=== PATIENT | female | born 1985 | race Caucasian/White ===

== ENCOUNTER 2017-01-30 15:02 | Emergency (ER) | payer OTHER, SELFPAY | END 2017-01-30 17:35 | disposition home or self-care (01) | PROVIDERS: Emergency Provider Emergency Medicine; Family Provider Family Medicine; Visit Provider Emergency Medicine | DX: R10.9 Unspecified abdominal pain (principal); R31.9 Hematuria, unspecified; Z87.442 Personal history of urinary calculi | CPT/HCPCS: 80053; 81001; 85025; 87086; 96365; 96367; 96375; 99284; J1956; J2405 ==

== ENCOUNTER 2017-11-07 11:04 | Observation (INO) ==
[2017-11-07 11:31] LABS: Basophils % 0.4 % (0.1-2.0); Eosinophils # 0.1 K/mm3 (0.0-0.4); Eosinophils % 0.8 % (0.1-12.0); Hematocrit 44.1 % (37.0-47.0); Hemoglobin 14.9 g/dL (12.2-16.2); Lymphocytes % 25.8 K/mm3 (10-50); Mean Corpuscular HGB Conc 33.8 g/dL (31.8-35.4); Mean Corpuscular Volume 85.7 fl (81-99); Mean Platelet Volume 6.6 fl (7.4-10.4); Monocytes # 0.3 K/mm3 (0.1-1.0); Monocytes % 4.5 % (1.7-9.3); Neutrophils # 5.2 K/mm3 (1.8-7.8); Neutrophils % 68.5 % (37.0-80.0); Platelet Count 248 K/mm3 (142-424); Red Blood Count 5.15 M/mm3 (4.20-5.40); Red Cell Distribution Width 12.3 % (11.5-17.5); White Blood Count 7.6 K/mm3 (4.8-10.8)
[2017-11-07 11:43] LABS: Albumin Level 3.8 gm/dL (3.4-5.0); Anion Gap 11.9 mEq/L (5-15); Bilirubin,Total 0.9 mg/dL (0.2-1.0); Calcium 8.8 mg/dL (8.5-10.1); Globulin 3.9 gm/dl (1.3-3.2); Potassium 3.9 mmoL/L (3.5-5.1); Total Protein,Serum 7.7 gm/dL (6.4-8.2)
[2017-11-07 11:52] LABS: Microscopic, Urine URINE MICROSCOPIC (MICROSCOPIC)
[2017-11-07 11:55] LABS: Appearance,Urine CLEAR (Clear); Bilirubin,Urine Negative (Negative); Blood, Urine 2+ (Negative); Color,Urine DK YELLOW (Yellow); Glucose,Urine (UA) Negative (Negative); Ketones,Urine Negative (Negative); Leukocyte Esterase,Urine 1+ (Negative); Protein,Urine Negative (Negative); Urobilinogen,Urine 0.2 EU/dl (0.2)
[2017-11-07 12:06] LABS: WBC,Urine 20-50 #/hpf (0-3)
[2017-11-07 12:07] LABS: Bacteria,Urine Trace /lpf; RBC,Urine Occasional #/hpf (0-3)
[2017-11-07 12:29] LABS: Amylase 37 U/L (25-125); Lipase 124 u/L (73-393)
--- NOTE | 2017-11-07 13:39 | Emergency Department Note ---
ED Disposition Clinical Impression: UTI (urinary tract infection) Qualifiers: Urinary tract infection type: site unspecified Hematuria presence: with hematuria Qualified Code(s): N39.0 - Urinary tract infection, site not specified; R31.9 - Hematuria, unspecified Disposition: Admitted as Observation Condition on Discharge: Good Instructions: DI for Acute Abdomen - Critical Care Critical Care Time: No Attestation: On 11/07/17, the high probability of a clinically significant, sudden or life threatening deterioration of the following system(s) required my full and direct attention, intervention and personal management. The time I documented below is in addition to time spent performing reported procedures but includes the following listed in this critical care notation. Medical Decision Making - Medical Records Medical records reviewed: Yes: I reviewed the patient's medical records. - Royce Inquiry Pt receiving controlled substance: No Vital Signs: 11/07/17 11:11 11/07/17 13:03 Temperature 98.0 F Temperature Source Oral Pulse Rate [Left Radial] 124 H 106 H Respiratory Rate 20 20 Blood Pressure [Right Arm] 152/90 134/77 Blood Pressure Mean [Right Arm] 110 96 Blood Pressure Source [Right Arm] Automatic Cuff Automatic Cuff Blood Pressure Position [Right Arm] Sitting Sitting 02 Sat by Pulse Oximetry 96 97 - Lab Data Lab results reviewed: Yes: I reviewed the patient's lab results. Lab Results 11/07/17 11:20: WBC 7.6, RBC 5.15, Hgb 14.9, Hct 44.1, MCV 85.7, MCH 29.0, MCHC 33.8, RDW 12.3, Plt Count 248, MPV 6.6 L, Neut % (Auto) 68.5, Lymph % (Auto) 25.8, [place] % (Auto) 4.5, Eos % (Auto) 0.8, Baso % (Auto) 0.4, Neut # (Auto) 5.2, Lymph # (Auto) 2.0, [place] # (Auto) 0.3, Eos # (Auto) 0.1, Baso # (Auto) 0.0 11/07/17 11:20: Sodium 141, Potassium 3.9, Chloride 105, Carbon Dioxide 28, Anion Gap 11.9, BUN 6 L, Creatinine 0.92, Estimated Creat Clear 136, Estimated GFR 70, Est GFR ( Amer) 85, Glucose 161 H, Calcium 8.8, Total Bilirubin 0.9, AST 277 H, ALT 202 H, Alkaline Phosphatase 95, Total Protein 7.7, Albumin 3.8, Globulin 3.9 H, Albumin/Globulin Ratio 1.0 L 11/07/17 11:20: Lactate 1.9 11/07/17 11:20: Amylase 37, Lipase 124 11/07/17 11:48: Urine Color Dk yellow, Urine Appearance Clear, Urine pH 6.0, Ur Specific [place] 1.010, Urine Protein Negative, Urine Glucose (UA) Negative, Urine Ketones Negative, Urine Blood 2+, Urine Nitrate Positive, Urine Bilirubin Negative, Urine Urobilinogen 0.2, Ur Leukocyte Esterase 1+ A, Urine RBC Occasional, Urine WBC 20-50, Ur Squamous Epith Cells 10-20, Urine Bacteria Trace Result diagrams: 11/07/17 11:20 11/07/17 11:20 Orders (Tests/Meds): ED MEDICATIONS Discontinued Medications Generic Name Dose Route Start Last Admin Trade Name Freq PRN Reason Stop Dose Admin Sodium Chloride 1,000 mls @ 999 mls/hr 11/07/17 11:30 11/07/17 11:24 Sod Chlor 0.9% 1000ml Bag IV 11/07/17 12:30 999 mls/hr .Q1H1M IRMA Administration Ketorolac Tromethamine 30 mg 11/07/17 11:18 11/07/17 11:24 Toradol 30mg/Ml Vial IV 11/07/17 11:19 30 mg ONCE ONE Administration Morphine Sulfate 2 mg 11/07/17 12:49 11/07/17 13:00 Morphine 2mg/Ml Syringe IV 11/07/17 12:50 2 mg ONCE ONE Administration Ondansetron HCl 4 mg 11/07/17 11:18 11/07/17 11:24 Zofran 4mg/2ml Vial IV 11/07/17 11:19 4 mg ONCE ONE Administration ORDERS Category Date Time Status CT abdomen pelvis wo con Stat Cat Scan 11/07/17 11:18 Taken Urinalysis and Microscopic Stat Lab 11/07/17 11:48 Ordered Blood Culture Stat Micro 11/07/17 11:20 Received Urine Culture Stat Micro 11/07/17 11:48 Received - CT Data CT Scan: Abdomen, Pelvis Time Received: 13:[address] Reviewed: Yes: I have viewed the radiologist's interpretation Preliminary Findings: Normal/NAD Female Urogenital HPI - General Chief complaint: Abdominal Pain Stated complaint: Possible UTI Time Seen by Provider: 11/07/17 13:30 Mode of Arrival: Ambulatory Source of Information: Patient, Medical Record Limitations: No Limitations Description of Symptoms (Recalled from ER Triage Doc. by RN): Pt was seen at [facility] ER and was told she had a UTI, they wanted to admit her but she refused admission since she lived 2 hour away, she was to fu with her PCP this morning who sent her over for further evaluation and possible admission. States she is having abdomen pain and is unable to urinate alot today - History of Present Illness HPI Narrative: pt with recent cystoscopy this and thursday had gross hematuria and was seen at [facility] and placed on abx but has continued to have pain and chills - MD Complaint: dysuria, "UTI" Onset (ago): day(s) Location: suprapubic Severity: moderate Urinary Symptoms: dysuria, hematuria : no Associated symptoms: denies other symptoms - Related Data Home Medications Medication Instructions Recorded Confirmed Escitalopram Oxalate [Lexapro] 10 mg PO DAILY 11/07/17 11/07/17 Allergies Allergy/AdvReac Type Severity Reaction Status Date / Time acetaminophen [From [facility]CO] Allergy Mild Verified 11/07/17 11:24 hydrocodone [From [facility]CO] Allergy Mild Verified 11/07/17 11:24 [facility] History I have reviewed the patient's past medical history: Yes Medical History: Reports:: Kidney Stones, Urinary Tract Infection Other Surgeries: Yes: Appendectomy, Cholecystectomy, Hysterectomy-Total, Tubal Ligation Amputation: No Fractures: No - Social History Smoking Status: Never smoker Alcohol Intake: current Alcohol Intake Frequency:: holidays/special occasions only - Psychiatric History Expresses thoughts of harming self/others: None Suicide Plan Description: No Plan ROS Obtained: Yes All systems reviewed & no additional complaints - Constitutional Constitutional: Reports chills - Eyes Eyes: Denies change in vision - ENT Ears, Nose, Mouth, and Throat: Denies sore throat - Cardiovascular Cardiovascular: Denies chest pain at rest - Respiratory Respiratory: No cough - Gastrointestinal Gastrointestingal: Denies: abdominal pain - Genitourinary Male Genitourinary: Reports urinary incontinence Female Genitourinary: Reports flank pain, Reports hematuria, Reports urinary frequency, Reports urinary urgency - Musculoskeletal Musculoskeletal: Denies joint pain - Integumentary/Breasts Skin/Breast: Denies rash - Neurologic Neurologic: Denies seizure-like activity Physical Exam - General General appearance: alert - Head Head exam: normocephalic - Eye Eye exam: Present: PERRL, EOMI - ENT ENT exam: Present: mucous membranes moist - Neck Neck exam: Present: trachea midline - Respiratory Respiratory exam: Absent: respiratory distress - Cardiovascular Cardiovascular exam: Present: regular rate - Abdominal Exam Abdominal exam: Present: soft - Extremities Exam Extremities exam: Present: full ROM - Back Exam Back exam: Absent: CVA tenderness (R) - Neurological Exam Neurological exam: Present: alert, oriented X3, CN II-XII intact - Psychiatric Psychiatric exam: Present: normal affect - Skin Skin exam: Absent: rash
[2017-11-08 07:09] LABS: Basophils % 0.5 % (0.1-2.0); Eosinophils # 0.1 K/mm3 (0.0-0.4); Eosinophils % 2.5 % (0.1-12.0); Hematocrit 36.5 % (37.0-47.0); Lymphocytes # 1.7 K/mm3 (0.7-4.5); Lymphocytes % 30.8 K/mm3 (10-50); Mean Corpuscular HGB Conc 33.4 g/dL (31.8-35.4); Mean Corpuscular Hemoglobin 28.9 pg (27.0-31.2); Mean Corpuscular Volume 86.6 fl (81-99); Mean Platelet Volume 6.7 fl (7.4-10.4); Monocytes # 0.4 K/mm3 (0.1-1.0); Monocytes % 6.8 % (1.7-9.3); Neutrophils # 3.2 K/mm3 (1.8-7.8); Neutrophils % 59.3 % (37.0-80.0); Platelet Count 202 K/mm3 (142-424); Red Blood Count 4.21 M/mm3 (4.20-5.40); Red Cell Distribution Width 12.4 % (11.5-17.5); White Blood Count 5.4 K/mm3 (4.8-10.8)
[2017-11-08 07:12] LABS: Hemoglobin 12.2 g/dL (12.2-16.2)
[2017-11-08 07:26] LABS: Anion Gap 7.8 mEq/L (5-15); Calcium 7.9 mg/dL (8.5-10.1); Potassium 3.8 mmoL/L (3.5-5.1)
[2017-11-08 15:08] LABS: Hepatitis B Core Antibody IgM Negative (Negative); Hepatitis B Surface Antigen Negative (Negative)
[2017-11-08 18:34] LABS: Hepatitis C Antibody <0.1 s/co ratio (0.0-0.9)
== END 2017-11-08 12:30 | disposition home or self-care (01) ==
LOC: 2ND 11:04 → ER 11:04 → 2ND 14:15
PROVIDERS: ADMIT Emergency Medicine; ATTEND Family Medicine

== ENCOUNTER → 2017-12-03 09:52 | Outpatient (CLI) | payer OTHER, SELFPAY ==
--- NOTE | 2017-12-03 09:56 | FL_ITS ---
FL voiding cystourethrogram CLINICAL INDICATION: Recurrent urinary tract infections, right flank pain ITS.REASON: right flank pain with voiding ORDERING PHYSICIAN: Gaston Cardoza MD PATIENT AGE: 32 years Comparison: None Fluoroscopy time: 1 minute and 15 seconds FINDINGS: Guest Services Associate exam is unremarkable. 175 mL's of Isovue 200 was instilled into the urinary bladder via Thompson catheter. Initial bladder images are unremarkable. Voiding images are obtained showing no evidence of vesicoureteral reflux. There are however, small bilateral bladder diverticula noted with voiding along the lateral aspect of the urinary bladder. There was complete emptying of the urinary bladder with no postvoid residual apparent. IMPRESSION: 1. No evidence of vesicoureteral reflux. 2. Small bilateral bladder diverticula noted with voiding
== END ==
PROVIDERS: Family Provider Family Medicine; PCP Family Medicine; Visit Provider Urology
DX: R10.9 Unspecified abdominal pain (principal); N39.0 Urinary tract infection, site not specified
CPT/HCPCS: 74455; Q9966

== ENCOUNTER → 2018-07-02 12:45 | Outpatient (CLI) | payer OTHER, SELFPAY ==
--- NOTE | 2018-07-02 12:51 | CT_ITS ---
CT facial bones w con CLINICAL INDICATION: ITS.REASON: CELLULITUS OF FACE, LYMPHADENITIS right-sided facial swelling ORDERING PHYSICIAN: Wolfgang Cunningham MD PATIENT AGE: 32 years COMPARISON: None TECHNIQUE:Axial images obtained following the intravenous administration of 75 mL's Optiray 350 with sagittal and coronal reformats. All CT scans at the facility use one or more dose reduction, viz: automated exposure control, ma/kV adjustment per patient size (including targeted exams where dose is matched to indication, i.e. head), or iterative reconstruction technique. FINDINGS: No enlarged lymph nodes abscess or abnormal fluid collection is evident. There are few scattered small nodes in the neck on both sides. The thyroid gland, parotid and submandibular glands are unremarkable. No enhancing lesions are evident. Lung apices are clear. No evidence of sialolith IMPRESSION: Negative CT of the face
--- NOTE | 2018-07-02 12:51 | CT_ITS ---
CT soft tissue neck w con CLINICAL INDICATION: ITS.REASON: CELLULITUS OF FACE, LYMPHADENITIS ORDERING PHYSICIAN: Wolfgang Cunningham MD PATIENT AGE: 32 years COMPARISON: None TECHNIQUE:Axial images obtained following the intravenous administration of 75 mL's of Optiray 350 with sagittal and coronal reformats. All CT scans at the facility use one or more dose reduction, viz: automated exposure control, ma/kV adjustment per patient size (including targeted exams where dose is matched to indication, i.e. head), or iterative reconstruction technique. FINDINGS: No adenopathy mass abnormal fluid collection or abscess. Unremarkable thyroid gland. There are scattered small nodes in the neck no dominant adenopathy. The nasopharynx and oropharynx are unremarkable. The laryngeal region has an unremarkable appearance. The parotid and submandibular glands are unremarkable. Small nodes are present in the neck. No sinus air-fluid level or mastoid effusion. The globes have an unremarkable appearance. IMPRESSION: Essentially negative CT of the neck
== END ==
LOC: RAD 12:46
PROVIDERS: PCP Family Medicine; Visit Provider Family Medicine
DX: L03.211 Cellulitis of face (principal); L04.9 Acute lymphadenitis, unspecified; H57.89 Other specified disorders of eye and adnexa
CPT/HCPCS: 70487; 70491; Q9967

== ENCOUNTER 2019-07-14 18:32 | Emergency (ER) | payer BC, SELFPAY ==
--- NOTE | 2019-07-14 19:05 | HMH.EDUTC ---
[facility] [place] Condition [place]: Good <Severo Hess - Last Filed: 07/14/19 20:50> <Harvey Barone - Last Filed: 07/14/19 21:14> Clinical Impression: Flank pain, acute UTI (urinary tract infection) Qualifiers: Urinary tract infection type: site unspecified Hematuria presence: without hematuria Qualified Code(s): N39.0 - Urinary tract infection, site not specified Disposition: Home, Self-Care Instructions: DI for Acute Abdomen Additional Instructions: call pcp for follow up and urine culture results Prescriptions: levoFLOXacin [Levaquin 500mg tab] 500 mg PO DAILY #7 tab Transmission Status: Received by [facility] #[id number] Referrals: Wolfgang Cunningham MD [Primary Care Provider] - Medical Decision Making - Medical Records Medical records reviewed: Yes: I reviewed the patient's medical records. - Royce Inquiry Pt receiving controlled substance: No - Lab Data Lab results reviewed: Yes: I reviewed the patient's lab results. Result diagrams: 07/14/19 18:25 07/14/19 18:25 - CT Data CT Scan: Abdomen, Pelvis Time Received: 20:[address] Reviewed: Yes: I have viewed the radiologist's interpretation Preliminary Findings: Abnormal (lt cyst ) <Severo Hess - Last Filed: 07/14/19 20:50> - Medical Records Medical records reviewed: Yes: I reviewed the patient's medical records. - Royce Inquiry Pt receiving controlled substance: No - Lab Data Lab results reviewed: Yes: I reviewed the patient's lab results. Result diagrams: 07/14/19 18:25 07/14/19 18:25 <Harvey Barone - Last Filed: 07/14/19 21:14> Vital Signs: 07/14/19 19:17 07/14/19 19:38 07/14/19 20:18 Temperature 98.0 F 98.4 F Temperature Source Oral Oral Pulse Rate Pulse Rate [Right Brachial] 105 H 99 H 95 H Respiratory Rate 20 16 16 Blood Pressure Blood Pressure [Right Arm] 145/88 H 157/88 H 136/86 Blood Pressure Mean [Right Arm] 107 111 102 Blood Pressure Source Blood Pressure Source [Right Arm] Automatic Cuff Automatic Cuff Blood Pressure Position Blood Pressure Position [Right Arm] Sitting Supine 02 Sat by Pulse Oximetry 99 99 99 Oxygen Delivery Method Room Air Room Air Room Air 07/14/19 20:32 07/14/19 21:08 Temperature 98.8 F Temperature Source Oral Pulse Rate 91 H Pulse Rate [Right Brachial] 93 H Respiratory Rate 14 16 Blood Pressure 141/82 H Blood Pressure [Right Arm] 137/88 Blood Pressure Mean [Right Arm] 104 Blood Pressure Source Automatic Cuff Blood Pressure Source [Right Arm] Automatic Cuff Blood Pressure Position Sitting Blood Pressure Position [Right Arm] Sitting 02 Sat by Pulse Oximetry 99 Oxygen Delivery Method Room Air Room Air - Lab Data Lab Results 07/14/19 18:25: WBC 13.6 H, RBC 5.04, Hgb 15.1, Hct 42.4, MCV 84.1, MCH 30.0, MCHC 35.6 H, RDW 12.6, Plt Count 261, MPV 7.5, Neut % (Auto) 70.9, Lymph % (Auto) 23.3, [place] % (Auto) 4.1, Eos % (Auto) 0.4, Baso % (Auto) 1.3, Neut # (Auto) 9.6 H, Lymph # (Auto) 3.2, [place] # (Auto) 0.6, Eos # (Auto) 0.1, Baso # (Auto) 0.2, ESR 12 07/14/19 18:25: Sodium 139, Potassium 3.8, Chloride 100, Carbon Dioxide 29, Anion Gap 13.8, BUN 17, Creatinine 0.80, Estimated Creat Clear 155, Estimated GFR 82, Est GFR ( Amer) 99, Glucose 89, Calcium 9.7, Total Bilirubin 0.7, AST 24, ALT 26, Alkaline Phosphatase 81, C-Reactive Protein 6.6 H, Total Protein 8.4 H, Albumin 4.8, Globulin 3.6 H, Albumin/Globulin Ratio 1.3, Amylase 77, Lipase 100 07/14/19 19:00: Urine Color Yellow, Urine Appearance Clear, Urine pH 6.0, Ur Specific [place] <= 1.005, Urine Protein Negative, Urine Glucose (UA) Negative, Urine Ketones Negative, Urine Blood 1+, Urine Nitrate Negative, Urine Bilirubin Negative, Urine Urobilinogen 0.2, Ur Leukocyte Esterase 1+ A, Urine RBC Occasional, Urine WBC 5-10, Ur Squamous Epith Cells Occasional, Ur Renal Epithelial Cell 3-5, Urine Bacteria Trace 07/14/19 19:22: Urine Color Yellow, Urine Appearance Clear, Urine pH 6.5, Ur Specific [place]
[2019-07-14 19:17] VITALS: BP 145/88; PULSE 105; RESP 20; TEMP 36.7; O2SAT 99; BMI 37.8
--- NOTE | 2019-07-14 19:23 | PC.NURSE ---
PATIENT SENT TO ER PER RAMON CARBALLO APRN FOR FURTHER EVALUATION FOR POSSIBLE KIDNEY STONE
[2019-07-14 19:29] LABS: Apearance,Urine Clear (Clear); Bilirubin,Urine Negative (Negative); Blood, Urine 1+ (Negative); Color,Urine Yellow (Yellow); Glucose,Urine (UA) Negative (Negative); Ketones,Urine Negative (Negative); PH,Urine 6.5 (5.0-8.5); Protein,Urine Negative (Negative); UTC Leukocyte Esterase,Urine 1+ (Negative); UTC Nitrate,Urine Negative (Negative); Urobilinogen,Urine 0.2 EU/dl (0.2)
[2019-07-14 19:38] VITALS: BP 157/88; PULSE 99; RESP 16; TEMP 36.9; O2SAT 99; BMI 37.8
[2019-07-14 19:47] LABS: Chloride 100 mmol/L (98-107)
[2019-07-14 19:48] LABS: Basophils # 0.2 K/mm3 (0-0.2); Basophils % 1.3 % (0.1-2.0); Eosinophils # 0.1 K/mm3 (0.0-0.4); Eosinophils % 0.4 % (0.1-12.0); Hematocrit 42.4 % (37.0-47.0); Hemoglobin 15.1 g/dL (12.2-16.2); Lymphocytes # 3.2 K/mm3 (0.7-4.5); Lymphocytes % 23.3 % (10-50); Mean Corpuscular HGB Conc 35.6 g/dL (31.8-35.4); Mean Corpuscular Volume 84.1 fl (81-99); Mean Platelet Volume 7.5 fl (7.4-10.4); Monocytes # 0.6 K/mm3 (0.1-1.0); Monocytes % 4.1 % (1.7-9.3); Neutrophils # 9.6 K/mm3 (1.8-7.8); Neutrophils % 70.9 % (37.0-80.0); Platelet Count 261 K/mm3 (142-424); Potassium 3.8 mmoL/L (3.5-5.1); Red Blood Count 5.04 M/mm3 (4.20-5.40); Red Cell Distribution Width 12.6 % (11.5-17.5); Sodium 139 mmol/L (136-145); White Blood Count 13.6 K/mm3 (4.8-10.8)
[2019-07-14 19:50] LABS: Alanine Aminotransferase 26 U/L (12-78); Alkaline Phosphatase 81 U/L (38-126); Amylase 77 U/L (30-110); Anion Gap 13.8 mEq/L (5-15); Aspartate Amino Transferase 24 U/L (14-36); Bilirubin,Total 0.7 mg/dl (0.2-1.3); Blood Urea Nitrogen 17 mg/dl (7-17); Calcium 9.7 mg/dl (8.4-10.2); Carbon Dioxide 29 mmol/L (22.0-30.0); Creatinine Clearance Estimated 155 mL/min (50-200); Estimated Glomerular Filt Rate 82 ml/min (>60); GFR (African American) 99 ML/MIN (>60); Glucose 89 mg/dl (74-100)
[2019-07-14 19:51] LABS: Albumin Level 4.8 g/dl (3.5-5.0); Albumin/Globulin Ratio 1.3 (1.1-1.8); Globulin 3.6 g/dL (1.3-3.2); Lipase 100 U/L (23-300); Total Protein,Serum 8.4 g/dl (6.3-8.2)
--- NOTE | 2019-07-14 19:54 | CT_ITS ---
PROCEDURE: CT ABDOMEN PELVIS WO CON CLINICAL INDICATION: right flank pain Right flank pain Right-sided abdominal pain, mid abdominal pain COMPARISON: ABDPELWO CT abdomen pelvis wo con from 11/07/2017 TECHNIQUE: Axial images obtained with sagittal and coronal reformats. All CT scans at the facility use one or more dose reduction, viz: automated exposure control, ma/kV adjustment per patient size (including targeted exams where dose is matched to indication, i.e. head), or iterative reconstruction technique. FINDINGS: LOWER THORAX: There is a stable 8 mm nodule in the right lower lobe medially. ABDOMEN & PELVIS: The liver, spleen, adrenal glands, the and pancreas have an unremarkable unenhanced appearance. No renal or ureteral calculi. No intestinal obstruction or free air. No evidence of appendicitis or diverticulitis. There are post hysterectomy changes. There is a 2.6 cm left ovarian cyst. No acute bony anomaly. IMPRESSION: 1. No acute abdominal or pelvic findings. 2. 2.6 cm left ovarian cyst 3. Stable 8 mm right lower lobe nodule Dictated by: Dominic Corcoran MD 07/15/2019 06:26 Electronically signed by Dominic Corcoran MD in [place] 07/15/2019 06:26
[2019-07-14 19:57] LABS: C-Reactive Protein 6.6 mg/L (0-4)
[2019-07-14 20:15] LABS: Erythrocyte Sedimentation Rate 12 mm/hr (0-20)
[2019-07-14 20:18] VITALS: BP 136/86; PULSE 95; RESP 16; O2SAT 99
[2019-07-14 20:32] VITALS: BP 137/88; PULSE 93; RESP 14; O2SAT 99
[2019-07-14 20:51] LABS: Appearance,Urine CLEAR (Clear); Bilirubin,Urine Negative (Negative); Blood, Urine 1+ (Negative); Color,Urine YELLOW (Yellow); Glucose,Urine (UA) Negative (Negative); Ketones,Urine Negative (Negative); Leukocyte Esterase,Urine 1+ (Negative); Microscopic, Urine URINE MICROSCOPIC (MICROSCOPIC); Nitrate,Urine Negative (Negative); Protein,Urine Negative (Negative); Specific Gravity, Urine <= 1.005 (1.005-1.030); Urobilinogen,Urine 0.2 EU/dl (0.2)
[2019-07-14 21:02] LABS: Bacteria,Urine Trace /lpf; RBC,Urine Occasional #/hpf (0-3); Squamous Epithelial Cell,Urine Occasional #/hpf (0-5)
[2019-07-14 21:08] VITALS: BP 141/82; PULSE 91; RESP 16; TEMP 37.1; O2SAT 99
== END 2019-07-14 21:09 | disposition home or self-care (01) ==
LOC: UTC 18:37 → ER 19:28
PROVIDERS: Emergency Medicine; Nurse Practitioner Family; Emergency Provider Family Medicine; PCP Family Medicine
DX: N30.00 Acute cystitis without hematuria (principal)
CPT/HCPCS: 74176; 80053; 81001; 81003; 82150; 83690; 85025; 85651; 86140; 87086; 87088; 87186; 96365; 96375; 99284; J2405

== ENCOUNTER → 2019-10-03 11:36 | Outpatient (CLI) | payer BC, SELFPAY | PROVIDERS: PCP Family Medicine; Visit Provider Family Medicine | DX: Z03.818 Encounter for observation for suspected exposure to other biological agents ruled out (principal) | CPT/HCPCS: U0003 ==

== ENCOUNTER → 2019-12-12 08:57 | Outpatient (CLI) | payer BC, SELFPAY | PROVIDERS: PCP Family Medicine; Visit Provider Family Medicine | DX: I49.9 Cardiac arrhythmia, unspecified (principal); G45.9 Transient cerebral ischemic attack, unspecified; I10 Essential (primary) hypertension | CPT/HCPCS: 93270 ==

== ENCOUNTER → 2019-12-20 13:32 | Outpatient (CLI) | payer BC, SELFPAY ==
--- NOTE | 2019-12-20 13:37 | CA_ITS ---
APPROVED REPORT EXAM: Comprehensive 2D, Doppler, and color-flow Echocardiogram Scientific Software Engineer: Shabnam Mcbride RVT Ht: 5 ft 5 in Wt: 234lbs BSA: 2.11 BP: 140/80 mmHg Indications: TIA,CARDIAC ARRHYTHMIA 2D Dimensions LVOT 2.12 cm (M/F) 1.5-2.5 M-Mode Dimensions RVDd 2.45 cm (0.9-2.6) LA Diam 3.87 cm (1.9-4.0) LVDd 5.12 cm (3.5-5.7) Ao Diam 2.62 cm (2.0-3.7) LVDs 3.44 cm (3.5-5.7) IVSd 0.61 cm (0.6-1.1) PWd 0.59 cm (0.6-1.1) EF (Teich) 60.90% FS 32.80% EDV (Teich) 124.90 mL ESV (Teich) 48.80 mL LV Diastology E Decel Time 150.00 (160-240 msec) E/A Ratio 1.3 MED E' 10.00 (< 7 cm/sec) E'/MED E' Ratio 8.76 (>14) LAT E' 14.90 (<10 cm/sec) E/LAT E' Ratio 5.88 (>14) Mitral Valve MV E Max Loi. 88.00 (40-130 cm/s) MV A Velocity 70.00 (40-130 cm/s) E/A Ratio 1.25 MV Decel. Time 150.00 (160-240 ms) MV PHT 44.00 ms Pulmonary Valve PV Peak Velocity 71.00 (50-150 cm/s) Left Ventricle Left atrium is normal size, left ventricle is normal size, there is no concentric left ventricular hypertrophy, visually estimated ejection fraction 55% with no regional wall motion abnormality, diastolic parameters are within normal range. Right Ventricle Right atrium and right ventricle are normal size and contractility. Aortic Valve Aortic valve is normal, there is no aortic stenosis or aortic insufficiency. Mitral Valve Mitral valve is grossly normal, there is trace mitral regurgitation. Tricuspid Valve Tricuspid valve is grossly normal, there is trace tricuspid regurgitation, tricuspid regurgitation jet velocity is inadequate for calculation of the right ventricular systolic pressure. Pulmonic Valve Pulmonic valve is poorly visualized. Great Vessels Aortic root is normal size. Pericardium No significant pericardial effusion noted. Conclusion 1. Normal left ventricular size, preserved left ventricular systolic function, visually estimated ejection fraction 55% with no regional wall motion abnormality, diastolic parameters are within normal range. 2. Trace mitral and tricuspid regurgitation. 3. No significant pericardial effusion noted. Electronically signed by : Sathish Stein, 12/21/2019 06:13:39
--- NOTE | 2019-12-20 13:37 | CA_ITS ---
APPROVED REPORT Chief Of Field Operations: Shabnam Mcbride RVT Laterality: Bilateral Study Quality: Excellent Indications: TIA Doppler Spectral Velocity Analysis ECA (R) 96.20/11.80 cm/s ECA (L) 96.20/17.10 cm/s dICA (R) 106.90/46.00 cm/s dICA (L) 82.30/36.40 cm/s Senthil (R) 104.80/41.70 cm/s Senthil (L) 75.90/37.40 cm/s pICA (R) 90.90/32.10 cm/s pICA (L) 87.70/31.00 cm/s dCCA (R) 84.50/25.70 cm/s dCCA (L) 73.80/26.70 cm/s pCCA (R) 114.40/23.50 cm/s pCCA (L) 75.90/21.40 cm/s Vert (R) 52.40/19.20 cm/s Vert (L) 47.00/20.30 cm/s ICA/CCA 1.27 ICA/CCA 1.19 Findings Study suggests no evidence of stenosis of the right internal cartoid artery. Study suggests no evidence of stenosis of the left internal cartoid artery. Antegrade flow seen bilateral vertebral arteries. Conclusion Study suggests no evidence of stenosis of the right internal cartoid artery. Study suggests no evidence of stenosis of the left internal cartoid artery. Antegrade flow seen bilateral vertebral arteries. Electronically signed by : Dominic Corcoran MD 12/21/2019 16:18:52
== END ==
LOC: RT 13:33
PROVIDERS: PCP Family Medicine; Visit Provider Family Medicine
DX: G45.9 Transient cerebral ischemic attack, unspecified (principal); I49.9 Cardiac arrhythmia, unspecified; I10 Essential (primary) hypertension
CPT/HCPCS: 93306; 93880

== ENCOUNTER → 2021-01-11 09:32 | Outpatient (CLI) | payer OTHER, SELFPAY | PROVIDERS: Visit Provider Specialist | DX: Z20.822 Contact with and (suspected) exposure to COVID-19 (principal) | CPT/HCPCS: C9803; U0003; U0005 ==

== ENCOUNTER 2021-01-12 09:58 | Emergency (ER) | payer OTHER, SELFPAY ==
[2021-01-12 11:00] VITALS: BP 151/91; PULSE 102; RESP 21; TEMP 36.6; O2SAT 100; BMI 39.1
[2021-01-12 11:24] LABS: UTC Strep Screen (Rapid) Negative (Negative)
--- NOTE | 2021-01-12 11:49 | HMH.EDUTC ---
[facility] – [place], [place] Disposition Clinical Impression: Sinusitis Qualifiers: Sinusitis location: unspecified location Chronicity: unspecified Qualified Code(s): J32.9 - Chronic sinusitis, unspecified Disposition: Home, Self-Care Condition on Discharge: Good Instructions: Sore Throat, Sinusitis, Sinus Headache, DI for Sinusitis Additional Instructions: *Monitor Temp, Over the counter Motrin or Tylenol as directed/as needed Tylenol every 4 hours and Motrin every 6 hours (as long as your family doctor has told you that you can take it) for fever or pain. and straight to ER if unable to lower temp less than 101.0 after medication given *Warm salt water gargles may help to soothe the throat *Throat Lozenges *Warm fluids like tea with honey may help to soothe the throat *Sleep elevated *Humidifier/Vaporizer Your throat swab was sent for culture. Those results are typically sent to your primary care. Be sure to follow up in 2-3 days with your family doctor/primary care physician if no improvement so they can review those result and treat if necessary. If you don?t have a primary care doctor, I recommend you get one but in the mean time, you will have to return to a walk in clinic Follow up IMMEDIATELY for new or worsening symptoms or no Noticeable improvement over the next 48-72 hours. 911 for difficulty breathing or swallowing Prescriptions: Amoxicillin/Potassium Clav [Augmentin 875-125 Tablet] 1 tab PO Q12H 7 Days #14 tab Transmission Status: Pending to [facility] # methylPREDNISolone [Medrol 4mg tab] 4 mg PO DIRECTED #21 tab Transmission Status: Pending to [facility] # Referrals: Wolfgang Cunningham MD [Primary Care Provider] - As needed Time of Disposition: 12:09 Medical Decision Making - Royce Inquiry Pt receiving controlled substance: No Royce was queried for this patient: No Vital Signs: 01/12/21 11:00 Temperature 97.8 F Temperature Source Oral Pulse Rate [Right Brachial] 102 H Respiratory Rate 21 Blood Pressure [Right Arm] 151/91 H Blood Pressure Mean [Right Arm] 111 Blood Pressure Source [Right Arm] Automatic Cuff Blood Pressure Position [Right Arm] Sitting 02 Sat by Pulse Oximetry 100 Oxygen Delivery Method Room Air - Lab Data Lab results reviewed: Yes: I reviewed the patient's lab results. Lab Results 01/12/21 11:12: Strep Scn Rapid Clinic Negative Orders (Tests/Meds): ORDERS Category Date Time Status Strep Screen Confirmation Stat Micro 01/12/21 11:12 Received [facility] – [place], [place] HPI - General Stated complaint: sore throat, cough, congestion Time Seen by Provider: 01/12/21 11:49 Mode of Arrival: Ambulatory Source of Information: Patient Limitations: No Limitations Description of Symptoms (Recalled from Triage Doc. by RN): PATIENT C/O SORE THROAT, CONGESTION AND EAR ACHE X 2 DAYS HEENT Symptoms (Recalled from RN notes): Yes Resp Symptoms (Recalled from RN notes): No Skin Symptoms (Recalled from RN notes): No MS Symptoms (Recalled from RN notes): No Functional Status (Recalled from RN notes): WNL - History of Present Illness Provider Complaint: Patient states that he has been having sore throat, sinus congestion and pain in her right ear for over a week State that she was tested for COVID yesterday and it was negative so today she was still having sore throat and sinus pressure so she came in to get checked for strep throat - Related Data Home Medications Medication Instructions Recorded Confirmed Cetirizine HCl [Zyrtec 10mg Tab*] 10 mg PO DAILY 01/12/21 01/12/21 Esomeprazole Magnesium [Nexium 20 mg PO DAILY 01/12/21 01/12/21 24Hr] Mirabegron [Myrbetriq] 50 mg PO DAILY 01/12/21 01/12/21 Venlafaxine HCl [Effexor Xr] 37.5 mg PO DAILY 01/12/21 01/12/21 Previous Rx's Medication Instructions Recorded Amoxicillin/Potassium Clav 1 tab PO Q12H 7 Days #14 tab 01/12/21 [Augmentin 875-125 Tablet] methylPREDNISolone [Medrol 4mg 4 mg PO DIRECTED #21 tab 12/18
[2021-01-12 12:16] VITALS: BP 151/91; PULSE 102; RESP 21; TEMP 36.6; O2SAT 100
== END 2021-01-12 12:20 | disposition home or self-care (01) ==
PROVIDERS: Emergency Provider Nurse Practitioner; PCP Family Medicine
DX: J32.9 Chronic sinusitis, unspecified (principal); K21.9 Gastro-esophageal reflux disease without esophagitis; I10 Essential (primary) hypertension; Z87.442 Personal history of urinary calculi
CPT/HCPCS: 87880; 99202; G0463

== ENCOUNTER 2021-01-24 20:27 | Emergency (ER) | payer OTHER, SELFPAY ==
[2021-01-24 20:45] VITALS: BMI 25.7
--- NOTE | 2021-01-24 20:46 | XR_ITS ---
PROCEDURE INFORMATION: Exam: XR Left Shoulder Exam date and time: 01/24/2021 8:46 PM Age: 35 years old Clinical indication: Pain; Shoulder; Left; Additional info: Pain/injury TECHNIQUE: Imaging protocol: XR Left shoulder. Views: 2 or more views. COMPARISON: CR XR ELBOW LT 2V 01/24/2021 8:50 PM FINDINGS: Bones/joints: Normal. Soft tissues: Normal. IMPRESSION: No acute findings.
--- NOTE | 2021-01-24 20:47 | XR_ITS ---
PROCEDURE INFORMATION: Exam: XR Left Elbow Exam date and time: 01/24/2021 8:47 PM Age: 35 years old Clinical indication: Pain; Elbow; Left; Additional info: Fall/injury TECHNIQUE: Imaging protocol: XR Left elbow. Views: 1 or 2 views. COMPARISON: CR XR HAND LT 2V 01/24/2021 8:48 PM FINDINGS: Bones/joints: Normal. Soft tissues: Normal. IMPRESSION: No acute findings.
--- NOTE | 2021-01-24 20:47 | XR_ITS ---
PROCEDURE INFORMATION: Exam: XR Left Humerus Exam date and time: 01/24/2021 8:47 PM Age: 35 years old Clinical indication: Pain; Upper arm and shoulder; Left; Additional info: Fall/injury TECHNIQUE: Imaging protocol: XR Left humerus. Views: 2 or more views. COMPARISON: CR XR SHOULDER LT MIN 2V 01/24/2021 8:54 PM FINDINGS: Bones/joints: Normal. Soft tissues: Normal. IMPRESSION: No acute findings.
--- NOTE | 2021-01-24 20:48 | XR_ITS ---
PROCEDURE INFORMATION: Exam: XR Left Hand Exam date and time: 01/24/2021 8:48 PM Age: 35 years old Clinical indication: Pain; Hand; Left; Additional info: Fall/injury TECHNIQUE: Imaging protocol: XR Left hand. Views: 1 or 2 views. COMPARISON: No relevant prior studies available. FINDINGS: Bones/joints: Normal. Soft tissues: Normal. IMPRESSION: No acute findings.
[2021-01-24 20:49] VITALS: BP 148/88; PULSE 95; RESP 18; TEMP 36.6; O2SAT 100; BMI 39.4
--- NOTE | 2021-01-24 21:37 | HMH.EDUTC ---
[facility] [place] Disposition Clinical Impression: Left arm pain Fall Qualifiers: Encounter type: initial encounter Qualified Code(s): W19.XXXA - Unspecified fall, initial encounter Sprain of left shoulder Qualifiers: Encounter type: initial encounter Shoulder sprain type: unspecified sprain Qualified Code(s): S43.402A - Unspecified sprain of left shoulder joint, initial encounter Contusion of left upper arm Qualifiers: Encounter type: initial encounter Qualified Code(s): S40.022A - Contusion of left upper arm, initial encounter Disposition: Home, Self-Care Condition on Discharge: Good Instructions: DI for Shoulder Sprain, DI for Shoulder Pain Additional Instructions: Rest the extremity, apply ice for 15 minutes as tolerated three or four times per day. Take ibuprofen for pain. I sent in a prescription to your pharmacy. Follow up with Dr. Hernandez (orthopedics). I put in a referral but you need to call his office and schedule an appointment. Follow up with your regular doctor. GO TO THE ER FOR ANY WORSENING SYMPTOMS Prescriptions: Ibuprofen [Ibuprofen 800mg Tablet] 800 mg PO Q8HP PRN #30 tab PRN Reason: Moderate Pain Transmission Status: Received by [facility] #[id number] Referrals: Wolfgang Cunningham MD [Primary Care Provider] - Abrahan Hernandez MD [Staff Physician] - Forms: Work/School Release Time of Disposition: 21:56 Medical Decision Making - Medical Records Medical records reviewed: No: I reviewed the patient's medical records. - Royce Inquiry Pt receiving controlled substance: No Vital Signs: 01/24/21 20:49 01/24/21 21:55 Temperature 97.8 F 97.8 F Temperature Source Oral Oral Pulse Rate 95 H Pulse Rate [Right Radial] 95 H Respiratory Rate 18 18 Blood Pressure 148/88 H Blood Pressure [Right Arm] 148/88 H Blood Pressure Mean [Right Arm] 108 Blood Pressure Source [Right Arm] Automatic Cuff Blood Pressure Position [Right Arm] Sitting 02 Sat by Pulse Oximetry 100 Oxygen Delivery Method Room Air Room Air Orders (Tests/Meds): ED MEDICATIONS Discontinued Medications Generic Name Dose Route Start Last Admin Trade Name Freq PRN Reason Stop Dose Admin Ibuprofen 800 mg 01/24/21 21:53 01/24/21 21:55 Ibuprofen 400 Mg Tablet PO 01/24/21 21:54 800 mg ONCE ONE Administration [facility] HPI - General Stated complaint: AO [id number] left shoulder pain Time Seen by Provider: 01/24/21 21:37 Mode of Arrival: Ambulatory Source of Information: Patient Limitations: No Limitations Description of Symptoms (Recalled from Triage Doc. by RN): pt to [facility] c/o left shoulder, humerus, elbow and hand pain. pt states she fell and caught her weight with her left arm. 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 She has had left shoulder and left upper arm pain since then. She denies any other injury. - Related Data Home Medications Medication Instructions Recorded Confirmed Cetirizine HCl [Zyrtec 10mg Tab*] 10 mg PO DAILY 01/12/21 01/12/21 Esomeprazole Magnesium [Nexium 20 mg PO DAILY 01/12/21 01/12/21 24Hr] Mirabegron [Myrbetriq] 50 mg PO DAILY 01/12/21 01/12/21 Venlafaxine HCl [Effexor Xr] 37.5 mg PO DAILY 01/12/21 01/12/21 Previous Rx's Medication Instructions Recorded Amoxicillin/Potassium Clav 1 tab PO Q12H 7 Days #14 tab 01/12/21 [Augmentin 875-125 Tablet] methylPREDNISolone [Medrol 4mg 4 mg PO DIRECTED #21 tab 01/12/21 tab] Ibuprofen [Ibuprofen 800mg 800 mg PO Q8HP PRN #30 tab 01/24/21 Tablet] Allergies Allergy/AdvReac Type Severity Reaction Status Date / Time hydrocodone [From NORCO] Allergy Mild Verifie
[2021-01-24 21:55] VITALS: BP 148/88; PULSE 95; RESP 18; TEMP 36.6; O2SAT 100
== END 2021-01-24 21:58 | disposition home or self-care (01) ==
PROVIDERS: Emergency Provider Nurse Practitioner Family; PCP Family Medicine
DX: S60.222A Contusion of left hand, initial encounter (principal); S40.012A Contusion of left shoulder, initial encounter; S50.02XA Contusion of left elbow, initial encounter; W01.0XXA Fall on same level from slipping, tripping and stumbling without subsequent striking against object, initial encounter; Y92.019 Unspecified place in single-family (private) house as the place of occurrence of the external cause; K21.9 Gastro-esophageal reflux disease without esophagitis; I10 Essential (primary) hypertension; Z79.899 Other long term (current) drug therapy
CPT/HCPCS: 73030; 73060; 73070; 73120; 99202; G0463

== ENCOUNTER 2021-07-19 18:20 | Emergency (ER) | payer OTHER, SELFPAY ==
--- NOTE | 2021-07-19 18:34 | HMH.EDUTC ---
[facility] [place] Condition on Discharge: Good <Severo Hess - Last Filed: 07/19/21 23:00> <Harvey Barone - Last Filed: 10/08/21 22:03> Clinical Impression: Pelvic pain Disposition: Home, Self-Care Instructions: DI for Pelvic Pain Additional Instructions: use meds and call pcp and ivory carver for follow up Referrals: Wolfgang Cunningham MD [Primary Care Provider] - Medical Decision Making - Medical Records Medical records reviewed: Yes: I reviewed the patient's medical records. - Royce Inquiry Pt receiving controlled substance: No - Lab Data Lab results reviewed: Yes: I reviewed the patient's lab results. Result diagrams: 07/19/21 21:06 07/19/21 21:06 - CT Data CT Scan: Abdomen, Pelvis Time Received: 23:[address] Reviewed: Yes: I have viewed the radiologist's interpretation Preliminary Findings: Normal/NAD <Severo Hess - Last Filed: 07/19/21 23:00> - Medical Records Medical records reviewed: No: I reviewed the patient's medical records. - Royce Inquiry Pt receiving controlled substance: No - Lab Data Lab results reviewed: Yes: I reviewed the patient's lab results. Result diagrams: 07/19/21 21:06 07/19/21 21:06 <Harvey Barone - Last Filed: 10/08/21 22:03> Vital Signs: 07/19/21 18:43 07/19/21 21:13 07/19/21 23:33 Temperature 97.5 F L 97.5 F L 97.5 F L Temperature Source Oral Oral Oral Pulse Rate 71 Pulse Rate [Left Radial] 91 H 76 Respiratory Rate 18 18 18 Blood Pressure 131/81 Blood Pressure [Right Arm] 138/96 H 137/84 Blood Pressure Mean [Right Arm] 110 101 02 Sat by Pulse Oximetry 97 100 - Lab Data Lab Results 07/19/21 18:53: Urine Color Yellow, Urine Appearance Clear, Urine pH 6.0, Ur Specific Plato 1.020, Urine Protein Negative, Urine Glucose (UA) Negative, Urine Ketones Negative, Urine Blood Negative, Urine Nitrate Negative, Urine Bilirubin Negative, Urine Urobilinogen 0.2, Ur Leukocyte Esterase Negative 07/19/21 21:06: ESR 59 H 07/19/21 21:06: C-Reactive Protein 1.7, Procalcitonin 0.036 07/19/21 21:06: WBC 11.3 H, RBC 5.05, Hgb 14.9, Hct 42.8, MCV 84.8, MCH 29.5, MCHC 34.8, RDW 12.9, Plt Count 291, MPV 8.0, Neut % (Auto) 59.7, Lymph % (Auto) 32.2, Fannin % (Auto) 5.7, Eos % (Auto) 0.9, Baso % (Auto) 1.6, Neut # (Auto) 6.7, Lymph # (Auto) 3.6, Fannin # (Auto) 0.6, Eos # (Auto) 0.1, Baso # (Auto) 0.2 07/19/21 21:06: Sodium 137, Potassium 3.9, Chloride 104, Carbon Dioxide 21 L, Anion Gap 15.9 H, BUN 12, Creatinine 0.80, Estimated Creat Clear 164, Estimated GFR 80, Est GFR ( Amer) 97, Glucose 102 H, Calcium 8.9, Total Bilirubin 0.3, AST 28, ALT 30, Alkaline Phosphatase 67, Total Protein 7.6, Albumin 4.2, Globulin 3.4 H, Albumin/Globulin Ratio 1.2 Orders (Tests/Meds): ED MEDICATIONS Discontinued Medications Generic Name Dose Route Start Last Admin Trade Name Freq PRN Reason Stop Dose Admin Sodium Chloride 1,000 mls @ 999 mls/hr 07/19/21 21:45 07/19/21 21:41 Sod Chlor 0.9% 1000ml Bag IV 07/19/21 22:45 999 mls/hr .Q1H1M IRMA Administration Ketorolac Tromethamine 30 mg 07/19/21 21:36 07/19/21 21:41 Ketorolac 30mg/Ml Vial IV 07/19/21 21:37 30 mg ONCE ONE Administration Phenazopyridine HCl 200 mg 07/19/21 22:59 07/19/21 23:23 Phenazopyridine 200mg Tablet PO 07/19/21 23:00 200 mg ONCE ONE Administration Tramadol HCl 1 packet 07/19/21 22:59 07/19/21 23:23 Tramadol 50mg Tab Take Home Pack (10) PO 07/19/21 23:00 1 packet ONCE ONE Administration Medical Decision Narrative: stable exam with stable labs and urine with nonspecific ct (Severo Hess) [facility] [place] HPI - General Mode of Arrival: Ambulatory Source of Information: Patient, Medical Record Limitations: No Limitations - History of Present Illness Onset (ago): day(s) Location: pelvis Severity: moderate Quality: aching Consistency: intermittent Associated symptoms: denies other symptoms <Severo Hess - Last Filed: 07/19/21 23:00> - Genera
[2021-07-19 18:43] VITALS: BP 138/96; PULSE 91; RESP 18; TEMP 36.4; O2SAT 97; BMI 39.9
[2021-07-19 18:53] LABS: Apearance,Urine Clear (Clear); Color,Urine Yellow (Yellow)
[2021-07-19 18:54] LABS: Bilirubin,Urine Negative (Negative); Blood, Urine Negative (Negative); Glucose,Urine (UA) Negative (Negative); Ketones,Urine Negative (Negative); Protein,Urine Negative (Negative); UTC Leukocyte Esterase,Urine Negative (Negative); UTC Nitrate,Urine Negative (Negative); Urobilinogen,Urine 0.2 EU/dl (0.2)
--- NOTE | 2021-07-19 20:40 | PC.NURSE ---
Pt arrived to ER from [facility]
[2021-07-19 21:13] VITALS: BP 137/84; PULSE 76; RESP 18; TEMP 36.4; O2SAT 100; BMI 39.9
--- NOTE | 2021-07-19 21:16 | CT_ITS ---
PROCEDURE INFORMATION: Exam: CT Abdomen And Pelvis Without Contrast Exam date and time: 07/19/2021 9:39 PM Age: 36 years old Clinical indication: Abdominal pain; Flank; Other: Bilateral; Prior surgery; Surgery date: 6+ months; Surgery type: Gb appendix hysterectomy bladder sling; Additional info: Abd pain TECHNIQUE: Imaging protocol: Computed tomography of the abdomen and pelvis without contrast. Radiation optimization: All CT scans at this facility use at least one of these dose optimization techniques: automated exposure control; mA and/or kV adjustment per patient size (includes targeted exams where dose is matched to clinical indication); or iterative reconstruction. COMPARISON: CT ABDOMEN PELVIS WO CON 07/14/2019 8:03 PM FINDINGS: Lungs: Calcified granuloma at the right lung base. Liver: No contour deforming lesion. Gallbladder and bile ducts: Cholecystectomy. Cholecystectomy. Pancreas: No peripancreatic inflammatory changes. Spleen: No contour deforming lesion. Adrenal glands: No mass. Kidneys and ureters: No hydronephrosis. Stomach and bowel: See Appendix finding. Appendix: The appendix is not identified, but there is no pericecal inflammatory changes. Intraperitoneal space: No free air. No ascites. Vasculature: No abdominal aortic aneurysm. Lymph nodes: No grossly enlarged lymph nodes. Urinary bladder: Unremarkable as visualized. Reproductive: Hysterectomy. Bones/joints: No acute fracture. No suspicious osseous lesion. Soft tissues: The evaluation of solid abdominal viscera is significantly limited due to lack of intravenous contrast. Tiny fat containing umbilical hernia. IMPRESSION: No acute findings.
[2021-07-19 21:20] LABS: Basophils # 0.2 K/mm3 (0-0.2); Basophils % 1.6 % (0.1-2.0); Eosinophils # 0.1 K/mm3 (0.0-0.4); Eosinophils % 0.9 % (0.1-12.0); Hematocrit 42.8 % (37.0-47.0); Hemoglobin 14.9 g/dL (12.2-16.2); Lymphocytes # 3.6 K/mm3 (0.7-4.5); Lymphocytes % 32.2 % (10-50); Mean Corpuscular HGB Conc 34.8 g/dL (31.8-35.4); Mean Corpuscular Hemoglobin 29.5 pg (27.0-31.2); Mean Corpuscular Volume 84.8 fl (81-99); Monocytes # 0.6 K/mm3 (0.1-1.0); Monocytes % 5.7 % (1.7-9.3); Neutrophils # 6.7 K/mm3 (1.8-7.8); Neutrophils % 59.7 % (37.0-80.0); Platelet Count 291 K/mm3 (142-424); Red Blood Count 5.05 M/mm3 (4.20-5.40); Red Cell Distribution Width 12.9 % (11.5-17.5); White Blood Count 11.3 K/mm3 (4.8-10.8)
--- NOTE | 2021-07-19 21:40 | PC.NURSE ---
Pt gone to RAD
[2021-07-19 21:43] LABS: Alanine Aminotransferase 30 U/L (12-78); Albumin Level 4.2 g/dl (3.5-5.0); Albumin/Globulin Ratio 1.2 (1.1-1.8); Alkaline Phosphatase 67 U/L (38-126); Anion Gap 15.9 mEq/L (5-15); Aspartate Amino Transferase 28 U/L (14-36); Bilirubin,Total 0.3 mg/dl (0.2-1.3); Blood Urea Nitrogen 12 mg/dl (7-17); Calcium 8.9 mg/dl (8.4-10.2); Carbon Dioxide 21 mmol/L (22.0-30.0); Chloride 104 mmol/L (98-107); Creatinine Clearance Estimated 164 mL/min (50-200); Estimated Glomerular Filt Rate 80 ml/min (>60); GFR (African American) 97 ML/MIN (>60); Globulin 3.4 g/dL (1.3-3.2); Glucose 102 mg/dl (74-100); Potassium 3.9 mmoL/L (3.5-5.1); Sodium 137 mmol/L (136-145); Total Protein,Serum 7.6 g/dl (6.3-8.2)
--- NOTE | 2021-07-19 21:45 | PC.NURSE ---
Pt back from RAD
[2021-07-19 21:48] LABS: C-Reactive Protein 1.7 mg/L (0-4)
[2021-07-19 21:59] LABS: Erythrocyte Sedimentation Rate 59 mm/hr (0-20)
[2021-07-19 22:05] LABS: Procalcitonin 0.036 ng/mL (0.0-2.0)
[2021-07-19 23:33] VITALS: BP 131/81; PULSE 71; RESP 18; TEMP 36.4; O2SAT 100
== END 2021-07-19 23:35 | disposition home or self-care (01) ==
LOC: UTC 18:25 → ER 20:19
PROVIDERS: Nurse Practitioner Family; Emergency Provider Emergency Medicine; PCP Family Medicine
DX: R10.2 Pelvic and perineal pain (principal); Z88.6 Allergy status to analgesic agent; K21.9 Gastro-esophageal reflux disease without esophagitis; I10 Essential (primary) hypertension; Z87.442 Personal history of urinary calculi; Z86.14 Personal history of Methicillin resistant Staphylococcus aureus infection; Z87.440 Personal history of urinary (tract) infections; Z87.42 Personal history of other diseases of the female genital tract; Z87.19 Personal history of other diseases of the digestive system
CPT/HCPCS: 74176; 80053; 81003; 84145; 85025; 85651; 86140; 87086; 96365; 96375; 99284

== ENCOUNTER 2021-10-11 16:50 | Emergency (ER) | payer OTHER, SELFPAY ==
--- NOTE | 2021-10-11 18:23 | EXP.UTC ---
Discharge Plan Disposition Patient Disposition: Home, Self-Care Condition: Good Prescriptions Prescriptions: New phenazopyridine 200 mg Tablet 200 mg PO TID Qty: 6 0RF ciprofloxacin HCl [Cipro] 500 mg tablet 500 mg PO BID 7 Days Qty: 14 0RF ondansetron 4 mg Tablet,Disintegrating 4 mg PO Q8H PRN (Reason: Nausea) Qty: 20 0RF No Action ibuprofen 800 MG tablet 800 mg PO Q8HP PRN (Reason: Moderate Pain) Qty: 30 0RF venlafaxine 37.5 MG capsule,extended release 24hr 37.5 mg PO DAILY cetirizine 10 MG tablet 10 mg PO DAILY esomeprazole magnesium 20 MG capsule,delayed release(DR/EC) 20 mg PO DAILY mirabegron 50 MG tablet extended release 24 hr 50 mg PO DAILY methylprednisolone 4 MG tablet 4 mg PO DIRECTED Qty: 21 0RF Rx Instructions: Take as directed on package instructions amoxicillin-pot clavulanate 1 EACH tablet 1 tab PO Q12H 7 Days Qty: 14 0RF Referrals Referrals: Wolfgang Cunningham MD [Primary Care Provider] - Enter time for follow up Activity Restrictions/Add. Instructions Additional Instructions/Restrictions: Drink plenty of fluids. Take tylenol or ibuprofen for pain or fever. Take the medications as directed. Follow up with your regular doctor. GO TO THE ER FOR ANY WORSENING SYMPTOMS The pyridium will make your urine turn orange, this is an expected side effect. It will stain your clothes if it comes into contact with them. We will culture the urine. That will tell what bacteria is causing your infection and which antibiotics will treat it best. Sometimes the first antibiotic we prescribe turns out to not work against different bacteria. So, make sure you follow up within 3 days if you are not getting better. Clinical Impressions Clinical Impression: UTI (urinary tract infection) Instructions Patient Instructions: DI for Urinary Tract Infection (UTI), Phenazopyridine Discharge ED Provider: Harvey Barone [facility] General Stated complaint: Possible UTI Time Seen by Provider: 10/11/21 18:24 History of Present Illness Provider Complaint: She has had low back pain and urinary frequency for the past 2 days. Related Data Home Medications Medication Instructions Recorded Confirmed cetirizine 10 mg tablet 10 mg PO DAILY Allergy symptoms 01/12/21 01/12/21 esomeprazole magnesium 20 mg 20 mg PO DAILY GERD 01/12/21 01/12/21 capsule,delayed release mirabegron 50 mg tablet,extended 50 mg PO DAILY INTERSTITIAL 01/12/21 01/12/21 release 24 hr CYSTITIS venlafaxine 37.5 mg 37.5 mg PO DAILY HOT 01/12/21 01/12/21 capsule,extended release 24 hr FLASHES/MENOPAUSE Previous Rx's Medication Instructions Recorded amoxicillin 875 mg-potassium 1 tab PO Q12H 7 days #14 tabs 01/12/21 clavulanate 125 mg tablet methylprednisolone 4 mg tablet 4 mg PO DIRECTED #21 tabs 01/12/21 ibuprofen 800 mg tablet 800 mg PO Q8HP PRN Moderate Pain 01/24/21 #30 tabs ciprofloxacin HCl 500 mg tablet 500 mg PO BID 7 days #14 tabs 10/11/21 (Cipro) ondansetron 4 mg disintegrating 4 mg PO Q8H PRN Nausea #20 tabs 10/11/21 tablet phenazopyridine 200 mg tablet 200 mg PO TID #6 tabs 10/11/21 Allergies Allergy/AdvReac Type Severity Reaction Status Date / Time hydrocodone [From NORCO] Allergy Mild Hives Verified 07/19/21 18:48 PFSH PFSH Social History Smoking Status: Never smoker alcohol intake: never substance use type: denies use current occupational status: other household members: spouse and children housing: house 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
[2021-10-11 18:28] VITALS: BP 142/91; PULSE 88; RESP 19; TEMP 36.7; O2SAT 99; BMI 39.9
[2021-10-11 18:59] VITALS: BP 142/91; PULSE 88; RESP 19; TEMP 36.7
[2021-10-11 19:07] LABS: Apearance,Urine Cloudy (Clear); Color,Urine Orange (Yellow); PH,Urine 6.5 (5.0-8.5)
[2021-10-11 19:08] LABS: Bilirubin,Urine Negative (Negative); Blood, Urine 3+ (Negative); Glucose,Urine (UA) Trace (Negative); Ketones,Urine Negative (Negative); Protein,Urine 1+ (Negative); UTC Leukocyte Esterase,Urine 1+ (Negative); UTC Nitrate,Urine Positive (Negative); Urobilinogen,Urine 1 EU/dl (0.2)
== END 2021-10-11 19:01 | disposition home or self-care (01) ==
PROVIDERS: Emergency Provider Nurse Practitioner Family; PCP Family Medicine
DX: N39.0 Urinary tract infection, site not specified (principal); M54.50 Low back pain, unspecified; Z79.52 Long term (current) use of systemic steroids; Z88.5 Allergy status to narcotic agent; Z88.6 Allergy status to analgesic agent
CPT/HCPCS: 81003; 87086; 87088; 87186; 96372; 99213; G0463; J0696

== ENCOUNTER 2022-01-01 10:55 | Emergency (ER) | payer OTHER, SELFPAY ==
[2022-01-01 11:05] VITALS: BP 176/100; PULSE 100; RESP 20; TEMP 36.9; O2SAT 97; BMI 39.7
[2022-01-01 11:30] VITALS: BP 152/97; PULSE 89; O2SAT 96
--- NOTE | 2022-01-01 11:36 | PC.NURSE ---
VISUAL ACUITY RIGHT: 20/25 LEFT : 20/25 BOTH: 20/25
--- NOTE | 2022-01-01 11:40 | PC.NURSE ---
DR. FLORES AT BEDSIDE
--- NOTE | 2022-01-01 11:45 | PC.NURSE ---
PT TO CT
--- NOTE | 2022-01-01 11:47 | CT_ITS ---
FINAL REPORT TECHNIQUE: Axial imaging of the head was obtained without contrast. This study was performed with techniques to keep radiation doses as low as reasonably achievable, (ALARA). Individualized dose reduction techniques using automated exposure control or adjustment of mA and/or kV according to the patient''s size were employed. CLINICAL HISTORY: pain L side of head. FINDINGS: The ventricles are normal in size. There is no evidence of hemorrhage. No masses are identified. No extra-axial fluid is seen. The sinuses are normal. There is no acute osseous abnormality. IMPRESSION: No acute intracranial abnormality. Reviewed, Interpreted and Dictated by Jason Juarez MD Transcribed by Kai Solorzano Authenticated and [facility]
--- NOTE | 2022-01-01 11:47 | HMH.EDGENADL ---
Discharge Plan Disposition Patient Disposition: Home, Self-Care Condition: Good Prescriptions Prescriptions: New gabapentin 100 mg capsule 100 mg PO TID Qty: 20 0RF No Action metoprolol tartrate 25 mg tablet 25 mg PO DAILY pantoprazole [Protonix] 40 mg tablet,delayed release (DR/EC) 40 mg PO DAILY sumatriptan succinate 50 mg tablet 50 mg PO Q2H PRN Rx Instructions: do not exceed 4 doses per 24 hrs Myrbetriq 50 mg tablet extended release 24 hr 50 mg PO DAILY Uribel 118-10-40.8-36 mg capsule 1 tab PO QID Rx Instructions: administer with plenty of fluids valacyclovir [Valtrex] 1 gram tablet 1,000 mg PO Q8H 7 Days Qty: 21 0RF methylprednisolone [Medrol (Surinder)] 4 mg tablets,dose pack 4 mg PO DAILY Qty: 21 0RF Rx Instructions: Take as directed Referrals Follow up/Referrals: Mehnaz Fernandez, [Primary Care Provider] - See instructions Activity Restrictions/Add. Instructions Additional Instructions/Restrictions: Gabapentin as prescribed. Follow-up with primary care provider, call today to make follow-up appointment. Additional instructions for CONTROLLED SUBSTANCES: You have been prescribed a medication that is a controlled substance. Controlled substances include pain medications known as opiates and sedative nerve medications known as benzodiazepines. Tramadol, fioricet, and gabapentin are also controlled substances. Some common opiates include: Codeine (such as Tylenol #3) Hydrocodone (Vicodin, Lortab, Lorcet, Haviland) Oxycodone (Percocet, Percodan, Oxycodone, Oxy IR) Some common benzodiazepines include: Diazepam (Valium) Lorazepam (Ativan) Alprazolam (Xanax) Clonazepam (Klonopin) Oxazepam (Serax) All of these controlled substances are highly addictive and frequently abused. Misuse can and frequently does lead to addiction as well as overdose and . Medication should be stored in a locked cabinet or other secure storage unit. Do not store the medication in a motor vehicle. Short term supplies, 3 days or less, are prescribed because of the highly addictive nature of the medication. Any of the controlled substance medication NOT taken should be disposed of properly and NOT SAVED. The recommended method of disposing of unused medications is: Place the medicines in a sealable plastic bag. If the medicine is a solid, crush it or add water to dissolve it. Add something undesirable (cat litter, coffee grounds, etc.) Dispose of sealed bag in household trash Do not flush or pour unused medicines down a sink or drain. Controlled substances should not be shared, given away or sold. Because of the addictive nature and frequent abuse, these medications are sometimes stolen. These medications should be kept in a safe place where they cannot be stolen. Do not keep them in your car or purse. Lost or stolen prescriptions for controlled substances WILL NOT BE REFILLED in this emergency department, regardless of whether a police report was filed. Clinical Impressions Clinical Impression: Cephalalgia Discharge ED Provider: Ramon Rothman General Adult HPI General Chief complaint: Eye Problems Stated complaint: Possible shingles in LT eye Time Seen by Provider: 01/01/22 11:33 Mode of Arrival: Ambulatory Limitations: No Limitations Description of Symptoms (Recalled from ER Triage Doc. by RN): PT SEEN BY PC FOR SHINGLE OF LEFT EYE. REPORTS TINGLING IN TO POF HEAD, AROUND EAR, DOWN NECK. STARTED ON THURSDAY. LEFT EYE FEELS STICKY AND HAS PRESSURE. PT ON VALTREX AND MEDROL DOSE PACK History of Present Illness HPI narrative: Patient states that on Thursday, 5 days ago she began developing a discomfort in the left side of her face, scalp, ear, and neck. She describes a tingling, pain, and extreme sensitivity to touch. No loss of vision. She has a sensation of pressure behind her left eye. She has a stabbing sensation in the left side of
--- NOTE | 2022-01-01 11:55 | PC.NURSE ---
PT RETURNED FROM CT
--- NOTE | 2022-01-01 13:19 | PC.NURSE ---
ROUNDED ON PT AT THIS TIME, C/O HEADACHE. NOTIFIED
[2022-01-01 13:36] VITALS: BP 154/114; PULSE 90; RESP 17; TEMP 36.8; O2SAT 100
== END 2022-01-01 13:37 | disposition home or self-care (01) ==
PROVIDERS: Emergency Provider Emergency Medicine; PCP Family Medicine
DX: B02.9 Zoster without complications (principal); H92.09 Otalgia, unspecified ear; J02.9 Acute pharyngitis, unspecified; M79.602 Pain in left arm; S43.402A Unspecified sprain of left shoulder joint, initial encounter; M54.2 Cervicalgia; R20.2 Paresthesia of skin; R09.89 Other specified symptoms and signs involving the circulatory and respiratory systems; I10 Essential (primary) hypertension; K21.9 Gastro-esophageal reflux disease without esophagitis; N32.81 Overactive bladder; G50.0 Trigeminal neuralgia; G43.909 Migraine, unspecified, not intractable, without status migrainosus; F17.200 Nicotine dependence, unspecified, uncomplicated; Z79.52 Long term (current) use of systemic steroids; Z79.899 Other long term (current) drug therapy; Z88.5 Allergy status to narcotic agent; Z88.6 Allergy status to analgesic agent; Z86.73 Personal history of transient ischemic attack (TIA), and cerebral infarction without residual deficits; Z83.438 Family history of other disorder of lipoprotein metabolism and other lipidemia
CPT/HCPCS: 70450; 99285

== ENCOUNTER 2023-02-16 12:11 | Emergency (ER) | payer BC, SELFPAY ==
[2023-02-16 14:05] VITALS: BP 132/82; PULSE 80; RESP 21; TEMP 36.6; O2SAT 97; BMI 39.2
--- NOTE | 2023-02-16 14:35 | ED_ITS ---
Discharge Plan Disposition Patient Disposition: Home, Self-Care Condition: Good Prescriptions Prescriptions: New benzonatate 100 mg capsule 100 mg PO TID PRN (Reason: cough) Qty: 30 0RF methylprednisolone [Medrol (Surinder)] 4 mg tablets,dose pack See Rx Instructions .Route .COMPLEX 6 Days Qty: 21 0RF Rx Instructions: taper pack; guaifenesin [Mucinex] 600 mg tablet extended release 12hr 1,200 mg PO BID PRN (Reason: cough) Qty: 20 0RF azithromycin [Zithromax Z-Surinder] 250 mg tablet See Rx Instructions .ROUTE .COMPLEX 5 Days Qty: 6 0RF Rx Instructions: For 250 mg dose pack: take 500 mg today (day 1), then 250 mg for 4 days (days 2-5) No Action metoprolol succinate 50 mg tablet extended release 24 hr 50 mg PO DAILY Corlanor 5 mg tablet 5 mg PO BID Myrbetriq 50 mg tablet extended release 24 hr 50 mg PO DAILY Corlanor 7.5 mg tablet 7.5 mg PO BID Patient Comments: TAKE ONE TABLET BY MOUTH TWICE DAILY pantoprazole 40 mg tablet,delayed release (DR/EC) 40 mg PO DAILY Rx Instructions: TAKE ONE TABLET BY MOUTH EVERY DAY Referrals Follow up/Referrals: Wolfgang Cunningham MD [Primary Care Provider] - See instructions Activity Restrictions/Add. Instructions Additional Instructions/Restrictions: * Start antibiotic today. Be sure to complete entire prescription even if feeling better * Monitor temp. Tylenol every 4 hours as needed and / or ibuprofen every 6 hours as needed ( As long as your primary care physician has told you that it ok to take both. For fever/aches/pains ER if no less than 101 despite Tylenol or Motrin * Humidifier/vaporizer or hot steamy shower * Mucinex for your cough and cough suppressant only at night. Be sure to drink lots of water. *Tessalon Perles will not cause drowsiness but use at bedtime to help stop cough so that you may get some rest. *Start steroid today. Helps with inflammation therefore, cough and wheezing. Follow directions on the package. Reviewed side effects. Patient reports taking them before. Follow up IMMEDIATELY for new or worsening of symptoms OR no noticeable improvement over the next 48-72 hours. 911 immediately for any life threatening symptoms such as chest pain or difficulty breathing Clinical Impressions Clinical Impression: Sinusitis Qualifiers: Sinusitis location: unspecified location Chronicity: unspecified Qualified Code(s): J32.9 - Chronic sinusitis, unspecified Instructions Patient Instructions: DI for Sinusitis, Acute Bronchitis Discharge ED Provider: Keily Velasquez [facility] General Stated complaint: sore throat, cough, runny nose, body aches Mode of Arrival: Ambulatory Source of Information: Patient Limitations: No Limitations Time Seen by Provider: 02/16/23 14:35 Description of Symptoms (Recalled from Triage Doc. by RN): PATIENT C/O SORE THROAT, COUGH, SINUS CONGESTION, SOA WITH BACK/CHEST PAIN, HEADACHE, LOW-GRADE FEVER AND CHILLS SINCE THURSDAY HEENT Symptoms (Recalled from RN notes): Yes Resp Symptoms (Recalled from RN notes): Yes Skin Symptoms (Recalled from RN notes): No MS Symptoms (Recalled from RN notes): No Functional Status (Recalled from RN notes): WNL History of Present Illness Provider Complaint: Patient states that she started feeling bad last week States that she has continued to get worse since States that she is having sinus pain and pressure, drainage in the back of throat that is draining into her chest making her throat and chest burn when she coughs States that she isnt coughing anything up or anything but today she was still not feeling any better so she came in to get checked Related Data Home Medications Medication Instructions Recorded Confirmed mirabegron 50 mg tablet,extended 50 mg PO DAILY 12/31/21 02/16/23 release 24 hr (Myrbetriq) metoprolol succinate 50 mg 50 mg PO DAILY 07/17/22 02/16/23 tablet,extended release 24 hr ivabradine 5 mg tablet (Corlanor) 5 mg PO BID 10/30/22 02/16/23 ivabradine 7.5 mg tablet (Corlanor) 7.5 mg PO BID 02/16/23 02/16/23 pantoprazole 40 mg tablet,delayed 40 mg PO DAILY 02/16/23 02/16/23 release Previous Rx's Medication Instructions Recorded azithromycin 250 mg tablet See Rx Instructions PO .COMPLEX 5 02/16/23 (Zithromax Z-Surinder) days #6 tabs benzonatate 100 mg capsule 100 mg PO TID PRN cough #30 caps 01/01/24 guaifenesin 600 mg tablet, 1,200 mg PO BID PRN cough #20 tabs 02/16/23 extended release 12 hr (Mucinex) methylprednisolone 4 mg tablets in See Rx Instructions .Route 02/16/23 a dose pack (Medrol (Surinder)) .COMPLEX 6 days #21 tabs Allergies Allergy/AdvReac Type Severity Reaction Status Date / Time hydrocodone [From [facility]] Allergy Mild Hives Verified 10/30/22 09:50 Worker's Comp Is this a Worker's Comp case?: [facility]: The information contained in this section may have been updated after the patient was seen, as this information can be updated by other users. Medical History (Updated 02/16/23 @ 14:45 by Keily Velasquez APRN) Acute herpes zoster neuropathy Cephalalgia Chest pain Contusion of left upper arm Dizziness Dyspnea Ear pain Edema of both lower extremities Fall Flank pain, acute GERD (gastroesophageal reflux disease) History of kidney stones History of stroke Hypertension Interstitial cystitis Left arm pain Migraine OAB (overactive bladder) Palpitations Pelvic pain Primary HSV infection of mouth Sinusitis Sprain of left shoulder Trigeminal neuralgia of right side of face UTI (urinary tract infection) Surgical History H/O colonoscopy History of appendectomy History of cholecystectomy History of hysterectomy History of suburethral sling procedure History of tubal ligation Family History Mother Hyperlipidemia Sister Hyperlipidemia Social History Smoking Status: Current every day smoker alcohol intake: current substance use type: denies use current occupational status: employed and other Travel in the last 8 weeks: None household members: spouse and children housing: house marital status: number of children: 2 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 current occupational exposures/hazards: No caffeine: No ROS Obtained: Yes All systems reviewed & no additional complaints except as documented and Yes Systems reviewed as appropriate & no additional complaints except as documented Constitutional Constitutional: Reports system reviewed and no additional complaints, except as documented, Reports as per HPI and Reports headache(s) ENT Ears, Nose, Mouth, and Throat: Reports system reviewed and no additional complaints, except as documented, Reports as per HPI, Reports headache(s), Reports sinus pain, Reports sinus pressure and Reports sore throat Cardiovascular Cardiovascular: Reports system reviewed and no additional complaints, except as documented and Reports as per HPI Respiratory Respiratory: Reports system reviewed and no additional complaints, except as documented and Reports as per HPI Gastrointestinal Gastrointestingal: Reports system reviewed and no additional complaints, except as documented and as per HPI Musculoskeletal Musculoskeletal: Reports system reviewed and no additional complaints, except as documented and Reports as per HPI Neurologic Neurologic: Reports headache(s) Physical Exam General General appearance: alert and in no apparent distress ENT ENT exam: Present mucous membranes moist Expanded ENT Exam Nose exam: Present sinus tenderness Throat exam: Present other (Pharyngeal erythema noted with PND) Respiratory Respiratory exam: Present normal lung sounds bilaterally; Absent respiratory distress or wheezes Cardiovascular Cardiovascular exam: Present regular rate, normal rhythm and normal heart sounds Abdominal Exam Abdominal exam: Present soft and normal bowel sounds; Absent distention or tenderness Neurological Exam Neurological exam: Present alert, oriented X3 and normal gait Medical Decision Making Royce Inquiry Pt receiving controlled substance: No Royce was queried for this patient: No Vital Signs: 02/16/23 14:05 Temperature 97.9 F Temperature Source Oral Pulse Rate [Left Brachial] 80 Respiratory Rate 21 Blood Pressure [Left Arm] 132/82 Blood Pressure Mean [Left Arm] 98 Blood Pressure Source [Left Arm] Automatic Cuff Blood Pressure Position [Left Arm] Sitting 02 Sat by Pulse Oximetry 97 Oxygen Delivery Method Room Air
[2023-02-16 14:45] VITALS: BP 132/82; PULSE 80; RESP 21; TEMP 36.6; O2SAT 97
== END 2023-02-16 14:48 | disposition home or self-care (01) ==
PROVIDERS: Emergency Provider Nurse Practitioner; PCP Family Medicine
DX: J01.90 Acute sinusitis, unspecified (principal); J20.9 Acute bronchitis, unspecified; R07.1 Chest pain on breathing; R51.9 Headache, unspecified; R50.9 Fever, unspecified; R09.81 Nasal congestion; R09.82 Postnasal drip; R07.0 Pain in throat; R05.9 Cough, unspecified; M79.18 Myalgia, other site; K21.9 Gastro-esophageal reflux disease without esophagitis; I10 Essential (primary) hypertension; F17.210 Nicotine dependence, cigarettes, uncomplicated
CPT/HCPCS: 99212; 99214; G0463

== ENCOUNTER 2023-05-12 10:00 | Outpatient (CLI) | payer BC, SELFPAY ==
--- NOTE | 2023-05-12 10:06 | CA_ITS ---
FINAL REPORT TECHNIQUE: extremity venous duplex was performed with augmentation and compression. CLINICAL HISTORY: pain, warmth, edema in RLE COMPARISON: None FINDINGS: RIGHT LOWER EXTREMITY VENOUS DOPPLER: Proper flow is seen throughout the deep venous system. There is no evidence of deep venous thrombosis. IMPRESSION: no deep venous thrombosis in the right lower extremity. Reviewed, Interpreted and Dictated by Jason Juarez MD Transcribed by Umm Stephens Authenticated and [facility]
[2023-05-12 10:28] LABS: Basophils # 0.1 K/mm3 (0-0.2); Basophils % 1.1 % (0.1-2.0); Eosinophils % 0.7 % (0.1-12.0); Hematocrit 42.7 % (37.0-47.0); Hemoglobin 14.6 g/dL (12.2-16.2); Lymphocytes # 2.3 K/mm3 (0.7-4.5); Lymphocytes % 35.3 % (10-50); Mean Corpuscular HGB Conc 34.1 g/dL (31.8-35.4); Mean Corpuscular Hemoglobin 30.2 pg (27.0-31.2); Mean Corpuscular Volume 88.4 fl (81-99); Mean Platelet Volume 7.7 fl (7.4-10.4); Monocytes # 0.3 K/mm3 (0.1-1.0); Monocytes % 4.8 % (1.7-9.3); Neutrophils # 3.8 K/mm3 (1.8-7.8); Neutrophils % 58.2 % (37.0-80.0); Platelet Count 250 K/mm3 (142-424); Red Blood Count 4.82 M/mm3 (4.20-5.40); Red Cell Distribution Width 12.7 % (11.5-17.5); White Blood Count 6.5 K/mm3 (4.8-10.8)
[2023-05-12 11:10] LABS: Alanine Aminotransferase 31 U/L (12-78); Albumin Level 4.1 g/dl (3.5-5.0); Albumin/Globulin Ratio 1.4 (1.1-1.8); Alkaline Phosphatase 75 U/L (38-126); Anion Gap 11.2 mEq/L (5-15); Aspartate Amino Transferase 27 U/L (14-36); Bilirubin,Total 0.5 mg/dl (0.2-1.3); Blood Urea Nitrogen 15 mg/dl (7-17); Calcium 9.2 mg/dl (8.4-10.2); Carbon Dioxide 25 mmol/L (22.0-30.0); Chloride 107 mmol/L (98-107); Chol/HDL Ratio 5.8 (1-3.5); Cholesterol 204 mg/dl (140-200); Erythrocyte Sedimentation Rate 11 mm/hr (0-20); Estimated Glomerular Filt Rate 93 ml/min (>60); GFR (African American) 113 ML/MIN (>60); Globulin 2.9 g/dL (1.3-3.2); Glucose 103 mg/dl (74-100); HDL Cholesterol 35 mg/dl (40-60); Magnesium 1.9 mg/dl (1.6-2.3); Phosphorous 3.3 mg/dl (2.5-4.5); Potassium 4.2 mmoL/L (3.5-5.1); Sodium 139 mmol/L (136-145); Triglycerides 151 mg/dl (30-150); VLDL Cholesterol 30 mg/dL (0-40)
[2023-05-12 11:21] LABS: C-Reactive Protein 2.8 mg/L (0-4); Direct LDL Cholesterol 112.97 mg/dL (100-129)
[2023-05-12 11:40] LABS: Thyroid Stimulating Hormone 1.11 uIU/mL (0.465-4.68)
[2023-05-12 12:04] LABS: Iron 107 ug/dL (37-170)
[2023-05-12 12:19] LABS: Total Iron Binding Capacity 385 ug/dL (265-497)
[2023-05-12 12:21] LABS: Free T4 (Free Thyroxine) 1.78 ng/dl (0.78-2.19)
[2023-05-12 12:38] LABS: 25-OH Vitamin D, Total 21.1 ng/mL (30-100)
[2023-05-12 12:39] LABS: Ferritin 58.7 ng/ml (6.24-137)
[2023-05-12 13:48] LABS: Hemoglobin A1C 5.4 % (4.0-6.0)
[2023-05-12 14:33] LABS: Vitamin B12 392 pg/mL (239-931)
[2023-05-12 14:35] LABS: Folate 6.97 ng/mL
== END 2023-05-12 23:59 ==
LOC: RT 10:02
PROVIDERS: PCP Nurse Practitioner Family; Visit Provider Nurse Practitioner Family
DX: M79.661 Pain in right lower leg (principal); M79.89 Other specified soft tissue disorders; R30.0 Dysuria; R53.83 Other fatigue; Z13.220 Encounter for screening for lipoid disorders; Z13.1 Encounter for screening for diabetes mellitus; N76.0 Acute vaginitis; E55.9 Vitamin D deficiency, unspecified; R73.09 Other abnormal glucose; Z79.899 Other long term (current) drug therapy; B96.89 Other specified bacterial agents as the cause of diseases classified elsewhere; I70.213 Atherosclerosis of native arteries of extremities with intermittent claudication, bilateral legs
CPT/HCPCS: 36415; 80053; 80061; 82306; 82607; 82728; 82746; 83036; 83540; 83550; 83735; 84100; 84439; 84443; 85025; 85378; 85651; 86140; 87086; 93971

== ENCOUNTER 2023-05-26 10:07 | Outpatient (CLI) | payer BC, SELFPAY ==
--- NOTE | 2023-05-26 10:07 | US_ITS ---
FINAL REPORT CLINICAL HISTORY: claudication, decreased circulation in tayo toes, HTN,TIA, claudication, pain, legs from mid calf to toes turn reddish/purple COMPARISON: None FINDINGS: ANKLE-BRACHIAL PRESSURE INDICES Pressure indices are as follows: RIGHT LOWER EXTREMITY: Ankle-brachial pressure index: 1.1 Comments: Normal LEFT LOWER EXTREMITY: Ankle-brachial pressure index: 1.0 Comments: Normal IMPRESSION: No evidence of significant obstructive peripheral vascular disease of the lower extremities Reviewed, Interpreted and Dictated by Forest Lopes III, MD Transcribed by Lulu Naav Authenticated and [facility]
== END 2023-05-26 23:59 | disposition home or self-care (01) ==
LOC: RT 10:07
PROVIDERS: PCP Nurse Practitioner Family; Visit Provider Nurse Practitioner Family
DX: M79.661 Pain in right lower leg (principal); M79.89 Other specified soft tissue disorders; I73.9 Peripheral vascular disease, unspecified; R20.9 Unspecified disturbances of skin sensation
CPT/HCPCS: 93923

== ENCOUNTER 2023-06-15 18:00 | Outpatient (CLI) | payer BC, SELFPAY ==
[2023-06-15 18:16] LABS: Erythrocyte Sedimentation Rate 11 mm/hr (0-20)
[2023-06-17 09:12] LABS: RA Latex Turbid. <10.0 IU/mL (<14.0); Thyroid Peroxidase Antibodies <9 IU/mL (0-34)
[2023-06-17 13:43] LABS: Anti-Cyclic Citrullinated Pept 7 units (0-19)
[2023-06-17 14:54] LABS: Anti-DNA (DS) Ab Qn 1 IU/mL (0-9)
[2023-06-17 18:14] LABS: Antinuclear Antibodies, IFA Negative (.)
[2023-06-24 15:59] LABS: Anti-DNA (DS) Ab Charge YES; Anti-DNA (DS) Ab Qn 1; Antinuclear Antibodies (ANA) Negative; Rheumatoid Factor IGA < 7 U (<7); Rheumatoid Factor IGM < 7 U (<7)
== END 2023-06-15 23:59 | disposition home or self-care (01) ==
LOC: LAB.DROPOF 06-16 07:47
PROVIDERS: PCP Nurse Practitioner Family; Visit Provider Nurse Practitioner Family
DX: G90.9 Disorder of the autonomic nervous system, unspecified (principal); R00.2 Palpitations; R53.83 Other fatigue; R42 Dizziness and giddiness; R06.00 Dyspnea, unspecified; R07.9 Chest pain, unspecified; R60.0 Localized edema; I10 Essential (primary) hypertension; G43.909 Migraine, unspecified, not intractable, without status migrainosus; Z72.0 Tobacco use
CPT/HCPCS: 82533; 84550; 85651; 86038; 86200; 86225; 86235; 86376; 86431

== ENCOUNTER 2023-06-18 15:23 | Outpatient (CLI) | payer BC, SELFPAY | END 2023-06-18 23:59 | disposition home or self-care (01) | LOC: LAB 15:24 | PROVIDERS: PCP Nurse Practitioner Family; Visit Provider Internal Medicine | DX: R42 Dizziness and giddiness (principal); R00.2 Palpitations; R06.00 Dyspnea, unspecified; R07.9 Chest pain, unspecified; G90.9 Disorder of the autonomic nervous system, unspecified | CPT/HCPCS: 36415; 83835 ==

== ENCOUNTER 2023-06-22 08:38 | Outpatient (CLI) | payer BC, SELFPAY ==
[2023-06-25 00:08] LABS: Metanephrine, U,24hr 45 ug/24 hr (36-209); Metanephrine, Ur 36 ug/L (Undefined); Normetanephr.,U,24h 223 ug/24 hr (131-612); Normetanephrine, Ur 178 ug/L (Undefined)
== END 2023-06-22 23:59 | disposition home or self-care (01) ==
LOC: LAB.DROPOF 08:39
PROVIDERS: PCP Nurse Practitioner Family; Visit Provider Internal Medicine
DX: R42 Dizziness and giddiness (principal); R00.2 Palpitations; R06.00 Dyspnea, unspecified; R07.9 Chest pain, unspecified; G90.9 Disorder of the autonomic nervous system, unspecified
CPT/HCPCS: 83835

== ENCOUNTER 2023-06-29 08:56 | Outpatient (CLI) | payer BC, SELFPAY ==
--- NOTE | 2023-06-29 08:57 | CT_ITS ---
APPROVED REPORT Temperature Regulator: CLINICAL INDICATION Chest Pain TECHNIQUE Image Acquisition: A 128 slice MDCT scanner (5giga View) was used for data acquisition. A noncontrast coronary calcium scan was performed. A CT attenuation threshold of 130 Hounsfield units (HU) was used for the detection of calcium in contiguous voxels of 1 sq mm in area to be counted as individual lesions. Bolus tracking in the ascending aorta with a threshold of 180 HU was performed. Immediately afterwards, ECG synchronized cardiac CT was then performed from the cardiac base to apex using retrospective gating with ECG tube current modulation. A total of 85 mL of Isovue 370 mg/mL contrast medium was administered at 5 mL/sec followed by a saline flush using a biphasic injection protocol. A tube voltage of 120 KVp was used. The patient received the following medications prior to the cardiac CT. 50 mg of oral metoprolol 7.5 mg of oral ivabradine 0.8 mg of sublingual nitroglycerin The average heart rate at the time of acquisition was 65 bpm and regular. Image Reconstruction Transaxial images were reconstructed at 0.67 mm slide thickness. Data was reviewed interactively on an advanced workstation capable of 2 and 3-dimensional displays in all conventional reconstruction formats, including multiplanar reformations, maximum intensity projections, curved multiplanar reformations, and volume rendered reconstructions. When applicable, selected routine images describing the relevant coronary anatomy and pathology were saved and sent to PACS. Complications None Technical Quality Overall image quality was good. Coronary artery opacification was adequate. Total DLP (Dose-Length Product) is 1500.4 mGy-cm. The reported value represents the total of one or more individual components during the CT acquisition of this date and at this time, and as such, the same value may appear in more than one CT report depending on the interpreting/reporting physicians. COMPARISON None FINDINGS CT Coronary Calcium Scoring LMA (Left Main Artery) = 0 LAD (Left Anterior Descending) = 0 LCX (Left Coronary Circumflex) = 0 RCA (Right Coronary Artery) = 0 Total Calcium Score = 0 using the AJ-130 method. The interpretation of the calcium heart score is based on the following continuum*: 0 = no calcified plaque detected (risk of coronary artery disease is very low ??? less than 5%) 1-10 = calcium detected in extremely minimal levels (risk of coronary diseases is still low ??? less than 10%) 11-100 = mild levels of plaque detected with certainty (mild or minimal narrowing of heart arteries is likely) 101-400 = definite,at least moderate levels of plaque detected (relatively high risk of a heart attack within 3-5 years) >401-999 = extensive levels of plaque detected (high risk of heart attack, high levels of vascular disease are present, high likelihood of at least one significant coronary narrowing) *The calcium heart score quantifies the burden of coronary calcification/plaque in the coronary arteries. The calcium heart score is not able to evaluate the presence or burden of non-calcified (i.e. soft) plaque. There is no identifiable calcification in the aortic valve, mitral annulus or mitral valve, pericardium, or myocardium. Coronary CT Angiography The coronary arterial system is right dominant. Quantitative Stenosis Grading: Left Main (LM): The left main originates normally from the left sinus of Valsalva. The LM trifurcates into the left anterior descending artery, ramus intermedius, and left circumflex artery. The LM is patent with no evidence of atherosclerosis. Left Anterior Descending (LAD) and Diagonal Branches: The LAD gives off 2 diagonal branch(es). The LAD and its branches are patent with no evidence of atherosclerosis. There is no evidence of LAD-myocardial bridge. Ramus-intermedius (RI): The RI is patent. Left Circumflex (LCX) and Obtuse Marginals (OM): The LCX gives off 1 Obtuse Marginal (OM) branch(es). The LCX and its branches are patent with no evidence of atherosclerosis. Right Coronary Artery (RCA): The RCA originates normally from the right sinus of Valsalva. The RCA gives off a posterior descending artery (PDA) and posterolateral (PL) branches. The RCA and its branches are patent with no evidence of atherosclerosis. Non-Coronary Cardiac Findings: Analysis of the left ventricular (LV) structure and function was performed after 3-D reconstruction of the LV from axial images, with user-corrected automatic contouring for assessment of LV volumes and user-defined reconstruction from oblique planes for measurement of 3-D cardiac structure and function. -The left ventricle systolic function is normal. -There is no left atrial appendage filling defect. Two right pulmonary veins and two left pulmonary veins drain normally into the left atrium. -No pericardial thickening or calcification. -Central and branch pulmonary arteries in the [id number] are unremarkable. -Thoracic aorta within the visualized thoracic aortic-branches in the [id number] is unremarkable. Extracardiac Structures No significant extra-cardiac findings. Note, however, that this study is focused on the cardiac findings. IMPRESSION -No coronary calcification with an Agatston score = 0 using the AJ-130 method. -No evidence of significant flow-limiting atherosclerosis of the coronary arteries. -No evidence of coronary anomalies or myocardial bridge. -CAD-RADS 0. Management recommendations per ACC/AHA guidelines*, as clinically appropriate. *Recommendations: CAD RADS 0: Reassurance. Consider non-atherosclerotic causes of chest pain. CAD RADS 1: Consider non-atherosclerotic causes of chest pain. Consider preventive therapy and risk factor modification. CAD RADS 2: Consider non-atherosclerotic causes of chest pain. Consider preventive therapy and risk factor modification, particularly for patients with nonobstructive plaque in multiple segments. CAD RADS 3: Consider further functional testing. Consider symptom-guided anti-ischemic and preventive pharmacotherapy as well as risk factor modification per published guideline statements. CAD RADS 4A: Consider further functional testing or invasive coronary angiography with revascularization per published guideline statements. Consider symptom-guided anti-ischemic and preventive pharmacotherapy as well as risk factor modification per published guideline statements. CAD RADS 4B: Invasive coronary angiography recommended with revascularization per published guideline statements. Consider symptom-guided anti-ischemic and preventive pharmacotherapy as well as risk factor modification per published guideline statements. CAD RADS 5: Consider invasive angiography and/or viability assessment with revascularization per published guideline statements. Consider symptom-guided anti-ischemic and preventive pharmacotherapy as well as risk factor modification per published guideline statements. CRITICAL RESULT None COMMUNICATION Per this written report The coronary and cardiac findings of this CCTA were reviewed, reported, and signed by Ignacio Alva MD (Voice Intercept Technician) Conclusion Electronically signed by : Natalia Alva MD 07/01/2023 12:26:55
[2023-06-29 09:26] VITALS: BMI 39.9
[2023-06-29 09:43] VITALS: BP 126/79; PULSE 73; RESP 16; TEMP 36.6; O2SAT 99
[2023-06-29] MEDS: IVABRADINE HCL 7.5MG TABLET PO (09:50)
[2023-06-29] MEDS: METOPROLOL TARTRATE 50MG TABLET PO (09:51)
[2023-06-29 09:55] LABS: Chloride 106 mmol/L (98-107); Potassium 4.8 mmoL/L (3.5-5.1); Sodium 138 mmol/L (136-145)
[2023-06-29 09:58] LABS: Anion Gap 13.8 mEq/L (5-15); Blood Urea Nitrogen 18 mg/dl (7-17); Calcium 9.1 mg/dl (8.4-10.2); Carbon Dioxide 23 mmol/L (22.0-30.0); Creatinine Clearance Estimated 144 mL/min (50-200); Estimated Glomerular Filt Rate 70 ml/min (>60); GFR (African American) 84 ML/MIN (>60); Glucose 101 mg/dl (74-100)
[2023-06-29 10:19] VITALS: BP 134/89; PULSE 68; RESP 16; O2SAT 99
[2023-06-29] MEDS: NITROGLYCERIN 0.4MG SL TABLET SL (10:19)
[2023-06-29 10:22] VITALS: BP 102/64; PULSE 67; RESP 16; O2SAT 98
[2023-06-29 10:28] VITALS: BP 108/67
[2023-06-29] MEDS: IOPAMIDOL-370 (76%);100ML BOTTLE 85 ML IV (10:30)
[2023-06-29] MEDS: 0.9 % SODIUM CHLORIDE 50 ML VIAL IV (10:30)
[2023-06-29] MEDS: SODIUM CHLORIDE 0.9% 10ML SYR (RAD ONLY) 10 ML IV (10:30)
[2023-06-29 10:37] VITALS: BP 105/73; PULSE 68; RESP 16; O2SAT 99
== END 2023-06-29 10:37 | disposition home or self-care (01) ==
PROVIDERS: PCP Nurse Practitioner Family; Visit Provider Internal Medicine
DX: R42 Dizziness and giddiness (principal); R00.2 Palpitations; R06.00 Dyspnea, unspecified; R07.9 Chest pain, unspecified; G90.9 Disorder of the autonomic nervous system, unspecified
CPT/HCPCS: 75571; 75574; 80048; Q9967

== ENCOUNTER 2023-12-08 14:14 | Emergency (ER) | payer BC, SELFPAY ==
[2023-12-08 15:00] VITALS: BP 158/95; PULSE 67; RESP 19; TEMP 36.8; O2SAT 97; BMI 41.0
--- NOTE | 2023-12-08 15:19 | ED_ITS ---
Discharge Plan Disposition Patient Disposition: Home, Self-Care Condition: Good Prescriptions Prescriptions: New azithromycin [Zithromax Z-Surinder] 250 mg tablet See Rx Instructions .ROUTE .COMPLEX 5 Days Qty: 6 0RF Rx Instructions: For 250 mg dose pack: take 500 mg today (day 1), then 250 mg for 4 days (days 2-5) methylprednisolone [Medrol (Surinder)] 4 mg tablets,dose pack See Rx Instructions .Route .COMPLEX 6 Days Qty: 21 0RF Rx Instructions: taper pack; No Action aspirin 81 mg tablet,delayed release (DR/EC) 81 mg PO DAILY Patient Comments: TAKE ONE TABLET BY MOUTH EVERY DAY meclizine 12.5 mg tablet 12.5 mg PO BID PRN (Reason: Vertigo) Patient Comments: TAKE ONE TABLET BY MOUTH TWICE DAILY NEEDED FOR DIZZINESS FOR UP TO 30 DAYS atorvastatin 10 mg tablet 10 mg PO HS Patient Comments: TAKE ONE TABLET BY MOUTH EVERY NIGHT cholecalciferol (vitamin D3) 1,250 mcg (50,000 unit) capsule 1,250 mcg PO WEEKLY Qty: 8 0RF diltiazem HCl 120 mg capsule,extended release 24hr 120 mg PO DAILY Qty: 90 3RF Myrbetriq 50 mg tablet extended release 24 hr 50 mg PO DAILY Qty: 90 3RF pantoprazole 40 mg tablet,delayed release (DR/EC) 40 mg PO DAILY Qty: 90 1RF Rx Instructions: TAKE ONE TABLET BY MOUTH EVERY DAY Referrals Follow up/Referrals: Greer Donald APRN [Primary Care Provider] - See instructions Activity Restrictions/Add. Instructions Additional Instructions/Restrictions: Start oral steriod tomorrow Start antibiotic today Follow up with your Family Doctor if n oimprovement or any worsening of symptoms Return if needed Straight to ER if any life threatening symptoms Clinical Impressions Clinical Impression: Sinusitis Qualifiers: Sinusitis location: unspecified location Chronicity: unspecified Qualified Code(s): J32.9 - Chronic sinusitis, unspecified Instructions Patient Instructions: DI for Migraine, DI for Sinusitis, DI for Trigeminal Neuralgia Print Language Print Language: [place] Discharge ED Provider: Keily Velasquez [facility] HPI General Stated complaint: pain around ear and face Mode of Arrival: Ambulatory Source of Information: Patient Limitations: No Limitations Time Seen by Provider: 12/08/23 15:19 Description of Symptoms (Recalled from Triage Doc. by RN): PATIENT STATES SHE IS HAVING A TRIGEMINAL NEURALGIA ATTACK ON RIGHT SIDE OF FACE THAT STARTED YEST ERDAY WITH A HEADACHE AND SINUS PRESSURE HEENT Symptoms (Recalled from RN notes): Yes Resp Symptoms (Recalled from RN notes): No Skin Symptoms (Recalled from RN notes): No MS Symptoms (Recalled from RN notes): No Functional Status (Recalled from RN notes): WNL History of Present Illness Provider Complaint: Patient states that she has a hx of Trigeminal Neuralgia and she started having an attach yesterday with migraine headache, States that she has been having sinus pressure and congestion for over a week and has been taking OTC medications but they havent helped States when she has this flare up she has to come in and get a steriod shot and oral steriods to get it under control Related Data Home Medications ?Medication ?Instructions ?Recorded ?Confirmed aspirin 81 mg tablet,delayed 81 mg PO DAILY 06/15/23 11/18/23 release atorvastatin 10 mg tablet 10 mg PO HS 06/15/23 11/18/23 meclizine 12.5 mg tablet 12.5 mg PO BID PRN Vertigo 06/15/23 11/18/23 Previous Rx's ?Medication ?Instructions ?Recorded mirabegron 50 mg tablet,extended 50 mg PO DAILY #90 tabs 05/27/23 release 24 hr (Myrbetriq) cholecalciferol (vitamin D3) 1,250 1,250 mcg PO WEEKLY #8 caps 06/15/23 mcg (50,000 unit) capsule pantoprazole 40 mg tablet,delayed 40 mg PO DAILY #90 tabs 08/31/23 release diltiazem HCl 120 mg 120 mg PO DAILY #90 caps 11/18/23 capsule,extended release 24 hr azithromycin 250 mg tablet See Rx Instructions PO .COMPLEX 5 12/08/23 (Zithromax Z-Surinder) days #6 tabs methylprednisolone 4 mg tablets in See Rx Instructions .Route 12/08/23 a dose pack (Medrol (Surinder)) .COMPLEX 6 days #21 tabs Allergies Allergy/AdvReac Type Severity Reaction Status Date / Time chlorhexidine Allergy Mild Hives Verified 11/18/23 14:45 hydrocodone [From NORCO] Allergy Mild Hives Verified 11/18/23 14:45 hydromorphone [From Dilaudid] Allergy Unknown Verified 10/22/24 15:13 allergy reaction Worker's Comp Is this a Worker's Comp case?: No [facility] Disclaimer: The information contained in this section may have been updated after the patient was seen, as this information can be updated by other users. Medical History (Updated 12/08/23 @ 15:38 by Keily Velasquez APRN) Abnormal electrocardiogram [ECG] [EKG] Claudication of both lower extremities Bacterial vaginosis Bilateral cold feet Pain in right lower leg Right leg swelling Sinusitis Edema of both lower extremities Palpitations Dizziness Dyspnea Chest pain Primary HSV infection of mouth Cephalalgia Acute herpes zoster neuropathy Trigeminal neuralgia of right side of face Interstitial cystitis Migraine History of kidney stones Hypertension History of stroke OAB (overactive bladder) GERD (gastroesophageal reflux disease) Pelvic pain Left arm pain Contusion of left upper arm Sprain of left shoulder Fall Sinusitis Flank pain, acute Ear pain UTI (urinary tract infection) Surgical History History of cholecystectomy H/O colonoscopy History of suburethral sling procedure History of tubal ligation History of appendectomy History of hysterectomy Family History Mother Hyperlipidemia Sister Hyperlipidemia Social History Smoking Status: Current every day smoker alcohol intake: current alcohol intake frequency: holidays/special occasions only substance use type: denies use current occupational status: employed and other Travel in the last 8 weeks: None household members: spouse and children housing: house marital status: number of children: 2 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 current occupational exposures/hazards: No caffeine: No ROS Obtained: Yes All systems reviewed & no additional complaints except as documented and Yes Systems reviewed as appropriate & no additional complaints except as documented Constitutional Constitutional: Reports system reviewed and no additional complaints, except as documented, Reports as per HPI and Reports headache(s) ENT Ears, Nose, Mouth, and Throat: Reports system reviewed and no additional complaints, except as documented, Reports as per HPI, Reports otalgia, Reports headache(s), Reports sinus pain and Reports sinus pressure Cardiovascular Cardiovascular: Reports system reviewed and no additional complaints, except as documented and Reports as per HPI Respiratory Respiratory: Reports system reviewed and no additional complaints, except as documented and Reports as per HPI Gastrointestinal Gastrointestingal: Reports system reviewed and no additional complaints, except as documented and as per HPI Musculoskeletal Musculoskeletal: Reports system reviewed and no additional complaints, except as documented and Reports as per HPI Neurologic Neurologic: Reports headache(s) Physical Exam General General appearance: alert and in no apparent distress ENT ENT exam: Present mucous membranes moist Expanded ENT Exam Nose exam: Present sinus tenderness Throat exam: Present other (PND noted) Respiratory Respiratory exam: Present normal lung sounds bilaterally; Absent respiratory distress or wheezes Cardiovascular Cardiovascular exam: Present regular rate, normal rhythm and normal heart sounds Neurological Exam Neurological exam: Present alert, oriented X3 and normal gait Skin Skin exam: Present other (tenderness on right side of face, no swelling no bruising no discoloration, hx of Trigeminal Neuralgia ) Medical Decision Making Medical Records Screening: Per USPSTF and CDC recommendations, given the prevalence of disease in our region, it is our hospital?s policy to screen for HIV and viral Hepatitis for all patients aged 18 and over and those with ongoing risk factors. Royce Inquiry Pt receiving controlled substance: No Royce was queried for this patient: No Vital Signs: 12/08/23 15:00 Temperature 98.2 F Temperature Source Oral Pulse Rate [Left Brachial] 67 Respiratory Rate 19 Blood Pressure [Left Arm] 158/95 H Blood Pressure Mean [Left Arm] 116 Blood Pressure Source [Left Arm] Automatic Cuff Blood Pressure Position [Left Arm] Sitting 02 Sat by Pulse Oximetry 97 Oxygen Delivery Method Room Air
[2023-12-08] MEDS: METHYLPREDNISOLONE SOD SUCC 125MG VIAL 125 MG IM (15:40)
[2023-12-08] MEDS: KETOROLAC 30MG/ML VIAL 30 MG IM (15:40)
[2023-12-08 16:06] VITALS: BP 158/95; PULSE 67; RESP 19; TEMP 36.8; O2SAT 97
== END 2023-12-08 16:09 | disposition home or self-care (01) ==
PROVIDERS: Emergency Provider Nurse Practitioner; PCP Nurse Practitioner Family
DX: J32.9 Chronic sinusitis, unspecified (principal)
CPT/HCPCS: 96372; 99213; G0381; J1885; J2919

== ENCOUNTER 2024-01-12 15:46 | Outpatient (CLI) | payer BC, SELFPAY ==
[2024-01-12 16:16] LABS: Basophils # 0.1 K/mm3 (0-0.2); Basophils % 0.6 % (0.1-2.0); Eosinophils # 0.1 K/mm3 (0.0-0.4); Eosinophils % 0.7 % (0.1-12.0); Hematocrit 41.8 % (37.0-47.0); Hemoglobin 14.5 g/dL (12.2-16.2); Lymphocytes # 2.3 K/mm3 (0.7-4.5); Lymphocytes % 23.7 % (10-50); Mean Corpuscular HGB Conc 34.6 g/dL (31.8-35.4); Mean Corpuscular Hemoglobin 29.4 pg (27.0-31.2); Mean Corpuscular Volume 84.8 fl (81-99); Mean Platelet Volume 7.1 fl (7.4-10.4); Monocytes # 0.4 K/mm3 (0.1-1.0); Monocytes % 4.2 % (1.7-9.3); Neutrophils # 6.9 K/mm3 (1.8-7.8); Neutrophils % 70.9 % (37.0-80.0); Platelet Count 265 K/mm3 (142-424); Red Blood Count 4.94 M/mm3 (4.20-5.40); Red Cell Distribution Width 13.2 % (11.5-17.5); White Blood Count 9.7 K/mm3 (4.8-10.8)
[2024-01-12 16:41] LABS: Alanine Aminotransferase 24 U/L (12-78); Albumin Level 4.3 g/dl (3.5-5.0); Alkaline Phosphatase 66 U/L (38-126); Anion Gap 12.3 mEq/L (5-15); Aspartate Amino Transferase 18 U/L (14-36); Bilirubin,Direct 0.4 mg/dl (0.0-0.4); Bilirubin,Indirect 0.2 mg/dL (0.0-0.9); Bilirubin,Total 0.6 mg/dl (0.2-1.3); Bilirubin,Unconjugated 0.2 mg/dL (0.0-1.1); Blood Urea Nitrogen 11 mg/dl (7-17); Calcium 9.5 mg/dl (8.4-10.2); Carbon Dioxide 26 mmol/L (22.0-30.0); Chloride 106 mmol/L (98-107); Chol/HDL Ratio 4.1 (1-3.5); Cholesterol 171 mg/dl (140-200); Estimated Glomerular Filt Rate 93 ml/min (>60); GFR (African American) 112 ML/MIN (>60); Glucose 118 mg/dl (74-100); HDL Cholesterol 42 mg/dl (40-60); Magnesium 1.9 mg/dl (1.6-2.3); Potassium 4.3 mmoL/L (3.5-5.1); Sodium 140 mmol/L (136-145); Total Protein,Serum 6.9 g/dl (6.3-8.2); Triglycerides 96 mg/dl (30-150); VLDL Cholesterol 19 mg/dL (0-40)
[2024-01-12 16:52] LABS: Direct LDL Cholesterol 107.83 mg/dL (100-129)
== END 2024-01-12 23:59 | disposition home or self-care (01) ==
LOC: LAB 15:48
PROVIDERS: PCP Nurse Practitioner Family; Visit Provider Internal Medicine
DX: R06.09 Other forms of dyspnea (principal); R07.9 Chest pain, unspecified; I10 Essential (primary) hypertension; R53.83 Other fatigue
CPT/HCPCS: 80048; 80061; 80076; 83735; 84439; 85025

== ENCOUNTER 2024-01-16 12:10 | Emergency (ER) | payer BC, SELFPAY ==
[2024-01-16] VITALS (12 sets, daily range): BP systolic 121–145; BP diastolic 79–106; PULSE 80–106; RESP 14–20; TEMP 36.6–36.8; O2SAT 95–100; BMI 39.1
--- NOTE | 2024-01-16 12:31 | XR_ITS ---
PROCEDURE INFORMATION: Exam: XR Abdomen Exam date and time: 01/16/2024 12:44 PM Age: 38 years old Clinical indication: Abdominal pain; Periumbilical; Additional info: Pain x 1 day TECHNIQUE: Imaging protocol: Radiologic exam of the abdomen. Views: Frontal supine view of the abdomen. 1 View. COMPARISON: CT ABDOMEN PELVIS WO CON 07/19/2021 9:39 PM FINDINGS: Gastrointestinal tract: Moderate to large volume stool within the colon. Correlate for constipation. Organs: Post cholecystectomy clips. Bones/joints: Unremarkable. IMPRESSION: Moderate to large volume stool within the colon. Correlate for constipation.
--- NOTE | 2024-01-16 13:19 | EXP.UTC ---
Discharge Plan Disposition Patient Disposition: Still a Patient Condition: Fair Prescriptions Prescriptions: No Action aspirin 81 mg tablet,delayed release (DR/EC) 81 mg PO DAILY Patient Comments: TAKE ONE TABLET BY MOUTH EVERY DAY meclizine 12.5 mg tablet 12.5 mg PO BID PRN (Reason: Vertigo) Patient Comments: TAKE ONE TABLET BY MOUTH TWICE DAILY NEEDED FOR DIZZINESS FOR UP TO 30 DAYS atorvastatin 10 mg tablet 10 mg PO HS Patient Comments: TAKE ONE TABLET BY MOUTH EVERY NIGHT cholecalciferol (vitamin D3) 1,250 mcg (50,000 unit) capsule 1,250 mcg PO WEEKLY Qty: 8 0RF Myrbetriq 50 mg tablet extended release 24 hr 50 mg PO DAILY Qty: 90 3RF pantoprazole 40 mg tablet,delayed release (DR/EC) 40 mg PO DAILY Qty: 90 1RF Rx Instructions: TAKE ONE TABLET BY MOUTH EVERY DAY diltiazem HCl 120 mg capsule,extended release 12 hr 120 mg PO BID Qty: 60 2RF azithromycin [Zithromax Z-Surinder] 250 mg tablet See Rx Instructions .ROUTE .COMPLEX 5 Days Qty: 6 0RF Rx Instructions: For 250 mg dose pack: take 500 mg today (day 1), then 250 mg for 4 days (days 2-5) methylprednisolone [Medrol (Surinder)] 4 mg tablets,dose pack See Rx Instructions .Route .COMPLEX 6 Days Qty: 21 0RF Rx Instructions: taper pack; Referrals Follow up/Referrals: Greer Donald APRN [Primary Care Provider] - See instructions Clinical Impressions Clinical Impression: Abdominal pain Print Language Print Language: [place] Citizen Discharge ED Provider: Harvey Barone [facility] General Stated complaint: abd/back pain Time Seen by Provider: 01/16/24 13:19 History of Present Illness Provider Complaint: She states that for the past 1 day she has had worsening lower abdominal pain. She denies constipation and diarrhea. She has had nausea, but she has not vomited. Related Data Home Medications ?Medication ?Instructions ?Recorded ?Confirmed aspirin 81 mg tablet,delayed 81 mg PO DAILY 06/15/23 01/12/24 release atorvastatin 10 mg tablet 10 mg PO HS 06/15/23 01/12/24 meclizine 12.5 mg tablet 12.5 mg PO BID PRN Vertigo 06/15/23 01/12/24 Previous Rx's ?Medication ?Instructions ?Recorded mirabegron 50 mg tablet,extended 50 mg PO DAILY #90 tabs 05/27/23 release 24 hr (Myrbetriq) cholecalciferol (vitamin D3) 1,250 1,250 mcg PO WEEKLY #8 caps 06/15/23 mcg (50,000 unit) capsule pantoprazole 40 mg tablet,delayed 40 mg PO DAILY #90 tabs 08/31/23 release azithromycin 250 mg tablet See Rx Instructions PO .COMPLEX 5 12/08/23 (Zithromax Z-Surinder) days #6 tabs methylprednisolone 4 mg tablets in See Rx Instructions .Route 12/08/23 a dose pack (Medrol (Surinder)) .COMPLEX 6 days #21 tabs diltiazem HCl 120 mg 120 mg PO BID #60 caps 01/13/24 capsule,extended release 12 hr Allergies Allergy/AdvReac Type Severity Reaction Status Date / Time chlorhexidine Allergy Mild Hives Verified 01/12/24 15:13 hydrocodone (From NORCO) Allergy Mild Hives Verified 01/12/24 15:13 hydromorphone (From Dilaudid) Allergy Unknown Verified 01/12/24 15:13 allergy reaction [facility] Disclaimer: The information contained in this section may have been updated after the patient was seen, as this information can be updated by other users. Medical History Abnormal electrocardiogram [ECG] [EKG] Claudication of both lower extremities Bacterial vaginosis Bilateral cold feet Pain in right lower leg Right leg swelling Sinusitis Edema of both lower extremities Palpitations Dizziness Dyspnea Chest pain Primary HSV infection of mouth Cephalalgia Acute herpes zoster neuropathy Trigeminal neuralgia of right side of face Interstitial cystitis Migraine History of kidney stones Hypertension History of stroke 11/2019 OAB (overactive bladder) GERD (gastroesophageal reflux disease) Pelvic pain Left arm pain Contusion of left upper arm Sprain of left shoulder Fall Sinusitis Flank pain, acute Ear pain UTI (urinary tract infection) Surgical History History of cholecystectomy H/O colonoscopy History of suburethral sling procedure History of tubal ligation History of appendectomy 1994 History of hysterectomy partial (has 1 ovary), due to benign reason 05/2015 Family History Mother Hyperlipidemia Sister Hyperlipidemia Social History Smoking Status: Current every day smoker alcohol intake: current alcohol intake frequency: holidays/special occasions only substance use type: denies use current occupational status: employed and other household members: spouse and children housing: house marital status: number of children: 2 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 current occupational exposures/hazards: No caffeine: No ROS Obtained: Yes All systems reviewed & no additional complaints except as documented Constitutional Constitutional: Denies chills, Denies fever(s) and Reports poor appetite ENT Ears, Nose, Mouth, and Throat: Denies dizziness and Denies sore throat Cardiovascular Cardiovascular: Denies dyspnea Respiratory Respiratory: Denies chest congestion, Denies cough and Denies dyspnea Gastrointestinal Gastrointestingal: Reports as per HPI and abdominal pain Genitourinary Female Genitourinary: Denies difficulty voiding, Denies dysuria, Denies hematuria, Denies urinary frequency, Denies urinary incontinence, Denies urinary hesitancy and Denies urinary urgency Musculoskeletal Musculoskeletal: Denies arthralgias Integumentary/Breasts Skin/Breast: Denies rash Neurologic Neurologic: Denies dizziness Physical Exam General General appearance: alert and in no apparent distress Head Head exam: atraumatic, normocephalic and normal inspection Eye Eye exam: Present normal appearance, PERRL and EOMI ENT ENT exam: Present normal exam, normal oropharynx, mucous membranes moist, TM's normal bilaterally and normal external ear exam Neck Neck exam: Present normal inspection, full ROM and trachea midline; Absent meningismus or lymphadenopathy Chest Chest inspection: Present normal inspection and symmetric chest wall rise; Absent tenderness Respiratory Respiratory exam: Present normal lung sounds bilaterally; Absent respiratory distress Cardiovascular Cardiovascular exam: Present regular rate and normal rhythm; Absent JVD Abdominal Exam Abdominal exam: Present soft and normal bowel sounds; Absent distention, tenderness or guarding Extremities Exam Extremities exam: Present normal inspection, full ROM and normal capillary refill; Absent calf tenderness Back Exam Back exam: Present normal inspection; Absent tenderness Neurological Exam Neurological exam: Present alert and oriented X3 Psychiatric Psychiatric exam: Present normal affect and normal mood Skin Skin exam: Present warm, dry, intact and normal color Lymphatic Lymphatic Findings: no adenopathy Medical Decision Making Medical Records Medical records reviewed: No I reviewed the patient's medical records. Screening: Per USPSTF and CDC recommendations, given the prevalence of disease in our region, it is our hospital?s policy to screen for HIV and viral Hepatitis for all patients aged 18 and over and those with ongoing risk factors. Royce Inquiry Pt receiving controlled substance: No Orders (Tests/Meds): ORDERS Category Date Time Status KUB (single view) [XR KUB] Stat Exams 01/16/24 12:31 Taken
[2024-01-16 13:59] LABS: Apearance,Urine Clear (Clear); Bilirubin,Urine Negative (Negative); Blood, Urine Negative (Negative); Color,Urine Yellow (Yellow); Glucose,Urine (UA) Negative (Negative); Ketones,Urine Negative (Negative); PH,Urine 6.5 (5.0-8.5); Protein,Urine Negative (Negative); UTC Leukocyte Esterase,Urine Negative (Negative); UTC Nitrate,Urine Negative (Negative); Urobilinogen,Urine 0.2 EU/dl (0.2)
--- NOTE | 2024-01-16 14:37 | CT_ITS ---
PROCEDURE INFORMATION: Exam: CT Abdomen And Pelvis With Contrast Exam date and time: 01/16/2024 3:57 PM Age: 38 years old Clinical indication: Abdominal pain; Generalized TECHNIQUE: Imaging protocol: Computed tomography of the abdomen and pelvis with contrast. Radiation optimization: All CT scans at this facility use at least one of these dose optimization techniques: automated exposure control; mA and/or kV adjustment per patient size (includes targeted exams where dose is matched to clinical indication); or iterative reconstruction. Contrast material: ISOVUE; Contrast volume: 75 ml; Contrast route: IV; COMPARISON: CT ABDOMEN PELVIS WO CON 07/19/2021 9:39 PM FINDINGS: Liver: Normal. No mass. Gallbladder and biliary ducts: Cholecystectomy Pancreas: Normal. No ductal dilation. Spleen: Normal. No splenomegaly. Adrenal glands: Normal. No mass. Kidneys and ureters: There is no evidence of renal or ureteral calcifications. Stomach and bowel: Unremarkable. No obstruction. No mucosal thickening. Appendix: No evidence of appendicitis. Intraperitoneal space: Unremarkable. No free air. No significant fluid collection. Vasculature: Unremarkable. No abdominal aortic aneurysm. Lymph nodes: Unremarkable. No enlarged lymph nodes. Urinary bladder: Unremarkable as visualized. Reproductive: 2.5 cm simple cyst left ovary. Surgical resection of the uterus Bones/joints: Unremarkable. No acute fracture. Soft tissues: Umbilical hernia contains fat IMPRESSION: No acute process
--- NOTE | 2024-01-16 14:39 | ED_ITS ---
Discharge Plan Disposition Patient Disposition: Still a Patient Condition: Fair Prescriptions Prescriptions: New dicyclomine 20 mg tablet 20 mg PO TID 3 Days Qty: 9 0RF No Action aspirin 81 mg tablet,delayed release (DR/EC) 81 mg PO DAILY Patient Comments: TAKE ONE TABLET BY MOUTH EVERY DAY meclizine 12.5 mg tablet 12.5 mg PO BID PRN (Reason: Vertigo) Patient Comments: TAKE ONE TABLET BY MOUTH TWICE DAILY NEEDED FOR DIZZINESS FOR UP TO 30 DAYS atorvastatin 10 mg tablet 10 mg PO HS Patient Comments: TAKE ONE TABLET BY MOUTH EVERY NIGHT cholecalciferol (vitamin D3) 1,250 mcg (50,000 unit) capsule 1,250 mcg PO WEEKLY Qty: 8 0RF Myrbetriq 50 mg tablet extended release 24 hr 50 mg PO DAILY Qty: 90 3RF pantoprazole 40 mg tablet,delayed release (DR/EC) 40 mg PO DAILY Qty: 90 1RF Rx Instructions: TAKE ONE TABLET BY MOUTH EVERY DAY diltiazem HCl 120 mg capsule,extended release 12 hr 120 mg PO BID Qty: 60 2RF azithromycin [Zithromax Z-Surinder] 250 mg tablet See Rx Instructions .ROUTE .COMPLEX 5 Days Qty: 6 0RF Rx Instructions: For 250 mg dose pack: take 500 mg today (day 1), then 250 mg for 4 days (days 2-5) methylprednisolone [Medrol (Surinder)] 4 mg tablets,dose pack See Rx Instructions .Route .COMPLEX 6 Days Qty: 21 0RF Rx Instructions: taper pack; Referrals Follow up/Referrals: Greer Donald APRN [Primary Care Provider] - See instructions Activity Restrictions/Add. Instructions Additional Instructions/Restrictions: Follow-up with OB regarding ovarian cyst Follow-up with Dr. Silvino Cano for more workup-call for appointment Phone:? bentyl twice daily as needed Return if symptoms worsen or do not improve Tylenol or ibuprofen as needed for pain Clinical Impressions Clinical Impression: Abdominal pain, Ovarian cyst Instructions Patient Instructions: DI for Acute Abdominal Pain Print Language Print Language: [place] Discharge ED Provider: Osman Ny General Adult HPI <Lauri Rodriguez ([facility] [[email or web address]])LUIS - Last Filed: 01/16/24 19:18> General Chief complaint: Abdominal Pain Stated complaint: abd/back pain Time Seen by Provider: 01/16/24 13:19 Mode of Arrival: Ambulatory Source of Information: Patient Description of Symptoms (Recalled from ER Triage Doc. by RN): ABD PAIN LOWER, RADIATES TO BACK AND WHOLE STOMACH, CAUSES CHEST PAIN WHILE LAYING FLAT History of Present Illness HPI narrative: 38-year-old female presents for abdominal pain radiates into her back. Related Data Home Medications ?Medication ?Instructions ?Recorded ?Confirmed aspirin 81 mg tablet,delayed 81 mg PO DAILY 06/15/23 01/12/24 release atorvastatin 10 mg tablet 10 mg PO HS 06/15/23 01/12/24 meclizine 12.5 mg tablet 12.5 mg PO BID PRN Vertigo 06/15/23 01/12/24 Previous Rx's ?Medication ?Instructions ?Recorded mirabegron 50 mg tablet,extended 50 mg PO DAILY #90 tabs 05/27/23 release 24 hr (Myrbetriq) cholecalciferol (vitamin D3) 1,250 1,250 mcg PO WEEKLY #8 caps 06/15/23 mcg (50,000 unit) capsule pantoprazole 40 mg tablet,delayed 40 mg PO DAILY #90 tabs 08/31/23 release azithromycin 250 mg tablet See Rx Instructions PO .COMPLEX 5 12/08/23 (Zithromax Z-Surinder) days #6 tabs methylprednisolone 4 mg tablets in See Rx Instructions .Route 12/08/23 a dose pack (Medrol (Surinder)) .COMPLEX 6 days #21 tabs diltiazem HCl 120 mg 120 mg PO BID #60 caps 01/13/24 capsule,extended release 12 hr dicyclomine 20 mg tablet 20 mg PO TID 3 days #9 tabs 01/16/24 Allergies Allergy/AdvReac Type Severity Reaction Status Date / Time chlorhexidine Allergy Mild Hives Verified 01/12/24 15:13 hydrocodone (From NORCO) Allergy Mild Hives Verified 01/12/24 15:13 hydromorphone (From Dilaudid) Allergy Unknown Verified 01/12/24 15:13 allergy reaction PFSH <Lauri Rodriguez ([facility] [[email or web address]]), BLADE GROOVER - Last Filed: 01/16/24 19:18> [facility] Disclaimer: The information contained in this section may have been updated after the patient was seen, as this information can be updated by other users. Medical History (Reviewed 01/16/24 @ 14:40 by Lauri [email or web address] BLADE GROOVER) Abnormal electrocardiogram [ECG] [EKG] Claudication of both lower extremities Bacterial vaginosis Bilateral cold feet Pain in right lower leg Right leg swelling Sinusitis Edema of both lower extremities Palpitations Dizziness Dyspnea Chest pain Primary HSV infection of mouth Cephalalgia Acute herpes zoster neuropathy Trigeminal neuralgia of right side of face Interstitial cystitis Migraine History of kidney stones Hypertension History of stroke OAB (overactive bladder) GERD (gastroesophageal reflux disease) Pelvic pain Left arm pain Contusion of left upper arm Sprain of left shoulder Fall Sinusitis Flank pain, acute Ear pain UTI (urinary tract infection) Surgical History (Reviewed 01/16/24 @ 14:40 by [email or web address] BLADE GROOVER) History of cholecystectomy H/O colonoscopy History of suburethral sling procedure History of tubal ligation History of appendectomy History of hysterectomy Family History (Reviewed 01/16/24 @ 14:40 by [email or web address] BLADE GROOVER) Hyperlipidemia Mother Sister Social History (Reviewed 01/16/24 @ 14:40 by [email or web address] BLADE GRO[place]) Smoking Status: Never smoker alcohol intake: current alcohol intake frequency: holidays/special occasions only substance use type: denies use current occupational status: employed and other household members: spouse and children housing: house marital status: number of children: 2 current occupation: [employer] current occupational exposures/hazards: No caffeine: No Other Medical History Have you received the Flu Vaccine for this season: No Have you received the Pneumonia Vaccine: No <[email or web address]]Amilcar, BLADE GROOVER - Last Filed: 01/16/24 19:18> ROS Obtained: Yes Systems reviewed as appropriate & no additional complaints except as documented Gastrointestinal Gastrointestingal: Reports system reviewed and no additional complaints, except as documented, as per HPI, abdominal pain, cramping and nausea Physical Exam <[email or web address]]Amilcar, BLADE GROOVER - Last Filed: 01/16/24 19:18> General General appearance: alert and in no apparent distress Eye Eye exam: Present normal appearance Respiratory Respiratory exam: Present normal lung sounds bilaterally Cardiovascular Cardiovascular exam: Present regular rate and normal rhythm Abdominal Exam Abdominal exam: Present soft, tenderness, normal bowel sounds and hernia Abdominal tenderness: Present mild Neurological Exam Neurological exam: Present alert and oriented X3 Skin Skin exam: Present warm and intact Medical Decision Making <Lauri Rodriguez ([facility] [[email or web address]]), BLADE GROOVER - Last Filed: 01/16/24 19:18> Medical Records Medical records reviewed: Yes I reviewed the patient's medical records. Screening: Per USPSTF and CDC recommendations, given the prevalence of disease in our region, it is our hospital?s policy to screen for HIV and viral Hepatitis for all patients aged 18 and over and those with ongoing risk factors. Royce Inquiry Pt receiving controlled substance: No Royce was queried for this patient: No Vital Signs: 01/16/24 12:11 01/16/24 13:26 01/16/24 14:30 Temperature 98.2 F 98.1 F Temperature Source Oral Oral Pulse Rate 103 H Pulse Rate [Left Radial] 103 H 104 H Respiratory Rate 14 20 Blood Pressure 140/84 Blood Pressure [Left Arm] 140/84 129/92 H Blood Pressure Mean Blood Pressure Mean [Left Arm] 102 104 02 Sat by Pulse Oximetry 97 97 98 Oxygen Delivery Method Room Air Room Air 01/16/24 15:30 01/16/24 16:30 01/16/24 17:00 Temperature Temperature Source Pulse Rate 95 H 92 H 106 H Pulse Rate [Left Radial] Respiratory Rate 18 16 Blood Pressure 138/95 H 142/106 H 131/79 Blood Pressure [Left Arm] Blood Pressure Mean 109 112 Blood Pressure Mean [Left Arm] 02 Sat by Pulse Oximetry 98 98 98 Oxygen Delivery Method Room Air 01/16/24 17:48 01/16/24 18:00 01/16/24 18:30 Temperature Temperature Source Pulse Rate 88 86 85 Pulse Rate [Left Radial] Respiratory Rate 18 16 18 Blood Pressure 121/88 122/93 H 133/93 H Blood Pressure [Left Arm] Blood Pressure Mean 100 105 103 Blood Pressure Mean [Left Arm] 02 Sat by Pulse Oximetry 95 97 96 Oxygen Delivery Method 01/16/24 19:00 01/16/24 19:30 01/16/24 19:43 Temperature 98 F Temperature Source Pulse Rate 80 97 H 97 H Pulse Rate [Left Radial] Respiratory Rate 18 Blood Pressure 129/90 132/101 H 145/99 H Blood Pressure [Left Arm] Blood Pressure Mean Blood Pressure Mean [Left Arm] 02 Sat by Pulse Oximetry 98 96 Oxygen Delivery Method Room Air Lab Data Lab Results 01/16/24 13:42: Urine Color Yellow, Urine Appearance Clear, Urine pH 6.0, Ur Specific [place] 1.020, Urine Protein Negative, Urine Glucose (UA) Negative, Urine Ketones Negative, Urine Blood Negative, Urine Nitrate Negative, Urine Bilirubin Negative, Urine Urobilinogen 0.2, Ur Leukocyte Esterase Negative, Urine RBC None, Urine WBC Occasional, Ur Squamous Epith Cells 5-10, Urine Bacteria None 01/16/24 13:44: Urine Color Yellow, Urine Appearance Clear, Urine pH 6.5, Ur Specific [place] 1.020, Urine Protein Negative, Urine Glucose (UA) Negative, Urine Ketones Negative, Urine Blood Negative, Urine Nitrate Negative, Urine Bilirubin Negative, Urine Urobilinogen 0.2, Ur Leukocyte Esterase Negative 01/16/24 15:03: Troponin I < 0.01 01/16/24 15:05: WBC 7.7, RBC 4.88, Hgb 14.1, Hct 41.2, MCV 84.4, MCH 28.9, MCHC 34.2, RDW 11.9, Plt Count 218, MPV 8.9, Neut % (Auto) 58.3, Lymph % (Auto) 33.9, Mckinley % (Auto) 5.2, Eos % (Auto) 0.3, Baso % (Auto) 0.9, Neut # (Auto) 4.5, Lymph # (Auto) 2.6, Mckinley # (Auto) 0.4, Eos # (Auto) 0.0, Baso # (Auto) 0.1, Total Counted Cancelled, Neutrophils % (Manual) Cancelled, Band Neutrophils % Cancelled, Lymphocytes % (Manual) Cancelled, Atypical Lymphs % Cancelled, Monocytes % (Manual) Cancelled, Eosinophils % (Manual) Cancelled, Basophils % (Manual) Cancelled, Metamyelocytes % Cancelled, Myelocytes % Cancelled, Promyelocytes % Cancelled, Blast Cells % Cancelled, Nucleated RBCs Cancelled, Differential Comment Cancelled, Hypersegmented Neuts Cancelled, Toxic Granulation Cancelled, Toxic Vacuolation Cancelled, Dohle Bodies Cancelled, Amanda Rods Cancelled, Platelet Estimate Cancelled, Giant Platelets Cancelled, RBC Morphology Cancelled, Polychromasia Cancelled, Hypochromasia Cancelled, Poikilocytosis Cancelled, Basophilic Stippling Cancelled, Anisocytosis Cancelled, Microcytosis Cancelled, Macrocytosis Cancelled, Spherocytes Cancelled, Pappenheimer Bodies Cancelled, Sickle Cells Cancelled, Target Cells Cancelled, Tear Drop Cells Cancelled, Ovalocytes Cancelled, Stomatocytes Cancelled, Helmet Cells Cancelled, Dobbs-Weitchpec Bodies Cancelled, [place] Rings Cancelled, [place] Cells Cancelled, Acanthocytes (Spur) Cancelled, Rouleaux Cancelled, Schistocytes Cancelled, ESR 16, Sodium 138, Potassium 4.0, Chloride 106, Carbon Dioxide 24, Anion Gap 12.0, BUN 10, Creatinine 0.80, Estimated Creat Clear 157, Estimated GFR 79, Est GFR ( Amer) 96, Glucose 93, Lactate 0.7, Calcium 9.1, Total Bilirubin 0.9, AST 31, ALT 28, Alkaline Phosphatase 82, C- Reactive Protein 23.4 H, Total Protein 7.6, Albumin 4.3, Globulin 3.3 H, Albumin/Globulin Ratio 1.3, Lipase 65 01/16/24 15:05 01/16/24 15:05 Orders (Tests/Meds): ED MEDICATIONS Discontinued Medications Generic Name Dose Route Start Last Admin Trade Name Freq PRN Reason Stop Dose Admin Acetaminophen 1,000 mg 01/16/24 17:19 01/16/24 17:27 Acetaminophen 1,000mg/100ml Vial IV 01/16/24 17:20 1,000 mg ONCE ONE Administration Belladonna Alkaloids 60 ml 01/16/24 17:19 01/16/24 17:28 Belladonna Alkaloids 60 Ml Ml PO 01/16/24 17:20 60 ml ONCE ONE Administration Dicyclomine HCl 20 mg 01/16/24 17:19 01/16/24 17:28 Dicyclomine 10mg Capsule PO 01/16/24 17:20 20 mg ONCE ONE Administration Iopamidol 75 ml 01/16/24 15:56 01/16/24 15:59 Iopamidol-370 (76%);100ml Bottle IV 01/16/24 15:57 75 ml ONCE ONE Administration Iopamidol 80 ml 01/16/24 17:33 01/16/24 17:35 Iopamidol-370 (76%);100ml Bottle IV 01/16/24 17:34 80 ml ONCE ONE Administration Ketorolac Tromethamine 30 mg 01/16/24 17:19 01/16/24 17:28 Ketorolac 30mg/Ml Vial IV 01/16/24 17:20 30 mg ONCE ONE Administration Ondansetron HCl 4 mg 01/16/24 17:52 01/16/24 17:54 Ondansetron 4mg/2ml Vial IV 01/16/24 17:53 4 mg ONCE ONE Administration Sodium Chloride 10 ml 01/16/24 15:56 01/16/24 15:59 Sodium Chloride 0.9% 10ml Syr (Rad Only) IV 02/15/24 15:55 10 ml NEEDED PRN Administration Maintain IV Site Sodium Chloride 500 ml 01/16/24 17:22 01/16/24 17:29 Sodium Chloride 0.9% 500ml Bag IV 01/16/24 17:23 500 ml ONCE ONE Administration Sodium Chloride 10 ml 01/16/24 17:33 01/16/24 17:35 Sodium Chloride 0.9% 10ml Syr (Rad Only) IV 01/16/24 17:34 10 ml ONCE ONE Administration Sodium Chloride 50 ml 01/16/24 17:33 01/16/24 17:34 0.9 % Sodium Chloride 50 Ml Vial IV 01/16/24 17:34 50 ml ONCE ONE Administration ORDERS Category Date Time Status CT abdomen pelvis w con Stat Cat Scan 01/16/24 14:[address] angio abdomen pelvis Stat Cat Scan 01/16/24 17:20 Completed KUB (single view) [XR KUB] Stat Exams 01/16/24 12:31 Completed CMP [Comprehensive Metabolic Panel] Stat Lab 01/16/24 15:05 Completed CRP [C-Reactive Protein] Stat Lab 01/16/24 15:05 Completed Complete Blood Count Auto Diff Stat Lab 01/16/24 15:05 Completed ESR [Erythrocyte Sedimentation Rate] Stat Lab 01/16/24 15:05 Completed Lactic Acid Stat Lab 01/16/24 15:05 Completed Lipase Stat Lab 01/16/24 15:05 Completed Trop I [Troponin I] Stat Lab 01/16/24 15:03 Completed UA [Urinalysis and Microscopic] Stat Lab 01/16/24 13:42 Completed Urine Culture Stat Micro 01/16/24 13:50 Received EKG Request [ECG Request] Stat Y 01/16/24 17:19 Ordered Medical Decision Narrative: In summary patient is a 38-year-old female who presents to the emergency department for evaluation of abdominal pain. Patient is hemodynamically stable upon arrival, afebrile. On exam tenderness throughout abdomen. Differential diagnosis includes Crohn's flare, small bowel obstruction, constipation. Initial workup will be conducted with hemolytic labs negative CT of abdomen and CTA unremarkable. Initial inventions include IV fluids, GI cocktail, Bentyl. Initial workup reviewed by me hemolytic labs are unremarkable imaging unremarkable except for a small ovarian cyst. With negative workup patient appropriate for discharge at this time will discharge home with Bentyl 20 mg 3 times daily, follow-up with Dr. Cano, come back for any new or worsening symptoms And follow-up with OB for ovarian cyst. CT negative-ovarian cyst CTA of abdomen negative I was consulted by the YARELIS, and we discussed the complexity of problems being addressed. I approved the treatment and management plan for this patient's care in the emergency department, thus performing a substantial portion of the medical decision making. Kristina Wisdom MD <Kristina Wisdom MD - Last Filed: 01/16/24 15:17> Vital Signs: 01/16/24 12:11 01/16/24 13:26 01/16/24 14:30 Temperature 98.2 F 98.1 F Temperature Source Oral Oral Pulse Rate 103 H Pulse Rate [Left Radial] 103 H 104 H Respiratory Rate 14 20 Blood Pressure 140/84 Blood Pressure [Left Arm] 140/84 129/92 H Blood Pressure Mean Blood Pressure Mean [Left Arm] 102 104 02 Sat by Pulse Oximetry 97 97 98 Oxygen Delivery Method Room Air Room Air 01/16/24 15:30 01/16/24 16:30 01/16/24 17:00 Temperature Temperature Source Pulse Rate 95 H 92 H 106 H Pulse Rate [Left Radial] Respiratory Rate 18 16 Blood Pressure 138/95 H 142/106 H 131/79 Blood Pressure [Left Arm] Blood Pressure Mean 109 112 Blood Pressure Mean [Left Arm] 02 Sat by Pulse Oximetry 98 98 98 Oxygen Delivery Method Room Air 01/16/24 17:48 01/16/24 18:00 01/16/24 18:30 Temperature Temperature Source Pulse Rate 88 86 85 Pulse Rate [Left Radial] Respiratory Rate 18 16 18 Blood Pressure 121/88 122/93 H 133/93 H Blood Pressure [Left Arm] Blood Pressure Mean 100 105 103 Blood Pressure Mean [Left Arm] 02 Sat by Pulse Oximetry 95 97 96 Oxygen Delivery Method 01/16/24 19:00 01/16/24 19:30 01/16/24 19:43 Temperature 98 F Temperature Source Pulse Rate 80 97 H 97 H Pulse Rate [Left Radial] Respiratory Rate 18 Blood Pressure 129/90 132/101 H 145/99 H Blood Pressure [Left Arm] Blood Pressure Mean Blood Pressure Mean [Left Arm] 02 Sat by Pulse Oximetry 98 96 Oxygen Delivery Method Room Air Lab Data Lab Results 01/16/24 13:42: Urine Color Yellow, Urine Appearance Clear, Urine pH 6.0, Ur Specific [place] 1.020, Urine Protein Negative, Urine Glucose (UA) Negative, Urine Ketones Negative, Urine Blood Negative, Urine Nitrate Negative, Urine Bilirubin Negative, Urine Urobilinogen 0.2, Ur Leukocyte Esterase Negative, Urine RBC None, Urine WBC Occasional, Ur Squamous Epith Cells 5-10, Urine Bacteria None 01/16/24 13:44: Urine Color Yellow, Urine Appearance Clear, Urine pH 6.5, Ur Specific [place] 1.020, Urine Protein Negative, Urine Glucose (UA) Negative, Urine Ketones Negative, Urine Blood Negative, Urine Nitrate Negative, Urine Bilirubin Negative, Urine Urobilinogen 0.2, Ur Leukocyte Esterase Negative 01/16/24 15:03: Troponin I < 0.01 01/16/24 15:05: WBC 7.7, RBC 4.88, Hgb 14.1, Hct 41.2, MCV 84.4, MCH 28.9, MCHC 34.2, RDW 11.9, Plt Count 218, MPV 8.9, Neut % (Auto) 58.3, Lymph % (Auto) 33.9, Mck[place] % (Auto) 5.2, Eos % (Auto) 0.3, Baso % (Auto) 0.9, Neut # (Auto) 4.5, Lymph # (Auto) 2.6, [place] # (Auto) 0.4, Eos # (Auto) 0.0, Baso # (Auto) 0.1, Total Counted Cancelled, Neutrophils % (Manual) Cancelled, Band Neutrophils % Cancelled, Lymphocytes % (Manual) Cancelled, Atypical Lymphs % Cancelled, Monocytes % (Manual) Cancelled, Eosinophils % (Manual) Cancelled, Basophils % (Manual) Cancelled, Metamyelocytes % Cancelled, Myelocytes % Cancelled, Promyelocytes % Cancelled, Blast Cells % Cancelled, Nucleated RBCs Cancelled, Differential Comment Cancelled, Hypersegmented Neuts Cancelled, Toxic Granulation Cancelled, Toxic Vacuolation Cancelled, Dohle Bodies Cancelled, Amanda Rods Cancelled, Platelet Estimate Cancelled, Giant Platelets Cancelled, RBC Morphology Cancelled, Polychromasia Cancelled, Hypochromasia Cancelled, Poikilocytosis Cancelled, Basophilic Stippling Cancelled, Anisocytosis Cancelled, Microcytosis Cancelled, Macrocytosis Cancelled, Spherocytes Cancelled, Pappenheimer Bodies Cancelled, Sickle Cells Cancelled, Target Cells Cancelled, Tear Drop Cells Cancelled, Ovalocytes Cancelled, Stomatocytes Cancelled, Helmet Cells Cancelled, Dobbs-Weitchpec Bodies Cancelled, [place] Rings Cancelled, [place] Cells Cancelled, Acanthocytes (Spur) Cancelled, Rouleaux Cancelled, Schistocytes Cancelled, ESR 16, Sodium 138, Potassium 4.0, Chloride 106, Carbon Dioxide 24, Anion Gap 12.0, BUN 10, Creatinine 0.80, Estimated Creat Clear 157, Estimated GFR 79, Est GFR ( Amer) 96, Glucose 93, Lactate 0.7, Calcium 9.1, Total Bilirubin 0.9, AST 31, ALT 28, Alkaline Phosphatase 82, C- Reactive Protein 23.4 H, Total Protein 7.6, Albumin 4.3, Globulin 3.3 H, Albumin/Globulin Ratio 1.3, Lipase 65 Orders (Tests/Meds): ED MEDICATIONS Discontinued Medications Generic Name Dose Route Start Last Admin Trade Name Bobby PRN Reason Stop Dose Admin Acetaminophen 1,000 mg 01/16/24 17:19 01/16/24 17:27 Acetaminophen 1,000mg/100ml Vial IV 01/16/24 17:20 1,000 mg ONCE ONE Administration Belladonna Alkaloids 60 ml 01/16/24 17:19 01/16/24 17:28 Belladonna Alkaloids 60 Ml Ml PO 01/16/24 17:20 60 ml ONCE ONE Administration Dicyclomine HCl 20 mg 01/16/24 17:19 01/16/24 17:28 Dicyclomine 10mg Capsule PO 01/16/24 17:20 20 mg ONCE ONE Administration Iopamidol 75 ml 01/16/24 15:56 01/16/24 15:59 Iopamidol-370 (76%);100ml Bottle IV 01/16/24 15:57 75 ml ONCE ONE Administration Iopamidol 80 ml 01/16/24 17:33 01/16/24 17:35 Iopamidol-370 (76%);100ml Bottle IV 01/16/24 17:34 80 ml ONCE ONE Administration Ketorolac Tromethamine 30 mg 01/16/24 17:19 01/16/24 17:28 Ketorolac 30mg/Ml Vial IV 01/16/24 17:20 30 mg ONCE ONE Administration Ondansetron HCl 4 mg 01/16/24 17:52 01/16/24 17:54 Ondansetron 4mg/2ml Vial IV 01/16/24 17:53 4 mg ONCE ONE Administration Sodium Chloride 10 ml 01/16/24 15:56 01/16/24 15:59 Sodium Chloride 0.9% 10ml Syr (Rad Only) IV 02/15/24 15:55 10 ml NEEDED PRN Administration Maintain IV Site Sodium Chloride 500 ml 01/16/24 17:22 01/16/24 17:29 Sodium Chloride 0.9% 500ml Bag IV 01/16/24 17:23 500 ml ONCE ONE Administration Sodium Chloride 10 ml 01/16/24 17:33 01/16/24 17:35 Sodium Chloride 0.9% 10ml Syr (Rad Only) IV 01/16/24 17:34 10 ml ONCE ONE Administration Sodium Chloride 50 ml 01/16/24 17:33 01/16/24 17:34 0.9 % Sodium Chloride 50 Ml Vial IV 01/16/24 17:34 50 ml ONCE ONE Administration ORDERS Category Date Time Status CT abdomen pelvis w con Stat Cat Scan 01/16/24 14:[address] angio abdomen pelvis Stat Cat Scan 01/16/24 17:20 Completed KUB (single view) [XR KUB] Stat Exams 01/16/24 12:31 Completed CMP [Comprehensive Metabolic Panel] Stat Lab 01/16/24 15:05 Completed CRP [C-Reactive Protein] Stat Lab 01/16/24 15:05 Completed Complete Blood Count Auto Diff Stat Lab 01/16/24 15:05 Completed ESR [Erythrocyte Sedimentation Rate] Stat Lab 01/16/24 15:05 Completed Lactic Acid Stat Lab 01/16/24 15:05 Completed Lipase Stat Lab 01/16/24 15:05 Completed Trop I [Troponin I] Stat Lab 01/16/24 15:03 Completed UA [Urinalysis and Microscopic] Stat Lab 01/16/24 13:42 Completed Urine Culture Stat Micro 01/16/24 13:50 Received EKG Request [ECG Request] Stat Y 01/16/24 17:19 Ordered Medical Decision Narrative: In summary patient is a 38-year-old female who presents to the emergency department for evaluation of abdominal pain. Patient is hemodynamically stable upon arrival, afebrile. On exam tenderness throughout abdomen. Differential diagnosis includes Crohn's flare, small bowel obstruction, constipation. Initial workup will be conducted with [hematologic labs, imaging, respiratory swab, described workup]. Initial inventions include [crystalloid bolus, medications, p.o. challenge, etc.]. Initial workup reviewed by me [hematologic labs remarkable for? Imaging remarkable for? Urinalysis remarkable for?]. Upon repeat evaluation [patient had except for resolution of symptoms, had persistent pain for which additional interventions were conducted (describe interventions), tolerated p.o., was ambulatory, etc.]. Given this [patient was appropriate for discharge at this time and will be discharged with a prescription for? This case was discussed with hospital medicine regarding management? They will meet the patient to their service for continued evaluation at this time? Etc.] Places where you can increase complexity: I informally interpreted patient's chest x-ray or CT and is remarkable for? Documented with real time trader shows rate and rhythm with time Consideration of test but deferring. Example: I consider chest x-ray on this patient however given that they have no oxygen requirement are clear to auscultation all lung eller we deferred. Social determinants of health: Given that patient is undomiciled increases complexity. Given that patient has polysubstance abuse compounds all aspects of care. I was consulted by the YARELIS, and we discussed the complexity of problems being addressed. I approved the treatment and management plan for this patient's care in the emergency department, thus performing a substantial portion of the medical decision making. Kristina Wisdom MD <Osman Ny MD - Last Filed: 01/16/24 23:19> Vital Signs: 01/16/24 12:11 01/16/24 13:26 01/16/24 14:30 Temperature 98.2 F 98.1 F Temperature Source Oral Oral Pulse Rate 103 H Pulse Rate [Left Radial] 103 H 104 H Respiratory Rate 14 20 Blood Pressure 140/84 Blood Pressure [Left Arm] 140/84 129/92 H Blood Pressure Mean Blood Pressure Mean [Left Arm] 102 104 02 Sat by Pulse Oximetry 97 97 98 Oxygen Delivery Method Room Air Room Air 01/16/24 15:30 01/16/24 16:30 01/16/24 17:00 Temperature Temperature Source Pulse Rate 95 H 92 H 106 H Pulse Rate [Left Radial] Respiratory Rate 18 16 Blood Pressure 138/95 H 142/106 H 131/79 Blood Pressure [Left Arm] Blood Pressure Mean 109 112 Blood Pressure Mean [Left Arm] 02 Sat by Pulse Oximetry 98 98 98 Oxygen Delivery Method Room Air 01/16/24 17:48 01/16/24 18:00 01/16/24 18:30 Temperature Temperature Source Pulse Rate 88 86 85 Pulse Rate [Left Radial] Respiratory Rate 18 16 18 Blood Pressure 121/88 122/93 H 133/93 H Blood Pressure [Left Arm] Blood Pressure Mean 100 105 103 Blood Pressure Mean [Left Arm] 02 Sat by Pulse Oximetry 95 97 96 Oxygen Delivery Method 01/16/24 19:00 01/16/24 19:30 01/16/24 19:43 Temperature 98 F Temperature Source Pulse Rate 80 97 H 97 H Pulse Rate [Left Radial] Respiratory Rate 18 Blood Pressure 129/90 132/101 H 145/99 H Blood Pressure [Left Arm] Blood Pressure Mean Blood Pressure Mean [Left Arm] 02 Sat by Pulse Oximetry 98 96 Oxygen Delivery Method Room Air Lab Data Lab Results 01/16/24 13:42: Urine Color Yellow, Urine Appearance Clear, Urine pH 6.0, Ur Specific [place] 1.020, Urine Protein Negative, Urine Glucose (UA) Negative, Urine Ketones Negative, Urine Blood Negative, Urine Nitrate Negative, Urine Bilirubin Negative, Urine Urobilinogen 0.2, Ur Leukocyte Esterase Negative, Urine RBC None, Urine WBC Occasional, Ur Squamous Epith Cells 5-10, Urine Bacteria None 01/16/24 13:44: Urine Color Yellow, Urine Appearance Clear, Urine pH 6.5, Ur Specific [place] 1.020, Urine Protein Negative, Urine Glucose (UA) Negative, Urine Ketones Negative, Urine Blood Negative, Urine Nitrate Negative, Urine Bilirubin Negative, Urine Urobilinogen 0.2, Ur Leukocyte Esterase Negative 01/16/24 15:03: Troponin I < 0.01 01/16/24 15:05: WBC 7.7, RBC 4.88, Hgb 14.1, Hct 41.2, MCV 84.4, MCH 28.9, MCHC 34.2, RDW 11.9, Plt Count 218, MPV 8.9, Neut % (Auto) 58.3, Lymph % (Auto) 33.9, [place] % (Auto) 5.2, Eos % (Auto) 0.3, Baso % (Auto) 0.9, Neut # (Auto) 4.5, Lymph # (Auto) 2.6, [place] # (Auto) 0.4, Eos # (Auto) 0.0, Baso # (Auto) 0.1, Total Counted Cancelled, Neutrophils % (Manual) Cancelled, Band Neutrophils % Cancelled, Lymphocytes % (Manual) Cancelled, Atypical Lymphs % Cancelled, Monocytes % (Manual) Cancelled, Eosinophils % (Manual) Cancelled, Basophils % (Manual) Cancelled, Metamyelocytes % Cancelled, Myelocytes % Cancelled, Promyelocytes % Cancelled, Blast Cells % Cancelled, Nucleated RBCs Cancelled, Differential Comment Cancelled, Hypersegmented Neuts Cancelled, Toxic Granulation Cancelled, Toxic Vacuolation Cancelled, Dohle Bodies Cancelled, Amanda Rods Cancelled, Platelet Estimate Cancelled, Giant Platelets Cancelled, RBC Morphology Cancelled, Polychromasia Cancelled, Hypochromasia Cancelled, Poikilocytosis Cancelled, Basophilic Stippling Cancelled, Anisocytosis Cancelled, Microcytosis Cancelled, Macrocytosis Cancelled, Spherocytes Cancelled, Pappenheimer Bodies Cancelled, Sickle Cells Cancelled, Target Cells Cancelled, Tear Drop Cells Cancelled, Ovalocytes Cancelled, Stomatocytes Cancelled, Helmet Cells Cancelled, Dobbs-We[place] Bodies Cancelled, [place] Rings Cancelled, [place] Cells Cancelled, Acanthocytes (Spur) Cancelled, Rouleaux Cancelled, Schistocytes Cancelled, ESR 16, Sodium 138, Potassium 4.0, Chloride 106, Carbon Dioxide 24, Anion Gap 12.0, BUN 10, Creatinine 0.80, Estimated Creat Clear 157, Estimated GFR 79, Est GFR ( Amer) 96, Glucose 93, Lactate 0.7, Calcium 9.1, Total Bilirubin 0.9, AST 31, ALT 28, Alkaline Phosphatase 82, C- Reactive Protein 23.4 H, Total Protein 7.6, Albumin 4.3, Globulin 3.3 H, Albumin/Globulin Ratio 1.3, Lipase 65 Orders (Tests/Meds): ED MEDICATIONS Discontinued Medications Generic Name Dose Route Start Last Admin Trade Name Freq PRN Reason Stop Dose Admin Acetaminophen 1,000 mg 01/16/24 17:19 01/16/24 17:27 Acetaminophen 1,000mg/100ml Vial IV 01/16/24 17:20 1,000 mg ONCE ONE Administration Belladonna Alkaloids 60 ml 01/16/24 17:19 01/16/24 17:28 Belladonna Alkaloids 60 Ml Ml PO 01/16/24 17:20 60 ml ONCE ONE Administration Dicyclomine HCl 20 mg 01/16/24 17:19 01/16/24 17:28 Dicyclomine 10mg Capsule PO 01/16/24 17:20 20 mg ONCE ONE Administration Iopamidol 75 ml 01/16/24 15:56 01/16/24 15:59 Iopamidol-370 (76%);100ml Bottle IV 01/16/24 15:57 75 ml ONCE ONE Administration Iopamidol 80 ml 01/16/24 17:33 01/16/24 17:35 Iopamidol-370 (76%);100ml Bottle IV 01/16/24 17:34 80 ml ONCE ONE Administration Ketorolac Tromethamine 30 mg 01/16/24 17:19 01/16/24 17:28 Ketorolac 30mg/Ml Vial IV 01/16/24 17:20 30 mg ONCE ONE Administration Ondansetron HCl 4 mg 01/16/24 17:52 01/16/24 17:54 Ondansetron 4mg/2ml Vial IV 01/16/24 17:53 4 mg ONCE ONE Administration Sodium Chloride 10 ml 01/16/24 15:56 01/16/24 15:59 Sodium Chloride 0.9% 10ml Syr (Rad Only) IV 02/15/24 15:55 10 ml NEEDED PRN Administration Maintain IV Site Sodium Chloride 500 ml 01/16/24 17:22 01/16/24 17:29 Sodium Chloride 0.9% 500ml Bag IV 01/16/24 17:23 500 ml ONCE ONE Administration Sodium Chloride 10 ml 01/16/24 17:33 01/16/24 17:35 Sodium Chloride 0.9% 10ml Syr (Rad Only) IV 01/16/24 17:34 10 ml ONCE ONE Administration Sodium Chloride 50 ml 01/16/24 17:33 01/16/24 17:34 0.9 % Sodium Chloride 50 Ml Vial IV 01/16/24 17:34 50 ml ONCE ONE Administration ORDERS Category Date Time Status CT abdomen pelvis w con Stat Cat Scan 01/16/24 14:[address] angio abdomen pelvis Stat Cat Scan 01/16/24 17:20 Completed KUB (single view) [XR KUB] Stat Exams 01/16/24 12:31 Completed CMP [Comprehensive Metabolic Panel] Stat Lab 01/16/24 15:05 Completed CRP [C-Reactive Protein] Stat Lab 01/16/24 15:05 Completed Complete Blood Count Auto Diff Stat Lab 01/16/24 15:05 Completed ESR [Erythrocyte Sedimentation Rate] Stat Lab 01/16/24 15:05 Completed Lactic Acid Stat Lab 01/16/24 15:05 Completed Lipase Stat Lab 01/16/24 15:05 Completed Trop I [Troponin I] Stat Lab 01/16/24 15:03 Completed UA [Urinalysis and Microscopic] Stat Lab 01/16/24 13:42 Completed Urine Culture Stat Micro 01/16/24 13:50 Received EKG Request [ECG Request] Stat Y 01/16/24 17:19 Ordered ECG Data Tracing #1: Independently interpreted by me rate is 95, rhythm is regular, axis is borderline rightward deviated, no ST elevation in anatomical contiguous leads, QTc 392 Medical Decision Narrative: In summary patient is a 38-year-old female who presents to the emergency department for evaluation of abdominal pain. Patient is hemodynamically stable upon arrival, afebrile. On exam tenderness throughout abdomen. Differential diagnosis includes Crohn's flare, small bowel obstruction, constipation. Initial workup will be conducted with hemolytic labs negative CT of abdomen and CTA unremarkable. Initial inventions include IV fluids, GI cocktail, Bentyl. Initial workup reviewed by me hemolytic labs are unremarkable imaging unremarkable except for a small ovarian cyst. With negative workup patient appropriate for discharge at this time will discharge home with Bentyl 20 mg 3 times daily, follow-up with Dr. Case, come back for any new or worsening symptoms And follow-up with OB for ovarian cyst. CT negative-ovarian cyst CTA of abdomen negative I was consulted by the YARELIS, and we discussed the complexity of problems being addressed. I approved the treatment and management plan for this patient's care in the emergency department, thus performing a substantial portion of the medical decision making. MD Osman Pak: I reviewed patient's initial workup, hematologic labs were nonactionable initial troponin undetectably low urinalysis interpreted by me not consistent with infection. Patient does not have a uterus therefore testing was not performed. Mildly elevated CRP. Normal lipase. Initial CT of the abdomen pelvis shows no acute process with a 2.5 cm simple cyst to the left ovary. Upon repeat evaluation patient had persistent pain for which Bentyl and additional medications were administered however her pain appeared out of proportion to exam therefore CTA was conducted which showed no evidence of acute pathology with left-sided adnexal cyst. Patient cyst is only 2.3 x 2.6 cm and I do not have concern for torsion based on those measurement as I would expect it to be greater than 5 cm if this were the case. Drinking and eating makes her pain significantly worse, it is possible that she has an occult intestinal or colonic lesion that may benefit from further evaluation with GI follow-up. However given that patient is tolerating p.o. is hemodynamically stable I think that I have essentially ruled out all emergent medical conditions at this time patient is appropriate for outpatient management is going to be referred to . Case was given multiple return precautions verbalized understanding Critical Care <Kristina Wisdom MD - Last Filed: 01/16/24 15:17> Critical Care Time Critical Care Time: No
[2024-01-16 15:19] LABS: Hematocrit 41.2 % (37.0-47.0); Hemoglobin 14.1 g/dL (12.2-16.2); Mean Corpuscular Volume 84.4 fl (81-99); Red Blood Count 4.88 M/mm3 (4.20-5.40); White Blood Count 7.7 K/mm3 (4.8-10.8)
[2024-01-16 15:20] LABS: Basophils # 0.1 K/mm3 (0-0.2); Basophils % 0.9 % (0.1-2.0); Eosinophils % 0.3 % (0.1-12.0); Lymphocytes # 2.6 K/mm3 (0.7-4.5); Lymphocytes % 33.9 % (10-50); Mean Corpuscular HGB Conc 34.2 g/dL (31.8-35.4); Mean Corpuscular Hemoglobin 28.9 pg (27.0-31.2); Mean Platelet Volume 8.9 fl (7.4-10.4); Monocytes # 0.4 K/mm3 (0.1-1.0); Monocytes % 5.2 % (1.7-9.3); Neutrophils # 4.5 K/mm3 (1.8-7.8); Neutrophils % 58.3 % (37.0-80.0); Platelet Count 218 K/mm3 (142-424); Red Cell Distribution Width 11.9 % (11.5-17.5)
[2024-01-16 15:37] LABS: Albumin Level 4.3 g/dl (3.5-5.0); Chloride 106 mmol/L (98-107); Sodium 138 mmol/L (136-145)
[2024-01-16 15:40] LABS: Alanine Aminotransferase 28 U/L (12-78); Albumin/Globulin Ratio 1.3 (1.1-1.8); Alkaline Phosphatase 82 U/L (38-126); Aspartate Amino Transferase 31 U/L (14-36); Bilirubin,Total 0.9 mg/dl (0.2-1.3); Blood Urea Nitrogen 10 mg/dl (7-17); Carbon Dioxide 24 mmol/L (22.0-30.0); Creatinine Clearance Estimated 157 mL/min (50-200); Estimated Glomerular Filt Rate 79 ml/min (>60); GFR (African American) 96 ML/MIN (>60); Globulin 3.3 g/dL (1.3-3.2); Lipase 65 U/L (23-300); Total Protein,Serum 7.6 g/dl (6.3-8.2)
[2024-01-16 15:41] LABS: Calcium 9.1 mg/dl (8.4-10.2); Glucose 93 mg/dl (74-100); Lactic Acid 0.7 mmol/L (0.7-2.1)
[2024-01-16 15:46] LABS: C-Reactive Protein 23.4 mg/L (0-4)
[2024-01-16] MEDS: SODIUM CHLORIDE 0.9% 10ML SYR (RAD ONLY) 10 ML IV ×2 (15:59→17:35)
[2024-01-16] MEDS: IOPAMIDOL-370 (76%);100ML BOTTLE 75 ML IV (15:59)
[2024-01-16 16:58] LABS: Erythrocyte Sedimentation Rate 16 mm/hr (0-20)
--- NOTE | 2024-01-16 17:19 | ECG_ITS ---
APPROVED REPORT Exam: Resting ECG HR:95 bpm ECG Measurements Heart Rate 95 AXES SC 166 P 48 QRSd 84 QRS -25 QT 339 T 30 QTc 392 Conclusion SINUS RHYTHM LOW QRS VOLTAGE IN PRECORDIAL LEADS [QRS DEFLECTION < 1.0 mV IN CHEST LEADS] POSSIBLE ANTERIOR MYOCARDIAL INFARCTION , PROBABLY OLD [30 ms Q WAVE IN V3/V4, OR R < 0.2 mV IN V4] BORDERLINE ECG No STEMI Electronically signed by : HENRY MARRERO, 01/19/2024 06:35:27
--- NOTE | 2024-01-16 17:20 | CT_ITS ---
PROCEDURE INFORMATION: Exam: CTA Abdomen and Pelvis With Contrast Exam date and time: 01/16/2024 5:34 PM Age: 38 years old Clinical indication: Abdominal pain; Periumbilical; Additional info: Pain out of proportion L periumbilical TECHNIQUE: Imaging protocol: Computed tomographic angiography of the abdomen and pelvis with contrast. Exam focused on the arteries. 3D rendering (Not supervised by radiologist): MIP and/or 3D reconstructed images were created by the technologist. Radiation optimization: All CT scans at this facility use at least one of these dose optimization techniques: automated exposure control; mA and/or kV adjustment per patient size (includes targeted exams where dose is matched to clinical indication); or iterative reconstruction. Contrast material: ISOVUE 370; Contrast volume: 80 ml; Contrast route: INTRAVENOUS (IV); COMPARISON: CT ABDOMEN PELVIS W CON 01/16/2024 3:57 PM FINDINGS: Lungs: A 5.5 mm calcified nodule is noted in the right lung base. Aorta: No aortic aneurysm. No aortic dissection. Celiac trunk and mesenteric arteries: No occlusion or significant stenosis. Renal arteries: No occlusion or significant stenosis. Right iliac arteries: No occlusion or significant stenosis. Left iliac arteries: No occlusion or significant stenosis. Liver: Diffusely hypodense liver parenchyma, most likely reflecting micro-cellular infiltration secondary to fat. Gallbladder and biliary ducts: Surgical clips noted in the gallbladder fossa from prior cholecystectomy. Pancreas: Unremarkable. No mass. No ductal dilation. Spleen: Unremarkable. No splenomegaly. Small splenule noted. Adrenal glands: Unremarkable. No mass. Kidneys and ureters: Unremarkable. No solid mass. No hydronephrosis. Stomach and bowel: Unremarkable. No obstruction. No mucosal thickening. Appendix: No evidence of appendicitis. Intraperitoneal space: Unremarkable. No free air. No significant fluid collection. Lymph nodes: Unremarkable. No enlarged lymph nodes. Urinary bladder: Unremarkable. No mass. Reproductive: A 2.3 x 2.6 cm cystic lesion is noted left adnexa. Bones/joints: No acute fracture. Soft tissues: A small fat containing umbilical hernia noted. IMPRESSION: 1. No CT angiographic evidence of significant stenosis, aneurysm or occlusion. 2. Left adnexal cyst 3. Small fat containing umbilical hernia 4. Fatty liver changes suggested follow-up clinically
--- NOTE | 2024-01-16 17:24 | PC.NURSE ---
Dr Ny at bedside with Amarilys Rodriguez APRN. Dr. Ny is now ordering an additional CT scan, labs, and medications. Lab notified of the additional orders, they have UA and labs available to run the tests. Also s/w Shu in radiology to notify of new ct exam.
[2024-01-16 17:25] LABS: Microscopic, Urine URINE MICROSCOPIC (MICROSCOPIC)
[2024-01-16] MEDS: ACETAMINOPHEN 1,000MG/100ML VIAL 1000 MG IV (17:27)
[2024-01-16] MEDS: BELLADONNA ALKALOIDS 60 ML ML PO (17:28)
[2024-01-16] MEDS: KETOROLAC 30MG/ML VIAL 30 MG IV (17:28)
[2024-01-16] MEDS: DICYCLOMINE 10MG CAPSULE 20 MG PO (17:28)
[2024-01-16] MEDS: SODIUM CHLORIDE 0.9% 500ML BAG 500 ML IV (17:29)
[2024-01-16] MEDS: 0.9 % SODIUM CHLORIDE 50 ML VIAL IV (17:34)
[2024-01-16 17:35] LABS: Appearance,Urine CLEAR (Clear); Bilirubin,Urine Negative (Negative); Blood, Urine Negative (Negative); Color,Urine YELLOW (Yellow); Glucose,Urine (UA) Negative (Negative); Ketones,Urine Negative (Negative); Leukocyte Esterase,Urine Negative (Negative); Nitrate,Urine Negative (Negative); Protein,Urine Negative (Negative); Urobilinogen,Urine 0.2 EU/dl (0.2)
[2024-01-16] MEDS: IOPAMIDOL-370 (76%);100ML BOTTLE 80 ML IV (17:35)
[2024-01-16 17:48] LABS: Troponin I < 0.01 ng/ml (0.00-0.034)
[2024-01-16] MEDS: ONDANSETRON 4MG/2ML VIAL 4 MG IV (17:54)
[2024-01-16 18:39] LABS: WBC,Urine Occasional #/hpf (0-3)
== END 2024-01-16 19:44 | disposition home or self-care (01) ==
LOC: UTC 14:17 → ER 14:27
PROVIDERS: Nurse Practitioner Family; Emergency Provider Emergency Medicine; PCP Nurse Practitioner Family
DX: N83.209 Unspecified ovarian cyst, unspecified side (principal); R10.30 Lower abdominal pain, unspecified; R11.0 Nausea; R07.89 Other chest pain
CPT/HCPCS: 74018; 74174; 74177; 80053; 81001; 81003; 83605; 83690; 84484; 85025; 85651; 86140; 87086; 93005; 96374; 96375; 99285; J0131; J1885; J2405; Q9967

== ENCOUNTER 2024-01-18 11:29 | Outpatient (CLI) | payer BC, SELFPAY ==
[2024-01-18 12:08] LABS: Basophils # 0.1 K/mm3 (0-0.2); Basophils % 1.2 % (0.1-2.0); Eosinophils % 0.7 % (0.1-12.0); Hematocrit 41.5 % (37.0-47.0); Hemoglobin 14.1 g/dL (12.2-16.2); Lymphocytes % 30.3 % (10-50); Mean Corpuscular HGB Conc 34.1 g/dL (31.8-35.4); Mean Corpuscular Hemoglobin 29.2 pg (27.0-31.2); Mean Corpuscular Volume 85.7 fl (81-99); Monocytes # 0.4 K/mm3 (0.1-1.0); Monocytes % 6.5 % (1.7-9.3); Neutrophils % 61.3 % (37.0-80.0); Platelet Count 220 K/mm3 (142-424); Red Blood Count 4.84 M/mm3 (4.20-5.40); Red Cell Distribution Width 12.9 % (11.5-17.5); White Blood Count 6.4 K/mm3 (4.8-10.8)
[2024-01-18 12:29] LABS: Alanine Aminotransferase 37 U/L (12-78); Albumin/Globulin Ratio 1.6 (1.1-1.8); Alkaline Phosphatase 69 U/L (38-126); Amylase 43 U/L (30-110); Anion Gap 10.4 mEq/L (5-15); Aspartate Amino Transferase 43 U/L (14-36); Bilirubin,Total 0.6 mg/dl (0.2-1.3); Blood Urea Nitrogen 9 mg/dl (7-17); Carbon Dioxide 26 mmol/L (22.0-30.0); Chloride 106 mmol/L (98-107); Estimated Glomerular Filt Rate 93 ml/min (>60); GFR (African American) 112 ML/MIN (>60); Globulin 2.5 g/dL (1.3-3.2); Glucose 90 mg/dl (74-100); Lipase 54 U/L (23-300); Potassium 4.4 mmoL/L (3.5-5.1); Sodium 138 mmol/L (136-145); Total Protein,Serum 6.5 g/dl (6.3-8.2)
[2024-01-19 14:18] LABS: H. pylori Breath Test Negative (Negative)
== END 2024-01-18 23:59 | disposition home or self-care (01) ==
LOC: LAB 11:31
PROVIDERS: PCP Nurse Practitioner Family; Visit Provider Nurse Practitioner Family
DX: R10.84 Generalized abdominal pain (principal); R11.10 Vomiting, unspecified; K50.90 Crohn's disease, unspecified, without complications; N83.209 Unspecified ovarian cyst, unspecified side
CPT/HCPCS: 36415; 80053; 82150; 83013; 83690; 85025; 87086

== ENCOUNTER 2024-01-19 10:00 | Outpatient (CLI) | payer BC, SELFPAY ==
--- NOTE | 2024-01-19 10:06 | CA_ITS ---
APPROVED REPORT EXAM: Comprehensive 2D, Doppler, and color-flow Echocardiogram Inker: Shabnam Mcbride RVT Ht: 5 ft 4 in Wt: 235lbs BSA: 2.10 BP: 145/98 mmHg Indications: SOA,ABN EKG,EDEMA,HTN,PALPS,SMOKER,LOOP RECORDER 2D Dimensions LA Volume 36.00 mL LA Volume Index 17.14 mL/m2 (M/F) 16-34 M-Mode Dimensions RVDd 2.39 cm (0.9-2.6) LA Diam 3.31 cm (1.9-4.0) LVDd 3.65 cm (3.5-5.7) LVDs 2.58 cm (3.5-5.7) IVSd 0.72 cm (0.6-1.1) PWd 0.76 cm (0.6-1.1) EF (Teich) 57.20% FS 29.30% EDV (Teich) 56.30 mL TAPSE 2.06 (<1.7) ESV (Teich) 24.10 mL LV Diastology E Decel Time 150 (160-240 msec) E/A Ratio 1.1 Aortic Valve JOSIANE Index 1.56 cm2/m2 AoV Peak Loi. 123.0 (50-130 cm/s) AO Peak GR. 6.10 mmHg AO Mean GR. 3.30 (<5 mmHg) AO VTI 18.3 (18-25 cm) JOSIANE (VTI) 3.35 (2.5-4.5 cm2) Mitral Valve MV E Max Loi. 82.0 (40-130 cm/s) MV A Velocity 73.0 (40-130 cm/s) E/A Ratio 1.14 MV PHT 44.0 ms Pulmonary Valve PV Peak Velocity 88.0 (50-150 cm/s) Left Ventricle The left ventricle is normal size. The left ventricular systolic function is normal. The left ventricular ejection fraction is within the normal range. There is normal left ventricular wall thickness. There is normal LV segmental wall motion. The left ventricular diastolic function is normal. LVEF is 55%. Right Ventricle The right ventricle is normal size. The right ventricular systolic function is normal. Atria The left atrium size is normal. The right atrium size is normal. There is no Doppler evidence of interatrial shunt. The aortic valve opens well. Aortic Valve There is no aortic valvular stenosis. No aortic regurgitation is present. Mitral Valve The mitral valve is normal in structure. No evidence of mitral valve stenosis. Trace mitral regurgitation. Tricuspid Valve The tricuspid valve leaflets are thin and pliable. Trace tricuspid regurgitation. There is insufficient TR jet to estimate RVSP. Pulmonic Valve The pulmonary valve is normal in structure. Trace pulmonic regurgitation. Great Vessels The aortic root is normal in size. The ascending aorta is normal in size. IVC is normal in size and collapses >50% with inspiration. Pericardium There is no pericardial effusion. Other Information Study Quality: Adequate Conclusion Normal biventricular systolic function. No significant valvular stenosis or regurgitation. Electronically signed by : Natalia Alva MD 01/26/2024 15:31:53
== END 2024-01-19 23:59 | disposition home or self-care (01) ==
PROVIDERS: PCP Nurse Practitioner Family; Visit Provider Internal Medicine
DX: I10 Essential (primary) hypertension (principal); R06.09 Other forms of dyspnea; R07.9 Chest pain, unspecified; R53.83 Other fatigue
CPT/HCPCS: 93306

== ENCOUNTER 2024-01-26 16:24 | Outpatient (CLI) | payer BC, SELFPAY ==
[2024-01-29 08:21] LABS: Calprotectin, Fecal 20 ug/g (0-120)
[2024-01-30 01:10] LABS: Pancreatic Elastase, Fecal >800 (>200)
== END 2024-01-26 23:59 | disposition home or self-care (01) ==
LOC: LAB 16:25
PROVIDERS: PCP Nurse Practitioner Family; Visit Provider Nurse Practitioner Family
DX: K90.9 Intestinal malabsorption, unspecified (principal); K50.90 Crohn's disease, unspecified, without complications
CPT/HCPCS: 82656; 83993

== ENCOUNTER 2024-03-05 11:48 | Emergency (ER) | payer BC, SELFPAY ==
[2024-03-05 12:00] VITALS: BP 143/92; PULSE 95; RESP 18; TEMP 36.7; O2SAT 98; BMI 39.6
--- NOTE | 2024-03-05 12:04 | ED_ITS ---
Discharge Plan Disposition Patient Disposition: Home, Self-Care Condition: Good Prescriptions Prescriptions: New diclofenac sodium 75 mg tablet,delayed release (DR/EC) 75 mg PO BID PRN (Reason: pain) Qty: 20 0RF No Action aspirin 81 mg tablet,delayed release (DR/EC) 81 mg PO DAILY Patient Comments: TAKE ONE TABLET BY MOUTH EVERY DAY Myrbetriq 50 mg tablet extended release 24 hr 50 mg PO DAILY Qty: 90 3RF pantoprazole 40 mg tablet,delayed release (DR/EC) 40 mg PO DAILY Qty: 90 1RF Rx Instructions: TAKE ONE TABLET BY MOUTH EVERY DAY diltiazem HCl 240 mg capsule,extended release 24 hr 240 mg PO DAILY Qty: 30 2RF Referrals Follow up/Referrals: Greer Donald APRN [Primary Care Provider] - See instructions Activity Restrictions/Add. Instructions Additional Instructions/Restrictions: Take medication as prescribed. Increase fluid and rest. Rest, ice, compression, and elevation of leg to assist with symptoms. Follow up with PCP if symptoms persist or worsen. Clinical Impressions Clinical Impression: Phlebitis, Hematoma Instructions Patient Instructions: DI for Hematoma (Bruise), Phlebitis/DVT (Alternative Therapy) Print Language Print Language: Citizen Of [place] Discharge ED Provider: Torie Peralta [facility] General Stated complaint: left leg pain, bruising, swelling, redness Time Seen by Provider: 03/05/24 12:04 History of Present Illness Provider Complaint: Pt reports that she was at work and got up and had pain on her left upper leg/knee area. She reports that it started as a red spot with a knot under the area, but now there is bruising on the upper inner thigh and inner knee. She states that it is very tender to touch. She has been treating with ice pack. Related Data Home Medications ?Medication ?Instructions ?Recorded ?Confirmed aspirin 81 mg tablet,delayed 81 mg PO DAILY 06/15/23 03/05/24 release Previous Rx's ?Medication ?Instructions ?Recorded mirabegron 50 mg tablet,extended 50 mg PO DAILY #90 tabs 05/27/23 release 24 hr (Myrbetriq) pantoprazole 40 mg tablet,delayed 40 mg PO DAILY #90 tabs 08/31/23 release diltiazem HCl 240 mg capsule,24 240 mg PO DAILY #30 caps 01/18/24 hr,extended release diclofenac sodium 75 mg 75 mg PO BID PRN pain #20 tabs 03/05/24 tablet,delayed release Allergies Allergy/AdvReac Type Severity Reaction Status Date / Time chlorhexidine Allergy Mild Hives Verified 01/26/24 15:10 hydrocodone (From NORCO) Allergy Mild Hives Verified 01/26/24 15:10 hydromorphone (From Dilaudid) Allergy Unknown Verified 01/26/24 15:10 allergy reaction [facility] Disclaimer: The information contained in this section may have been updated after the patient was seen, as this information can be updated by other users. Medical History Abnormal electrocardiogram [ECG] [EKG] Claudication of both lower extremities Bacterial vaginosis Bilateral cold feet Pain in right lower leg Right leg swelling Sinusitis Edema of both lower extremities Palpitations Dizziness Dyspnea Chest pain Primary HSV infection of mouth Cephalalgia Acute herpes zoster neuropathy Trigeminal neuralgia of right side of face Interstitial cystitis Migraine History of kidney stones Hypertension History of stroke 11/2019 OAB (overactive bladder) GERD (gastroesophageal reflux disease) Pelvic pain Left arm pain Contusion of left upper arm Sprain of left shoulder Fall Sinusitis Flank pain, acute Ear pain UTI (urinary tract infection) Surgical History History of cholecystectomy H/O colonoscopy History of suburethral sling procedure History of tubal ligation History of appendectomy 1994 History of hysterectomy partial (has 1 ovary), due to benign reason 05/2015 Family History Mother Hyperlipidemia Sister Hyperlipidemia Social History Smoking Status: Never smoker alcohol intake: current alcohol intake frequency: holidays/special occasions only substance use type: denies use current occupational status: employed and other Travel in the last 8 weeks: None household members: spouse and children housing: house marital status: number of children: 2 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 current occupational exposures/hazards: No caffeine: No Have you lived/traveled outside [place] in past 30 days?: No Contact w/someone who lives/traveled outside US past 30 days?: No Exposure to someone with infectious disease in past 14 days?: No Do you have a fever (greater than 100.4 F or 38 C)?: No Have you tested positive for COVID-19: No Exposed to someone with COVID-19 in past 14 days?: No Do you have a sore throat?: No Do you have a cough?: No Do you have any weakness?: No Do you have any diarrhea?: No Are you experiencing any unusual bleeding?: No Do you have any muscle aches/pain?: No Do you have any abdominal pain?: No Are you experiencing loss of taste or smell?: No ROS Obtained: Yes All systems reviewed & no additional complaints except as documented Constitutional Constitutional: Reports system reviewed and no additional complaints, except as documented Eyes Eyes: Reports system reviewed and no additional complaints, except as documented ENT Ears, Nose, Mouth, and Throat: Reports system reviewed and no additional complaints, except as documented Cardiovascular Cardiovascular: Reports system reviewed and no additional complaints, except as documented Respiratory Respiratory: Reports system reviewed and no additional complaints, except as documented Gastrointestinal Gastrointestingal: Reports system reviewed and no additional complaints, except as documented Genitourinary Female Genitourinary: Reports system reviewed and no additional complaints, except as documented Musculoskeletal Musculoskeletal: Reports system reviewed and no additional complaints, except as documented and Reports abnormal gait Comments: swelling of left knee and thigh Integumentary/Breasts Skin/Breast: Reports system reviewed and no additional complaints, except as documented Neurologic Neurologic: Reports system reviewed and no additional complaints, except as documented and Reports abnormal gait Endocrine Endocrine: Reports system reviewed and no additional complaints, except as documented Hematologic/Lymphatic Henatologic/Lymphatic: Reports system reviewed and no additional complaints, except as documented Allergic/Immunologic Allergic/Immunologic: Reports system reviewed and no additional complaints, except as documented Physical Exam General General appearance: alert and in no apparent distress Head Head exam: atraumatic and normocephalic Eye Eye exam: Present normal appearance ENT ENT exam: Present normal exam and normal oropharynx Neck Neck exam: Present normal inspection Chest Chest inspection: Present normal inspection and symmetric chest wall rise Respiratory Respiratory exam: Present normal lung sounds bilaterally Cardiovascular Cardiovascular exam: Present regular rate and normal rhythm Abdominal Exam Abdominal exam: Present soft Expanded Lower Extremity Exam Left: Upper leg exam: Present tenderness, swelling and ecchymosis Leg image: 2 1. bruising and tenderness noted. Knee exam: Present tenderness, swelling and ecchymosis Lower leg exam: Present normal inspection Ankle exam: Present normal inspection Foot/toe exam: Present normal inspection Neurovascular/Tendon exam: Present normal capillary refill Gait: observed and limited by pain Back Exam Back exam: Present normal inspection Neurological Exam Neurological exam: Present alert and oriented X3 Psychiatric Psychiatric exam: Present normal affect and normal mood Skin Skin exam: Present warm, dry and intact Lymphatic Lymphatic Findings: no adenopathy Medical Decision Making Medical Records Screening: Per USPSTF and CDC recommendations, given the prevalence of disease in our region, it is our hospital?s policy to screen for HIV and viral Hepatitis for all patients aged 18 and over and those with ongoing risk factors. Royce Inquiry Pt receiving controlled substance: No Royce was queried for this patient: No US Data US Images: Lower Extremity Findings Narrative: No DVT noted Medical Decision Narrative: Consulted with Dr. Recinos.
--- NOTE | 2024-03-05 12:25 | CA_ITS ---
FINAL REPORT TECHNIQUE: Ultrasound images of the deep venous system were obtained from the left groin to the calf veins. CLINICAL HISTORY: painful hematoma on left ventral thigh FINDINGS: The deep venous system is normally compressible. Normal flow is identified. There is a hypoechoic, subcutaneous structure on the left ventral thigh which is likely a hematoma. IMPRESSION: No evidence of left lower extremity DVT. Hematoma on the left ventral thigh. Reviewed, Interpreted and Dictated by Jason Juarez MD Transcribed by Jenna Quarles Authenticated and [facility]
[2024-03-05 14:09] VITALS: BP 143/92; PULSE 95; RESP 18; TEMP 36.7; O2SAT 98
== END 2024-03-05 14:16 | disposition home or self-care (01) ==
PROVIDERS: Emergency Provider Nurse Practitioner Family; PCP Nurse Practitioner Family
DX: I80.9 Phlebitis and thrombophlebitis of unspecified site (principal); T14.8XXA Other injury of unspecified body region, initial encounter
CPT/HCPCS: 93971; 99213; G0381

== ENCOUNTER 2024-03-07 10:42 | Outpatient (CLI) | payer BC, SELFPAY ==
[2024-03-07 11:25] LABS: Basophils % 0.5 % (0.1-2.0); Eosinophils % 0.4 % (0.1-12.0); Hematocrit 40.4 % (37.0-47.0); Hemoglobin 13.7 g/dL (12.2-16.2); Lymphocytes # 2.4 K/mm3 (0.7-4.5); Lymphocytes % 30.7 % (10-50); Mean Corpuscular HGB Conc 33.9 g/dL (31.8-35.4); Mean Corpuscular Hemoglobin 28.7 pg (27.0-31.2); Mean Corpuscular Volume 84.5 fl (81-99); Mean Platelet Volume 9.1 fl (7.4-10.4); Monocytes # 0.5 K/mm3 (0.1-1.0); Monocytes % 6.7 % (1.7-9.3); Neutrophils # 4.8 K/mm3 (1.8-7.8); Neutrophils % 61.4 % (37.0-80.0); Platelet Count 233 K/mm3 (142-424); Red Blood Count 4.78 M/mm3 (4.20-5.40); Red Cell Distribution Width 11.8 % (11.5-17.5); White Blood Count 7.8 K/mm3 (4.8-10.8)
[2024-03-07 11:30] LABS: D-Dimer 0.54 ug/mL (0.0-0.5)
[2024-03-07 11:59] LABS: Albumin Level 4.1 g/dl (3.5-5.0); Chloride 106 mmol/L (98-107); Potassium 4.3 mmoL/L (3.5-5.1); Sodium 140 mmol/L (136-145)
[2024-03-07 12:02] LABS: Alanine Aminotransferase 22 U/L (12-78); Albumin/Globulin Ratio 1.6 (1.1-1.8); Alkaline Phosphatase 76 U/L (38-126); Anion Gap 15.3 mEq/L (5-15); Aspartate Amino Transferase 19 U/L (14-36); Bilirubin,Total 0.4 mg/dl (0.2-1.3); Blood Urea Nitrogen 14 mg/dl (7-17); Carbon Dioxide 23 mmol/L (22.0-30.0); Estimated Glomerular Filt Rate 79 ml/min (>60); GFR (African American) 96 ML/MIN (>60); Globulin 2.6 g/dL (1.3-3.2); Glucose 94 mg/dl (74-100); Total Protein,Serum 6.7 g/dl (6.3-8.2)
[2024-03-07 12:04] LABS: 25-OH Vitamin D, Total 39.3 ng/mL (30-100)
[2024-03-07 12:32] LABS: Thyroid Stimulating Hormone 1.26 uIU/mL (0.465-4.68)
[2024-03-07 12:36] LABS: Ferritin 50.9 ng/ml (6.24-137)
[2024-03-07 13:53] LABS: Vitamin B12 321 pg/mL (239-931)
[2024-03-08 13:08] LABS: Antinuclear Antibodies (ANA) Negative (Negative)
[2024-03-10 02:08] LABS: Vitamin C 0.7 mg/dL (0.4-2.0)
== END 2024-03-07 23:59 | disposition home or self-care (01) ==
LOC: LAB 10:43
PROVIDERS: PCP Nurse Practitioner Family; Visit Provider Nurse Practitioner Family
DX: R23.3 Spontaneous ecchymoses (principal); T14.8XXA Other injury of unspecified body region, initial encounter; I80.9 Phlebitis and thrombophlebitis of unspecified site
CPT/HCPCS: 36415; 80053; 82180; 82306; 82607; 82728; 84443; 85025; 85378; 86038

== ENCOUNTER 2024-03-30 08:21 | Day surgery (SDC) | payer BC, SELFPAY ==
[2024-03-29 11:12] VITALS: BMI 38.2
[2024-03-30 08:36] VITALS: BP 126/77; PULSE 103; RESP 17; TEMP 36.5; O2SAT 100
[2024-03-30] MEDS: LACTATED RINGERS 1000ML 1,000 ML 50 ML IV (08:42)
[2024-03-30 09:01] VITALS: O2SAT 99
--- NOTE | 2024-03-30 09:06 | P.HP_ITS ---
History of Present Illness *Admission Date: 03/30/24 *Reason for visit:: Change in bowel habits with Crohn's disease *History of present illness: Mrs. Talbert is a 38-year-old female who is here for diagnostic colonoscopy. The patient was diagnosed with Crohn's disease in [place] in 2000. After her , she went into a long-term sustained remission and is not on any maintenance of remission therapy. The patient did recently have severe abdominal pain after Thanksgiving which resolved with MiraLAX and fiber. Her CRP was elevated at 23.4. After gallbladder surgery she has had 2-3 soft bowel movements daily but more recently has had a change and will have a bowel movement every couple of days. She does note mucus with her bowel movements and still has some right lower quadrant abdominal pain and discomfort the examination is deemed medically necessary for diagnostic colonoscopy. The patient has been seen, interviewed and examined prior to the procedure by both myself and the anesthesia provider. [facility] Disclaimer: The information contained in this section may have been updated after the patient was seen, as this information can be updated by other users. Medical History (Updated 03/30/24 @ 09:11 by Derick Ordaz II, MD) History of sinus tachycardia Abnormal electrocardiogram [ECG] [EKG] Claudication of both lower extremities Bacterial vaginosis Bilateral cold feet Pain in right lower leg Right leg swelling Sinusitis Edema of both lower extremities Palpitations Dizziness Dyspnea Chest pain Primary HSV infection of mouth Cephalalgia Acute herpes zoster neuropathy Trigeminal neuralgia of right side of face Interstitial cystitis Migraine History of kidney stones Hypertension History of stroke OAB (overactive bladder) GERD (gastroesophageal reflux disease) Pelvic pain Left arm pain Contusion of left upper arm Sprain of left shoulder Fall Sinusitis Flank pain, acute Ear pain UTI (urinary tract infection) Surgical History (Updated 03/30/24 @ 08:35 by Melonie Pope RN) History of loop recorder History of cholecystectomy H/O colonoscopy History of suburethral sling procedure History of tubal ligation History of appendectomy History of hysterectomy Family History Mother Hyperlipidemia Sister Hyperlipidemia Social History Smoking Status: Never smoker alcohol intake: current alcohol intake frequency: holidays/special occasions only substance use type: denies use current occupational status: employed and other Travel in the last 8 weeks: None household members: spouse and children housing: house marital status: number of children: 2 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 current occupational exposures/hazards: No caffeine: Yes Have you lived/traveled outside US in past 30 days?: No Contact w/someone who lives/traveled outside US past 30 days?: No Exposure to someone with infectious disease in past 14 days?: No Do you have a fever (greater than 100.4 F or 38 C)?: No Have you tested positive for COVID-19: No Exposed to someone with COVID-19 in past 14 days?: No Do you have a sore throat?: No Do you have a cough?: No Do you have any weakness?: No Do you have any diarrhea?: No Are you experiencing any unusual bleeding?: No Do you have any muscle aches/pain?: No Do you have any abdominal pain?: No Are you experiencing loss of taste or smell?: No Other Medical History Have you received the Flu Vaccine for this season: No Have you received the Pneumonia Vaccine: No Review of Systems Review of Systems Review of systems (narrative): Negative *Cardiovascular Comments: Negative *Gastrointestinal Comments: Negative *Genitourinary Comments: Negative *Musculoskeletal Comments: Negative *Neurologic Comments: Negative Meds Home Medications and Allergies Home Medications ?Medication ?Instructions ?Recorded ?Confirmed ?Type mirabegron 50 mg tablet,extended 50 mg PO DAILY #90 tabs 05/27/23 03/30/24 Rx release 24 hr (Myrbetriq) diltiazem HCl 240 mg capsule,24 240 mg PO DAILY #30 caps 01/18/24 03/30/24 Rx hr,extended release diclofenac sodium 75 mg 75 mg PO BID PRN pain #20 tabs 03/05/24 03/30/24 Rx tablet,delayed release pantoprazole 40 mg tablet,delayed 40 mg PO DAILY #90 tabs 03/24/24 03/30/24 Rx release New Prescriptions to Start Prescriptions: Allergies Allergy/AdvReac Type Severity Reaction Status Date / Time chlorhexidine Allergy Mild Hives Verified 03/30/24 08:33 hydrocodone (From NORCO) Allergy Mild Hives Verified 03/30/24 08:33 hydromorphone (From Dilaudid) Allergy Unknown Verified 03/30/24 08:33 allergy reaction Exam Data for Last 24 hours Vital signs and Labs for Last 24 Hours: Temp Pulse Resp BP Pulse Ox O2 Del Method O2 Flow Rate 97.7 F 103 H 17 126/77 100 Nasal Cannula 5 03/30/24 08:36 03/30/24 08:36 03/30/24 08:36 03/30/24 08:36 03/30/24 08:36 03/30/24 09:01 03/30/24 09:01 I & O for Last 24 hours: Intake & Output 03/27/24 03/28/24 03/29/24 03/30/24 23:59 23:59 23:59 23:59 Weight 230 lb *Routine HEENT Exam Head: Present normocephalic Eye: Present EOMI and PERRL ENT: Present mucous membranes moist *Routine Neck Exam Neck: Present supple *Routine Respiratory Exam Respiratory: Present CTA bilaterally *Routine Cardiovascular Exam Cardiovascular: Present RRR *Routine Abdominal Exam Abdominal: Present soft and normoactive bowel sounds; Absent tenderness *Routine Rectal Exam Rectal:: deferred *Routine Genitalia Exam Genitalia:: deferred *Routine Extremities Exam Extremities: Absent cyanosis, clubbing or edema *Routine Skin Exam Skin: Present warm; Absent rash *Routine Neurological Exam Neurological: Present alert and oriented X3 Assessment and Plan *Assessment and plan (1) Crohn's disease: Status: Acute Category: Medical Code(s): K50.90 - Crohn's disease, unspecified, without complications (2) Elevated C-reactive protein (CRP): Status: Acute Category: Medical Code(s): R79.82 - Elevated C-reactive protein (CRP) (3) Change in bowel habits: Status: Acute Category: Medical Code(s): R19.4 - Change in bowel habit (4) Right lower quadrant abdominal pain: Status: Acute Category: Medical Code(s): R10.31 - Right lower quadrant pain Plan A/P: 1. Crohn's disease with elevated CRP, change in bowel habits and right lower quadrant abdominal pain is the preprocedural diagnosis. The patient will be anesthetized/sedated using MAC sedation. The patient has been seen and examined. Cardiac and lung assessment prior to the examination is stable. Proceed with planned diagnostic colonoscopy
--- NOTE | 2024-03-30 09:06 | EXP.ANES.CKL ---
[facility] Disclaimer: The information contained in this section may have been updated after the patient was seen, as this information can be updated by other users. Medical History (Updated 03/30/24 @ 08:35 by Melonie Pope RN) History of sinus tachycardia Abnormal electrocardiogram [ECG] [EKG] Claudication of both lower extremities Bacterial vaginosis Bilateral cold feet Pain in right lower leg Right leg swelling Sinusitis Edema of both lower extremities Palpitations Dizziness Dyspnea Chest pain Primary HSV infection of mouth Cephalalgia Acute herpes zoster neuropathy Trigeminal neuralgia of right side of face Interstitial cystitis Migraine History of kidney stones Hypertension History of stroke OAB (overactive bladder) GERD (gastroesophageal reflux disease) Pelvic pain Left arm pain Contusion of left upper arm Sprain of left shoulder Fall Sinusitis Flank pain, acute Ear pain UTI (urinary tract infection) Surgical History (Updated 03/30/24 @ 08:35 by Melonie Pope RN) History of loop recorder History of cholecystectomy H/O colonoscopy History of suburethral sling procedure History of tubal ligation History of appendectomy History of hysterectomy Family History Mother Hyperlipidemia Sister Hyperlipidemia Social History Smoking Status: Never smoker alcohol intake: current alcohol intake frequency: holidays/special occasions only substance use type: denies use current occupational status: employed and other Travel in the last 8 weeks: None household members: spouse and children housing: house marital status: number of children: 2 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 current occupational exposures/hazards: No caffeine: Yes Have you lived/traveled outside US in past 30 days?: No Contact w/someone who lives/traveled outside US past 30 days?: No Exposure to someone with infectious disease in past 14 days?: No Do you have a fever (greater than 100.4 F or 38 C)?: No Have you tested positive for COVID-19: No Exposed to someone with COVID-19 in past 14 days?: No Do you have a sore throat?: No Do you have a cough?: No Do you have any weakness?: No Do you have any diarrhea?: No Are you experiencing any unusual bleeding?: No Do you have any muscle aches/pain?: No Do you have any abdominal pain?: No Are you experiencing loss of taste or smell?: No [facility] Anesthesia Checklist Patient Identification Patient Identification: Arm Band and Verbal (Name & ) Structural Data Admitted From: Home Planned Operative Procedure/s: Colonoscopy Consent for Planned Operative Procedure(s) Verified: Yes Verified Documents: Surgical Consent and History and Physical NPO Status Verified Time NPO: 05:00 Chart Verification Results Verified: CBC, BMP, ECG and Chest Xray Additional verifications Patient : No Anesthesia Reactions: No Hx Blood Transfusions: No Blood Transfusion Reaction: No Cardiovascular Assessment Heart Sounds: S1 & S2 Pulse Rhythm: Irregular Peripheral Edema: No Airway Assessment Mallampati Score:: Class II C-Spine Mobility Assessed: Yes (FROM demonstrated) TMJ Mobility Assessed: No Dentition: Good Dentition (Nothing loose per pt.) Neurological Assessment Level of Consciousness: Awake, Alert, Appropriate and Follows Commands Hx Seizures: No Numbness or tingling in extremities: No Anesthesia Plan Anesthesia Risk discussed: Yes Anesthesia Plan: Verified ASA Class: III Anesthesia Type: MAC
--- NOTE | 2024-03-30 09:12 | [facility]H.PROCNOTE ---
[facility] Procedure Note Date: 03/30/24 Time: : Procedure Note:: Colonoscopy Procedure Report: Colonoscopy with cold snare polypectomy Endoscopist: Derick Ordaz II, MD Referring physician: VARGAS Catalan Date of Procedure: March 30, 2024 Equipment: Olympus 190 variable stiffness pediatric colonoscope Sedation: MAC sedation Indication: Mrs. Talbert is a 38-year-old female who is here for diagnostic colonoscopy. The patient was diagnosed with Crohn's disease in 2000 (in [place]) but after , she went into remission and is not on any maintenance of remission therapy. The patient does state that after Thanksgiving she had more severe lower abdominal pain and could not have normal bowel movements. She was given MiraLAX and fiber and this resolved. After her cholecystectomy, she was having 2-3 soft bowel movements daily. This has changed and now she will have a bowel movement every 2 days. She does get some right lower abdominal discomfort as well. She has had bloating and gassiness. She notes some mucus with her bowel movements but no blood and no weight loss. She reports no family history of colitis, Crohn's disease or colon cancer. Her last colonoscopy 5 years ago was normal. The patient did recently have an elevated C-reactive protein?23.4. Her CAT scan from 01/16/2024 did not show any bowel wall thickening or any evidence of Crohn's disease. Her labs from February 2024 showed normal hemoglobin 13.7 and hematocrit 40.4. Her transaminases were normal AST 19 and ALT 22. She had a normal lipase of 54. Her ESR in December 2023 was 16. The patient did have normal ferritin of 50.9 and iron saturation of 27%. Procedure: Prior to the procedure, a history and physical exam was performed, and patient's medications and allergies were reviewed. The risks, benefits and alternatives of the sedation and procedure were discussed with the patient. All questions were answered and informed consent was obtained. The patient was brought to the procedure room. Patient identification and proposed procedure were verified by the physician and the nurse. The patient was placed in a left lateral decubitus position and the scope was passed under direct vision. Throughout the procedure, the patient's blood pressure, pulse, and oxygen saturations were monitored continuously. The colonoscopy was accomplished without difficulty. The patient tolerated the procedure well. Findings: On digital rectal examination there was normal rectal tone. There were no external hemorrhoids. The colonoscope was introduced through the anal canal to the rectum and advanced to the cecum. The ileocecal valve and appendiceal orifice were identified. The scope was advanced a short distance into the ileum which appeared grossly normal. There was no evidence of any Crohn's disease of the ileum/small intestine. The scope was then withdrawn into the colon. There were 2 polyps in the ascending colon (4 and 4 mm) which were removed via cold snare polypectomy. The remaining cecum, ascending, transverse, descending, sigmoid and rectum were grossly normal. There were no mucosal abnormalities identified. Upon retroflexion within the rectum there were grade 1-2 internal hemorrhoids. The preparation was excellent throughout with [place] Preparation Score of 9. The cecal time was 12 minutes. Impression: 1. Diminutive colonic polyps x 2 2. No evidence of any mucosal Crohn's disease of colon or ileum Plan: I will follow-up the polyp histology and recommend repeat surveillance colonoscopy again in 5 years of the polyps are adenomatous. I do feel that the patient presently has obstipation related symptoms. I would encourage her to continue a fiber bowel regimen on a maintenance basis. I do presume that she initially had self-limited enterocolitis (rather than chronic Crohn's disease). I would consider getting an IBD panel to see if she has any positive Crohn's serologies.
[2024-03-30 09:31] VITALS: BP 102/67; PULSE 89; RESP 15; TEMP 36.2; O2SAT 92
[2024-03-30 09:41] VITALS: BP 96/68; PULSE 82; RESP 18; O2SAT 96
[2024-03-30 09:51] VITALS: BP 106/71; PULSE 81; RESP 18; O2SAT 96
[2024-03-30 10:01] VITALS: BP 119/79; PULSE 76; RESP 18; O2SAT 98
[2024-04-04 16:12] LABS: Saccharomyces cerevisiae, IgA 20.4 Units (0.0-24.9); Saccharomyces cerevisiae, IgG 43.9 Units (0.0-24.9)
== END 2024-03-30 10:01 | disposition home or self-care (01) ==
PROVIDERS: PCP Nurse Practitioner Family; Visit Provider Internal Medicine Gastroenterology
PROC: 0DJD8ZZ Inspection of Lower Intestinal Tract, Via Natural or Artificial Opening Endoscopic (ICD-10-PCS; CPT 45378; principal; 2024-03-30 10:00)
DX: K50.90 Crohn's disease, unspecified, without complications (principal); R79.82 Elevated C-reactive protein (CRP); R19.4 Change in bowel habit; R10.31 Right lower quadrant pain; K64.8 Other hemorrhoids; K63.5 Polyp of colon
CPT/HCPCS: 45385; 36415; 86256; 86671; J7120

== ENCOUNTER 2024-06-02 09:08 | Outpatient (CLI) | payer BC, SELFPAY ==
--- OUTSIDE RECORDS SUMMARY | 2024-06-02 09:09 | XMS_ITS | Data Portability ---
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
[2024-06-02 09:41] LABS: Basophils % 0.6 % (0.1-2.0); Eosinophils # 0.1 K/mm3 (0.0-0.4); Hematocrit 41.1 % (37.0-47.0); Hemoglobin 14.1 g/dL (12.2-16.2); Lymphocytes # 2.5 K/mm3 (0.7-4.5); Lymphocytes % 35.8 % (10-50); Mean Corpuscular HGB Conc 34.3 g/dL (31.8-35.4); Mean Corpuscular Hemoglobin 28.6 pg (27.0-31.2); Mean Corpuscular Volume 83.4 fl (81-99); Monocytes # 0.5 K/mm3 (0.1-1.0); Neutrophils # 3.9 K/mm3 (1.8-7.8); Neutrophils % 55.2 % (37.0-80.0); Nucleated Red Blood Cells # 0 10^3/uL; Nucleated Red Blood Cells % 0 %; Platelet Count 235 K/mm3 (142-424); Red Blood Count 4.93 M/mm3 (4.20-5.40); Red Cell Distribution Width-SD 36.3 fL
[2024-06-02 09:47] LABS: Alanine Aminotransferase 33 U/L (12-78); Albumin Level 4.3 g/dl (3.5-5.0); Alkaline Phosphatase 79 U/L (38-126); Anion Gap 14.2 mEq/L (5-15); Aspartate Amino Transferase 28 U/L (14-36); Bilirubin,Direct 0.2 mg/dl (0.0-0.4); Bilirubin,Indirect 0.5 mg/dL (0.0-0.9); Bilirubin,Total 0.7 mg/dl (0.2-1.3); Bilirubin,Unconjugated 0.4 mg/dL (0.0-1.1); Blood Urea Nitrogen 13 mg/dl (7-17); Carbon Dioxide 24 mmol/L (22.0-30.0); Chloride 105 mmol/L (98-107); Chol/HDL Ratio 4.1 (1-3.5); Cholesterol 169 mg/dl (140-200); Estimated Glomerular Filt Rate 93 ml/min (>60); GFR (African American) 112 ML/MIN (>60); Glucose 104 mg/dl (74-100); HDL Cholesterol 41 mg/dl (40-60); Potassium 4.2 mmoL/L (3.5-5.1); Sodium 139 mmol/L (136-145); Total Protein,Serum 7.9 g/dl (6.3-8.2); Triglycerides 102 mg/dl (30-150); VLDL Cholesterol 20 mg/dL (0-40)
[2024-06-02 09:52] LABS: D-Dimer 0.35 ug/mL (0.0-0.5)
[2024-06-02 09:58] LABS: Direct LDL Cholesterol 97.82 mg/dL (100-129)
[2024-06-02 10:13] LABS: Free T4 (Free Thyroxine) 1.48 ng/dl (0.78-2.19)
[2024-06-02 10:20] LABS: Thyroid Stimulating Hormone 0.89 uIU/mL (0.465-4.68)
== END 2024-06-02 23:59 | disposition home or self-care (01) ==
LOC: LAB 09:08
PROVIDERS: PCP Nurse Practitioner Family; Visit Provider Nurse Practitioner
DX: R07.9 Chest pain, unspecified (principal); I10 Essential (primary) hypertension; R06.02 Shortness of breath; R00.2 Palpitations; R42 Dizziness and giddiness; R53.83 Other fatigue; R60.0 Localized edema
CPT/HCPCS: 36415; 80048; 80061; 80076; 84439; 84443; 85025; 85378

== ENCOUNTER 2024-06-03 11:40 | Emergency (ER) | payer BC, SELFPAY ==
[2024-06-03] VITALS (8 sets, daily range): BP systolic 119–131; BP diastolic 70–85; PULSE 80–111; RESP 17–24; TEMP 36.8–36.9; O2SAT 97–98; BMI 41.3
--- NOTE | 2024-06-03 11:41 | ECG_ITS ---
APPROVED REPORT Exam: Resting ECG HR:113 bpm ECG Measurements Heart Rate 113 AXES MD 152 P 51 QRSd 84 QRS -26 QT 308 T 30 QTc 375 Conclusion SINUS TACHYCARDIA LOW QRS VOLTAGE IN PRECORDIAL LEADS [QRS DEFLECTION < 1.0 mV IN CHEST LEADS] POSSIBLE ANTERIOR MYOCARDIAL INFARCTION , PROBABLY OLD [30 ms Q WAVE IN V3/V4, OR R < 0.2 mV IN V4] ABNORMAL RHYTHM ECG Electronically signed by : LISSETH MUÑOZ, 06/07/2024 22:26:44
--- NOTE | 2024-06-03 11:42 | XR_ITS ---
FINAL REPORT CLINICAL HISTORY: cp, tachycardia/palps FINDINGS: SINGLE VIEW CHEST The heart is normal in size. The mediastinum is unremarkable. The lungs are underinflated but clear. Loop recorder device is seen in the left hemithorax. There is no pneumothorax. IMPRESSION: No acute process. Reviewed, Interpreted and Dictated by Jason Juarez MD Transcribed by Nikki Greer Authenticated and [facility]
[2024-06-03] MEDS: hydrOXYzine pamoate 25MG CAPSULE 50 MG PO (11:54)
[2024-06-03 12:02] LABS: Albumin Level 4.7 g/dl (3.5-5.0); Chloride 102 mmol/L (98-107); Potassium 3.8 mmoL/L (3.5-5.1); Sodium 137 mmol/L (136-145)
[2024-06-03 12:05] LABS: Alanine Aminotransferase 34 U/L (12-78); Albumin/Globulin Ratio 1.3 (1.1-1.8); Alkaline Phosphatase 78 U/L (38-126); Anion Gap 14.8 mEq/L (5-15); Aspartate Amino Transferase 31 U/L (14-36); Bilirubin,Total 0.8 mg/dl (0.2-1.3); Blood Urea Nitrogen 13 mg/dl (7-17); Calcium 9.2 mg/dl (8.4-10.2); Carbon Dioxide 24 mmol/L (22.0-30.0); Creatinine Clearance Estimated 81 mL/min (50-200); Estimated Glomerular Filt Rate 79 ml/min (>60); GFR (African American) 96 ML/MIN (>60); Globulin 3.7 g/dL (1.3-3.2); Glucose 95 mg/dl (74-100); Magnesium 1.6 mg/dl (1.6-2.3); Total Protein,Serum 8.4 g/dl (6.3-8.2)
--- NOTE | 2024-06-03 12:06 | HMH.EDCP ---
Discharge Plan Disposition Patient Disposition: Home, Self-Care Chief Complaint: Chest Pain Prescriptions Prescriptions: No Action losartan 25 mg tablet 25 mg PO DAILY Qty: 90 3RF hydrochlorothiazide 12.5 mg tablet 12.5 mg PO DAILY Qty: 90 3RF Myrbetriq 50 mg tablet extended release 24 hr 50 mg PO DAILY Qty: 90 3RF pantoprazole 40 mg tablet,delayed release (DR/EC) 40 mg PO DAILY Qty: 90 1RF Rx Instructions: TAKE ONE TABLET BY MOUTH EVERY DAY diltiazem HCl 240 mg capsule,extended release 24hr 240 mg PO DAILY Qty: 30 2RF diclofenac sodium 75 mg tablet,delayed release (DR/EC) 75 mg PO BID PRN (Reason: pain) Qty: 20 0RF Referrals Follow up/Referrals: Greer Donald APRN [Primary Care Provider] - See instructions Activity Restrictions/Add. Instructions Additional Instructions/Restrictions: Continue following up with cardiology. Workup today totally negative, although dimer elevated at 0.57. CT scan without evidence of blood clot. Call your family doctor to establish care for this visit to the emergency department and schedule follow-up within 48 hours to ensure improvement. If you have any worsening of your condition or any other concerning signs or symptoms, return to the emergency department or your primary care doctor for further evaluation. Clinical Impressions Clinical Impression: Chest pain Print Language Print Language: Czech Discharge ED Provider: Otto Salamanca [facility] General Chief Complaint: Chest Pain Stated Complaint: Chest Pain Time Seen by Provider: 06/03/24 11:41 Mode of Arrival: Ambulatory Source of Information: Patient Description of Symptoms (Recalled from ER Triage Doc. by RN): pt comes in for left sided chest pain and pressure that been going for a week, pt had full work up done yesterday by cardiology and had medicine changed as well as has a scope scheduled for next month with dr machado. pt states its like someone is sitting on her back and into left chest. History of Present Illness HPI narrative: Please note that above description of symptoms, in this electronic medical record under categorization of recalled from ER triage doctor by RN are reflective of an initial nursing assessment, however, is not reflective of my full history and physical exam that was personally taken and clarified. Consequentially, this preceding description of symptoms, which may include the patient's categorized chief complaint in the EMR, do not reflect my personal clinical impression, and the ultimate description of history of present illness and patient stated complaints should be deferred to this section of the note. Unless stated otherwise or congruent with this section of the note, additional signs, symptoms, or incongruence should be interpreted as inaccurate with my clinical impression. Related Data Previous Rx's ?Medication ?Instructions ?Recorded mirabegron 50 mg tablet,extended 50 mg PO DAILY #90 tabs 05/27/23 release 24 hr (Myrbetriq) diclofenac sodium 75 mg 75 mg PO BID PRN pain #20 tabs 03/05/24 tablet,delayed release pantoprazole 40 mg tablet,delayed 40 mg PO DAILY #90 tabs 03/24/24 release diltiazem HCl 240 mg capsule,24 240 mg PO DAILY #30 caps 04/18/24 hr,extended release hydrochlorothiazide 12.5 mg tablet 12.5 mg PO DAILY #90 tabs 06/02/24 losartan 25 mg tablet 25 mg PO DAILY #90 tabs 06/02/24 Allergies Allergy/AdvReac Type Severity Reaction Status Date / Time chlorhexidine Allergy Mild Hives Verified 06/02/24 08:34 hydrocodone (From NORCO) Allergy Mild Hives Verified 06/02/24 08:34 hydromorphone (From Dilaudid) Allergy Unknown Verified 06/02/24 08:34 allergy reaction PFSH PFS Disclaimer: The information contained in this section may have been updated after the patient was seen, as this information can be updated by other users. Medical History (Updated 06/03/24 @ 14:38 by Otto Salamanca MD) SOB (shortness of breath) History of sinus tachycardia Abnormal electrocardiogram [ECG] [EKG] Claudication of both lower extremities Bacterial vaginosis Bilateral cold feet Pain in right lower leg Right leg swelling Sinusitis Edema of both lower extremities Palpitations Dizziness Dyspnea Chest pain Primary HSV infection of mouth Cephalalgia Acute herpes zoster neuropathy Trigeminal neuralgia of right side of face Interstitial cystitis Migraine History of kidney stones Hypertension History of stroke OAB (overactive bladder) GERD (gastroesophageal reflux disease) Pelvic pain Left arm pain Contusion of left upper arm Sprain of left shoulder Fall Sinusitis Flank pain, acute Ear pain UTI (urinary tract infection) Surgical History History of loop recorder History of cholecystectomy H/O colonoscopy History of suburethral sling procedure History of tubal ligation History of appendectomy History of hysterectomy Family History Mother Hyperlipidemia Sister Hyperlipidemia Social History Smoking Status: Never smoker alcohol intake: current alcohol intake frequency: holidays/special occasions only substance use type: denies use current occupational status: employed and other Travel in the last 8 weeks: None household members: spouse and children housing: house marital status: number of children: 2 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[employer] current occupational exposures/hazards: No caffeine: Yes Have you lived/traveled outside [place] in past 30 days?: No Contact w/someone who lives/traveled outside US past 30 days?: No Exposure to someone with infectious disease in past 14 days?: No Do you have a fever (greater than 100.4 F or 38 C)?: No Have you tested positive for COVID-19: No Exposed to someone with COVID-19 in past 14 days?: No Do you have a sore throat?: No Do you have a cough?: No Do you have any weakness?: No Do you have any diarrhea?: No Are you experiencing any unusual bleeding?: No Do you have any muscle aches/pain?: No Do you have any abdominal pain?: No Are you experiencing loss of taste or smell?: No Other Medical History Have you received the Flu Vaccine for this season: No Have you received the Pneumonia Vaccine: No ROS Obtained: Yes All systems reviewed & no additional complaints except as documented Physical Exam General General appearance: alert Neck Neck exam: Present trachea midline Chest Chest inspection: Present normal inspection and symmetric chest wall rise Respiratory Respiratory exam: Present normal lung sounds bilaterally; Absent respiratory distress, wheezes, stridor, accessory muscle use or prolonged expiratory phase Cardiovascular Cardiovascular exam: Present regular rate, normal rhythm and other (Pulses equal and symmetric in upper and lower extremities) Extremities Exam Extremities exam: Absent edema Neurological Exam Neurological exam: Present alert, oriented X3 and CN II-XII intact Skin Skin exam: Present warm and dry; Absent cyanosis, diaphoresis or pallor HEART Score HEART Score HEART Score assessment performed?: Yes HEART Score: 1 Critical Care Critical Care Time Critical Care Time: No Medical Decision Making Medical Records Medical records reviewed: Yes I reviewed the patient's medical records. Royce Inquiry Pt receiving controlled substance: No Royce was queried for this patient: No Vital Signs Vital Signs: 06/03/24 11:44 06/03/24 11:47 06/03/24 11:56 Temperature 98.5 F Temperature Source Oral Pulse Rate 111 H 110 H Pulse Rate [Left Radial] 110 H Respiratory Rate 23 20 Blood Pressure 119/80 Blood Pressure [Right Arm] 119/80 Blood Pressure Mean 100 Blood Pressure Mean [Right Arm] 93 02 Sat by Pulse Oximetry 98 97 Oxygen Delivery Method Room Air 06/03/24 12:00 06/03/24 13:00 06/03/24 13:30 Temperature Temperature Source Pulse Rate 111 H 93 H Pulse Rate [Left Radial] Respiratory Rate 17 23 22 Blood Pressure 131/76 122/85 120/85 Blood Pressure [Right Arm] Blood Pressure Mean 94 92 95 Blood Pressure Mean [Right Arm] 02 Sat by Pulse Oximetry 98 98 98 Oxygen Delivery Method 06/03/24 14:00 Temperature Temperature Source Pulse Rate 93 H Pulse Rate [Left Radial] Respiratory Rate 24 Blood Pressure 119/82 Blood Pressure [Right Arm] Blood Pressure Mean 93 Blood Pressure Mean [Right Arm] 02 Sat by Pulse Oximetry 98 Oxygen Delivery Method Lab Data Labs: Lab Results 06/03/24 11:45: WBC 8.9, RBC 5.18, Hgb 15.0, Hct 43.0, MCV 83.0, MCH 29.0, MCHC 34.9, RDW 12.0, Plt Count 269, MPV 9.0, Neut % (Auto) 50.7, Lymph % (Auto) 40.0, [place] % (Auto) 7.4, Eos % (Auto) 0.8, Baso % (Auto) 0.8, Neut # (Auto) 4.5, Lymph # (Auto) 3.6, [place] # (Auto) 0.7, Eos # (Auto) 0.1, Baso # (Auto) 0.1, PT 10.8, INR 0.96, APTT 26.8, D-Dimer 0.57 H, Sodium 137, Potassium 3.8, Chloride 102, Carbon Dioxide 24, Anion Gap 14.8, BUN 13, Creatinine 0.80, Estimated Creat Clear 81, Estimated GFR 79, Est GFR ( Amer) 96, Glucose 95, Calcium 9.2, Magnesium 1.6, Total Bilirubin 0.8, AST 31, ALT 34, Alkaline Phosphatase 78, Troponin I < 0.01, NT-Pro-B Natriuret Pep < 20.0, Total Protein 8.4 H, Albumin 4.7, Globulin 3.7 H, Albumin/Globulin Ratio 1.3, TSH 1.43 D, Thyroxine (T4) 16.5 H 06/03/24 11:45 06/03/24 11:45 Response Orders (Tests/Meds): ED MEDICATIONS Discontinued Medications Generic Name Dose Route Start Last Admin Trade Name Freq PRN Reason Stop Dose Admin Hydroxyzine Pamoate 50 mg 06/03/24 11:47 06/03/24 11:54 Hydroxyzine Pamoate 25mg Capsule PO 06/03/24 11:48 50 mg ONCE ONE Administration Iopamidol 70 ml 06/03/24 13:17 06/03/24 13:17 Iopamidol-370 (76%);100ml Bottle IV 06/03/24 13:18 70 ml ONCE ONE Administration Sodium Chloride 10 ml 06/03/24 13:17 06/03/24 13:17 Sodium Chloride 0.9% 10ml Syr (Rad Only) IV 06/03/24 13:18 10 ml ONCE ONE Administration Sodium Chloride 50 ml 06/03/24 13:17 06/03/24 13:18 0.9 % Sodium Chloride 50 Ml Vial IV 06/03/24 13:18 50 ml ONCE ONE Administration ORDERS Category Date Time Status CT angio chest PE protocol Stat Cat Scan 06/03/24 13:00 Completed XR chest portable Stat Exams 06/03/24 11:42 Completed Complete Blood Count Auto Diff Stat Lab 06/03/24 11:45 Completed Comprehensive Metabolic Panel Stat Lab 06/03/24 11:45 Completed D-Dimer Stat Lab 06/03/24 11:45 Completed Magnesium Stat Lab 06/03/24 11:45 Completed NT Pro Brain Natriuretic Pep. Stat Lab 06/03/24 11:45 Completed PT INR [Prothrombin Time INR] Stat Lab 06/03/24 11:45 Completed PTT [Activated Partial Thrombo Time] Stat Lab 06/03/24 11:45 Completed T4 (Thyroxine) Stat Lab 06/03/24 11:45 Completed TSH [Thyroid Stimulating Hormone] Stat Lab 06/03/24 11:45 Completed Troponin I Q3H Lab 06/03/24 14:45 Ordered Troponin I Q3H Lab 06/03/24 17:45 Ordered Troponin I Stat Lab 06/03/24 11:45 Completed MDM Narrative Medical Decision Narrative: 38-year-old female presenting with a week of chest pain. She saw cardiology yesterday, they ran a bunch of labs and they were negative. Patient states that the pain is left-sided, goes to her shoulder blades, left upper extremity and feels like a burning/pressure. Nothing in particular makes it better or worse. She states that she was swelling worse in her lower extremities, started an increased dose of hydrochlorothiazide as of yesterday. States that she has not been urinating that much. No vomiting, diaphoresis, or neurologic deficits. History was obtained via conversation with patient and chart review. On arrival, patient hemodynamically stable, alert, oriented x4, appropriate, GCS 15, moving all extremities spontaneously, pupils equal and reactive to light. Full physical exam performed and significant for clinically well-appearing female no acute distress. Normotensive, mildly tachycardic. No murmurs gallops or rubs. Lungs are clear anterior and posterior bilaterally. Grossly neurologically intact. Differential includes microvascular coronary artery disease, CHF, ACS, HI, coronary artery dissection, pneumothorax, PE, dissection, pericarditis, myocarditis, pneumothorax, aortic aneurysm, pneumonia, bronchitis, among others. Patient was given hydroxyzine for symptomatic management and correction of underlying abnormalities. Patient placed on continuous cardiac monitoring and continuous pulse ox with initial blood pressure 119/80, heart rate 110, saturation 97% on room air. Independent interpretation of EKG shows sinus tachycardia 113 bpm with ND 152, QRS 84, QTc 375. No acute ischemic change, patient does have leftward axis. Workup independently interpreted and significant for nonactionable CBC or chemistry. Troponin negative. Thyroid studies with mildly elevated T4. Patient's D-dimer up trended today nearly 0.6 from 0.35 yesterday. On independent interpretation of imaging, chest x-ray without acute cardiopulmonary space disease. See radiology read for full review of final results. Heart score 2. Reevaluation, patient has no acute complaints and pain is about the same. Out of abundance of caution, although I feel patient is years negative, CT of the chest was ordered to evaluate for pulmonary embolus or dissection. This was negative on independent interpretation for any acute pathology. On reevaluation, patient has no acute complaints. Given patient presentation, workup, history, this most likely represents noncardiac chest pain. Was explained that cardiac chest pain cannot be totally ruled out, although negative workup today, recommended to follow-up with cardiology still. She voiced her understanding. Because patient at baseline without signs or symptoms of clinical decompensation, deemed appropriate for discharge. Results were relayed to patient who voiced understanding and were agreeable to outpatient management and follow up. I discussed my clinical impression with patient and answered all questions. At this time, the evidence for any other entities in the differential is insufficient to warrant any further testing or ED observation. This was explained as well. Advisory was given that persistent or worsening symptoms require further evaluation. I confirmed the understanding of this discussion. Valve Maker disclaimer Much of this encounter note is an electronic radiation protection specialist spoken language to printed text. Electronic radiation protection specialist of the spoken language may permit errors. Although I have reviewed the note, some errors may still exist.
--- OUTSIDE RECORDS SUMMARY | 2024-06-03 12:08 | XMS_ITS | Data Portability ---
Author Organization [facility],, Main Office Address [address] [place] [address] Assessment Encounter Date Assessment Date Assessment LastModified by Organization Details LastModified Time 07/16/2021 07/16/2021 Patient evaluated for burning with urination. History and exam indicate urinary frequency. Patient educated on treatment and goals of therapy. Follow up and orders discussed and indicated below. Patient evaluated for urinary frequency and urgency. History and exam indicate INSERT TEXT HERE. Patient educated on treatment and goals of therapy. Discussed follow up and orders indicated below. [email or web address] Not available 07/16/2021 10:07:19 10/16/2021 10/16/2021 Patient presented for medication refill. Patient tolerating medication well at current dose without adverse effects. Refilled as below. Discussed plan with patient, who expressed understanding . Follow up as noted below. [email or web address] Not available 10/20/2021 12:48:12 Plan of Treatment Reminders Order Date Submit Date Provider Last Modified By Organization Details Last Modified Time Details Appointments None recorded. Lab urinalysis , dipstick 2021 022 LEANDRO Main Office, [address], [place], [address], 11:59:09 urinalysis , dipstick 2021 022 michelle Main Office, [address], [place], [address], 14:37:41 urinalysis , dipstick 2021 [facility] Main Office, [address], [place], [address], 15:47:35 urinalysis , dipstick 2021 [facility] Main Office, [address], [place], [address], 10:09:22 Referral None recorded. Procedures None recorded. Surgeries None recorded. Imaging None recorded. Medication Orders Brexafemme 150 mg tablet 2021 [facility] #[id number], [address], [place], [place], [id number], 11:38:02 nystatin-t riamcinolo ne 100,000 unit/g-0.1 % topical cream 2021 [facility] #[id number], [address] [place], [place], [id number], 14:14:22 tinidazole 500 mg tablet 2021 [facility] #24336, [address] [place], [place], [id number], 11:38:02 cephalexin 500 mg capsule 2021 [facility] #50390, [address] [place], [place], [id number], 11:22:04 Uribel 118 mg-10 mg-40.8 mg-36 mg capsule 2021 [facility] [id number], [address] [place] [address], [address], 10:41:48 fluconazol e 150 mg tablet 2021 [facility] #92628, [address] , [place], [place], [id number], 11:22:23 Macrobid 100 mg capsule 2021 [facility], [address] [place] [address], [place], [address], 09:23:24 Paxil 10 mg tablet 2021 [facility], [address] [place] [address], [place], [address], 09:23:26 Patient TargetsNo targets recorded. Patient Instructions Encounter Date Encounter Id Patient Instructions Last Modified By Organization Details Last Modified Time 07/16/2021 [id number] Urinary Tract Infection (UTI) in Women: Care Instructions [email or web address] Not available 07/16/2021 10:09:22 ultrasound Conservative and surgical options discussed, alternatives reviewed. Risks associated with each were reviewed. All questions answered. Pros and cons were reviewed. [email or web address] Not available 07/16/2021 10:09:11 07/23/2021 [id number] frequent urination: care instructions [email or web address] Not available 08/19/2021 15:47:35 abdominal pain: care instructions gveloudis Not available 08/19/2021 15:47:35 08/06/2021 [id number] Bladder Pain Syndrome (BPS): Care Instructions [email or web address] Not available 08/06/2021 14:37:41 frequent urination: care instructions gveloudis Not available 08/06/2021 14:37:41 possible appendicitis: care instructions gveloudis Not available 08/06/2021 14:37:41 10/16/2021 [id number] painful urinatio n (dysuria): care instructions aclaxon Not available 10/16/2021 15:03:09 headache: care instructions aclaxon Not available 10/16/2021 15:03:09 Bladder Pain Syndrome (BPS): Care Instructions aclaxon Not available 10/16/2021 15:03:09 candidiasis: car e instructions aclaxon Not available 10/16/2021 10:41:46 Conservative and surgical options discussed, alternatives reviewed. Risks associated with each were reviewed. All questions answered. Pros and cons were reviewed. [email or web address] Not available 10/20/2021 12:48:55 12/11/2021 [id number] Bladder Pain Syndrome (BPS): Care Instructions aclaxon Not available 12/12/2021 15:40:27 candidiasis: car e instructions aclaxon Not available 12/11/2021 11:37:54 bacterial vaginosis: care instructions aclaxon Not available 12/11/2021 11:37:54 Reason for Referral None Reported. Results Created Date Observation Date Name Description Value Unit Range Abnormal Flag Note LastModifiedBy Organization Detail LastModifiedTime 07/17/19 22 07/16/2021 urina lysis , dipst ick Nitrite negati ve Not Available Main Office [address], [place], [address], 07/16/2021 08:58:55 07/17/19 22 07/16/2021 urina lysis , dipst ick Leukocytes trace Not Available Main Of fice [address], [place], [address], 07/16/2021 08:58:55 07/17/19 22 07/16/2021 urina lysis , dipst ick Urobilinogen - Not Available Main Office [address], [place], [address], 07/16/2021 08:58:55 07/17/19 22 07/16/2021 urina lysis , dipst ick Protein trace Not Available Main Offic e [address], [place], [address], 07/16/2021 08:58:55 07/17/19 22 07/16/2021 urina lysis , dipst ick pH 6.0 Not Available Main Offic e [address], [place], [address], 07/16/2021 08:58:55 07/17/19 22 07/16/2021 urina lysis , dipst ick Blood - Not Available Main Offic e [address], [place], [address], 07/16/2021 08:58:55 07/17/19 22 07/16/2021 urina lysis , dipst ick Specific Clarence 1.010 Not Available Main O ffice [address], [place], [address], 07/16/2021 08:58:55 07/17/19 22 07/16/2021 urina lysis , dipst ick Ketone small Not Available Main Offic e [address], [place], [address], 07/16/2021 08:58:55 07/17/19 22 07/16/2021 urina lysis , dipst ick Bilirubin -- Not Available Main Off ice [address], [place], [address], 07/16/2021 08:58:55 07/17/19 22 07/16/2021 urina lysis , dipst ick Glucose - Not Available Main Offic e [address], [place], [address], 07/16/2021 08:58:55 07/24/19 22 07/23/2021 urina lysis , dipst ick Nitrite negati ve Not Available Main Office [address], [place], [address], 07/23/2021 09:14:13 07/24/19 22 07/23/2021 urina lysis , dipst ick Leukocytes - Not Available Main Of fice [address], [place], [address], 07/23/2021 09:14:13 07/24/19 22 07/23/2021 urina lysis , dipst ick Urobilinogen - Not Available Main Office [address], [place], [address], 07/23/2021 09:14:13 07/24/19 22 07/23/2021 urina lysis , dipst ick Protein trace Not Available Main Offic e [address], [place], [address], 07/23/2021 09:14:13 07/24/19 22 07/23/2021 urina lysis , dipst ick pH 6.5 Not Available Main Offic e [address], [place], [address], 07/23/2021 09:14:13 07/24/19 22 07/23/2021 urina lysis , dipst ick Blood - Not Available Main Offic e [address], [place], [address], 07/23/2021 09:14:13 07/24/19 22 07/23/2021 urina lysis , dipst ick Specific Clarence 1.010 Not Available Main O ffice [address], [place], [address], 07/23/2021 09:14:13 07/24/19 22 07/23/2021 urina lysis , dipst ick Ketone - Not Available Main Offic e [address], [place], [address], 07/23/2021 09:14:13 07/24/19 22 07/23/2021 urina lysis , dipst ick Bilirubin - Not Available Main Off ice [address], [place], [address], 07/23/2021 09:14:13 07/24/19 22 07/23/2021 urina lysis , dipst ick Glucose - Not Available Main Offic e [address], [place], [address], 07/23/2021 09:14:13 08/07/19 22 08/06/2021 urina lysis , dipst ick Leukocytes - Not Available Main Of fice [address], [place], [address], 08/06/2021 13:58:10 08/07/19 22 08/06/2021 urina lysis , dipst ick Nitrite negati ve Not Available Main Office [address], [place], [address], 08/06/2021 13:58:10 08/07/19 22 08/06/2021 urina lysis , dipst ick Urobilinogen - Not Available Main Office [address], [place], [address], 08/06/2021 13:58:10 08/07/19 22 08/06/2021 urina lysis , dipst ick Protein - Not Available Main Offic e [address], [place], [address], 08/06/2021 13:58:10 08/07/19 22 08/06/2021 urina lysis , dipst ick pH 5.0 Not Available Main Offic e [address], [place], [address], 08/06/2021 13:58:10 08/07/19 22 08/06/2021 urina lysis , dipst ick Blood - Not Available Main Offic e [address], [place], [address], 08/06/2021 13:58:10 08/07/19 22 08/06/2021 urina lysis , dipst ick Specific Clarence 1.005 Not Available Main O ffice [address], [place], [address], 08/06/2021 13:58:10 08/07/19 22 08/06/2021 urina lysis , dipst ick Ketone - Not Available Main Offic e [address], [place], [address], 08/06/2021 13:58:10 08/07/19 22 08/06/2021 urina lysis , dipst ick Bilirubin - Not Available Main Off ice [address], [place], [address], 08/06/2021 13:58:10 08/07/19 22 08/06/2021 urina lysis , dipst ick Glucose - Not Available Main Offic e [address], [place], [address], 08/06/2021 13:58:10 10/17/19 22 10/17/2021 VAGIN ITIS PANEL andrey sp. NOT DETECT ED normal Trich omona s vagin ranjana: DNA testi ng perfo rmed by Trans cript ion Media skye Ampli ficat ion (TMA) These resul ts shoul d be inter prete d in light of all clini surendra and labor atory findi ngs. This assay is highl y accur ate, but rare false posit christos and negat christos resul ts may occur . Posit christos resul ts in low preva lence popul ation s may requi re re-ev aluat ion. A negat christos resul t does not precl ude a possi ble infec tion due to a speci men inade quacy or sampl ing error . Test perfo rmed by [facility], d/b/a [facility], [address], [facility] [place] [address] , Nafisa Thrasher ra, DO, Labor atory Direc tor. Gardn erell a vagin ranjana, Lilia da speci es: Genom ic DNA is isola skye from patie nt speci mens by stand valeri labor atory techn iques and neeru zed using custo m OpenA rray plate s, perfo rmed on the Quant Studi o 12K Flex Real Time PCR syste m. A posit christos resul t is provi ded for patho genic bacte kay, virus and/o r funga l speci es based on detec tion of ampli ficat ion produ cts. Ely l vagin al galen resul ts of Ely l or [place] skye are deter mined by calcu latin g the ratio of the organ ism to the total bacte kay prese nt in the speci men, and beatris ring that ratio to a PathG roup patie nt popul ation . Overa ll resul ts of Ely l, Borde rline and Abnor mal are deter mined using a proba bilit y model which was devel oped by an exten sive neeru sis and integ ratio n of clini surendra thres holds for marke r organ isms on a large set of sympt omati c & asymp tomat ic speci mens. Patie nt popul ation s with diffe rent demog raphi cs from the PathG roup model popul ation may have diffe rent indic ator organ isms with diffe rent relat christos ratio s, which would influ ence the final resul ts. Resul ts shoul d be inter prete d in the michael xt of all clini surendra and labor atory findi ngs. The test was devel oped and its perfo rmanc e emilie cteri stics deter mined by [employer], [employer] d/b/a [facility] rouluc[facility]. It has not been clear ed or appro oralia by the U.S. Food and Drug Admin istra tion. The FDA has deter mined that such clear ance or appro bertha is not neces aaron. Perti nent refer ence inter vals are avail able from the labor atory on reque st. Test( s) perfo rmed by [facility] [employer] [facility], [employer], d/b/a [facility], [address], [place] [address] , Nafisa Thrasher ra, DO, Labor atory Direc tor. Not Available [facility]) [address], [place], [address], 10/17/2021 20:30:56 10/17/19 22 10/17/2021 VAGIN ITIS PANEL gardnerella vaginalis DETECT ED abnormal Trich omona s vagin ranjana: DNA testi ng perfo rmed by Trans cript ion Media skye Ampli ficat ion (TMA) These resul ts shoul d be inter prete d in light of all clini surendra and labor atory findi ngs. This assay is highl y accur ate, but rare false posit christos and negat christos resul ts may occur . Posit christos resul ts in low preva lence popul ation s may requi re re-ev aluat ion. A negat christos resul t does not precl ude a possi ble infec tion due to a speci men inade quacy or sampl ing error . Test perfo rmed by [facility], d/b/a Path r[facility]uc[facility], [address], [place] [address] , Nafisa Thrasher ra, DO, Labor atory Direc tor. Gardn erell a vagin ranjana, Lilia da speci es: Genom ic DNA is isola skye from patie nt speci mens by stand valeri labor atory techn iques and neeru zed using custo m OpenA rray plate s, perfo rmed on the Quant Studi o 12K Flex Real Time PCR syste m. A posit christos resul t is provi ded for patho genic bacte kay, virus and/o r funga l speci es based on detec tion of ampli ficat ion produ cts. Ely l vagin al galen resul ts of Ely l or [place] skye are deter mined by calcu latin g the ratio of the organ ism to the total bacte kay prese nt in the speci men, and beatris ring that ratio to a PathG roup patie nt popul ation . Overa ll resul ts of Ely l, Borde rline and Abnor mal are deter mined using a proba bilit y model which was devel oped by an exten sive neeru sis and integ ratio n of clini surendra thres holds for marke r organ isms on a large set of sympt omati c & asymp tomat ic speci mens. Patie nt popul ation s with diffe rent demog raphi cs from the PathG roup model popul ation may have diffe rent indic ator organ isms with diffe rent relat christos ratio s, which would influ ence the final resul ts. Resul ts shoul d be inter prete d in the michael xt of all clini surendra and labor atory findi ngs. The test was devel oped and its perfo rmanc e emilie cteri stics deter mined by [employer], [employer] d/b/a [employer]. It has not been clear ed or appro oralia by the U.S. Food and Drug Admin istra tion. The FDA has deter mined that such clear ance or appro bertha is not neces aaron. Perti nent refer ence inter vals are avail able from the [facility] on reque st. Test( s) perfo rmed by [facility], [employer], d/b/a [facility], [address], [place] [address] , Nafisa Thrasher ra, DO, Labor atory Dire tor. Not Available [facility] ([facility]) [address], [place], [address], 10/17/2021 20:30:56 10/17/19 22 10/17/2021 VAGIN ITIS PANEL trichomonas vaginalis, aptima (panther) NOT DETECT ED normal Trich omona s vagin ranjana: DNA testi ng perfo rmed by Trans cript ion Media skye Ampli ficat ion (TMA) These resul ts shoul d be inter prete d in light of all clini surendra and labor atory findi ngs. This assay is highl y accur ate, but rare false posit christos and negat christos resul ts may occur . Posit christos resul ts in low preva lence popul ation s may requi re re-ev aluat ion. A negat christos resul t does not precl ude a possi ble infec tion due to a speci men inade quacy or sampl ing error . Test perfo rmed by [facility], d/b/a [facility] r[facility], [address], [place] [address] , Nafisa Thrasher ra, DO, Labor atory Direc tor. Gardn erell a vagin ranjana, Lilia da speci es: Genom ic DNA is isola skye from patie nt speci mens by stand valeri labor atory techn iques and neeru zed using custo m OpenA rray plate s, perfo rmed on the Quant Studi o 12K Flex Real Time PCR syste m. A posit christos resul t is provi ded for patho genic bacte kay, virus and/o r funga l speci es based on detec tion of ampli ficat ion produ cts. Ely l vagin al galen resul ts of Ely l or [place] skye are deter mined by calcu latin g the ratio of the organ ism to the total bacte kay prese nt in the speci men, and beatris ring that ratio to a PathG roup patie nt popul ation . Overa ll resul ts of Ely l, Borde rline and Abnor mal are deter mined using a proba bilit y model which was devel oped by an exten sive neeru sis and integ ratio n of clini surendra thres holds for marke r organ isms on a large set of sympt omati c & asymp tomat ic speci mens. Patie nt popul ation s with diffe rent demog raphi cs from the PathG roup model popul ation may have diffe rent indic ator organ isms with diffe rent relat christos ratio s, which would influ ence the final resul ts. Resul ts shoul d be inter prete d in the michael xt of all clini surendra and labor atory findi ngs. The test was devel oped and its perfo rmanc e emilie cteri stics deter mined by [facility] [employer] d/b/a [facility] roup. It has not been clear ed or appro oralia by the U.S. Food and Drug Admin istra tion. The FDA has deter mined that such clear ance or appro bertha is not neces aaron. Perti nent refer ence inter vals are avail able from the labor atory on reque st. Test( s) perfo rmed by [facility], d/b/a [facility], [address], [place] [address] , Nafisa Thrasher ra, DO, Labor atory Direc tor. Not Available [facility] ([facility]) [address] [place] [address] [address], [place], [address], 10/17/2021 20:30:56 10/17/19 22 10/19/2021 CULTU RE, URINE specimen source URINE - VOID Not Available [facility] ([facility]) [address] [place] [address] [address], [place], [address], 10/19/2021 06:14:54 10/17/19 22 10/19/2021 CULTU RE, URINE culture, urine SEE BELOW No growt h Not Available [facility] ([facility]) [address] [place] [address] [address], [place], [address], 10/19/2021 06:14:54 12/12/19 22 12/13/2021 AEROB IC VAGIN ITIS PANEL enterococcus faecalis Not Detect ed normal Not Available [facility] ([facility]) [address] [place] [address] [address], [place], [address], 12/13/2021 14:26:21 12/12/19 22 12/13/2021 AEROB IC VAGIN ITIS PANEL escherichia coli Not Detect ed normal Not Available [facility] ([facility]) [address] [place] [address] [address], [place], [address], 12/13/2021 14:26:21 12/12/19 22 12/13/2021 AEROB IC VAGIN ITIS PANEL staphylococc us aureus Not Detect ed normal Not Available [facility] ([facility]) [address], [place], [address], 12/13/2021 14:26:21 12/12/19 22 12/13/2021 AEROB IC VAGIN ITIS PANEL group B streptococcu s (gbs) Not Detect ed normal Not Available [facility] ([facility]) [address] [facility] [address], [place], [address], 12/13/2021 14:26:21 12/12/19 22 12/12/2021 VAGIN ITIS PANEL trichomonas vaginalis, [facility] NOT DETECT ED normal Trich omona s vagin ranjana: DNA testi ng perfo rmed by Trans cript ion Media skye Ampli ficat ion (TMA) These resul ts shoul d be inter prete d in light of all clini surendra and labor atory findi ngs. This assay is highl y accur ate, but rare false posit christos and negat christos resul ts may occur . Posit christos resul ts in low preva lence popul ation s may requi re re-ev aluat ion. A negat christos resul t does not precl ude a possi ble infec tion due to a speci men inade quacy or sampl ing error . Test perfo rmed by [facility], [facility], d/b/a [facility], [address], [place] [address] , Nafisa Thrasher ra, DO, Labor atory Direc tor. Gardn erell a vagin ranjana, Lilia da speci es: Genom ic DNA is isola skye from patie nt speci mens by stand valeri labor atory techn iques and neeru zed using custo m OpenA rray plate s, perfo rmed on the Quant Studi o 12K Flex Real Time PCR syste m. A posit christos resul t is provi ded for patho genic bacte kay, virus and/o r funga l speci es based on detec tion of ampli ficat ion produ cts. Ely l vagin al galen resul ts of Ely l or [place] skye are deter mined by calcu latin g the ratio of the organ ism to the total bacte kay prese nt in the speci men, and beatris ring that ratio to a PathG roup patie nt popul ation . Overa ll resul ts of Ely l, Borde rline and Abnor mal are deter mined using a proba bilit y model which was devel oped by an exten sive neeru sis and integ ratio n of clini surendra thres holds for marke r organ isms on a large set of sympt omati c & asymp tomat ic speci mens. Patie nt popul ation s with diffe rent demog raphi cs from the PathG roup model popul ation may have diffe rent indic ator organ isms with diffe rent relat christos ratio s, which would influ ence the final resul ts. Resul ts shoul d be inter prete d in the michael xt of all clini surendra and labor atory findi ngs. The test was devel oped and its perfo rmanc e emilie cteri stics deter mined by [employer], [employer] d/b/a [facility]. It has not been clear ed or appro oralia by the U.S. Food and Drug Admin istra tion. The FDA has deter mined that such clear ance or appro bertha is not neces aaron. Perti nent refer ence inter vals are avail able from the labor atory on reque st. Test( s) perfo rmed by [facility], [employer], d/b/a [facility] r[facility], [address], [place] [address] , Nafisa Thrasher ra, DO, Labor atory Direc tor. Not Available [facility] ([facility]) [address], [place], [address], 12/13/2021 14:26:22 12/12/19 22 12/13/2021 VAGIN ITIS PANEL andrey sp. Not Detect ed normal Trich omona s vagin ranjana: DNA testi ng perfo rmed by Trans cript ion Media skye Ampli ficat ion (TMA) These resul ts shoul d be inter prete d in light of all clini surendra and labor atory findi ngs. This assay is highl y accur ate, but rare false posit christos and negat christos resul ts may occur . Posit christos resul ts in low preva lence popul ation s may requi re re-ev aluat ion. A negat christos resul t does not precl ude a possi ble infec tion due to a speci men inade quacy or sampl ing error . Test perfo rmed by [facility], [facility], d/b/a Path [facility], [address], [place] [address] , Nafisa Thrasher ra, DO, Labor atory Direc tor. Gardn erell a vagin ranjana, Lilia da speci es: Genom ic DNA is isola skye from patie nt speci mens by stand valeri labor atory techn iques and neeru zed using custo m OpenA rray plate s, perfo rmed on the Quant Studi o 12K Flex Real Time PCR syste m. A posit christos resul t is provi ded for patho genic bacte kay, virus and/o r funga l speci es based on detec tion of ampli ficat ion produ cts. Ely l vagin al galen resul ts of Ely l or [place] skye are deter mined by calcu latin g the ratio of the organ ism to the total bacte kay prese nt in the speci men, and beatris ring that ratio to a PathG roup patie nt popul ation . Overa ll resul ts of Ely l, Borde rline and Abnor mal are deter mined using a proba bilit y model which was devel oped by an exten sive neeru sis and integ ratio n of clini surendra thres holds for marke r organ isms on a large set of sympt omati c & asymp tomat ic speci mens. Patie nt popul ation s with diffe rent demog raphi cs from the PathG roup model popul ation may have diffe rent indic ator organ isms with diffe rent relat christos ratio s, which would influ ence the final resul ts. Resul ts shoul d be inter prete d in the michael xt of all clini surendra and labor atory findi ngs. The test was devel oped and its perfo rmanc e emilie cteri stics deter mined by [facility]/b/[facility]. It has not been clear ed or appro oralia by the U.S. Food and Drug Admin istra tion. The FDA has deter mined that such clear ance or appro bertha is not neces aaron. Perti nent refer ence inter vals are avail able from the [facility] on reque st. Test( s) perfo rmed by [facility], [facility], d/b/a [facility], [address], [place] [address] , Nafisa Thrasher ra, DO, Labor atory Dire tor. Not Available [facility] ([facility]) [address], [place], [address], 12/13/2021 14:26:22 12/12/19 22 12/13/2021 VAGIN ITIS PANEL gardnerella vaginalis Not Detect ed normal Trich omona s vagin ranjana: DNA testi ng perfo rmed by Trans cript ion Media skye Ampli ficat ion (TMA) These resul ts shoul d be inter prete d in light of all clini surendra and labor atory findi ngs. This assay is highl y accur ate, but rare false posit christos and negat christos resul ts may occur . Posit christos resul ts in low preva lence popul ation s may requi re re-ev aluat ion. A negat christos resul t does not precl ude a possi ble infec tion due to a speci men inade quacy or sampl ing error . Test perfo rmed by [facility], d/b/a [facility], [address], [place] [address] , Nafisa Thrasher ra, DO, Labor atory Direc tor. Gardn erell a vagin ranjana, Lilia da speci es: Genom ic DNA is isola skye from patie nt speci mens by stand valeri labor atory techn iques and neeru zed using custo m OpenA rray plate s, perfo rmed on the [employer] 12K Flex Real Time PCR syste m. A posit christos resul t is provi ded for patho genic bacte kay, virus and/o r funga l speci es based on detec tion of ampli ficat ion produ cts. Ely l vagin al galen resul ts of Ely l or [place] skye are deter mined by calcu latin g the ratio of the organ ism to the total bacte kay prese nt in the speci men, and beatris ring that ratio to a PathG roup patie nt popul ation . Overa ll resul ts of Ely l, Borde rline and Abnor mal are deter mined using a proba bilit y model which was devel oped by an exten sive neeru sis and integ ratio n of clini surendra thres holds for marke r organ isms on a large set of sympt omati c & asymp tomat ic speci mens. Patie nt popul ation s with diffe rent demog raphi cs from the PathG roup model popul ation may have diffe rent indic ator organ isms with diffe rent relat christos ratio s, which would influ ence the final resul ts. Resul ts shoul d be inter prete d in the michael xt of all clini surendra and labor atory findi ngs. The test was devel oped and its perfo rmanc e emilie cteri stics deter mined by [facility] d/b/a [facility]. It has not been clear ed or appro oralia by the U.S. Food and Drug Admin istra tion. The FDA has deter mined that such clear ance or appro bertha is not necosman aaron. Yolanda babcock refer ence inter vals are avail able from the labor atory on reque st. Test( s) perfo rmed by [facility], d/b/a [facility], [address], [place] [address] , Nafisa Thrasher ra, DO, Labor atory Direc tor. Not Available [facility] ([facility]) [address], [place], [address], 12/13/2021 14:26:22 12/12/19 22 12/11/2021 urina lysis , dipst ick Leukocytes - Not Available Main Of fice [address], [place], [address], 12/11/2021 11:21:12 12/12/19 22 12/11/2021 urina lysis , dipst ick Nitrite negati ve Not Available Main Office [address], [place], [address], 12/11/2021 11:21:12 12/12/19 22 12/11/2021 urina lysis , dipst ick Urobilinogen - Not Available Main Office [address], [place], [address], 12/11/2021 11:21:12 12/12/19 22 12/11/2021 urina lysis , dipst ick Protein - Not Available Main Offic e [address], [place], [address], 12/11/2021 11:21:12 12/12/19 22 12/11/2021 urina lysis , dipst ick pH 7.0 Not Available Main Offic e [address], [place], [address], 12/11/2021 11:21:12 12/12/19 22 12/11/2021 urina lysis , dipst ick Blood - Not Available Main Offic e [address], [place], [address], 12/11/2021 11:21:12 12/12/19 22 12/11/2021 urina lysis , dipst ick Specific Clarence 1.005 Not Available Main O ffice [address], [place], [address], 12/11/2021 11:21:12 12/12/19 22 12/11/2021 urina lysis , dipst ick Ketone - Not Available Main Offic e [address], [place], [address], 12/11/2021 11:21:12 12/12/19 22 12/11/2021 urina lysis , dipst ick Bilirubin - Not Available Main Off ice [address], [place], [address], 12/11/2021 11:21:12 12/12/19 22 12/11/2021 urina lysis , dipst ick Glucose - Not Available Main Offic e [address], [place], [address], 12/11/2021 11:21:12 07/24/19 22 07/23/2021 US, pelvi s, trans abdom inal + trans vagin al No observ ation record ed. michelle Not Available 2021 14:33:16 07/26/19 22 2021 imagi ng/di agnos tic resul t No observ ation record ed. gveloudis [facility] (Med Record) [address], [place], [address], 08/06/2021 14:33:16 Result Notes None recorded. Problems No Known Problems Procedures Surgical History Date Name Laterality Status Provider Name and Address Organization Details Recorded Time 08/07/19 22 Urodynamic Studies completed Yeyo Ayala DO [address], [place], [address], 08/06/2021 14:35:23 06/15/19 22 Date of Last Pap Smear completed Janiya [facility], 06/14/2021 10:54:06 01/26/20 21 Date of Last Colonoscopy completed ANI Ahmadi [address], [place], [address], 06/14/2021 11:24:51 07/12/19 21 Repair of vagina completed Chantelle [facility], 07/25/2020 09:00:29 05/22/19 21 Urodynamic Studies completed DO [address], [place], [address], 05/21/2020 14:35:57 05/28/19 16 Partial Hysterectomy completed Chantelle [facility], 12/02/2017 14:08:32 12/18/19 15 Most Recent Mammogram completed Moriah Nj [facility], 09/16/2016 09:12:37 Cholecystectomy completed Moriah Nj [facility], 09/16/2016 09:18:36 Appendectomy completed Moriah Nj [facility], 09/16/2016 09:18:43 Tubal Ligation completed Moriah Nj [facility], 09/16/2016 09:18:48 Imaging Results Imaging Date Name Status LastModified by Organization Details LastModified Time 07/23/2021 US, pelvis, transabdominal + transvaginal completed michelle Information not available 08/06/2021 14:33:16 2021 [facility] [address], [place], [address], 08/06/2021 14:33:16 Procedure Notes None recorded. Medical Equipment None Reported. Allergies Allergen ID Allergen Name Allergen Category Reaction Reaction Severity Criticality Documentation Date Start Date Code Code System Note Provider Name and Address Organization Details Recorded Time 264 hydrocodo ne Not available itching Not available Not available 09/16/2016 5489 RxNorm VERITO Martines - [place] [facility], 7 09:08:38 Medications Name Sig Start Date Stop Date Status Note LastModified by Organization Details LastModified Time cyclobenz aprine 10 mg tablet TAKE 1 TABLET BY MOUTH EVERY 8 HOURS NEEDED 06/14 completed Not Available Not Available Not Available amoxicill in 500 mg capsule TAKE 1 CAPSULE BY MOUTH EVERY 12 HOURS FOR 10 DAYS FOR OTITIS MEDIA 10/30 completed Not Available Not Available Not Available venlafaxi ne ER 37.5 mg capsule,e xtended release 24 hr TAKE 1 CAPSULE BY MOUTH EVERY DAY 10/16 completed Not Available Not Available Not Available prednison e 10 mg tablet 01/17 completed Not Available Not Available Not Available Toprol XL 25 mg tablet,ex tended release Take 1 tablet every day by oral route. active Not Available Not Available No t Available verapamil 40 mg tablet TAKE 1 TABLET PER DAY FOR 1 WEEK, 1 TABLET TWICE A DAY FOR 1 WEEK, THEN 1 TABLET THREE TIMES A DAY 01/17 completed Not Available Not Available Not Available atorvasta tin 10 mg tablet TAKE 1 TABLET BY MOUTH EVERY DAY 06/14 completed Not Available Not Available Not Available oxybutyni n chloride ER 10 mg tablet,ex tended release 24 hr Take 1 tablet every day by oral route. 01/11 completed Not Available Not Available Not Available ibuprofen 800 mg tablet TAKE 1 TABLET BY MOUTH EVERY 8 HOURS NEEDED 06/14 completed Not Available Not Available Not Available fluconazo le 150 mg tablet TAKE 1 TABLET BY MOUTH EVERY OTHER DAY active Not Available Not Available No t Available phenazopy ridine 200 mg tablet TAKE 1 TABLET BY MOUTH THREE TIMES DAILY 10/16 completed Not Available Not Available Not Available metronida zole 0.75 % (37.5 mg/5 gram) vaginal gel 12/02 completed Not Available Not Available Not Available Paxil 20 mg tablet Take 1 tablet every day by oral route. 12/02 completed Not Available Not Available Not Available prednison e 20 mg tablet 04/12 completed Not Available Not Available Not Available estradiol 0.05 mg/24 hr weekly transderm al patch 1 patch applied transder aldo weekly 12/02 completed Not Available Not Available Not Available Pyridium 100 mg tablet Take 1 tablet every 8 hours by oral route as needed for 30 days. 08/29 completed Not Available Not Available Not Available methylpre dnisolone 4 mg tablet 10/30 completed Not Available Not Available Not Available Elmiron 100 mg capsule TAKE 1 CAPSULE BY MOUTH THREE TIMES DAILY active Not Available Not Available No t Available sumatript an 50 mg tablet TAKE 1 TABLET FOR CLUSTER HEADACHE RELIEF. MAY REPEAT EVERY 2 HOURS. MAX 200MG PER DAY active Not Available Not Available No t Available metronida zole 500 mg tablet TAKE 1 TABLET BY MOUTH EVERY 12 HOURS FOR 7 DAYS 12/11 completed Not Available Not Available Not Available ciproflox acin 500 mg tablet TAKE 1 TABLET BY MOUTH TWICE DAILY FOR 7 DAYS 12/11 completed Not Available Not Available Not Available sulfameth oxazole 800 mg-trimet hoprim 160 mg tablet 12/02 completed Not Available Not Available Not Available baclofen 20 mg tablet TAKE 1 TABLET BY MOUTH THREE TIMES DAILY 08/15 completed Not Available Not Available Not Available Macrobid 100 mg capsule Take 1 capsule every 12 hours by oral route for 10 days. 10/16 completed Not Available Not Available Not Available oxycodone -acetamin ophen 5 mg-325 mg tablet TAKE 1 TABLET BY MOUTH EVERY 6-8 HOURS NEEDED FOR PAIN 07/25 completed Not Available Not Available Not Available mefenamic acid 250 mg capsule Take 1 capsule every 6 hours by oral route. 01/11 completed Not Available Not Available Not Available cephalexi n 500 mg capsule TAKE 1 CAPSULE BY MOUTH EVERY 6 HOURS FOR 7 DAYS 12/11 completed Not Available Not Available Not Available pantopraz ole 40 mg tablet,de layed release TAKE 1 TABLET BY MOUTH DAILY 30 MINUTES BEFORE BREAKFAS T active Not Available Not Available No t Available neomycin- polymyxin -dexameth 3.5 mg/mL-10, 000 unit/mL-0 .1% eye drops SHAKE LIQUID AND INSTILL 1 DROP IN BOTH EYES FOUR TIMES DAILY FOR 4 TO 7 DAYS 10/16 completed Not Available Not Available Not Available ranitidin e 150 mg tablet Take 1 tablet twice a day by oral route. 01/17 completed Not Available Not Available Not Available nystatin- triamcino lone 100,000 unit/g-0. 1 % topical cream APPLY TOPICALL Y TO THE AFFECTED AREA TWICE DAILY IN THE MORNING AND IN THE EVENING active Not Available Not Available No t Available Vivelle-D ot 0.0375 mg/24 hr transderm al patch apply 1 patch twice a day weekly 10/17 completed Not Available Not Available Not Available aspirin 81 mg chewable tablet 08/15 completed Not Available Not Available Not Available monteluka st 10 mg tablet 01/17 completed Not Available Not Available Not Available hydroxyzi ne HCl 25 mg tablet TAKE 1 TABLET BY MOUTH THREE TIMES DAILY active Not Available Not Available No t Available gabapenti n 100 mg capsule TAKE ONE CAPSULE BY MOUTH THREE TIMES DAILY active Not Available Not Available No t Available azelastin e 137 mcg (0.1 %) nasal spray 04/12 completed Not Available Not Available Not Available cefuroxim e axetil 500 mg tablet TK 1 T PO BID 04/18 completed Not Available Not Available Not Available levofloxa avery 500 mg tablet TK 1 T PO DAILY 01/17 completed Not Available Not Available Not Available estradiol 0.01% (0.1 mg/gram) vaginal cream INSERT 1 GRAM VAGINALL Y EVERY DAY AT BEDTIME active Not Available Not Available No t Available imipramin e 10 mg tablet Take 2 tablets 3 times a day by oral route for 30 days. 01/17 completed Not Available Not Available Not Available verapamil 80 mg tablet TAKE 1 TABLET BY MOUTH TWICE DAILY 08/29 completed Not Available Not Available Not Available methylpre dnisolone 4 mg tablets in a dose pack FOLLOW PACKAGE DIRECTIO NS 06/14 completed Not Available Not Available Not Available Vitamin D2 1,250 mcg (50,000 unit) capsule Take 1 capsule every week by oral route. 12/02 completed Not Available Not Available Not Available Paxil 10 mg tablet Take 1 tablet every day by oral route for 30 days. 10/16 completed Not Available Not Available Not Available ondansetr on 4 mg disintegr ating tablet DISSOLVE 1 TABLET ON THE TONGUE EVERY 8 HOURS NEEDED FOR NAUSEA 10/16 completed Not Available Not Available Not Available cefdinir 300 mg capsule 04/12 completed Not Available Not Available Not Available fluticaso ne propionat e 50 mcg/actua tion nasal spray,jasen pension instill 1 spray into each nostril once daily 01/17 completed Not Available Not Available Not Available imipramin e 25 mg tablet Take 1 tablet every day by oral route at bedtime. 01/11 completed Not Available Not Available Not Available dicyclomi ne 10 mg capsule TAKE 1 TO 2 CAPSULES BY MOUTH THREE TIMES DAILY NEEDED FOR PAIN 12/11 completed Not Available Not Available Not Available metoclopr amide 10 mg tablet 01/17 completed Not Available Not Available Not Available amoxicill in 875 mg-potass ium clavulana te 125 mg tablet TAKE 1 TABLET BY MOUTH EVERY 12 HOURS FOR 7 DAYS 06/14 completed Not Available Not Available Not Available amoxicill in 500 mg-potass ium clavulana te 125 mg tablet 12/02 completed Not Available Not Available Not Available escitalop shay 10 mg tablet 12/02 completed Not Available Not Available Not Available escitalop shay 20 mg tablet 12/02 completed Not Available Not Available Not Available Oxytrol 3.9 mg/24 hr transderm al patch Apply 1 patch twice a week by transder mal route. 02/15 completed burning skin and itching Not Available Not Available Not Available Premarin 0.625 mg/gram vaginal cream INSERT 1/2 APPLICAT ORFUL VAGINALL Y EVERY DAY 08/15 completed Not Available Not Available Not Available tinidazol e 500 mg tablet TAKE 2 TABLETS BY MOUTH EVERY DAY FOR 5 DAYS active Not Available Not Available No t Available solifenac in 5 mg tablet TAKE 1 TABLET BY MOUTH EVERY DAY 08/15 completed Not Available Not Available Not Available Suprep Bowel Prep Kit 17.5 gram-3.13 gram-1.6 gram oral solution 06/14 completed Not Available Not Available Not Available Myrbetriq 25 mg tablet,ex tended release Take 1 tablet every day by oral route. 10/30 completed Not Available Not Available Not Available Myrbetriq 50 mg tablet,ex tended release TAKE 1 TABLET BY MOUTH EVERY DAY active Not Available Not Available No t Available paroxetin e mesylate (menopaus al symptoms suppressa nt) 7.5 mg capsule 11/14 completed can't sleep, nightmar es Not Available Not Available Not Available Uro-MP 118 mg-10 mg-40.8 mg-36 mg capsule Take 1 capsule every 6 hours by oral route as needed. active Not Available Not Available No t Available Yuvafem 10 mcg vaginal tablet Insert 1 tablet every day by vaginal route at bedtime for 14 days. 12/02 completed Not Available Not Available Not Available Intrarosa 6.5 mg vaginal insert INSERT 1 VAGINALL Y EVERY DAY BY VAGINAL ROUTE. 04/18 completed Not Available Not Available Not Available Gemtesa 75 mg tablet Take 1 tablet every day by oral route for 30 days. 2021 active Not Available Not Available Not Avai lable Brexafemm e 150 mg tablet TAKE 2 TABLETS BY MOUTH EVERY 12 HOURS FOR 1 DAY active Not Available Not Available No t Available Vitals Date Recorded Body height Body mass index (BMI) Body weight Heart rate Body temperature Systolic blood pressure Diastolic blood pressure Provider Name and Address Organization Details Last Updated DateTime 2 162.56 cm 41.4 kg/m2 986136. 76 g 67 /min 97 [degF] 119 mm[Hg] 87 mm[Hg] [facility], 2 08:58:16 Date Recorded Body height Body mass index (BMI) Body weight Heart rate Body temperature Systolic blood pressure Diastolic blood pressure Provider Name and Address Organization Details Last Updated DateTime 2 162.56 cm 40.8 kg/m2 683886. 55 g 85 /min 97.5 [degF] 112 mm[Hg] 88 mm[Hg] [facility], 2 09:13:47 Date Recorded Body height Body mass index (BMI) Body weight Heart rate Body temperature Systolic blood pressure Diastolic blood pressure Provider Name and Address Organization Details Last Updated DateTime 2 162.56 cm 41 kg/m2 565731. 58 g 96 /min 97.2 [degF] 118 mm[Hg] 86 mm[Hg] [facility], 2 13:57:30 Date Recorded Body height Body mass index (BMI) Body weight Heart rate Body temperature Systolic blood pressure Diastolic blood pressure Provider Name and Address Organization Details Last Updated DateTime 2 162.56 cm 41 kg/m2 830513. 58 g 82 /min 96.6 [degF] 117 mm[Hg] 84 mm[Hg] [facility], 2 09:21:44 Date Recorded Body height Body mass index (BMI) Body weight Heart rate Body temperature Provider Name and Address Organization Details Last Updated DateTime 12/11/2021 162.56 cm 40.5 kg/m2 584678.8 g 79 /min 97 [degF] [facility], 2 11:20:48 Date Recorded Systolic blood pressure Diastolic blood pressure Provider Name and Address Organization Details Last Updated DateTime 12/11/2021 126 mm[Hg] 84 mm[Hg] ANI Ahmadi [address] [place] [address], [place], [address], [facility], 12/12/2021 15:38:55 Social History Question Answer Notes LastModified by Organizat ion Details LastModified Time Tobacco Smoking Status Never Smoker Not Available [employer] 12/13/2019 03:20:40 Do You Have An Advance Directive? No [id number] Information not available 12/13/2019 What Is Your Level Of Alcohol Consumption? Occasional [id number] Information not available 12/13/2019 Are You Currently Sexually Active With Anyone Who Has Traveled (within The Last 12 Weeks) To A Zika-affected Area? No [email or web address] Information not available 01/18/2020 Are You Blind Or Do You Have Difficulty Seeing? No [id number] Information not available 12/13/2019 What Is Your Level Of Caffeine Consumption? Moderate [id number] Information not available 12/13/2019 Are You Currently Employed? Yes [id number] Information not available 12/13/2019 Are You Deaf Or Do You Have Serious Difficulty Hearing? No [id number] Information not available 12/13/2019 What Type Of Diet Are You Following? 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 No [id number] Information not available 12/13/2019 Hard Of Hearing Or Deaf In One Or Both Ears? No Information not available 07/23/2021 Legally Blind In One Or Both Eyes? No Information not available 07/23/2021 Live Alone Or With Others? With Others Information not available 07/23/2021 What Was The Date Of Your Most Recent Tobacco Screening? 04/12/2018 Information not available 07/23/2021 How Many Children Do You Have? 2 [id number] Information not available 12/13/2019 Performs Monthly Self-breast Exam? Yes Information not available 07/23/2021 Seat Belts Used Routinely Yes Information not available 07/23/2021 Are You Sexually Active? Yes [id number] Information not available 12/13/2019 Smoke Alarm In Home Yes Information not available 07/23/2021 Are You Passively Exposed To Smoke? No [email or web address] Information not available 09/16/2016 General Stress Level High Information not available 07/23/2021 Do You Use Sunscreen Routinely? Yes [id number] Information not available 12/13/2019 Sex: Unknown Functional Status Question Answer Note LastModified by Organizat ion Details LastModified Time Do you have difficulty walking or climbing stairs? No [id number] Information not available 12/13/2019 Are you able to walk? YESWOREST [id number] Information not available 12/13/2019 Do you have difficulty doing errands alone? No [id number] Information not available 12/13/2019 Are you able to care for yourself? Yes [id number] Information not available 12/13/2019 Do you have difficulty dressing or bathing? No [id number] Information not available 12/13/2019 What is your exercise level? Occasional [id number] Information not available 12/13/2019 Mental Status Question Answer Note LastModified by Organization D etails LastModified Time Do you have difficulty concentrating, remembering or making decisions? No [id number] Information no t available 12/13/2019 Family History Relationship Description Onset Age of this Age Resolved Age Notes LastModified by Organization Details LastModified Time Maternal Grandmother Malignant tumor of breast [email or web address] Not available 02/2016 09:15:06 Mother Malignant tumor of cervix [email or web address] Not available 02/2016 09:15:16 Paternal Grandmother Cerebrovascu lar accident [email or web address] Not available 0 09/16/2016 09:15:30 Paternal Grandmother Dementia [email or web address] Not available 0 09/16/2016 09:15:39 Father Disorder of muscle [email or web address] Not available 2021 09:06:24 Medical History Condition Response Coronary Artery Disease N Other N Gout N Kidney Stones Y Blood Diseases N Hyperthyroidism N Enlarged Prostate N Blood Transfusion N COPD N Depression Y Dermatologic Disorders N Gestational Diabetes N Anxiety Disorder Y Muscle, Joint, or Bone Problems N Autoimmune disease N Obesity N Vision or Eye Problems N Arthritis N Polyps N Infertility N Mental Disorder N Cancer N Varicosities N Stroke Y Neurologic/Epilepsy N Headaches Y Fibromyalgia N Kidney Disease N Heart Problems N Ear or Hearing Problems N Hospitalizations Y Acne N Skin Problems N Eating Disorder N MRSA exposure N Heartburn N Constipation N Art (IVF or FET) N Bladder Problems Y Bleeding Disorder N Tuberculosis N AIDS/HIV N G.E.R.D N Asthma N Trauma/Violence N Hepatitis N Pulmonary Embolism N Chronic Ear Infections N Chicken Pox Y Autism Spectrum Disorder (ASD) N Thrombophilias N Allergies (Food, seasonal, environmental ) Y Colon Cancer N Drug/Latex Allergies/Reactions N Breast Cancer N Hypothyroidism N Lung Disease N Developmental or Behavioral Disorders N Defects or Inherited Disease N Breast Problem N Difficulty Swallowing N Hematologic disorders N Anesthesia Complications N History of STI N Deep Vein Thrombosis N Polycystic ovary syndrome N Meniere's disease N History of abnormal pap N Endometriosis N High Cholesterol N Liver Disease N Allergies/Hayfever Y Kidney Problems Y Thyroid Problems N GI Problems Y ADD/ADHD N Anemia N Mental Illness N Psychiatric Illness N Diabetes N Ovarian Cancer N Pulmonary (TB, Asthma) N Seizures/Epilepsy N Congestive Heart Failure (CHF) N Hyperlipidemia N Eczema N Abuse/Domestic Violence N Diverticulitis N Depression/ depression N Heart Disease N Hypertension N Pre-Eclampsia N Osteoporosis N Gynecological History Statement/Question Response Abnormal Pap N On BCP's at Conception? N STIs/STDs N HPV Vaccine N Age at Menarche 12 Current Control Method Hysterectom y Most Recent Mammogram 12/17/2014 Age at First Child 17 If Post Menopausal, Age at Menopause 29 Date of Last Colonoscopy 01/25/2021 Sexually Active? Y Menses Monthly N Date of Last Pap Smear 06/14/2021 Sexual Problems? N Obstetrics History GPAL:G 2 P 0 2 0 2 Type Value Premature 2 Living 2 Total 2 Past Encounters Encounter ID Performer Location Encounter Start Date Encounter Closed Date Diagnosis/Indication Diagnosis SNOMED-CT Code Diagnosis ICD10 Code Diagnosis Note [id number] Yeyo Ayala DO Main Office [address] [place] [address] 09/16/2016 08:39:04 09/16/2016 14:17:26 Menopausal symptom 79087405 E89.41 Gynecologi c examination 44634058 Z01.411 Mixed anxi ety and depressive disorder 756359864 F41.8 Dyspareuni a due to non-psychogenic cause in the female 806430641 N94.10 [id number] Yeyo Ayala DO Main Office [address] [place] [address] 10/17/2016 09:42:45 10/17/2016 14:54:26 Renewal of prescription 496218342 Z76.0 Acute urin jonelle tract infection 192660572 N39.0 Dysuria 94352456 R30.0 Acute vaginitis 32152207 N76.0 History of calculus of kidney 815896406 Z87.442 Vitamin D deficiency 347 05573 E55.9 [id number] Yeyo Ayala DO Main Office [address] [place] [address] 12/02/2017 13:41:13 12/02/2017 15:07:33 Gynecologic examination 02518488 Z01.411 pap Menopausal symptom 47503 002 E89.41 hormone labs today Pain in pelvis 95396308 R10.2 cx, vag panel Blood in urine 96100878 R31.9 has cystogram scheduled with urologist tomorrow Dysuria 36014959 R30.0 has cystogram scheduled with urologist tomorrow Increased frequency of urination 814267179 R35.0 has cystogram scheduled with urologist tomorrow Urgent shelbie max to urinate 41465425 R39.15 has cystogram scheduled with urologist tomorrow Bacterial vaginosis 4197 57405 N76.0 Screening for malignant neoplasm of colon 555212501 Z12.11 [id number] Yeyo Ayala DO Main Office [address] [place] [address] 12/08/2017 11:32:20 12/08/2017 13:05:40 Urinary tract infectious disease 65392166 N39.0 Pain in pelvis 48301256 R10.2 Midline cystocele 477550 003 N81.11 Rectocele with enterocele 250211764 N81.5 Microscopic hematuria 19 9555272 R31.21 Cystocele without uterine prolapse 67918983 N81.10 [id number] Yeyo Ayala DO Main Office [address] [place] [address] 12/16/2017 15:40:45 12/16/2017 16:54:08 Pain in pelvis 96869191 R10.2 Dyspareunia 97205138 N94 .10 Increased frequency of urination 329828348 R35.0 Urgent shelbie max to urinate 47330852 R39.15 Left lower quadrant pain 096125814 R10.32 [id number] Yeyo Ayala DO Main Office [address] [place] [address] 12/21/2017 15:19:53 12/21/2017 16:35:29 Pain in pelvis 55475744 R10.2 Urinary incontinence 165 131748 R32 Chronic in terstitial cystitis 866730535 N30.10 Increased frequency of urination 367762628 R35.0 Nocturia 602922119 R35.1 [id number] Yeyo Ayala DO Main Office [address] [place] [place] [address] 01/11/2018 08:51:30 01/11/2018 09:48:02 Renewal of prescription 313807556 Z76.0 Nocturia 544784769 R35.1 Pain in pelvis 90380138 R10.2 Increased frequency of urination 297311958 R35.0 Dysuria 32578631 R30.0 Chronic in terstitial cystitis 284891185 N30.10 [id number] Yeyo Ayala DO Main Office [address] [place] [address] 02/15/2018 10:04:34 02/15/2018 11:13:35 Chronic interstitial cystitis 638607556 N30.10 Urinary bladder pain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
[2024-06-03 12:09] LABS: Basophils # 0.1 K/mm3 (0-0.2); Basophils % 0.8 % (0.1-2.0); Eosinophils # 0.1 Kmm3 (0.0-0.4); Eosinophils % 0.8 % (0.1-12.0); Lymphocytes # 3.6 K/mm3 (0.7-4.5); Mean Corpuscular HGB Conc 34.9 g/dL (31.8-35.4); Monocytes # 0.7 K/mm3 (0.1-1.0); Monocytes % 7.4 % (1.7-9.3); Neutrophils # 4.5 K/mm3 (1.8-7.8); Neutrophils % 50.7 % (37.0-80.0); Nucleated Red Blood Cells # 0 10^3/uL; Nucleated Red Blood Cells % 0 %; Platelet Count 269 K/mm3 (142-424); Red Blood Count 5.18 M/mm3 (4.20-5.40); Red Cell Distribution Width-SD 36.4 fL; White Blood Count 8.9 K/mm3 (4.8-10.8)
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
[2024-06-03 12:14] LABS: NT Pro Brain Natriuretic Pep. < 20.0 pg/mL (0-125)
[2024-06-03 12:17] LABS: Activated Partial Thrombo Time 26.8 seconds (22.8-30.6); INR 0.96 (0.9-1.1); Prothrombin Time 10.8 seconds (10.1-12.5)
[2024-06-03 12:19] LABS: Troponin I < 0.01 ng/ml (0.00-0.034)
[2024-06-03 12:23] LABS: T4 (Thyroxine) 16.5 ug/dl (5.53-11.0)
[2024-06-03 12:26] LABS: D-Dimer 0.57 ug/mL (0.0-0.5)
[2024-06-03 12:36] LABS: Thyroid Stimulating Hormone 1.43 uIU/mL (0.465-4.68)
--- NOTE | 2024-06-03 13:00 | CT_ITS ---
FINAL REPORT TECHNIQUE: The patient was injected with IV contrast. Axial images were obtained through the chest in a PE protocol. 3-D reconstruction images were also performed. Individualized dose reduction techniques using automated exposure control or adjustment of the MA and/or KV according to patient's size were employed. CLINICAL HISTORY: elevated dimer, tachycardia, L sided CP FINDINGS: Mediastinal vasculature is adequately opacified. No pulmonary artery filling defects are identified to suggest PE. There is no aortic dissection. There is no axillary adenopathy. There is no hilar or mediastinal adenopathy. The heart size is normal. There is no pericardial or pleural effusion. Limited images of the upper abdomen reveal cholecystectomy. No suspicious infiltrate or nodule is identified. IMPRESSION: No pulmonary embolus or dissection. Reviewed, Interpreted and Dictated by Jason Juarez MD Transcribed by Nikki Greer Authenticated and [facility]
[2024-06-03] MEDS: SODIUM CHLORIDE 0.9% 10ML SYR (RAD ONLY) 10 ML IV (13:17)
[2024-06-03] MEDS: IOPAMIDOL-370 (76%);100ML BOTTLE 70 ML IV (13:17)
[2024-06-03] MEDS: 0.9 % SODIUM CHLORIDE 50 ML VIAL IV (13:18)
--- NOTE | 2024-06-03 14:37 | PC.NURSE ---
Ocular Pathologist sent the 2nd Trop up on this pt
[2024-06-03 15:04] LABS: Troponin I < 0.01 ng/ml (0.00-0.034)
== END 2024-06-03 15:00 | disposition home or self-care (01) ==
PROVIDERS: Emergency Provider Emergency Medicine; PCP Nurse Practitioner Family
DX: R07.89 Other chest pain (principal); R00.0 Tachycardia, unspecified
CPT/HCPCS: 71045; 71275; 80053; 83735; 83880; 84436; 84443; 84484; 85025; 85378; 85610; 85730; 93005; 99285; Q9967

== ENCOUNTER 2024-06-22 07:24 | Outpatient (CLI) | payer BC, SELFPAY ==
--- NOTE | 2024-06-22 | CA_ITS ---
APPROVED REPORT EXAM: Comprehensive 2D, Doppler, and color-flow Echocardiogram Helpdesk Specialist: GOKUL Horner, RVS Ht: 5 ft 5 in Wt: 236lbs BSA: 2.12 BP: 143/90 mmHg Indications: CP, ABN EKG, Palpitations, Edema, GERD 2D Dimensions Left Atrium 3.25 cm LA Volume 67.00 mL LA Volume Index 31.645064 mL/m2 (M/F) 16-34 M-Mode Dimensions RVDd 2.32 cm (0.9-2.6) LA Diam 3.80 cm (1.9-4.0) LVDd 5.04 cm (3.5-5.7) LVDs 3.16 cm (3.5-5.7) IVSd 0.81 cm (0.6-1.1) PWd 0.87 cm (0.6-1.1) EF (Teich) 67.10% EPSs 0.64 cm FS 37.30% EDV (Teich) 120.50 mL TAPSE 1.92 (<1.7) ESV (Teich) 39.70 mL LV Diastology E Decel Time 153 (160-240 msec) E/A Ratio 1.08 MED A' 9.20 cm/s LAT A' 9.20 cm/s Aortic Valve JOSIANE Index 0.85 cm2/m2 AoV Peak Loi. 114.0 (50-130 cm/s) AO Peak GR. 5.20 mmHg AO Mean GR. 2.60 (<5 mmHg) AO VTI 22.1 (18-25 cm) JOSIANE (VTI) 1.84 (2.5-4.5 cm2) Mitral Valve MV A Velocity 87.0 (40-130 cm/s) E/A Ratio 1.08 Pulmonary Valve CA End VMAX 131.0 cm/s Tricuspid Valve TR P. Velocity 215.00 cm/s RAP Estimate 10.00 mmHg RVSP 28.50 mmHg Left Ventricle The left ventricle is normal size. The left ventricular systolic function is normal. The left ventricular ejection fraction is within the normal range. There is normal left ventricular wall thickness. There is normal LV segmental wall motion. The left ventricular diastolic function is normal. LVEF is 55%. Right Ventricle The right ventricle is normal size. The right ventricular systolic function is normal. Atria The left atrium size is normal. The right atrium size is normal. There is no Doppler evidence of interatrial shunt. Aortic Valve The aortic valve opens well. There is no aortic valvular stenosis. No aortic regurgitation is present. Mitral Valve The mitral valve is normal in structure. No evidence of mitral valve stenosis. Trace mitral regurgitation. Tricuspid Valve Tricuspid valve is grossly normal in structure and function. Trace tricuspid regurgitation. There is insufficient TR jet to estimate RVSP. Pulmonic Valve The pulmonary valve is normal in structure. Trace pulmonic regurgitation. Great Vessels The aortic root is normal in size. IVC is normal in size and collapses >50% with inspiration. Pericardium There is no pericardial effusion. Other Information Study Quality: Fair Conclusion Normal biventricular systolic function. No significant valvular stenosis or regurgitation. Electronically signed by : Natalia Alva MD 06/27/2024 15:44:06
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
--- NOTE | 2024-06-22 07:30 | US_ITS ---
FINAL REPORT TECHNIQUE: Sonographic images of the thyroid gland were obtained in the longitudinal and transverse planes. CLINICAL HISTORY: abnormal thryoid labs COMPARISON: None FINDINGS: The right lobe measures 3.8 x 1.4 x 1.7 cm. The right lobe is homogeneous. There are a few tiny colloid cysts present. The left lobe measures 4.6 x 1.3 x 1.8 cm. The left lobe is homogeneous. There are several subcentimeter hypo and isoechoic nodules present in the left lobe, the largest measuring 6 mm in size. A few tiny colloid cysts are present. The isthmus measures 4 mm. This is normal. IMPRESSION: Several subcentimeter nodules are present in the left lobe of the thyroid gland, the largest measuring 6 mm in size. Based on size, there are no current recommendations regarding follow up. Reviewed, Interpreted and Dictated by Siria Mackenzie MD Transcribed by Umm Stephens Authenticated and [facility]
== END 2024-06-22 23:59 | disposition home or self-care (01) ==
LOC: RAD 07:25
PROVIDERS: PCP Nurse Practitioner Family; Visit Provider Nurse Practitioner Family
DX: R94.31 Abnormal electrocardiogram [ECG] [EKG] (principal); R06.02 Shortness of breath; R53.83 Other fatigue; R79.89 Other specified abnormal findings of blood chemistry; E04.2 Nontoxic multinodular goiter
CPT/HCPCS: 76536; 93306

== ENCOUNTER 2024-07-04 09:52 | Day surgery (SDC) | payer BC, SELFPAY ==
[2024-07-01 14:15] VITALS: BMI 42.5
[2024-07-04 11:04] VITALS: BP 123/80; PULSE 76; RESP 16; TEMP 36.4; O2SAT 98
[2024-07-04] MEDS: LACTATED RINGERS 1000ML 1,000 ML 50 ML IV (11:04)
--- NOTE | 2024-07-04 11:24 | EXP.HP ---
History of Present Illness *Admission Date: 07/04/24 *Reason for visit:: Heartburn, reflux and dysphagia *History of present illness: Mrs. Talbert is a 38-year-old female who is here for diagnostic EGD secondary to heartburn, reflux, regurgitation, painful swallowing and intermittent choking. The examination is deemed medically necessary for diagnostic EGD. The patient has been seen, interviewed and examined prior to the procedure by both myself and the anesthesia provider. [facility] Disclaimer: The information contained in this section may have been updated after the patient was seen, as this information can be updated by other users. Medical History SOB (shortness of breath) History of sinus tachycardia Abnormal electrocardiogram [ECG] [EKG] Claudication of both lower extremities Bacterial vaginosis Bilateral cold feet Pain in right lower leg Right leg swelling Sinusitis Edema of both lower extremities Palpitations Dizziness Dyspnea Chest pain Primary HSV infection of mouth Cephalalgia Acute herpes zoster neuropathy Trigeminal neuralgia of right side of face Interstitial cystitis Migraine History of kidney stones Hypertension History of stroke 11/2019 OAB (overactive bladder) GERD (gastroesophageal reflux disease) Pelvic pain Left arm pain Contusion of left upper arm Sprain of left shoulder Fall Sinusitis Flank pain, acute Ear pain UTI (urinary tract infection) Surgical History History of loop recorder History of cholecystectomy H/O colonoscopy History of suburethral sling procedure History of tubal ligation History of appendectomy 1994 History of hysterectomy partial (has 1 ovary), due to benign reason 05/2015 Family History Mother Hyperlipidemia Sister Hyperlipidemia Social History Smoking Status: Never smoker alcohol intake: current alcohol intake frequency: holidays/special occasions only substance use type: denies use current occupational status: employed and other Travel in the last 8 weeks?: None household members: spouse and children housing: house marital status: number of children: 2 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 current occupational exposures/hazards: No caffeine: Yes Have you lived/traveled outside US in past 30 days?: No Contact w/someone who lives/traveled outside US past 30 days?: No Exposure to someone with infectious disease in past 14 days?: No Do you have a fever (greater than 100.4 F or 38 C)?: No Have you tested positive for COVID-19?: No Exposed to someone with COVID-19 in past 14 days?: No Do you have a sore throat?: No Do you have a cough?: No Do you have any weakness?: No Do you have any diarrhea?: No Are you experiencing any unusual bleeding?: No Do you have any muscle aches/pain?: No Do you have any abdominal pain?: No Are you experiencing loss of taste or smell?: No Other Medical History Have you received the Flu Vaccine for this season: No Have you received the Pneumonia Vaccine: No Review of Systems Review of Systems Review of systems (narrative): Negative *Cardiovascular Comments: Negative *Gastrointestinal Comments: Negative *Genitourinary Comments: Negative *Musculoskeletal Comments: Negative *Neurologic Comments: Negative Meds Home Medications and Allergies Home Medications ?Medication ?Instructions ?Recorded ?Confirmed ?Type mirabegron 50 mg tablet,extended 50 mg PO DAILY #90 tabs 05/27/23 07/04/24 Rx release 24 hr (Myrbetriq) diclofenac sodium 75 mg 75 mg PO BID PRN pain #20 tabs 03/05/24 07/04/24 Rx tablet,delayed release pantoprazole 40 mg tablet,delayed 40 mg PO DAILY #90 tabs 03/24/24 07/04/24 Rx release amlodipine 5 mg tablet (Norvasc) 5 mg PO DAILY #30 tabs 06/06/24 07/04/24 Rx New Prescriptions to Start Prescriptions: Allergies Allergy/AdvReac Type Severity Reaction Status Date / Time chlorhexidine Allergy Mild Hives Verified 07/04/24 11:02 hydrocodone (From NORCO) Allergy Mild Hives Verified 07/04/24 11:02 hydromorphone (From Dilaudid) Allergy Unknown Verified 07/04/24 11:02 allergy reaction Exam Data for Last 24 hours Vital signs and Labs for Last 24 Hours: Temp Pulse Resp BP Pulse Ox O2 Del Method 97.6 F 76 16 123/80 98 Room Air 07/04/24 11:04 07/04/24 11:04 07/04/24 11:04 07/04/24 11:04 07/04/24 11:04 07/04/24 11:04 I & O for Last 24 hours: Intake & Output 07/01/24 07/02/24 07/03/24 07/04/24 23:59 23:59 23:59 23:59 Weight 240 lb *Routine HEENT Exam Head: Present normocephalic Eye: Present EOMI and PERRL ENT: Present mucous membranes moist *Routine Neck Exam Neck: Present supple *Routine Respiratory Exam Respiratory: Present CTA bilaterally *Routine Cardiovascular Exam Cardiovascular: Present RRR *Routine Abdominal Exam Abdominal: Present soft and normoactive bowel sounds; Absent tenderness *Routine Rectal Exam Rectal:: deferred *Routine Genitalia Exam Genitalia:: deferred *Routine Extremities Exam Extremities: Absent cyanosis, clubbing or edema *Routine Skin Exam Skin: Present warm; Absent rash *Routine Neurological Exam Neurological: Present alert and oriented X3 Assessment and Plan *Assessment and plan (1) Painful swallowing: Status: Acute Category: Medical Code(s): R13.10 - Dysphagia, unspecified (2) Choking: Status: Acute Category: Medical Code(s): T17.308A - Unspecified foreign body in larynx causing other injury, initial encounter (3) Regurgitation of food: Status: Acute Category: Medical Code(s): R11.10 - Vomiting, unspecified (4) Heartburn: Status: Acute Category: Medical Code(s): R12 - Heartburn (5) Dysphagia: Status: Acute Category: Medical Code(s): R13.10 - Dysphagia, unspecified Plan A/P: 1. GERD/heartburn with regurgitation, painful swallowing, choking and dysphagia is the preprocedural diagnosis. The patient will be anesthetized/sedated using MAC sedation. The patient has been seen and examined. Cardiac and lung assessment prior to the examination is stable. Proceed with planned diagnostic EGD.
--- NOTE | 2024-07-04 11:28 | EXP.ANES.CKL ---
[facility] Disclaimer: The information contained in this section may have been updated after the patient was seen, as this information can be updated by other users. Medical History SOB (shortness of breath) History of sinus tachycardia Abnormal electrocardiogram [ECG] [EKG] Claudication of both lower extremities Bacterial vaginosis Bilateral cold feet Pain in right lower leg Right leg swelling Sinusitis Edema of both lower extremities Palpitations Dizziness Dyspnea Chest pain Primary HSV infection of mouth Cephalalgia Acute herpes zoster neuropathy Trigeminal neuralgia of right side of face Interstitial cystitis Migraine History of kidney stones Hypertension History of stroke 11/2019 OAB (overactive bladder) GERD (gastroesophageal reflux disease) Pelvic pain Left arm pain Contusion of left upper arm Sprain of left shoulder Fall Sinusitis Flank pain, acute Ear pain UTI (urinary tract infection) Surgical History History of loop recorder History of cholecystectomy H/O colonoscopy History of suburethral sling procedure History of tubal ligation History of appendectomy 1994 History of hysterectomy partial (has 1 ovary), due to benign reason 05/2015 Family History Mother Hyperlipidemia Sister Hyperlipidemia Social History Smoking Status: Never smoker alcohol intake: current alcohol intake frequency: holidays/special occasions only substance use type: denies use current occupational status: employed and other Travel in the last 8 weeks?: None household members: spouse and children housing: house marital status: number of children: 2 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 [employer] current occupational exposures/hazards: No caffeine: Yes Have you lived/traveled outside US in past 30 days?: No Contact w/someone who lives/traveled outside US past 30 days?: No Exposure to someone with infectious disease in past 14 days?: No Do you have a fever (greater than 100.4 F or 38 C)?: No Have you tested positive for COVID-19?: No Exposed to someone with COVID-19 in past 14 days?: No Do you have a sore throat?: No Do you have a cough?: No Do you have any weakness?: No Do you have any diarrhea?: No Are you experiencing any unusual bleeding?: No Do you have any muscle aches/pain?: No Do you have any abdominal pain?: No Are you experiencing loss of taste or smell?: No [facility] Anesthesia Checklist Patient Identification Patient Identification: Arm Band and Verbal (Name & ) Structural Data Admitted From: Home Planned Operative Procedure/s: EGD Consent for Planned Operative Procedure(s) Verified: Yes Verified Documents: Surgical Consent NPO Status Verified Time NPO: 00:00 Chart Verification Results Verified: ECG Additional verifications Anesthesia Reactions: No Hx Blood Transfusions: No Blood Transfusion Reaction: No Airway Assessment Mallampati Score:: Class II C-Spine Mobility Assessed: Yes TMJ Mobility Assessed: Yes Dentition: Good Dentition Neurological Assessment Level of Consciousness: Awake, Alert and Appropriate Hx Seizures: No Numbness or tingling in extremities: No Anesthesia Plan Anesthesia Risk discussed: Yes Anesthesia Plan: Verified ASA Class: II Anesthesia Type: MAC
--- NOTE | 2024-07-04 11:47 | P.PCN_ITS ---
[facility] Procedure Note Date: 07/04/24 Time: 11:58 Procedure Note:: Upper Endoscopy Procedure Report: Esophagogastroduodenoscopy with cold biopsies and TTS balloon dilation Endoscopost: Derick Ordaz II, MD Referring Physician: VARGAS Catalan Date of Procedure: July 04, 2024 Equipment: Olympus GIF 190 standard upper endoscope Sedation: MAC sedation Indications: Mrs. Talbert is a 38-year-old female who is here for diagnostic/therapeutic upper endoscopy. She has previously been diagnosed with Crohn's disease and does have a positive ASCA IgG antibody and positive p-ANCA. Her recent colonoscopy in March 2024 showed no evidence of Crohn's disease (complete remission not on any maintenance therapy). She did have 2 polyps (small tubular adenoma and small serrated adenoma) which were removed. The patient does report longstanding heartburn and reflux. She did have an EGD (Radha Lin MD?[facility] in [place]) and was told that she had a hiatal hernia. She has been on Protonix for 3 years. She does get a lot of bloating, gassiness, belching and early satiety. She also reports moderate heartburn, reflux, choking and dysphagia. She sometimes has painful swallowing and some globus sensation. She will regurgitate food. She reports no family history of gastric or esophageal cancer. 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 Procedure: Prior to the procedure, a history and physical exam was performed, and patient's medications and allergies were reviewed. The risks, benefits and alternatives of the sedation and procedure were discussed with the patient. All questions were answered and informed consent was obtained. The patient was brought to the procedure room. Patient identification and proposed procedure were verified by the physician and the nurse. The patient was placed in a left lateral decubitus position and the scope was passed under direct vision. Throughout the procedure, the patient's blood pressure, pulse, and oxygen saturations were monitored continuously. The upper GI endoscopy was accomplished without difficulty. The patient tolerated the procedure well. Findings: The scope was passed directly into the upper esophagus and advanced to the fourth portion of duodenum and proximal jejunum. Cold biopsies were taken x 4 of the proximal jejunum for disaccharidase assay. The proximal jejunum, post bulbar duodenum, ampulla and duodenal bulb were normal with normal mucosa and conniventes. The scope was withdrawn through a normal duodenal bulb and pylorus into the stomach. There was bile reflux with mild linear antral reactive gastropathy. Cold biopsies were obtained. Upon retroflexion there was a 2 to 3 cm hiatal hernia. The scope was then withdrawn into the esophagus. There was no evidence of reflux esophagitis or Philip's. There was no Schatzki's ring, strictures, furrowing, corrugation or inlet patch. The entire esophagus was dilated to 60 Croatian/20 mm with a TTS hydrostatic balloon. There was mild resistance at the cricopharyngeus. The remainder of the esophageal mucosa was normal. Impression: 1. Cricopharyngeal spasm 2. Nonerosive GERD with moderate esophageal dysmotility and small 2 to 3 cm hiatal hernia 3. Linear reactive gastropathy of antrum with bile reflux Plan: I will follow-up the biopsies and disaccharidase assay. Her fecal elastase testing and fecal calprotectin were normal. I would recommend OTC herbal Iberogast twice daily. I would also recommend diaphragmatic breathing. One underutilized therapy for upright GERD (functional GERD) is diaphragmatic breathing. It would be worthwhile implementing diaphragmatic breathing on a regular basis. Recent studies have shown that breathing exercises with diaphragmatic breathing can enhance the crural diaphragm strength at the lower esophageal sphincter and strengthen the diaphragm barrier mechanism, reduce gastroesophageal reflux and subsequent damage. Especially in upright GERD, diaphragmatic breathing reduces the number of postmeal reflux events by increasing the difference between LES (lower esophageal sphincter) and gastric pressure. In other words, it changes pressure gradients that would otherwise favor gastroesophageal reflux. Pressure gradients are often related to gas pressure and any person with belching related reflux with associated bloating are very apt to benefit from diaphragmatic breathing.
[2024-07-04 11:52] VITALS: O2SAT 98
[2024-07-04 12:13] VITALS: BP 108/67; PULSE 102; RESP 17; TEMP 36.6; O2SAT 93
[2024-07-04 12:23] VITALS: BP 97/69; PULSE 85; RESP 17; O2SAT 97
[2024-07-04 12:33] VITALS: BP 104/65; PULSE 88; RESP 17; O2SAT 96
[2024-07-04 12:43] VITALS: BP 111/71; PULSE 84; RESP 17; O2SAT 98
[2024-07-08 16:05] LABS: Disclaimer Notes (.); Interpretation Notes (.); Lactase 71.34 (>/= 14.0); Maltase 375.2 (>/= 110.0); Palatinase 29.57 (>/= 8.5); Reference Notes (.); Sucrase 136.02 (>/= 25.0)
== END 2024-07-04 12:53 | disposition home or self-care (01) ==
PROVIDERS: PCP Nurse Practitioner Family; Visit Provider Internal Medicine Gastroenterology
PROC: 0DJ08ZZ Inspection of Upper Intestinal Tract, Via Natural or Artificial Opening Endoscopic (ICD-10-PCS; CPT 43239; principal; 2024-07-04 11:30)
DX: R13.10 Dysphagia, unspecified (principal); R11.10 Vomiting, unspecified; R12 Heartburn; K21.9 Gastro-esophageal reflux disease without esophagitis; K58.2 Mixed irritable bowel syndrome; K44.9 Diaphragmatic hernia without obstruction or gangrene; R14.0 Abdominal distension (gaseous); R68.81 Early satiety; T17.308A Unspecified foreign body in larynx causing other injury, initial encounter; J39.2 Other diseases of pharynx; K22.4 Dyskinesia of esophagus; K31.9 Disease of stomach and duodenum, unspecified
CPT/HCPCS: 43239; 43249; 82657; C1726; J7120

== ENCOUNTER 2024-08-11 14:39 | Emergency (ER) | payer BC, SELFPAY ==
[2024-08-11 14:47] VITALS: BP 146/91; PULSE 104; RESP 20; TEMP 36.8; O2SAT 99; BMI 39.9
--- OUTSIDE RECORDS SUMMARY | 2024-08-11 14:59 | XMS_ITS | Data Portability ---
Author Organization [facility] ANA[facility] Address [address] [place] [address] Care Team Providers Care Twister In Name Role Phone FELICITA BRIAN Piano Accompanist FELICITA BRIAN Referring Provider TREY DELACRUZ Primary Care Provider [phone] Assessment No assessment recorded. Plan of Treatment [...] in a dose pack 2020 021 LEANDRO [facility] #[id number], [address], [place], [place], [id number], 10:23:27 Compound Gentamycin (120 mg/ 1000 mL normal saline) 2018 019 [email or web address] 9 Not available 9 11:48:09 mupirocin 2 % topical ointment 2018 019 [email or web address] r48 [facility] #[id number], [address] [place], [id number], 9 12:53:36 Patient TargetsNo targets recorded. Patient Instructions Encounter Date Encounter Id Patient Instructions Last Modified By Organization Details Last Modified Time 08/04/2018 [id number] 1. Although Robert marte has a history [...] Use warm compresses 8. F/u 3-4 weeks [email or web address] Not available 08/04/2018 17:42:02 01/28/2021 [id number] Patient is agreeable with this plan. She will follow up after MRI for recheck. [email or web address] Not available 01/29/2021 07:41:46 02/11/2021 [id number] Discussed conservative and surgical options with the [...] XR, shoul kristine, [facility] [address] [place] [address] Gaby plascencia Name: MEE plascencia : 07/[birth year]/18 [...] Grant huerta MD on 2020 10:54 AM [email or web address] [facility] [place] [address], [place], [address], 01/28/2021 12:27:36 02/08/20 21 02/07/2021 XR, arthr ogram , shoul kristine [facility] [address] [place] [address] [place] [address] Gaby plascencia Name: MEE plascencia : 07/18/18 [...] [address] [place] [address]- 1317-0 5) was combin ed with a 50 mL vial [place] Optira y 320 ([place] [address]3-0 6). 12 mL of the mixtur [...] Grant huerta MD on 2020 10:33 AM [facility] [address] [place] [address], [place], [address], 02/07/2021 12:46:31 02/08/20 21 02/07/2021 MRI, chung carmona, w/ contr ast [address] [place] [address] Patielizabeth t Name: MEE Griffin t : [...] Grant huerta MD on 2020 11:51 AM [email or web address] [facility] [address] [place], [address], 02/07/2021 12:46:32 Result Notes Documentation Provider Name and Address Organization Details Recorded Time Xr, Shoulder, 2 Or More View : [facility] [place] [address] [place] [address] Patient Name: MEE TALBERT Patient : 1985 Patient Ordering Provider: NOEL IBARRA EXAM DATE: 01/28/2021 EXAM: XR LT SHOULDER COMPLETE RADIOGRAPHIC VIEWS: 4 COMPARISON: None. HISTORY: Left shoulder pain. FINDINGS: The bones of the left shoulder are normal in alignment. There is no displaced fracture. There is no degenerative change. The acromioclavicular and coracoclavicular distances are within normal limits. The visualized left ribs and left lung appear normal. IMPRESSION: 1. The left shoulder is normal in appearance. Interpreted By: Scotty Ardon MD IBARRA PA-C [address] [place] [address], [phone], [facility] 01/28/2021 12:27:36 Xr, Arthrogram, Shoulder : [address] [address] Patient Name: MEE TALBERT Patient : 1985 Patient Ordering Provider: NOEL IBARRA EXAM DATE: 02/07/2021 EXAM: RF LT ARTHRO SHOULDER/ INJ HISTORY: Left shoulder pain. TECHNIQUE: The patient was positioned supine on the fluoroscopy table and an entry site was localized under fluoroscopic guidance. The skin was prepped and draped in the usual sterile fashion. 1% Lidocaine was used to anesthetize the skin and subcutaneous tissues. A 22-gauge spinal needle was introduced into the anterior aspect of the glenohumeral joint and approximately 12 mL of iodinated contrast and dilute Gadolinium were introduced into the joint. The needle was removed and the patient was sent for further imaging. 0.25 mL of a 2 [place]ial [place] ([place] [address]-50) was combined with a 50 mL vial [place] Optiray 320 ([place] [address]-69). 12 mL of the mixture was injected into the patient. 1.75 mL of Gadavist and 38 mL of Optiray 320 was wasted and discarded. IMPRESSION: 1. The patient is status post left shoulder arthrogram prior to MRI without complication. Interpreted By: Scotty Ardon MD IBARRA PA-C [address] [place] [address], [phone], [facility] 02/07/2021 12:46:31 Mri, Shoulder, W/ Contrast : [address] [address] Patient Name: MEE TALBERT Patient : 1985 Patient Ordering Provider: NOEL IBARRA EXAM DATE: 02/07/2021 EXAM: MR LT SHOULDER POST ARTHROGRAM HISTORY: 35-year-old female with left shoulder pain. COMPARISON: 01/28/2021. This study was performed immediately following arthrography. FINDINGS: Rotator cuff: The supraspinatus tendon appears normal. The infraspinatus tendon is normal in appearance. The teres minor tendon is normal in appearance. The subscapularis tendon appears normal. The tendon of the long head of the biceps is intact. The muscles about the shoulder appear normal. Glenohumeral joint: There is irregular contour along the inferior aspect of the glenoid labrum which represents a possible tear. The glenohumeral ligaments appear intact. There are minimal degenerative changes in the glenohumeral joint. Extra-articular: There are mild degenerative changes at the acromioclavicular joint. The acromioclavicular and coracoclavicular ligaments are intact. There is a small amount of fluid in the subacromial-subdeltoid bursa. No discrete soft tissue mass is seen. IMPRESSION: 1. No rotator cuff tear is identified. 2. There is a questionable tear along the inferior aspect of the glenoid labrum. 3. There are mild degenerative changes. Interpreted By: Scotty Ardon MD IBARRA PA-C [address] [place] [address], [phone], [facility] 02/07/2021 12:46:32 Problems No Known Problems Procedures Surgical History Date Name Laterality Status Provider Name and Address Organization Details Recorded Time 07/12/19 21 repair of urinary bladder completed NOEL IBARRA PA-C [address] [place], [address], [facility] 01/28/2021 09:44:49 08/05/19 Endoscopy Nasal; Diagnostic completed Korina Shea [facility] 08/04/2018 12:14:31 Appendectomy completed Hilary Mendoza [facility] 08/04/2018 10:36:25 cholecystectomy completed Hilary Mendoza [facility] 08/04/2018 10:36:33 tubal occlusion completed Hilary Mendoza [facility] 08/04/2018 10:36:54 hysterectomy completed Hilary Mendoza [facility] 08/04/2018 10:37:06 Imaging Results None recorded. Procedure Notes None recorded. Medical Equipment None Reported. Allergies Allergen ID Allergen Name Allergen Category Reaction Reaction Severity Criticality Documentation Date Start Date Code Code System Note Provider Name and Address Organization Details Recorded Time 199035 hydrocodo ne Not available Not available Not available Not available 08/04/2018 5489 RxNorm Hilary Mendoza [facility] 9 10:33:49 Medications Name Sig Start Date Stop Date Status Note LastModified by Organization Details LastModified Time Compound Gentamyci n (120 mg/ 1000 mL normal saline) Sig: Florencio's Solution 120 mg in 1 liter of normal saline. Use as nasal lavage 1oz BID QTY 1 liter bottle 2018 active Not [...] Address Organization Details Last Updated DateTime 9 61766.9 5 g 34.9 kg/m2 167.64 cm 98 [degF] 86 /min 129 mm[Hg] 92 mm[Hg] Hilary Mendoza [facility] 9 10:40:20 Date Recorded Body height Body mass index (BMI) Body weight Systolic blood pressure Diastolic blood pressure Provider Name and Address Organization Details Last Updated DateTime 01/28/2021 167.64 cm 34.9 kg/m2 44532.95 g 130 mm[Hg] 86 mm[Hg] NOEL IBARRA PA-C [address] [place] [address], [phone] [place] [address] 09:42:23 Date Recorded Body height Body mass index (BMI) Body weight Systolic blood pressure Diastolic blood pressure Provider Name and Address Organization Details Last Updated DateTime 02/11/2021 167.64 cm 38.3 kg/m2 502093.3 9 g 129 mm[Hg] 93 mm[Hg] Liz Shukla [facility] 13:24:11 Social History Question Answer Notes LastModified by Organizat ion Details LastModified Time Tobacco Smoking Status Never Smoker Hilary Mendoza [facility] 08/04/2018 10:36:14 What Is Your Level Of Caffeine Consumption? Moderate [email or web address] Information not available 02/11/2021 How Much Tobacco Do You Chew? None [email or web address] Information not available 08/04/2018 Which Of Your Hands Is Dominant? Right [email or web address] Information not available 02/11/2021 What Was The Date Of Your Most Recent Tobacco Screening? 08/04/2018 Information not available 04/05/2019 What Is Your Relationship Status? [email or web address] Information not available 02/11/2021 Do You Use Your Seat Belt Or Car Seat Routinely? Yes [email or web address] Information not available 02/11/2021 Have You Recently Traveled Abroad? No [email or web address] Information not available 02/11/2021 Sex: Unknown Functional Status Question Answer Note LastModified by Organizat ion Details LastModified Time What is your level of alcohol consumption? None [email or web address] Information not available 08/04/2018 Are you currently employed? 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 Family History Relationship Description Onset Age of this Age Resolved Age Notes LastModified by Organization Details LastModified Time Sister Family history of stroke [email or web address] Not available 2018 10:36:07 Medical History Condition Response Anxiety Disorder Y Acid Reflux (GERD) Y Cancer N Migraines Y Bleeding Disorder N Anesthesia Complications N Diabetes N Hypertension N Gynecological HistoryNo gynecological history recorded. Obstetrics History GPAL:G 0 P 0 0 0 0 Past Encounters Encounter ID Performer Location Encounter Start Date Encounter Closed Date Diagnosis/Indication Diagnosis SNOMED-CT Code Diagnosis ICD10 Code Diagnosis Note [id number] KOFI MIMS MD [facility] [address] [place] [address] 08/04/2018 10:19:15 08/04/2018 13:14:56 Facial swelling 081012512 R22.0 ?etiology Methicilli n resistant Staphylococcus aureus infection 846397236 A49.02 Neck pain 20119614 M54.2 long history of recurrent right neck pain with possible etiologies including the cervical lymphadeni tis versus carotidyni a versus recurrent sinusitis -Two recent CT neck scan within the last 6 months at [facility] 03/18/18 and more recently at [facility] 07/02/18 showed either minimal sinus disease or were read as essential ly negative Chronic re current sinusitis 362553839 J32.9 5-6 antibiotic s since February for recurrent sinusitis -CT sinus at [facility] 03/18/18 showing mild to moderate mucosal thickening in the right ethmoid and right maxillary sinus with all other sinuses being clear Hypertroph y of nasal turbinates 77171686 J34.3 [id number] NOEL IBARRA PA-C [facility] [address] [address] 01/28/2021 09:18:54 01/28/2021 10:42:04 Pain of left shoulder joint 0135968152 8404043 M25.512 Ongoing pain in the left shoulder [...] PT referral until MRI results have returned. [id number] ISRAEL TURCIOS MD [facility] [address] [address] 02/11/2021 13:05:26 02/11/2021 14:18:24 Pain of right shoulder joint 2502591738 1984943 M25.511 Glenoid labrum tear 2022 79786 S43.431D Health Concerns Section Related Observation LastModified by Organization Detai ls LastModified Time None Recorded Concern Status LastModified by Organization Details LastModified Time None Recorded Advance Directives Directive None Recorded Payers Insurance Date Sequence Insurance Name Policy Number Policy Yip Covered Member ID Yip Member ID Guarantor Name 01/26/2021 1 [facility] Mee Gross [id number] Mee E Gross 08/12/2022 1 [employer] (POS) Mee Panda Gross [id number] Mee Panda Gross 04/19/2018 1 *SELF PAY* Eulalio Talbert Notes Date Note Type Note Provider Name and Address Organization Details Recorded Time 019 text/ht sita Caban presents for an evaluation of right-sided facial [...] ago. Mee had a CT sinus at [facility] 03/18/18 that showed mucosal thickening in the [...] a history of allergies. KOFI MIMS MD [address] [place] [address], [phone] , [facility] 08/04/2018 17:44:07 021 text/ht ml PCP:SEEN FOR CONSULTATION AT THE REQUEST OF: previous patient WHAT: Left ShoulderWHERE: [place] WHEN: 01/24/21 How: TraumaticFell on blacktop with arm extended. [place] shoulder go backwords and arm popped. 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
--- OUTSIDE RECORDS SUMMARY | 2024-08-11 14:59 | XMS_ITS | Clinical Summary ---
Author Organization [employer] Address [address] [place] [address] Care Team Providers Care Safety Aide Name Role Phone Wolfgang Cunningham MD Primary Care Provider [phone] Allergies Active Allergy Reactions Criticality Noted Date Comments Chlorhexidine Itching Medium 07/22/2022 Itching, blisters, loza Hydrocodone Shortness Of Breath,Itching High 11/06/2017 Chest pain, short of breath, and itching Hydrocodone-Acetaminophe n Itching Medium 04/22/2017 Hydromorphone Shortness Of Breath,Itching High 04/21/2022 Chest pain, shortness of breath, and itching Medications pantoprazole (PROTONIX) 40 MG tablet Take 1 tablet (40 mg total) by mouth daily. 04/20/2022 Active mirabegron (MYRBETRIQ) 50 mg Tb24 ER tablet Take 1 tablet (50 mg total) by mouth. Active ivabradine (Corlanor) 5 mg Tab tablet Take 1 tablet (5 mg total) by mouth in the morning. Active ivabradine (Corlanor) 7.5 mg Tab Take 1 tablet (7.5 mg total) by mouth nightly. Active metoprolol succinate (TOPROL-XL) 50 MG 24 hr tablet TAKE ONE TABLET BY MOUTH EVERY MORNING 90 tablet 3 06/24/2023 Active Active Problems Problem Noted Date Diagnosed Date Implantable loop recorder present 07/10/2023 Palpitations 07/10/2023 Crohn disease 06/01/2023 06/01/2023 GERD (gastroesophageal reflux disease) 06/01/2023 Trigeminal neuralgia of right side of face 05/3106/01/2023 Hypertension 04/01/2021 06/01/2023 Resolved Problems Problem Noted Date Diagnosed Date Resolved Date Chest pain 06/12/2023 07/10/2023 Unstable angina 06/12/2023 07/10/2023 Anxiety 06/01/2023 06/01/2023 07/10/2023 Cephalalgia 06/01/2023 06/01/2023 07/10/2023 Migraine headache 06/01/2023 06/01/2023 07/10/2023 OAB (overactive bladder) 06/01/2023 06/01/2023 TIA (transient ischemic attack) 06/01/2023 07/10/2023 Indigestion 12/24/2020 06/01/2023 07/10/2023 Social History Tobacco Use Types Packs/Day Years Used Date Smoking Tobacco: Never Smokeless Tobacco: Never Tobacco Cessation:Counseling Given: Not Answered Alcohol Use Standard Drinks/Week Comments Never 0 (1 standard drink = 0.6 oz pur e alcohol) Utilities Answer Date Recorded In the past 12 months, has t he electric, gas, oil, or water company threatened to shut off services in your home? No 06/12/2023 Interpersonal Safety Answer Date Record ed How often does anyone, damon yanes family and friends, physically hurt you? Never 06/12/2023 How often does anyone, raffaelebalbir yanes family and friends, insult or talk down to you? Never 06/12/2023 How often does anyone, raffaelebalbir yanes family and friends, threaten you with harm? Never 06/12/2023 How often does anyone, raffaelebalbir yanes family and friends, scream or curse at you? Never 06/12/2023 Housing Stability Answer Date Recorded What is your living situation today? I have a [facility] [place] place to live 06/12/[address] you li ve. Do you have problems with any of the following? None of the above 06/12/2023 Food Insecurity Answer Date Recorded Within the past 12 months, y ou worried that your food would run out before you got money to buy more. Never true 06/12/2023 Within the past 12 months, t he food you bought just didn't last and you didn't have money to get more. Never true 06/12/2023 Transportation Needs Answer Date Record ed In the past 12 months, has l ack of reliable transportation kept you from medical appointments, meetings, work or from getting things needed for daily living? No 06/12/2023 Financial Resource Strain Answer Date R ecorded How hard is it for you to pa y for the very basics like food, housing, medical care, and heating? Would you say it is: Not hard at all 06/12/2023 Employment Answer Date Recorded Do you want help finding or keeping work or a job? I do not need or want help 06/12/2023 Family and Community Support Answer El e Recorded If for any reason you need h elp with day-to-day activities such as bathing, preparing meals, shopping, managing finances, etc., do you get the help you need? I don't need any help 06/12/2023 Feeling Lonely or Isolated 0 06/11 Educational Attainment Answer Date Aquiles rded Do you speak a language other than [place] at [facility]? No 06/12/2023 Do you want help with school or training? For example, starting or completing job training or getting a high school diploma, GED or equivalent. No 06/12/2023 Physical Activity Answer Date Recorded Number of minutes of exercise per week 0 06/12/2023 Alcohol Use Answer Date Recorded 5 or More Drinks Per Day Past 12 Months 0 01/02/2024 Depression Answer Date Recorded Calculation of above two rows 0 Stress Answer Date Recorded Stress means a situation in which a person feels tense, restless, nervous, or anxious, or is unable to sleep at night because his or her mind is troubled all the time. Do you feel this kind of stress these days? Not at all 06/12/2023 Disabilities Answer Date Recorded Because of a physical, menta l, or emotional condition, do you have serious difficulty concentrating, remembering, or making decisions? (5 years or older) No 06/12/2023 Because of a physical, menta l, or emotional condition, do you have difficulty doing errands alone such as visiting a doctor's office or shopping? (15 years or older) No 06/12/2023 Substance Use Answer Date Recorded How many times in the past y ear have you used prescription drugs for non-medical reasons? Never 06/12/2023 How many times in the past year have you used [place] legal drugs? Never 06/12/2023 Comments No Sex and Gender Information Value Date Recorded Sex Assigned at Not on file Legal Sex Female 2:37 PM CDT Gender Identity Not on file Sexual Orientation Not on file Last Filed Vital Signs Vital Sign Reading Time Taken Comments Blood Pressure 136/97 06/12/2023 1:30 PM EDT Pulse 71 06/12/2023 1:30 PM EDT Temperature 36.4 C (97.5 F) 06/12/2023 8:40 AM EDT Respiratory Rate 18 06/12/2023 12:33 AM EDT Oxygen Saturation 97% 06/12/2023 11:25 AM EDT Inhaled Oxygen Concentration - - Weight 108 kg (238 lb) 06/12/2023 1:00 AM EDT Height 165.1 cm (5' 5 ) 06/12/2023 1:00 AM EDT Body Mass Index 39.61 06/12/2023 1:00 AM EDT Plan of Treatment Health Maintenance Due Date Last Done Comments Depression Screening (12+) 1995 HIV Screening 07/18/1998 Hepatitis C Screening 07/18/2001 DTAP/TDAP/TD VACCINES (1 - Tdap) 07/18/2002 Pap Smear 07/18/2004 Breast Cancer Screening 2023 COVID-19 VACCINE ( - 2023-2 5 season) 2023 Tobacco Cessation Counseling and Screening (12+) 06/11/2024 06/12/2023 Influenza Vaccine (Season Ended) 2024 Lipid Panel 06/11/2026 06/12/2023 Pneumococcal Vaccine: 0-49 Years Aged Out No longer eligible based on patient's age to complete this topic Medical Devices Implanted Type Area Rf Technician Device Identifier Shelf Expiration Date Model / Serial / Lot Loop Recorder-07/22/2022 Implanted:07/23/19 23 by Andres Stewart MD (Quantity not on file) LOOP RECORDER [employer] LINQ II / [id number] / Description:07-21-23 RELEASED REMOTE MONITORING TO [facility] [place] Procedures Procedure Name Priority Date/Time Associated Diagnosis Comments LIPID PANEL Routine 06/12/2023 2:29 AM EDT from Last 3 Months or Most Recently Relevant to Health Maintenance Results * (ABNORMAL) Lipid panel (06/12/2023 2:29 AM EDT) Triglycerides 124 0 - 249 mg/dL 06/12/2023 3:35 AM EDT [facility] Cholesterol 172 0 - 199 mg/dL 06/12/2023 3:35 AM EDT [facility] Comment: 200 to 239 mg/dL = Moderate (borderline) >239 mg/dL = High HDL Cholesterol 39(L) >=40 mg/dL 06/12/2023 3:35 AM EDT [facility] Comment: >=60 mg/dL = Desirable <40 mg/dL = Increased Risk All other components are listed individually or are calculations VLDL Cholesterol 24.8 5 - 40 mg/dL 06/12/2023 3:35 AM EDT [facility] Cholesterol/HDL ratio 4.4(H) 0.0 - 3.2 06/12/2023 3:35 AM EDT [facility] LDl/HDL Ratio 3 0 - 4 06/12/2023 3:35 AM EDT [facility] RISK COMP 4 06/12/2023 3:35 AM EDT [facility] LDL Cholesterol, Calculated 108(H) 0 - 99 mg/dL 06/12/2023 3:35 AM EDT [facility] Blood Venipuncture / Unknown 06/12/2023 2:29 AM EDT 06/12/2023 2:55 AM EDT us Hannah Erwin PA-C LAB BLOOD ORDERABLES Final R esult [facility] [address] [phone] from Last 3 Months or Most Recently Relevant to [place] [address] BLUE CROSS/BLUE SHIELD Advance Directives For more information, please contact: [phone] Documents on File Type Date Recorded 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 -If no pulse or not breathing attempt CPR/CODE. -Call Rapid Response if patient is in distress. * Full Code Date Activated Date Inactivated Comments 07/22/2022 3:28 PM 07/23/2022 4:25 AM Care Teams Safety Aide Relationship Specialty Start Date End Date Wolfgang Cunningham MD PCP - General Family Medicine 06/12/23
--- OUTSIDE RECORDS SUMMARY | 2024-08-11 14:59 | XMS_ITS | Referral Summary ---
Author Organization [employer] Address [address] [place] [address] Care Team Providers Care Instructional Coordinator Name Role Phone Wolfgang Cunningham MD Primary Care Provider [phone] Allergies Active Allergy Reactions Criticality Noted Date [...] Do you speak a language other than [place] Citizen at [facility]? No 06/12/2023 Do you want help with [...] 06/12/2023 1:00 AM EDT Plan of Treatment Not on file Medical Devices Implanted Type Area Blindstitch Lapel Padder Device Identifier Shelf Expiration Date Model / Serial / Lot Loop Recorder-07/22/2022 Implanted:07/23/19 23 by Andres Stewart MD (Quantity not on file) LOOP RECORDER [employer] LINQ II / [id number] / Description:07-21-23 RELEASED REMOTE MONITORING TO [facility] [place] Procedures Procedure Name Priority Date/Time Associated Diagnosis Comments LIPID PANEL Routine 06/12/2023 2:29 AM EDT from Last 3 Months or Most Recently Relevant to Health Maintenance Results * (ABNORMAL) Lipid panel (06/12/2023 2:29 AM EDT) Triglycerides 124 0 - 249 mg/dL 06/12/2023 3:35 AM EDT [facility] Cholesterol 172 0 - 199 mg/dL 06/12/2023 3:35 AM EDT [facility] Comment: 200 to 239 mg/dL = Moderate (borderline) >239 mg/dL = High HDL Cholesterol 39(L) >=40 mg/dL 06/12/2023 3:35 AM EDT [facility] Comment: >=60 mg/dL = Desirable <40 mg/dL = Increased Risk All other components are listed individually or are calculations VLDL Cholesterol 24.8 5 - 40 mg/dL 06/12/2023 3:35 AM EDT [facility] Cholesterol/HDL ratio 4.4(H) 0.0 - 3.2 06/12/2023 3:35 AM EDT [facility] LDl/HDL Ratio 3 0 - 4 06/12/2023 3:35 AM EDT [facility] RISK COMP 4 06/12/2023 3:35 AM EDT [facility] LDL Cholesterol, Calculated 108(H) 0 - 99 mg/dL 06/12/2023 3:35 AM EDT [facility] Blood Venipuncture / Unknown 06/12/2023 2:29 AM EDT 06/12/2023 2:55 AM EDT Hannah Erwin PA-C LAB BLOOD ORDERABLES Final R esult [facility] [address] [phone] from Last 3 Months or Most Recently Relevant to Health Maintenance Insurance BLUE CROSS/BLUE SHIELD Advance Directives For more information, please contact: [phone] Documents on File Type Date Recorded Patient [place] Clerk Robbie weaver Advance Directives and Dawna wallace Will 04/21/2022 12:41 PM * Full Code [...] 3:28 PM 07/23/2022 4:25 AM Care Teams Instructional Coordinator Relationship Specialty Start Date End Date Wolfgang Cunningham MD PCP - General Family Medicine 06/12/23
--- OUTSIDE RECORDS SUMMARY | 2024-08-11 14:59 | XMS_ITS | Encounter Summary ---
Author Organization Healthcare Address [address] [place] [address] Care Team Providers Care Utility Person Name Role Phone Unavailable Primary Care Provider Unavailabl e Encounter Details Date Type Department Care Team (Late st Contact Info) Description 07/27/2020 Refill [facility] [address] [place] [phone] Ramesh Rosado MD [address] [facility] [address] [place] [address] Social History Tobacco Use Types Packs/Day Years Used Date Smoking Tobacco: Never Alcohol Use Standard Drinks/Week Comments No 0 (1 standard drink = 0.6 oz pur e alcohol) Comments Unknown Sex and Gender Information Value Date Recorded Sex Assigned at Not on file Legal Sex Female 8:52 PM EDT Gender Identity Not on file Sexual Orientation Not on file documented as of this encounter Plan of Treatment Not on file documented as of this encounter Visit Diagnoses Not on filedocumented in this encounter
--- OUTSIDE RECORDS SUMMARY | 2024-08-11 14:59 | XMS_ITS | Clinical Summary ---
Author Organization Healthcare Address [address] [place] [address] Care Team Providers Care Vending Machine Mechanic Name Role Phone Unavailable Primary Care Provider Unavailabl e Medications baclofen (Lioresal) 20 MG tablet Take 1 tablet (20 mg total) by mouth 3 (three) times a day. 90 tablet 07/30/2020 Active Family History Medical History Relation Name Comments Multiple sclerosis Father Dementia Other Relation Name Status Comments Father Other Social History Tobacco Use Types Packs/Day Years [...] Sign Reading Time Taken Comments Blood Pressure 120/68 12/30/2019 3:06 PM EST Pulse 78 09/01/2018 8:26 AM EDT Temperature - - Respiratory Rate 18 09/01/2018 8:26 AM EDT Oxygen Saturation - - Inhaled Oxygen Concentration - - Weight 98.4 kg (217 lb) 12/30/2019 3:06 PM EST Height 165.1 cm (5' 5 ) 12/30/2019 3:06 PM EST Body Mass Index 36.11 12/30/2019 3:06 PM EST Plan of Treatment Not on file
--- OUTSIDE RECORDS SUMMARY | 2024-08-11 14:59 | XMS_ITS | Encounter Summary ---
Author Organization [employer] Address [address] [place] [address] Care Team Providers Care Rn Patient Care Name Role Phone Wolfgang Cunningham MD Primary Care Provider Reason for Visit * Reason Comments Medication Refill Encounter Details Date Type Department Care Team (Late st Contact Info) Description 06/24/2023 Refill [facility] Electrophysiology [address] [phone] Andres Stewart MD [address] [place] [address] [address] [place] [address] Social History Tobacco Use Types Packs/Day Years Used Date Smoking Tobacco: Never Smokeless Tobacco: Never Alcohol Use Standard Drinks/Week Comments Never 0 (1 standard drink = 0.6 oz pur e alcohol) Utilities Answer Date Recorded In the past 12 months, has t he [employer], gas, oil, or water [employer] threatened to shut off services in your home? No 06/12/2023 Interpersonal Safety Answer Date Record ed How often does anyone, damon yanes family and friends, physically hurt you? Never 06/12/2023 How often does anyone, damon yanes family and friends, insult or talk down to you? Never 06/12/2023 How often does anyone, damon yanes family and friends, threaten you with harm? Never 06/12/2023 How often does anyone, damon yanes family and friends, scream or curse [...] Do you speak a language other than [place] at [facility]? No 06/12/2023 Do you want help with school or training? For example, starting or completing job training or getting a high school diploma, GED or equivalent. No 06/12/2023 Physical Activity Answer Date Recorded Number of minutes of exercise per week 0 06/12/2023 Alcohol Use Answer Date Recorded 5 or More Drinks Per Day Past 12 Months 0 06/12/2023 Depression Answer Date Recorded Calculation of above [...] Diagnoses Not on filedocumented in this encounter Care Teams Rn Patient Care Relationship Specialty Start Date End Date Wolfgang Cunningham MD PCP - General Family Medicine 06/12/23 documented as of this encounter
[2024-08-11 15:00] VITALS: BP 131/82; PULSE 96; O2SAT 97
--- OUTSIDE RECORDS SUMMARY | 2024-08-11 15:00 | XMS_ITS | Data Portability ---
Author Organization [facility],, Main Office Address [address] [place] [address] Assessment Encounter Date Assessment Date Assessment LastModified [...] Discussed follow up and orders indicated below. [email or web address] Not available 07/16/2021 10:07:19 10/16/2021 10/16/2021 Patient [...] dipstick 2021 022 LEANDRO Main Office, [address], [place], [address], 11:59:09 urinalysis , dipstick 2021 022 carolineelzayda Main Office, [address], [place], [address], 14:37:41 urinalysis , dipstick 2021 [facility] Main Office, [address], [place], [address], 15:47:35 urinalysis , dipstick 2021 [facility] Main Office, [address], [place], [address], 10:09:22 Referral None recorded. Procedures None recorded. Surgeries None recorded. Imaging None recorded. Medication Orders Brexafemme [address] [facility][id number], [address] [place], [place], [id number], 11:38:02 nystatin-t riamcinolo ne 100,000 unit/g-0.1 % topical cream 2021 [facility] #33936, [address] [place], [place], [id number], 14:14:22 tinidazole [address] [facility] #20798, [address] [place], [place], [id number], 11:38:02 cephalexin 500 mg capsule 2021 [facility] #23390, [address] [place], [place], [id number], 11:22:04 Uribel 118 mg-10 mg-40.8 mg-[address] [facility] [id number], [address] [place] [address], [address], 08/31/202 2 10:41:48 fluconazol e 150 mg tablet 2021 [facility], [address] [place], [place], [id number], 11:22:23 Macrobid 100 mg capsule 2021 022 [facility], [address] [place] [address], [place], [address], 09:23:24 Paxil 10 mg tablet 2021 [facility], [address] [place] [address], [place], [address], 09:23:26 Patient TargetsNo targets recorded. Patient Instructions Encounter Date Encounter Id Patient Instructions Last Modified By Organization Details Last Modified Time 07/16/2021 [id number] Urinary Tract Infection (UTI) in Women: Care Instructions [email or web address] Not available 07/16/2021 10:09:22 ultrasound Conservative and surgical options discussed, alternatives reviewed. Risks associated with each were reviewed. All questions answered. Pros and cons were reviewed. [email or web address] Not available 07/16/2021 10:09:11 07/23/2021 [id number] frequent urination: care instructions [email or web address] Not available 08/19/2021 15:47:35 abdominal pain: care instructions [email or web address] Not available 08/19/2021 15:47:35 08/06/2021 [id number] Bladder Pain Syndrome (BPS): Care Instructions [email or web address] Not available 08/06/2021 14:37:41 frequent urination: care instructions [email or web address] Not available 08/06/2021 14:37:41 possible appendicitis: care instructions [email or web address] Not available 08/06/2021 14:37:41 10/16/2021 [id number] painful urinatio n (dysuria): care instructions aclaxon [...] reviewed. [email or web address] Not available 10/20/2021 12:48:55 12/11/2021 [id number] Bladder Pain Syndrome (BPS): Care Instructions aclaxon [...] Available Main Office [address], [place], [address], 07/16/2021 08:58:55 07/17/19 22 07/16/2021 urina lysis , dipst ick Leukocytes trace Not Available Main Of fice [address], [place], [address], 07/16/2021 08:58:55 07/17/19 22 07/16/2021 urina lysis , dipst ick Urobilinogen - Not Available Main Office [address], [place], [address], 07/16/2021 08:58:55 07/17/19 22 07/16/2021 urina lysis , dipst ick Protein trace Not Available Main Offic e [address], [place], [address], 07/16/2021 08:58:55 07/17/19 22 07/16/2021 urina lysis , dipst ick pH 6.0 Not Available Main Offic e [address], [place], [address], 07/16/2021 08:58:55 07/17/19 22 07/16/2021 urina lysis , dipst ick Blood - Not Available Main Offic e [address], [place], [address], 07/16/2021 08:58:55 07/17/19 22 07/16/2021 urina lysis , dipst ick Specific [place] 1.010 Not Available Main O ffice [address], [place], [address], 07/16/2021 08:58:55 07/17/19 22 07/16/2021 urina lysis , dipst ick Ketone small Not Available Main Offic e [address], [place], [address], 07/16/2021 08:58:55 07/17/19 22 07/16/2021 urina lysis , dipst ick Bilirubin -- Not Available Main Off ice [address], [place], [address], 07/16/2021 08:58:55 07/17/19 22 07/16/2021 urina lysis , dipst ick Glucose - Not Available Main Offic e [address], [place], [address], 07/16/2021 08:58:55 07/24/19 22 07/23/2021 urina lysis , dipst ick Nitrite negati ve Not Available Main Office [address], [place], [address], 07/23/2021 09:14:13 07/24/19 22 07/23/2021 urina lysis , dipst ick Leukocytes - Not Available Main Of fice [address], [place], [address], 07/23/2021 09:14:13 07/24/19 22 07/23/2021 urina lysis , dipst ick Urobilinogen - Not Available Main Office [address], [place], [address], 07/23/2021 09:14:13 07/24/19 22 07/23/2021 urina lysis , dipst ick Protein trace Not Available Main Offic e [address], [place], [address], 07/23/2021 09:14:13 07/24/19 22 07/23/2021 urina lysis , dipst ick pH 6.5 Not Available Main Offic e [address], [place], [address], 07/23/2021 09:14:13 07/24/19 22 07/23/2021 urina lysis , dipst ick Blood - Not Available Main Offic e [address], [place], [address], 07/23/2021 09:14:13 07/24/19 22 07/23/2021 urina lysis , dipst ick Specific [place] 1.010 Not Available Main O ffice [address], [place], [address], 07/23/2021 09:14:13 07/24/19 22 07/23/2021 urina lysis , dipst ick Ketone - Not Available Main Offic e [address], [place], [address], 07/23/2021 09:14:13 07/24/19 22 07/23/2021 urina lysis , dipst ick Bilirubin - Not Available Main Off ice [address], [place], [address], 07/23/2021 09:14:13 07/24/19 22 07/23/2021 urina lysis , dipst ick Glucose - Not Available Main Offic e [address], [place], [address], 07/23/2021 09:14:13 08/07/19 22 08/06/2021 urina lysis , dipst ick Leukocytes - Not Available Main Of fice [address], [place], [address], 08/06/2021 13:58:10 08/07/19 22 08/06/2021 urina lysis , dipst ick Nitrite negati ve Not Available Main Office [address], [place], [address], 08/06/2021 13:58:10 08/07/19 22 08/06/2021 urina lysis , dipst ick Urobilinogen - Not Available Main Office [address], [place], [address], 08/06/2021 13:58:10 08/07/19 22 08/06/2021 urina lysis , dipst ick Protein - Not Available Main Offic e [address], [place], [address], 08/06/2021 13:58:10 08/07/19 22 08/06/2021 urina lysis , dipst ick pH 5.0 Not Available Main Offic e [address], [place], [address], 08/06/2021 13:58:10 08/07/19 22 08/06/2021 urina lysis , dipst ick Blood - Not Available Main Offic e [address], [place], [address], 08/06/2021 13:58:10 08/07/19 22 08/06/2021 urina lysis , dipst ick Specific [place] 1.005 Not Available Main O ffice [address], [place], [address], 08/06/2021 13:58:10 08/07/19 22 08/06/2021 urina lysis , dipst ick Ketone - Not Available Main Offic e [address], [place], [address], 08/06/2021 13:58:10 08/07/19 22 08/06/2021 urina lysis , dipst ick Bilirubin - Not Available Main Off ice [address], [place], [address], 08/06/2021 13:58:10 08/07/19 22 08/06/2021 urina lysis , dipst ick Glucose - Not Available Main Offic e [address], [place], [address], 08/06/2021 13:58:10 10/17/19 22 10/17/2021 VAGIN ITIS [...] [facility], d/b/a Verna mehta, [address], [place] [address] , Nafisa Thrasher ra, DO, Labor atory [...] galen resul ts of Ely l or Richardson skye are deter mined by calcu latin [...] e emilie cteri stics deter mined by [employer], [employer] d/b/a PathG rouluciano. It has not been clear ed or appro oralia by the U.S. Food and Drug Admin istra tion. The FDA has deter mined that such clear ance or appro bertha is not neces aaron. Perti nent refer ence inter vals are avail able from the labor atory on reque st. Test( s) perfo rmed by [facility] [employer], [employer], d/b/a PathG roup, [address], [place] [address] , Nafisa Thrasher ra, DO, Labor atory Direc tor. Not Available [facility] ([facility]) [address], [place], [address], 10/17/2021 20:30:56 10/17/19 22 10/17/2021 VAGIN ITIS [...] i[facility], d/b/a Path rou, [address] [facility] [address], [place] [address] , Nafisa Thrasher ra, DO, Labor atory [...] galen resul ts of Ely l or Richardson skye are deter mined by calcu latin [...] rent demog raphi cs from the PathG rou model popul ation may have diffe rent indic ator organ isms with diffe rent relat christos ratio s, which would influ ence the final resul ts. Resul ts shoul d be inter prete d in the michael xt of all clini surendra and labor atory findi ngs. The test was devel oped and its perfo rmanc e emilie cteri stics deter mined by [employer], [employer] d/b/a [employer]. It has not been clear ed or appro oralia by the U.S. Food and Drug Admin istra tion. The FDA has deter mined that such clear ance or appro bertha is not neces aaron. Perti nent refer ence inter vals are avail able from the [employer] on reque st. Test( s) perfo rmed by Assoc iatAVOS Systemso Moni, [employer], d/b/a [employer], [address], [place] [address] , Nafisa Thrasher ra, DO, Labor atory Direc tor. Not Available [facility] ([facility]) [address] [facility] [address], [place], [address], 10/17/2021 20:30:56 10/17/19 22 10/17/2021 VAGIN ITIS [...] [address], [place] [address] , Nafisa Thrasher ra, DO, Labor atory [...] galen resul ts of Ely l or Richardson skye are deter mined by calcu latin [...] e emilie cteri stics deter mined by [employer] iatCater to u Patho logis [employer] d/b/a PathG roup. It has not been clear ed or appro oralia by the U.S. Food and Drug Admin istra tion. The FDA has deter mined that such clear ance or appro bertha is not neces aaron. Perti nent refer ence inter vals are avail able from the labor atory on reque st. Test( s) perfo rmed by Assoc [facility]o logis [employer], d/b/a PathG roup, [address] [place] [address], [place] [address] , Nafisa Thrasher ra, DO, Labor atory Dire tor. Not Available [facility] Daniele Lab ([facility]) [address] [place] [address] [address], [place], [address], 10/17/2021 20:30:56 10/17/19 22 10/19/2021 CULTU RE, URINE specimen source URINE - VOID Not Available [facility] Nach[facility]re Lab ([facility]) [address] [place] [address] [address], [place], [address], 10/19/2021 06:14:54 10/17/19 22 10/19/2021 CULTU RE, URINE culture, urine SEE BELOW No growt h Not Available [facility] Сергей Lab ([facility]) [address] [place] [address] [address], [place], [address], 10/19/2021 06:14:54 12/12/19 22 12/13/2021 AEROB IC VAGIN ITIS PANEL enterococcus faecalis Not Detect ed normal Not Available [facility] С[facility]гей Lab ([facility]) [address] [place] [address] [address], [place], [address], 12/13/2021 14:26:21 12/12/19 22 12/13/2021 AEROB IC VAGIN ITIS PANEL escherichia coli Not Detect ed normal Not Available [facility] С[facility]гей Lab ([facility]) [address] [place] [address] [address], [place], [address], 12/13/2021 14:26:21 12/12/19 22 12/13/2021 AEROB IC VAGIN ITIS PANEL staphylococc us aureus Not Detect ed normal Not Available [facility] ([facility]) [address] [facility] [address], [place], [address], 12/13/2021 14:26:21 12/12/19 22 12/13/2021 AEROB IC VAGIN ITIS PANEL group B streptococcu s (gbs) Not Detect ed normal Not Available [facility] ([facility]) [address] [facility] [address], [place], [address], 12/13/2021 14:26:21 12/12/19 22 12/12/2021 VAGIN ITIS PANEL trichomonas vaginalis, aptima (panther) [...] rmed by [facility], [facility], d/b/a PathTmai mehta, [address], [place] [address] , Nafisa Thrasher ra, DO, Labor atory [...] galen resul ts of Ely l or Richardson skye are deter mined by calcu latin [...] e emilie cteri stics deter mined by [employer], [employer] d/b/a PathTami rouluciano. It has not been clear ed or appro oralia by the U.S. Food and Drug Admin istra tion. The FDA has deter mined that such clear ance or appro bertha is not neces aaron. Perti nent refer ence inter vals are avail able from the labor atory on reque st. Test( s) perfo rmed by [facility] Moni, [employer], d/b/a PathG roup, [address], [place] [address] , Nafisa Thrasher ra, DO, Labor atory Direc tor. Not Available [facility] ([facility]) [address], [place], [address], 12/13/2021 14:26:22 12/12/19 22 12/13/2021 VAGIN ITIS [...] LLC, d/b/a PathG rouluciano, [address], [place] [address] , Nafisa Thrasher ra, DO, Labor atory Direc tor. Gardn chani a vagin ranjana, Lilia da speci es: [...] galen resul ts of Ely l or Richardson skye are deter mined by calcu latin [...] e emilie cteri stics deter mined by [employer], [employer] d/b/a [employer]. It has not been clear ed or appro oralia by the U.S. Food and Drug Admin istra tion. The FDA has deter mined that such clear ance or appro bertha is not neces aaron. Perti nent refer ence inter vals are avail able from the [employer] atory on reque st. Test( s) perfo rmed by Assoc iatSeelio, [employer], d/b/a [employer], [address] [facility] [address], [place] [address] , Nafisa Thrasher ra, DO, Labor atory Direc tor. Not Available [facility] ([facility]) [address], [place], [address], 12/13/2021 14:26:22 12/12/19 22 12/13/2021 VAGIN ITIS [...] [address], [place] [address] , Nafisa Thrasher ra, DO, Labor atory Direc tor. Gardn erell a vagin ranjana, Lilia da speci es: Genom ic DNA is isola skye from patie nt speci mens by stand valeri labor atory techn iques and neeru zed using custo m OpenA rray plate s, perfo rmed on the [employer] Stud[employer] o 12K Flex Real Time PCR syste m. A posit christos resul t is provi ded for patho genic bacte kay, virus and/o r funga l speci es based on detec tion of ampli ficat ion produ cts. Ely l vagin al galen resul ts of Ely l or Richardson skye are deter mined by calcu latin [...] deter mined by [facility] d/b/a PathG roup. It has not been clear ed or appro oralia by the U.S. Food and Drug Admin istra tion. The FDA has deter mined that such clear ance or appro bertha is not neces aaron. Yolanda babcock refer ence inter vals are avail able from the labor atory on reque st. Test( s) perfo rmed by [facility], d/b/a PathG roup, [address], [place] [address] , Nafisa Thrasher ra, DO, Labor atory Direc tor. Not Available [facility] ([facility]) [address], [place], [address], 12/13/2021 14:26:22 12/12/19 22 12/11/2021 urina lysis , dipst ick Leukocytes - Not Available Main Of fice [address], [place], [address], 12/11/2021 11:21:12 12/12/19 22 12/11/2021 urina lysis , dipst ick Nitrite negati ve Not Available Main Office [address], [place], [address], 12/11/2021 11:21:12 12/12/19 22 12/11/2021 urina lysis , dipst ick Urobilinogen - Not Available Main Office [address], [place], [address], 12/11/2021 11:21:12 12/12/19 22 12/11/2021 urina lysis , dipst ick Protein - Not Available Main Offic e [address], [place], [address], 12/11/2021 11:21:12 12/12/19 22 12/11/2021 urina lysis , dipst ick pH 7.0 Not Available Main Offic e [address], [place], [address], 12/11/2021 11:21:12 12/12/19 22 12/11/2021 urina lysis , dipst ick Blood - Not Available Main Offic e [address], [place], [address], 12/11/2021 11:21:12 12/12/19 22 12/11/2021 urina lysis , dipst ick Specific [place] 1.005 Not Available Main O ffice [address], [place], [address], 12/11/2021 11:21:12 12/12/19 22 12/11/2021 urina lysis , dipst ick Ketone - Not Available Main Offic e [address], [place], [address], 12/11/2021 11:21:12 12/12/19 22 12/11/2021 urina lysis , dipst ick Bilirubin - Not Available Main Off ice [address], [place], [address], 12/11/2021 11:21:12 12/12/19 22 12/11/2021 urina lysis , dipst ick Glucose - Not Available Main Offic e [address], [place], [address], 12/11/2021 11:21:12 07/24/19 22 07/23/2021 US, pelvi s, trans abdom inal + trans vagin al No observ ation record ed. michelle Not Available 2021 14:33:16 07/26/19 22 2021 imagi ng/di agnos tic resul t No observ ation record ed. gveloudis [facility] (Med Record) [address], [place], [address], 08/06/2021 14:33:16 Result Notes None recorded. Problems No Known Problems Procedures Surgical History Date Name Laterality Status Provider Name and Address Organization Details Recorded Time 08/07/19 22 Urodynamic Studies completed DO [address], [place], [address], 08/06/2021 14:35:23 06/15/19 22 Date of Last Pap Smear completed Janiya [facility], 06/14/2021 10:54:06 01/26/20 21 Date of Last Colonoscopy completed ANI [address] Dr, [facility] [address], 06/14/2021 11:24:51 07/12/19 21 Repair of vagina completed [facility], 07/25/2020 09:00:29 05/22/19 21 Urodynamic Studies completed DO [address], [place], [address], 05/21/2020 14:35:57 05/28/19 [address] [facility], 12/02/2017 14:08:32 12/18/19 15 Most Recent Mammogram completed Moriah Nj [facility], 09/16/2016 09:12:37 Cholecystectomy completed Moriahgeorge Nj [facility], 09/16/2016 09:18:36 Appendectomy completed Moriah Nj [facility], 09/16/2016 09:18:43 Tubal Ligation completed Moriah Nj [facility], 09/16/2016 09:18:48 Imaging Results None recorded. Procedure Notes None recorded. Medical Equipment None Reported. Allergies Allergen ID Allergen Name Allergen Category Reaction Reaction Severity Criticality Documentation Date Start Date Code Code System Note Provider Name and Address Organization Details Recorded Time 264 hydrocodo ne Not available itching Not available Not available 09/16/2016 5489 RxNorm Moriah Nj [facility], [place] - [place] [facility], 7 09:08:38 Medications Name [...] Available estradiol 0.01% (0.1 mg/gram) vaginal cream Insert 1 g every day by vaginal route at bedtime for 30 days. 06/14 completed Not Available Not Available Not Available imipramin e 10 mg tablet Take [...] Updated DateTime 2 162.56 cm 41.4 kg/m2 702634. 76 g 67 /min 97 [degF] 119 mm[Hg] 87 mm[Hg] Janiya [facility], 2 08:58:16 Date Recorded Body height Body mass index (BMI) Body weight Heart rate Body temperature Systolic blood pressure Diastolic blood pressure Provider Name and Address Organization Details Last Updated DateTime 2 162.56 cm 40.8 kg/m2 073118. 55 g 85 /min 97.5 [degF] 112 mm[Hg] 88 mm[Hg] Janiya [facility], 2 09:13:47 Date Recorded Body height Body mass index (BMI) Body weight Heart rate Body temperature Systolic blood pressure Diastolic blood pressure Provider Name and Address Organization Details Last Updated DateTime 2 162.56 cm 41 kg/m2 754564. 58 g 96 /min 97.2 [degF] 118 mm[Hg] 86 mm[Hg] Kennedy [facility], 2 13:57:30 Date Recorded Body height Body mass index (BMI) Body weight Heart rate Body temperature Systolic blood pressure Diastolic blood pressure Provider Name and Address Organization Details Last Updated DateTime 2 162.56 cm 41 kg/m2 880594. 58 g 82 /min 96.6 [degF] 117 mm[Hg] 84 mm[Hg] [facility], 2 09:21:44 Date Recorded Systolic blood pressure Diastolic blood pressure Provider Name and Address Organization Details Last Updated DateTime 12/11/2021 126 mm[Hg] 84 mm[Hg] ANI Ahmadi [address] [facility], [place], [address], 12/12/2021 15:38:55 Date Recorded Body height Body mass index (BMI) Body weight Heart rate Body temperature Provider Name and Address Organization Details Last Updated DateTime 12/11/2021 162.56 cm 40.5 kg/m2 401553.8 g 79 /min 97 [degF] [facility]YN[facility], 2 11:20:48 Social History Question Answer Notes LastModified by Organizat ion Details LastModified Time Tobacco Smoking Status Never Smoker Not Available [employer] 12/13/2019 03:20:40 Do You Have An Advance Directive? No [id number] Information not available 12/13/2019 Are You Currently Sexually Active With Anyone Who Has Traveled (within The Last 12 Weeks) To A Zika-affected Area? No [email or web address] Information not available 01/18/2020 Are You Blind Or Do You Have Difficulty Seeing? No [id number] Information not available 12/13/2019 What Is Your Level Of Caffeine Consumption? Moderate [id number] Information not available 12/13/2019 Are You Deaf Or Do You Have Serious Difficulty Hearing? No [id number] Information not available 12/13/2019 What Type Of Diet Are You Following? REGULAR [id number] Information not available 12/13/2019 Education 12 Information no t available 07/23/2021 Are There Any Guns Present In Your Home? No [id number] Information not available 12/13/2019 Hard Of Hearing [...] How Many Children Do You Have? 2 [id number] Information not available 12/13/2019 Performs Monthly Self-breast Exam? Yes Information not available 07/23/2021 Seat Belts Used Routinely Yes Information not available 07/23/2021 Are You Sexually Active? Yes [id number] Information not available 12/13/2019 Smoke Alarm In Home Yes Information not available 07/23/2021 Are You Passively Exposed To Smoke? No Information not available 09/16/2016 General Stress Level High Information not available 07/23/2021 Do You Use Sunscreen Routinely? Yes [id number] Information not available 12/13/2019 Do You Have Difficulty Walking Or Climbing Stairs? No [id number] Information not available 12/13/2019 Sex: Unknown Functional Status Question Answer Note LastModified by Organizat ion Details LastModified Time What is your level of alcohol consumption? Occasional [id number] Information not available 12/13/2019 Are you currently employed? Yes [id number] Information not available 12/13/2019 Are you able to walk? YESWOREST [id number] Information not available 12/13/2019 Do you have difficulty doing errands alone? No [id number] Information not available 12/13/2019 Are you able to care for yourself? 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 No [id number] Information not available 12/13/2019 What is your exercise level? Occasional [id number] Information not available 12/13/2019 Mental Status Question Answer Note LastModified by Organization D etails LastModified Time Do you have difficulty concentrating, remembering or making decisions? No [id number] Information no t available 12/13/2019 Family History Relationship Description Onset Age of this Age Resolved Age Notes LastModified by Organization Details LastModified Time Maternal Grandmother Malignant tumor of breast [id number] Not available 02/2016 09:15:06 Mother Malignant tumor of cervix [id number] Not available 02/2016 09:15:16 Paternal Grandmother Cerebrovascu lar accident [id number] Not available 0 09/16/2016 09:15:30 Paternal Grandmother Dementia [email or web address] Not available 0 09/16/2016 09:15:39 Father Disorder of muscle [email or web address] Not available 2021 09:06:24 Medical History Condition Response Coronary Artery Disease N Other N Gout N Blood Diseases N Kidney Stones Y Hyperthyroidism N Enlarged Prostate N Blood Transfusion N Dermatologic Disorders N Depression Y COPD N Gestational Diabetes N Anxiety Disorder Y Autoimmune disease N Muscle, Joint, or Bone Problems N Obesity N Vision or Eye Problems N Arthritis N Infertility N Polyps N Mental Disorder N Cancer N Varicosities N Stroke Y Neurologic/Epilepsy N Headaches Y Fibromyalgia N Kidney Disease N Heart Problems N Ear or Hearing Problems N Hospitalizations Y Acne N Eating Disorder N Skin Problems N MRSA exposure N Constipation N Heartburn N Art (IVF or FET) N Bladder Problems Y Bleeding Disorder N Tuberculosis N AIDS/HIV N G.E.R.D N Asthma N Trauma/Violence N Hepatitis N Pulmonary Embolism N Chronic Ear Infections N Chicken Pox Y Autism Spectrum Disorder (ASD) N Thrombophilias N Allergies (Food, seasonal, environmental ) Y Colon Cancer N Drug/Latex Allergies/Reactions N Breast Cancer N Lung Disease N Hypothyroidism N Defects or Inherited Disease N Developmental or Behavioral Disorders N Breast Problem N Difficulty Swallowing N [...] Failure (CHF) N Hyperlipidemia N Eczema N Diverticulitis N Abuse/Domestic Violence N Depression/ depression N Heart Disease N [...] Code Diagnosis ICD10 Code Diagnosis Note [id number] ANI Ahmadi Main Office [address] [place] [address] 09/16/2016 08:39:04 09/16/2016 14:17:26 Menopausal symptom 69040291 E89.41 Gynecologi c examination 14793823 Z01.411 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 Dyspareuni a due to non-psychogenic cause in the female 096754981 N94.10 1797 Yeyo Ayala DO Main Office [address] [place] [address] 10/17/2016 09:42:45 10/17/2016 14:54:26 Renewal of prescription 383030851 Z76.0 Acute urin jonelle tract infection 361972431 N39.0 Dysuria 18200114 R30.0 Acute vaginitis 44052990 N76.0 History of calculus of kidney 134005213 Z87.442 Vitamin D deficiency 347 51702 E55.9 9721 Yeyo Ayala DO Main Office [address] [place] [address] 12/02/2017 13:41:13 12/02/2017 15:07:33 Gynecologic examination 37905685 Z01.411 pap Menopausal symptom 24780 002 E89.41 hormone labs today Pain in pelvis 88189127 R10.2 cx, vag panel Blood in urine 53039868 R31.9 has cystogram scheduled with urologist tomorrow Dysuria 73889283 R30.0 has cystogram scheduled with urologist tomorrow Increased frequency of urination 469340046 R35.0 has cystogram scheduled with urologist tomorrow Urgent shelbie max to urinate 09835198 R39.15 has cystogram scheduled with urologist tomorrow Bacterial vaginosis 4197 97637 N76.0 Screening for malignant neoplasm of colon 869228736 Z12.11 9838 Yeyo Ayala DO Main Office [address] [place] [address] 12/08/2017 11:32:20 12/08/2017 13:05:40 Urinary tract infectious disease 68287041 N39.0 Pain in pelvis 58158768 R10.2 Midline cystocele 622148 003 N81.11 Rectocele with enterocele 092269584 N81.5 Microscopic hematuria 19 7732435 R31.21 Cystocele without uterine prolapse 57179017 N81.10 [id number] Yeyo Ayala DO Main Office [address] [place] [address] 12/16/2017 15:40:45 12/16/2017 16:54:08 Pain in pelvis 05109881 R10.2 Dyspareunia 55891657 N94 .10 Increased frequency of urination 247933921 R35.0 Urgent shelbie max to urinate 35632328 R39.15 Left lower quadrant pain 827519971 R10.32 [id number] Yeyo Ayala DO Main Office [address] [place] [address] 12/21/2017 15:19:53 12/21/2017 16:35:29 Pain in pelvis 76274126 R10.2 Urinary incontinence 165 180451 R32 Chronic in terstitial cystitis 496996816 N30.10 Increased frequency of urination 038523587 R35.0 Nocturia 833610310 R35.1 18892 Yeyo Ayala DO Main Office [address] [place] [address] 01/11/2018 08:51:30 01/11/2018 09:48:02 Renewal of prescription 940674896 Z76.0 Nocturia 068225580 R35.1 Pain in pelvis 52368311 R10.2 Increased frequency of urination 349560620 R35.0 Dysuria 73339582 R30.0 Chronic in terstitial cystitis 381825494 N30.10 65161 Yeyo Ayala DO Main Office [address] [place] [address] 02/15/2018 10:04:34 02/15/2018 11:13:35 Chronic interstitial cystitis 237587311 N30.10 Urinary bladder pain 158 79630 R39.82 Urgent shelbie max to urinate 40151984 R39.15 12384 Yeyo Ayala DO Main Office [address] [place] [address] 04/12/2018 09:56:20 04/12/2018 10:56:35 Chronic interstitial cystitis 337021939 N30.10 Urinary bladder pain 158 58392 R39.82 Urgent shelbie max to urinate 48575385 R39.15 [id number] Yeyo Ayala DO Main Office [address] [place] [address] 01/18/2020 13:04:31 01/18/2020 14:14:57 Abnormal vaginal bleeding 212667677 N93.8 Pain in pelvis 91297731 R10.2 Chronic in terstitial cystitis 081228588 N30.10 Microscopic hematuria 19 2819728 R31.29 Urinary bladder pain 158 38650 R39.82 Asymptomat ic microscopic hematuria 3861066457 9827587 R31.21 68258 Yeyo Ayala DO Main Office [address] [place] [address] 01/25/2020 15:05:38 01/25/2020 15:44:44 Abnormal vaginal bleeding 036107265 N93.8 resolved Pain in pelvis 74680294 R10.2 resolved Chronic in terstitial cystitis 523086853 N30.10 Azo as needed Microscopic hematuria 19 0050215 R31.29 resolved Urinary bladder pain 158 75422 R39.82 Azo as needed Vaginal dryness 92563699 N89.8 continue Intrarosa. She starts new job in february and will not have insurance for one month. I told her to call in february to see if we have any samples. Let us know if we need to PA Intrarosa when she gets her new insurance. No intercours e, 2 weeks. Call if symptoms return. [id number] Yeyo Ayala DO Main Office [address] [place] [address] 04/18/2020 09:16:55 04/18/2020 10:31:11 Gynecologic examination 22675072 Z01.411 pap Pain in pelvis 13923125 R10.2 u/s Vaginal lesion 609232577 N94.89 posterior vaginal wall, will order u/s first Female str ess incontinence 87379633 N39.3 Postcoital bleeding 4888 0000 N93.0 Microscopic hematuria 19 5673292 R31.29 resolved Screening for mental disorders 187700039 Z13.89 41776 Yeyo Ayala DO Main Office [address] [place] [address] 05/03/2020 09:18:49 05/03/2020 10:24:50 Postmenopausal bleeding 73178495 N95.0 Cyst of vagina 21581866 N89.[address] ress incontinence 62272300 N39.3 Pain in pelvis 18380661 R10.2 Granulatio n tissue at vaginal vault 91239318 N76.89 [id number] Yeyo Ayala DO Main Office [address] [place] [address] 05/21/2020 13:54:24 05/21/2020 14:36:18 Postcoital bleeding 56590978 N93.0 Mixed urin jonelle incontinence 796505470 N39.46 Vaginal lesion 495075074 N94.89 Female rec tocele co-occurrent with enterocele 112220563 N81.6 Urinary incontinence 165 269880 R32 82731 Yeyo Ayala DO Main Office [address] [place] [address] 06/12/2020 11:24:59 06/12/2020 11:51:06 Increased frequency of urination 692760621 R35.0 Urgent shelbie max to urinate 01524835 R39.15 Female str ess incontinence 58812595 N39.3 surgery scheduled [id number] Yeyo Ayala DO Main Office [address] [place] [address] 06/26/2020 08:41:08 06/26/2020 09:28:48 Mixed urinary incontinence 856244750 N39.46 Postcoital bleeding 4888 0000 N93.0 Vaginal lesion 894488887 N94.89 posterior vaginal wall, will order u/sfirst Female rec tocele co-occurrent with enterocele 016685446 N81.6 Urinary incontinence 165 016779 R32 [id number] Yeyo Ayala DO Main Office [address] [place] [address] 07/11/2020 07:50:13 07/11/2020 10:20:24 [id number] Yeyo Ayala DO Main Office [address] [place] [place] [address] 2020 10:37:15 2020 11:20:25 Pain in pelvis 52267568 R10.2 Postoperative pain 94342 9007 G89.18 Hormone re placement therapy 903909441 Z79.890 96249 Yeyo Ayala DO Main Office [address] [place] [address] 07/25/2020 08:46:06 07/25/2020 09:55:03 Postoperative visit 624245587 Z09 Microscopic hematuria 19 0902184 R31.29 Postoperative pain 94049 9007 G89.18 Right flank pain 7043049 09 R10.9 Right lowe r quadrant pain 996215548 R10.[address] [place] [id number] Yeyo Ayala DO Main Office [address] [place] [address] 08/01/2020 10:08:16 08/01/2020 11:38:51 Postoperative pain 052758068 G89.[address] ayala, but this might be muscular/t endon pain 24983 Yeyo Ayala DO Main Office [address] [place] [place] [address] 08/15/2020 14:08:11 08/15/2020 15:34:38 Postoperative visit 875692319 Z09 Spasm of u rinary bladder 145522541 N32.89 Pain in pelvis 89760665 R10.2 48705 Yeyo Ayala DO Main Office [address] [place] [address] 08/29/2020 13:18:59 08/29/2020 13:58:39 Spasm of urinary bladder 796055243 N32.89 improved Pain in pelvis 40039801 R10.2 Postoperative visit 1836 58413 Z09 32477 Yeyo Ayala DO Main Office [address] [place] [address] 10/30/2020 08:43:08 10/30/2020 09:41:36 Renewal of prescription 606853129 Z76.0 Spasm of u rinary bladder 821466871 N32.89 Menopausal symptom 85261 002 E89.41 hormone labs today Right lowe r quadrant pain 679648429 R10.31 with bm and intercours e Pain assoc iated with defecation 589194551 K62.89 gi consult [id number] Yeyo Ayala DO Main Office [address] [place] [address] 06/14/2021 10:44:18 06/14/2021 11:46:52 Overactive urinary bladder 719926265 N32.81 Menopausal flushing 1984 23415 N95.1 Screening for mental disorders 903933402 Z13.89 Gynecologi c examination 21467047 Z01.411 pap Right lowe r quadrant pain 524632484 R10.31 constant. consider adhesions. f/u one month for meds, discuss possible lap and destructio n of adhesions if present. Pain in pelvis 34772756 R10.2 Microscopic hematuria 19 8818556 R31.29 65097 Yeyo Ayala DO Main Office [address] [place] [address] 07/16/2021 08:53:27 07/16/2021 10:05:10 Acute urinary tract infection 000469131 N30.80 Pain in pelvis 85012346 R10.2 Menopausal symptom 75866 002 N95.1 Leukocytes in urine 2757 34583 R82.79 Urinary tr act infectious disease 53481588 N39.0 20867 Yeyo Ayala DO Main Office [address] [place] [place] [address] 07/23/2021 09:05:36 07/23/2021 10:51:05 Pain in pelvis 78838104 R10.2 Left lower quadrant pain 600735536 R10.32 Increased frequency of urination 735446286 R35.0 65555 Yeyo Ayala DO Main Office [address] [place] [address] 08/06/2021 13:46:44 08/06/2021 14:43:23 Increased frequency of urination 314562138 R35.0 Chronic in terstitial cystitis 711488022 N30.10 Right lowe r quadrant pain 439213348 R10.31 Urgent shelbie max to urinate 55883063 R39.15 98072 Yeyo Ayala DO Main Office [address] [place] [address] 10/16/2021 09:04:10 10/16/2021 10:22:45 Renewal of prescription 418598749 Z76.0 Acute urin jonelle tract infection 504192043 N39.0 requesting culture results from [facility]. if we don't receive them today, i will send out her urine sample today for culture and sensitivit y Candidal vulvovaginitis 38361114 B37.3 Pain in pelvis 57425556 R10.2 considerin g robotic laser lap, possible LSO Deep pain on intercourse 592045602 N94.12 Chronic in terstitial cystitis 502226799 N30.10 Dysuria 19206137 R30.0 Headache 36399749 R51.9 d/c elmiron to see if headache subsides History of endometriosis 2154604065 2813216 Z87.42 [id number] Yeyo Ayala DO Main Office [address] [place] [address] 12/11/2021 10:55:03 12/11/2021 11:39:05 Bacterial vaginosis 490534955 N76.0 Candidal vulvovaginitis 98445255 B37.31 Chronic in terstitial cystitis 091583490 N30.10 uribel is helping her symptoms Health Concerns Section Related Observation LastModified by Organization Detai ls LastModified Time None Recorded Concern Status LastModified by Organization Details LastModified Time None Recorded Advance Directives Directive N: Payers Insurance Date Sequence Insurance Name Policy Number Policy Yip Covered Member ID Yip Member ID Guarantor Name 07/18/2021 1 [place] [employer] [place] [id number] 1 Mee E Gross [id number] Mee E Gross 07/18/2021 1 [facility] (O) Mee E Gross [id number] Mee E Gross 07/18/2021 1 [facility] [id number] Mee E Gross [id number] Mee E Gross 07/18/2021 1 [facility] (PPO) Mee E Gross [id number] Mee E Gross 12/30/2021 1 [employer] Mee E Gross [id number] Mee E Gross 07/18/2021 1 [employer] (POS) Mee E Gross [id number] Mee E Gross Notes Date Note Type [...] Ayala, DO [address], [place], [address], [facility], 08/19/2021 15:44:37 10/16/2021 text/html f/u for pelvic p ain, IC, painful bladder, and recent UTI and treatment. was seen at [facility] thursday for dysuria and blood [...] endometriosis. Yeyo Ayala DO [address], [place], [address], [facility], 10/20/2021 12:50:27 12/11/2021 text/html went to the [facility] two weeks ago, got [place] the [place], later that night she had intense vaginal itching, burning, swelling. went to PCP, was given flagyl and diflucan. itching persists and is spreading to perineum. Yeyo Ayala DO [address], [place], [address], [facility], 12/28/2021 10:18:15 OBGyn Episode Ob Episode Information Episode Created Date Number of Fetuses Patient Bloodtype Patient rh Status Prepregnancy Weight lbs Domestic Partner Domestic Partner Phone Father Name Learning Administrator Status 09/17/19 17 1 CLOSED Fetus Data [...] Complications Tubal Sterilization Discharge Date Comments 3 [facility] idural 36 true 72 Discharge Information Feeding Method Contraceptive Method Maternal HG B and HCT Levels Ob Episode Information Episode Created Date Number of Fetuses Patient Bloodtype Patient rh Status Prepregnancy Weight lbs Domestic Partner Domestic Partner Phone Father Name Learning Administrator Status 09/17/19 17 1 CLOSED Fetus Data [...] Complications Tubal Sterilization Discharge Date Comments 9 [facility] idural 36 24 Discharge Information Feeding Method Contraceptive Method Maternal HG B and HCT Levels
--- NOTE | 2024-08-11 15:11 | HMH.EDGENADL ---
Discharge Plan Disposition Patient Disposition: Home, Self-Care Condition: Good Prescriptions Prescriptions: New prednisone 20 mg tablet 40 mg PO DAILY 3 Days Qty: 6 0RF epinephrine [EpiPen] 0.3 mg/0.3 mL auto-injector 0.3 mg IM Q10M PRN (Reason: anaphylaxis) Qty: 1 2RF Rx Instructions: for 2 doses No Action fluconazole [Diflucan] 100 mg tablet 100 mg PO DAILY 3 Days Qty: 3 0RF amlodipine [Norvasc] 5 mg tablet 5 mg PO DAILY Qty: 30 2RF Myrbetriq 50 mg tablet extended release 24 hr 50 mg PO DAILY Qty: 90 3RF pantoprazole 40 mg tablet,delayed release (DR/EC) 40 mg PO DAILY Qty: 90 1RF Rx Instructions: TAKE ONE TABLET BY MOUTH EVERY DAY diclofenac sodium 75 mg tablet,delayed release (DR/EC) 75 mg PO BID PRN (Reason: pain) Qty: 20 0RF Referrals Follow up/Referrals: Greer Donald APRN [Primary Care Provider, Family Practice] - See instructions Activity Restrictions/Add. Instructions Additional Instructions/Restrictions: You were evaluated in the emergency department today. Please follow-up very closely with your primary care provider. Keep your EpiPen on hand in case of future allergic reactions. Take Benadryl every 8 hours as needed for allergic type symptoms. Return to the emergency department for new or worsening symptoms. Clinical Impressions Clinical Impression: Allergic angioedema Stand Alone Forms Stand Alone Forms: Work/School Release Instructions Patient Instructions: DI for Food Allergy Print Language Print Language: Occitan Discharge ED Provider: Valentina Recinos General Adult HPI <Otto Salamanca MD - Last Filed: 08/11/24 15:13> General Chief complaint: Allergic Reaction Stated complaint: sore throat, feels like something is stuck Time Seen by Provider: 08/11/24 14:51 Mode of Arrival: Ambulatory Source of Information: Patient Description of Symptoms (Recalled from ER Triage Doc. by RN): pt reports feeling like shes having an allergic reaction after eating lunch. took 50mg of benadryl @1300 History of Present Illness HPI narrative: Please note that above description of symptoms, in this electronic medical record under categorization of recalled from ER triage doctor by RN are reflective of an initial nursing assessment, however, is not reflective of my full history and physical exam that was personally taken and clarified. Consequentially, this preceding description of symptoms, which may include the patient's categorized chief complaint in the EMR, do not reflect my personal clinical impression, and the ultimate description of history of present illness and patient stated complaints should be deferred to this section of the note. Unless stated otherwise or congruent with this section of the note, additional signs, symptoms, or incongruence should be interpreted as inaccurate with my clinical impression. Related Data Previous Rx's ?Medication ?Instructions ?Recorded diclofenac sodium 75 mg 75 mg PO BID PRN pain #20 tabs 03/05/24 tablet,delayed release pantoprazole 40 mg tablet,delayed 40 mg PO DAILY #90 tabs 03/24/24 release amlodipine 5 mg tablet (Norvasc) 5 mg PO DAILY #30 tabs 06/06/24 fluconazole 100 mg tablet 100 mg PO DAILY 3 days #3 tabs 07/09/24 (Diflucan) mirabegron 50 mg tablet,extended 50 mg PO DAILY #90 tabs 08/04/24 release 24 hr (Myrbetriq) epinephrine 0.3 mg/0.3 mL 0.3 mg (0.3 mL) IM Q10M PRN 08/11/24 injection, auto-injector (EpiPen) anaphylaxis #1 ea prednisone 20 mg tablet 40 mg (2 x 20 mg) PO DAILY 3 days 08/11/24 #6 tabs Allergies Allergy/AdvReac Type Severity Reaction Status Date / Time chlorhexidine Allergy Mild Hives Verified 07/09/24 12:58 hydrocodone (From NORCO) Allergy Mild Hives Verified 07/09/24 12:58 hydromorphone (From Dilaudid) Allergy Unknown Verified 07/09/24 12:58 allergy reaction [facility] <Otto Salamanca MD - Last Filed: 08/11/24 15:13> [facility] Disclaimer: The information contained in this section may have been updated after the patient was seen, as this information can be updated by other users. Medical History SOB (shortness of breath) History of sinus tachycardia Abnormal electrocardiogram [ECG] [EKG] Claudication of both lower extremities Bacterial vaginosis Bilateral cold feet Pain in right lower leg Right leg swelling Sinusitis Edema of both lower extremities Palpitations Dizziness Dyspnea Chest pain Primary HSV infection of mouth Cephalalgia Acute herpes zoster neuropathy Trigeminal neuralgia of right side of face Interstitial cystitis Migraine History of kidney stones Hypertension History of stroke 11/2019 OAB (overactive bladder) GERD (gastroesophageal reflux disease) Pelvic pain Left arm pain Contusion of left upper arm Sprain of left shoulder Fall Sinusitis Flank pain, acute Ear pain UTI (urinary tract infection) Surgical History History of loop recorder History of cholecystectomy H/O colonoscopy History of suburethral sling procedure History of tubal ligation History of appendectomy 1994 History of hysterectomy partial (has 1 ovary), due to benign reason 05/2015 Family History Mother Hyperlipidemia Sister Hyperlipidemia Social History Smoking Status: Never smoker alcohol intake: current alcohol intake frequency: holidays/special occasions only substance use type: denies use current occupational status: employed and other Travel in the last 8 weeks?: None household members: spouse and children housing: house marital status: number of children: 2 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 current occupational exposures/hazards: No caffeine: Yes Have you lived/traveled outside US in past 30 days?: No Contact w/someone who lives/traveled outside US past 30 days?: No Exposure to someone with infectious disease in past 14 days?: No Do you have a fever (greater than 100.4 F or 38 C)?: No Have you tested positive for COVID-19?: No Exposed to someone with COVID-19 in past 14 days?: No Do you have a sore throat?: No Do you have a cough?: No Do you have any weakness?: No Do you have any diarrhea?: No Are you experiencing any unusual bleeding?: No Do you have any muscle aches/pain?: No Do you have any abdominal pain?: No Are you experiencing loss of taste or smell?: No Other Medical History Have you received the Flu Vaccine for this season: No Have you received the Pneumonia Vaccine: No <Otto Salamanca MD - Last Filed: 08/11/24 15:13> ROS Obtained: Yes All systems reviewed & no additional complaints except as documented Physical Exam <Otto Salamanca MD - Last Filed: 08/11/24 15:13> General General appearance: alert and other (Facial erythema, reportedly new) Head Head exam: atraumatic and normocephalic Eye Eye exam: Present normal appearance, PERRL and EOMI ENT ENT exam: Present normal oropharynx Neck Neck exam: Present normal inspection, full ROM and trachea midline Respiratory Respiratory exam: Absent respiratory distress, wheezes, stridor, accessory muscle use or prolonged expiratory phase Cardiovascular Cardiovascular exam: Present normal rhythm, tachycardia and other (Pulses equal symmetric in upper and lower extremities) Abdominal Exam Abdominal exam: Present soft; Absent distention, tenderness or pulsatile mass Extremities Exam Extremities exam: Absent edema Neurological Exam Neurological exam: Present alert, oriented X3 and CN II-XII intact; Absent motor sensory deficit Skin Skin exam: Present warm and dry; Absent diaphoresis or erythema Medical Decision Making <Otto Salamanca MD - Last Filed: 08/11/24 15:13> Medical Records Medical records reviewed: Yes I reviewed the patient's medical records. Screening: Per USPSTF and CDC recommendations, given the prevalence of disease in our region, it is our hospital?s policy to screen for HIV and viral Hepatitis for all patients aged 18 and over and those with ongoing risk factors. Royce Inquiry Pt receiving controlled substance: No Royce was queried for this patient: No Vital Signs: 08/11/24 14:47 08/11/24 15:00 08/11/24 15:30 Temperature 98.2 F Temperature Source Oral Pulse Rate 96 H 92 H Pulse Rate [Right] 104 H Respiratory Rate 20 Blood Pressure 131/82 101/80 L Blood Pressure [Right Arm] 146/91 H Blood Pressure Mean 87 Blood Pressure Mean [Right Arm] 109 02 Sat by Pulse Oximetry 99 97 96 Oxygen Delivery Method Room Air 08/11/24 16:30 08/11/24 17:00 08/11/24 17:28 Temperature 98.1 F Temperature Source Pulse Rate 96 H 99 H 100 H Pulse Rate [Right] Respiratory Rate 18 20 Blood Pressure 127/74 115/69 115/69 Blood Pressure [Right Arm] Blood Pressure Mean 81 80 Blood Pressure Mean [Right Arm] 02 Sat by Pulse Oximetry 100 98 Oxygen Delivery Method Orders (Tests/Meds): ED MEDICATIONS Discontinued Medications Generic Name Dose Route Start Last Admin Trade Name Freq PRN Reason Stop Dose Admin Dexamethasone 10 mg 08/11/24 14:57 08/11/24 15:33 Dexamethasone 4mg Tablet PO 08/11/24 14:58 10 mg ONCE ONE Administration Epinephrine HCl 0.3 mg 08/11/24 14:57 08/11/24 15:33 Epinephrine 1 Mg/Ml Ampul IM 08/11/24 14:58 0.3 mg ONCE ONE Administration Medical Decision Narrative: 39-year-old female presenting with concern for allergic reaction. She had a mild reaction to a cheese curds she had at a local establishment a while ago. Has not had them since. Today she had them again at lunch and states that she went to swallow the cheese curd, felt like she had a foreign body sensation in her throat. Continued to need to clear her throat, cough, etc., she did not swallow that she is cured she was able to spit it out. No difficulty breathing, lower respiratory tract irritation and cough. Her cough feels like it is coming from the back of her throat more so like foreign body or globus sensation. States that her face is red, no other rash was noted. Came in for further evaluation. She did take 50 mg of Benadryl prior to arrival. On arrival, she is very clinically well. She is tachycardic. Lungs are clear anterior and posterior bilaterally. No evidence of wheezes. No stridor. Patient's oropharyngeal exam is normal. Tachycardic, otherwise unremarkable exam. Differential includes anaphylaxis, among others. Patient to be given steroid and epinephrine for symptoms given 3 body systems involved. Prior to reevaluation, care handed off to oncoming physician. Youth Corrections Officer disclaimer Much of this encounter note is an electronic director corporate compliance spoken language to printed text. Electronic director corporate compliance of the spoken language may permit errors. Although I have reviewed the note, some errors may still exist. <Valentina Recinos, DO - Last Filed: 08/11/24 17:31> Vital Signs: 08/11/24 14:47 08/11/24 15:00 08/11/24 15:30 Temperature 98.2 F Temperature Source Oral Pulse Rate 96 H 92 H Pulse Rate [Right] 104 H Respiratory Rate 20 Blood Pressure 131/82 101/80 L Blood Pressure [Right Arm] 146/91 H Blood Pressure Mean 87 Blood Pressure Mean [Right Arm] 109 02 Sat by Pulse Oximetry 99 97 96 Oxygen Delivery Method Room Air 08/11/24 16:30 08/11/24 17:00 08/11/24 17:28 Temperature 98.1 F Temperature Source Pulse Rate 96 H 99 H 100 H Pulse Rate [Right] Respiratory Rate 18 20 Blood Pressure 127/74 115/69 115/69 Blood Pressure [Right Arm] Blood Pressure Mean 81 80 Blood Pressure Mean [Right Arm] 02 Sat by Pulse Oximetry 100 98 Oxygen Delivery Method Orders (Tests/Meds): ED MEDICATIONS Discontinued Medications Generic Name Dose Route Start Last Admin Trade Name Bobby PRN Reason Stop Dose Admin Dexamethasone 10 mg 08/11/24 14:57 08/11/24 15:33 Dexamethasone 4mg Tablet PO 08/11/24 14:58 10 mg ONCE ONE Administration Epinephrine HCl 0.3 mg 08/11/24 14:57 08/11/24 15:33 Epinephrine 1 Mg/Ml Ampul IM 08/11/24 14:58 0.3 mg ONCE ONE Administration Medical Decision Narrative: 39-year-old female presenting with concern for allergic reaction. She had a mild reaction to a cheese curds she had at a local establishment a while ago. Has not had them since. Today she had them again at lunch and states that she went to swallow the cheese curd, felt like she had a foreign body sensation in her throat. Continued to need to clear her throat, cough, etc., she did not swallow that she is cured she was able to spit it out. No difficulty breathing, lower respiratory tract irritation and cough. Her cough feels like it is coming from the back of her throat more so like foreign body or globus sensation. States that her face is red, no other rash was noted. Came in for further evaluation. She did take 50 mg of Benadryl prior to arrival. On arrival, she is very clinically well. She is tachycardic. Lungs are clear anterior and posterior bilaterally. No evidence of wheezes. No stridor. Patient's oropharyngeal exam is normal. Tachycardic, otherwise unremarkable exam. Differential includes anaphylaxis, among others. Patient to be given steroid and epinephrine for symptoms given 3 body systems involved. Prior to reevaluation, care handed off to oncoming physician. Youth Corrections Officer disclaimer Much of this encounter note is an electronic director corporate compliance spoken language to printed text. Electronic director corporate compliance of the spoken language may permit errors. Although I have reviewed the note, some errors may still exist. DO Jorje: On my assessment of the patient, she is sitting upright in no acute stress and states that the medications given completely resolved her symptoms. She was observed here in the emergency department for a period of 2.5 hours afterward with no recurrence of symptoms, no rebound symptoms. Given this, it is felt that she is appropriate for discharge home with prescriptions for EpiPen and steroids and instructions to avoid allergens. She was given strict return precautions and instructions for close follow-up with primary care Critical Care <Otto Salamanca MD - Last Filed: 08/11/24 15:13> Critical Care Time Critical Care Time: No <Valentina Recinos DO - Last Filed: 08/11/24 17:31> Critical Care Time Critical Care Time: Yes Attestation: On 08/11/24, the high probability of a clinically significant, sudden or life threatening deterioration of the following system(s) required my full and direct attention, intervention and personal management. The time I documented below is in addition to time spent performing reported procedures but includes the following listed in this critical care notation. Total Time Total Critical Care Time: 35
[2024-08-11 15:30] VITALS: BP 101/80; PULSE 92; O2SAT 96
[2024-08-11] MEDS: DEXAMETHASONE 4MG TABLET 10 MG PO (15:33)
[2024-08-11] MEDS: EPINEPHrine 1 MG/ML AMPUL 0.3 MG IM (15:33)
[2024-08-11 16:30] VITALS: BP 127/74; PULSE 96; O2SAT 100
[2024-08-11 17:00] VITALS: BP 115/69; PULSE 99; RESP 18; O2SAT 98
[2024-08-11 17:28] VITALS: BP 115/69; PULSE 100; RESP 20; TEMP 36.7; O2SAT 100
== END 2024-08-11 17:29 | disposition home or self-care (01) ==
PROVIDERS: Emergency Provider Emergency Medicine; PCP Nurse Practitioner Family
DX: T78.3XXA Angioneurotic edema, initial encounter (principal); K50.90 Crohn's disease, unspecified, without complications; F41.9 Anxiety disorder, unspecified; I10 Essential (primary) hypertension
CPT/HCPCS: 96372; 99283; J0171; J8540

== ENCOUNTER 2024-10-07 16:29 | Outpatient (CLI) | payer BC, SELFPAY ==
--- OUTSIDE RECORDS SUMMARY | 2024-10-07 16:31 | XMS_ITS | Encounter Summary ---
Author Organization [employer] ([place], [place], [place], [place]) Address [address] [place] [address] Care Team Providers Care Shift Lab Technician Name Role Phone Wolfgang Cunningham MD Primary Care Provider [phone] Reason for Visit * Reason Comments Medication Refill Encounter Details Date Type Department Care Team (Late st Contact Info) Description 06/24/2023 Refill [facility] Electrophysiology [address] [place], [place] [id number] Andres Stewart MD [address] [place] [address] [address] [place] [address] Social History Tobacco Use Types Packs/Day Years Used Date Smoking Tobacco: Never Smokeless Tobacco: Never Alcohol Use Standard Drinks/Week Comments Never 0 (1 standard drink = 0.6 oz pur e alcohol) Utilities Answer Date Recorded In the past 12 months, has t he electric, gas, oil, or water [employer] threatened to shut off services in your home? No 06/12/2023 Food Insecurity Answer Date Recorded Within [...] Do you speak a language other than Puerto Rican at [place]? No 06/12/2023 Do you want help with school or training? For example, starting or completing job training or getting a high school diploma, GED or equivalent. No 06/12/2023 Physical Activity Answer Date Recorded Number of minutes of exercise per week 0 06/12/2023 Substance Use Answer Date Recorded How [...] on filedocumented in this encounter Care Teams Shift Lab Technician Relationship Specialty Start Date End Date Wolfgang Cunningham MD PCP - General Family Medicine 06/12/23 documented as of this encounter
--- OUTSIDE RECORDS SUMMARY | 2024-10-07 16:31 | XMS_ITS | Referral Summary ---
Author Organization [employer] ([place], [place], [place], [place]) Address [address] [place] [address] Care Team Providers Care Yarn Twister Name Role Phone Wolfgang Cunningham MD Primary Care Provider [phone] Allergies Active Allergy Reactions Criticality Noted Date [...] Do you speak a language other than Portuguese at [facility]? No 06/12/2023 Do you want help [...] on file Medical Devices Implanted Type Area Advertising Statistical Clerk Device Identifier Shelf Expiration Date Model / Serial / Lot Loop Recorder-07/22/2022 Implanted:07/23/19 23 by Andres Stewart MD (Quantity not on file) LOOP RECORDER [employer] LINQ II / [id number] / Description:07-21-23 RELEASED REMOTE MONITORING TO [facility] [place] Procedures Procedure Name Priority Date/Time Associated Diagnosis Comments LIPID PANEL Routine 06/12/2023 2:29 AM EDT from Last 3 Months or Most Recently Relevant to Health Maintenance Results * (ABNORMAL) Lipid panel (06/12/2023 2:29 AM EDT) Triglycerides 124 0 - 249 mg/dL 06/12/2023 3:35 AM EDT [facility] Cholesterol 172 0 - 199 mg/dL 06/12/2023 3:35 AM EDT [facility] Comment: 200 to 239 mg/dL = Moderate (borderline) >239 mg/dL = High HDL Cholesterol 39(L) >=40 mg/dL 06/12/2023 3:35 AM EDT [facility] Comment: >=60 mg/dL = Desirable <40 mg/dL = Increased Risk All other components are listed individually or are calculations VLDL Cholesterol 24.8 5 - 40 mg/dL 06/12/2023 3:35 AM EDT [facility] Cholesterol/HDL ratio 4.4(H) 0.0 - 3.2 06/12/2023 3:35 AM EDT [facility] LDl/HDL Ratio 3 0 - 4 06/12/2023 3:35 AM EDT [facility] RISK COMP 4 06/12/2023 3:35 AM EDT [facility] LDL Cholesterol, Calculated 108(H) 0 - 99 mg/dL 06/12/2023 3:35 AM EDT [facility] Blood Venipuncture / Unknown 06/12/2023 2:29 AM EDT 06/12/2023 2:55 AM EDT us Hannah Erwin PA-C LAB BLOOD ORDERABLES Final R esult [facility] [address] [phone] from Last 3 Months or Most Recently Relevant to Health [place] [id number] BLUE CROSS/BLUE SHIELD Advance Directives For more information, please contact: [phone] Documents on File Type Date Recorded Patient Master [employer] Expl anation Advance Directives and Livin g [...] 3:28 PM 07/23/2022 4:25 AM Care Teams Yarn Twister Relationship Specialty Start Date End Date Wolfgang Cunningham MD PCP - General Family Medicine 06/12/23
--- OUTSIDE RECORDS SUMMARY | 2024-10-07 16:32 | XMS_ITS | Clinical Summary ---
Author Organization [employer] ([place], [place], [place], [place]) Address [address] [place] [address] Care Team Providers Care Solar/Renewable Energy Sales Name Role Phone Wolfgang Cunningham MD Primary Care Provider Allergies Active Allergy Reactions Criticality Noted Date [...] Do you speak a language other than Turkmen at [place]? No 06/12/2023 Do you want help with [...] 07/18/2004 Breast Cancer Screening 2023 COVID-19 VACCINE (2023-2 5 season) 2023 Tobacco Cessation Counseling and Screening (12+) 06/11/2024 06/12/2023 Influenza Vaccine (#1) 2024 Lipid Panel 06/11/2026 06/12/2023 Pneumococcal Vaccine: 0-49 Years Aged Out No longer eligible based on patient's age to complete this topic Medical Devices Implanted Type Area Welding Equipment Repairer Supervisor Device Identifier Shelf Expiration Date Model / Serial / Lot Loop Recorder-07/22/2022 Implanted:07/23/19 23 by Andres Stewart MD (Quantity not on file) LOOP RECORDER [employer] LINQ II / [id number] / Description:07-21-23 RELEASED REMOTE MONITORING TO [facility] [place] Procedures Procedure Name Priority Date/Time Associated Diagnosis Comments LIPID PANEL Routine 06/12/2023 2:29 AM EDT from Last 3 Months or Most Recently Relevant to Health Maintenance Results * (ABNORMAL) Lipid panel (06/12/2023 2:29 AM EDT) Triglycerides 124 0 - 249 mg/dL 06/12/2023 3:35 AM EDT [facility] Cholesterol 172 0 - 199 mg/dL 06/12/2023 3:35 AM EDT [facility] Comment: 200 to 239 mg/dL = Moderate (borderline) >239 mg/dL = High HDL Cholesterol 39(L) >=40 mg/dL 06/12/2023 3:35 AM EDT [facility] Comment: >=60 mg/dL = Desirable <40 mg/dL = Increased Risk All other components are listed individually or are calculations VLDL Cholesterol 24.8 5 - 40 mg/dL 06/12/2023 3:35 AM EDT [facility] Cholesterol/HDL ratio 4.4(H) 0.0 - 3.2 06/12/2023 3:35 AM EDT [facility] LDl/HDL Ratio 3 0 - 4 06/12/2023 3:35 AM EDT [facility] RISK COMP 4 06/12/2023 3:35 AM EDT [facility] LDL Cholesterol, Calculated 108(H) 0 - 99 mg/dL 06/12/2023 3:35 AM EDT [facility] Blood Venipuncture / Unknown 06/12/2023 2:29 AM EDT 06/12/2023 2:55 AM EDT Hannah Erwin PA-C LAB BLOOD ORDERABLES Final R esult [facility] [address] [place] [id number] [phone] from Last 3 Months or Most Recently Relevant to Health Maintenance Insurance BLUE CROSS/BLUE SHIELD Advance Directives For more information, please contact: [phone] Documents on File Type Date Recorded Patient Paster Supervisor Expl anation Advance Directives and Livin g [...] 3:28 PM 07/23/2022 4:25 AM Care Teams Solar/Renewable Energy Sales Relationship Specialty Start Date End Date Wolfgang Cunningham MD PCP - General Family Medicine 06/12/23
--- OUTSIDE RECORDS SUMMARY | 2024-10-07 16:32 | XMS_ITS | Clinical Summary ---
Author Organization Healthcare Address [address] [place] [address] Care Team Providers Care Stone Lathe Operator Name Role Phone Unavailable Primary Care Provider [...]
--- OUTSIDE RECORDS SUMMARY | 2024-10-07 16:32 | XMS_ITS | Clinical Summary ---
[facility] Address [address] [place] [address] Care Team Providers Care Immigration Associate Name Role Phone Wolfgang Cunningham MD Primary Care Provider + Allergies Active Allergy Reactions Criticality Noted Date Comments Hydrocodone-Acetaminophen Itching Medium 04/22/2017 Medications pantoprazole (PROTONIX) 40 MG EC tablet Take 1 tablet by mouth Daily. Active nitroglycerin (NITROSTAT) 0.[address] 1 TABLET BY MOUTH UNDER THE TONGUE EVERY 5 MINUTES NEEDED FOR CHEST PAIN. NO MORE THEAN 3 DOSE 04/22/2022 Active metoprolol succinate XL (TOPROL-XL) 50 MG 24 hr tablet Take 1 tablet by mouth Daily. 30 tablet 11 06/20/2022 Active amoxicillin-cla vulanate (AUGMENTIN) 875-125 MG per tabletIndicatio ns:Acute recurrent maxillary sinusitis Take 1 tablet by mouth 2 (Two) Times a Day. 14 tablet 09/02/2022 Active predniSONE (DELTASONE) 5 MG tabletIndicatio ns:Acute recurrent maxillary sinusitis Take 1 tablet by mouth Daily. 14 tablet 09/02/2022 Active fluconazole (DIFLUCAN) 150 MG tablet Take 1 tablet by mouth Daily. 1 tablet 1 09/02/2022 Active Mirabegron ER (Myrbetriq) 50 MG tablet sustained-relea se 24 hour 24 hr tablet TAKE ONE TABLET BY MOUTH EVERY DAY 30 tablet 2 01/15/2023 Active Active Problems Problem Noted Date Diagnosed Date Class 3 severe obesity due t o excess calories with serious comorbidity and body mass index (BMI) of 40.0 to 44.9 in adult 03/24/2022 Assessment & Plan (03/24/2022 9:43 AM EST): Patient's (Body mass index is 41.13 kg/m .) indicates that they are morbidly/severely obese (BMI > 40 or > 35 with obesity - related health condition) with health conditions that include hypertension, GERD and Possibly TAYLOR . Weight is worsening. BMI is above average; BMI management plan is completed. We discussed portion control, increasing exercise and pharmacologic options including Metformin. Dietary goal: Continue small portion sizes Exercise goal: Add body weight resistance training to exercise regimen Behavioral goal: Eat earlier in the evening Discussed the addition of metformin to try to achieve some weight loss. Discussed metoprolol being a medication that can lead to weight gain and this may be true based on history. She will discuss with cardiology at her upcoming appointment in June. As that visit approaches we may also consider phentermine if cardiology gives the okay. Obesity related labs have been ordered. As long as there is no abnormality patient will start 500 mg once daily with food. Patient's weight increases risk of obstructive sleep apnea for which she has symptoms and an abnormal [place] Sleepiness Scale. Home sleep study will be arranged. Family History Medical History Relation Name Comments Stroke Maternal Grandmother Cheyanne Armando Arthritis Mother Dafne Kelley Diabetes Mother Dafne Kelley Hyperlipidemia Mother Dafne Kelley Stroke Sister Radha Borrero Relation Name Status Comments Maternal Grandmother Cheyanne Armando Mother Dafne Kelley Sister Radha Borrero Social History Tobacco Use Types Packs/Day Years Used Date Smoking Tobacco: Never Smokeless Tobacco: Never Tobacco Cessation:Counseling Given: Not Answered Alcohol Use Standard Drinks/Week Comments Yes 0 (1 standard drink = 0.6 oz pur e alcohol) holidays only PHQ-2 Answer Date Recorded Retired PHQ-9: Brief Depression Severity Measure Score 0 03/24/2022 Abuse Screen Answer Date Recorded Unsafe at Home or Work/School Not on file Feels Threatened by Someone? Not on file 10/2022 Does Anyone Keep You from Co ntacting Others or Doint Things Outside the Home? Not on file 11/24/2022 Physical Sign of Abuse Present Not on file 1 Housing Stability Answer Date Recorded Current Living Arrangements Not on file 10/2022 Potentially Unsafe Housing Conditions Not on gab e 11/24/2022 Family and Community Support Answer El e Recorded Help with Day-to-Day Activities Not on file 11/24/2022 Lonely or Isolated Not on file 11/24/2022 Employment Answer Date Recorded Do you want help finding or keeping work or a jayce b? Not on file 11/24/2022 Disabilities Answer Date Recorded Concentrating, Remembering, or Making Decisions Difficulty Not on file 11/24/2022 Doing Errands Independently Difficulty Not on fi le 11/24/2022 Education Answer Date Recorded Help with school or training? Not on file Preferred Language Not on file 11/24/2022 PHQ-2 Answer Date Recorded Retired PHQ-9: Brief Depression Severity Measure Score 0 03/24/2022 Comments No Sex and Gender Information Value Date Recorded Sex Assigned at Not on file Legal Sex Female 11:43 AM EDT Gender Identity Not on file Sexual Orientation Not on file Last Filed Vital Signs Vital Sign Reading Time Taken Comments Blood Pressure 104/76 09/02/2022 12:48 PM EDT Pulse 72 09/02/2022 12:48 PM EDT Temperature 36.3 C (97.4 F) 09/02/2022 12:48 PM EDT Respiratory Rate 14 09/02/2022 12:48 PM EDT Oxygen Saturation 98% 09/02/2022 12:48 PM EDT Inhaled Oxygen Concentration - - Weight 105 kg (232 lb) 09/02/2022 12:48 PM EDT Height 162.6 cm (5' 4.02 ) 09/02/2022 12:48 PM E DT Body Mass Index 39.8 09/02/2022 12:48 PM EDT Plan of Treatment Health Maintenance Due Date Last Done Comments Annual Gynecologic Pelvic an d Breast Exam 1985 TDAP/TD VACCINES (1 - Tdap) 07/18/2002 ANNUAL PHYSICAL 06/20/2016 HEPATITIS C SCREENING 06/20/2016 MAMMOGRAM 2023 COVID-19 Vaccine ( - 2023-2 5 season) 2023 INFLUENZA VACCINE 11/16/2024 Pneumococcal Vaccine 0-49 Aged Out No longer eligible based on patient's age to complete this topic Insurance PPO Member Subscriber Plan / Payer (Ef fective 2022-Present) Name:Mee Talbert Relation to Subscriber:Self Name:Mee Talbert Payer ID:[id number] (NAIC) Type:Not on file Address: [facility] [address] [place] [id number] Care Teams Immigration Associate Relationship Specialty Start Date End Date Wolfgang Cunningham MD PCP - General 10/30/14
--- OUTSIDE RECORDS SUMMARY | 2024-10-07 16:32 | XMS_ITS | Encounter Summary ---
Author Organization Healthcare Address [address] [place] [address] Care Team Providers Care Building Service Worker Name Role Phone Unavailable Primary Care Provider Unavailabl e Encounter Details Date Type Department Care Team (Late st Contact Info) Description 07/27/2020 Refill [facility] [address] [place] [address] Ramesh Rosado MD [address] [facility] [address] [place] [address] Social History Tobacco Use Types [...]
[2024-10-07 17:13] LABS: Hematocrit 41.1 % (37.0-47.0); Hemoglobin 14.0 g/dL (12.2-16.2); Immature Granulocytes % 0.1 %; Mean Corpuscular HGB Conc 34.1 g/dL (31.8-35.4); Mean Corpuscular Hemoglobin 29.0 pg (27.0-31.2); Mean Corpuscular Volume 85.3 fl (81-99); Nucleated Red Blood Cells % 0 %; Platelet Count 266 K/mm3 (142-424); Red Blood Count 4.82 M/mm3 (4.20-5.40); Red Cell Distribution Width-SD 36.8 fL; White Blood Count 7.6 K/mm3 (4.8-10.8)
[2024-10-07 17:58] LABS: Albumin Level 4.3 g/dl (3.5-5.0); Chloride 106 mmol/L (98-107); Potassium 4.4 mmoL/L (3.5-5.1); Sodium 139 mmol/L (136-145)
[2024-10-07 18:01] LABS: Alanine Aminotransferase 29 U/L (12-78); Albumin/Globulin Ratio 1.4 (1.1-1.8); Alkaline Phosphatase 81 U/L (38-126); Anion Gap 11.4 mEq/L (5-15); Aspartate Amino Transferase 26 U/L (14-36); Bilirubin,Total 0.4 mg/dl (0.2-1.3); Blood Urea Nitrogen 14 mg/dl (7-17); Carbon Dioxide 26 mmol/L (22.0-30.0); Cholesterol 190 mg/dl (140-200); Creatinine,Serum 0.70 mg/dl (0.52-1.04); Estimated Glomerular Filt Rate 92 ml/min (>60); GFR (African American) 112 ML/MIN (>60); Globulin 3.0 g/dL (1.3-3.2); Glucose 97 mg/dl (74-100); Total Protein,Serum 7.3 g/dl (6.3-8.2); Triglycerides 166 mg/dl (30-150)
[2024-10-07 18:02] LABS: Calcium 9.5 mg/dl (8.4-10.2); HDL Cholesterol 44 mg/dl (40-60)
[2024-10-07 18:09] LABS: C-Reactive Protein 5.1 mg/L (0-4)
[2024-10-07 18:17] LABS: 25-OH Vitamin D, Total 40.5 ng/mL (30-100)
[2024-10-07 18:22] LABS: Free T4 (Free Thyroxine) 1.30 ng/dl (0.78-2.19)
[2024-10-07 18:33] LABS: Thyroid Stimulating Hormone 1.49 uIU/mL (0.465-4.68)
[2024-10-07 19:09] LABS: Folate 8.07 ng/mL
[2024-10-07 21:14] LABS: Vitamin B12 279 pg/mL (239-931)
[2024-10-11 17:23] LABS: Antinuclear Antibodies, IFA Negative (.)
[2024-10-17 05:24] LABS: RA Latex Turbid. <10.0
== END 2024-10-07 23:59 | disposition home or self-care (01) ==
LOC: LAB 16:30
PROVIDERS: PCP Physician Assistant; Visit Provider Physician Assistant
DX: R53.83 Other fatigue (principal)
CPT/HCPCS: 36415; 80053; 80061; 82306; 82607; 82746; 84439; 84443; 84445; 85025; 85651; 86038; 86140; 86376; 86431

== ENCOUNTER 2025-01-02 14:30 | Outpatient (CLI) | payer BC, SELFPAY ==
[2025-01-02 18:11] LABS: C-Reactive Protein 3.5 mg/L (0-4)
== END 2025-01-02 23:59 ==
LOC: LAB.DROPOF 01-03 10:43
PROVIDERS: PCP Nurse Practitioner Family; Visit Provider Nurse Practitioner Family
DX: G50.0 Trigeminal neuralgia (principal)
CPT/HCPCS: 86140

== ENCOUNTER 2025-01-17 09:45 | Outpatient (RCR) | payer BC, SELFPAY ==
--- NOTE | 2025-01-17 16:18 | HMH.PTOPEV ---
PT Evaluation Rehab PT Outpatient Evaluation Start: 01/17/25 16:05 Freq: Status: Active Protocol: Document 01/17/25 16:05 PHORNE (Rec: 01/17/25 16:18 PHORNE [id number]) E-signed By Nathan Orta, PT Outpatient Therapy Subjective History Subjective History This is the initial PT eval for Mee Talbert, 39 yowf who presents with c/o dizziness x ~ 2 wks with insidious onset of symptoms. She reports symptoms last for hours to days without stopping and in any position without abatement. She reports she has considerably less symptoms now and is continuing to take prescribed steroid medications which help her symptoms. She had MRI performed which was essentially negative. She has prior hx of R side trigeminal neuralgia secondary to a spider bite on my face that ate up all my sinuses on that side. She reports R eye visual changes and R ear tinnitus and pain which is worse at night that have been present since these new symptoms began. She also has a loop recorder in place due to heart palpitations. Chief Complaint Other Symptom Type Other Symptoms Relieved By Prescription Meds Vertigo Eval Oculomotor Examination Smooth Pursuits: Normal Saccades: Abnormal Gaze-Evoked Absent Nystagmus: Vergence: Normal Comment: Symptoms present with saccadic testing. Vestibular-Ocular Reflex (VOR) VOR Horizontal: Symptomatic VOR Vertical: Symptomatic Head Thrust Test Negative Right: Head Thrust Test Negative Left: Comment: Symptoms noted with VOR testing. Positional Testing [place] Right: Negative [place] Left: Negative Roll Test Right: Negative Roll Test Left: Negative Outpatient Therapy Assessment Impairments Problems/ Impaired Self Care/Self Management Impairmments Prognosis Rehab Potential Good Comment Pt given habituation exercises to help correct her dizziness. It appears most likely that patient symptoms are related to an underlying neurologic condition of unknown type resulting in a UVH. Clinical Impression Consistent with Yes Diagnosis PT Patient Goals PT Patient Goals PT Short Term No goals needed at this time Patient Goals Outpatient Therapy Plan of Care Treatment Plan May Include Therapeutic Exercise Yes Including Home Exercise Program Eval/Re-Eval Yes Frequency Times per week 0 Duration Number of Weeks 0 Addendums This patient is a No candidate for social or vocational rehab ? Patient/Guardian Yes verbally acknowledges understanding of treatment program and consents to further treatment? Patient/Guardian Yes verbally acknowledges understanding of diagnosis, prognosis and goals for treatment? Eval Complexity PT Charges 18338 - High Complexity Shoulder/Elbow Eval Shoulder Objective Measurements Elbow Objective Measurements PHYSICIAN CERTIFICATION: I certify the specified therapy services for Mee Talbert are required, authorized, and reviewed every 30 days.
== END 2025-01-17 23:59 | disposition home or self-care (01) ==
LOC: PT 09:45
PROVIDERS: PCP Nurse Practitioner Family; Visit Provider Student in an Organized Health Care Education/Training Program
DX: J02.9 Acute pharyngitis, unspecified (principal)
CPT/HCPCS: 87070; 87077; 87186; 97163

== ENCOUNTER 2025-01-17 14:24 | Outpatient (CLI) | payer BC, SELFPAY ==
--- OUTSIDE RECORDS SUMMARY | 2025-01-18 10:07 | XMS_ITS | Clinical Summary ---
Author Organization Healthcare Address [address] [place] [address] Care Team Providers Care Topology Professor Name Role Phone Unavailable Primary Care Provider [...]
--- OUTSIDE RECORDS SUMMARY | 2025-01-18 10:07 | XMS_ITS | Clinical Summary ---
[facility] Address [address] [place] [address] Care Team Providers Care Furniture Builder Name Role Phone Wolfgang Cunningham MD Primary [...] which she has symptoms and an abnormal [place] Sleepiness Scale. Home sleep study will be [...] 06/20/2016 HEPATITIS C SCREENING 06/20/2016 MAMMOGRAM 2023 INFLUENZA VACCINE 09/16/2024 Pneumococcal Vaccine 0-49 Aged Out No longer eligible based on patient's age to complete this topic Insurance PPO Care Teams Furniture Builder Relationship Specialty Start Date End Date Wolfgang Cunningham MD PCP - General 10/30/14
--- OUTSIDE RECORDS SUMMARY | 2025-01-18 10:07 | XMS_ITS | Encounter Summary ---
Author Organization Healthcare Address [address] [place] [address] Care Team Providers Care Produce Associate Name Role Phone Unavailable Primary Care Provider Unavailabl e Encounter Details Date Type Department Care Team (Late st Contact Info) Description 07/27/2020 Refill [facility] [address] [place] [address] Ramesh Rosado MD [address] [facility] [address] [place] [address] Social History Tobacco Use Types [...]
--- OUTSIDE RECORDS SUMMARY | 2025-01-18 10:08 | XMS_ITS | Data Portability ---
Author Organization [facility] Address [address] [facility] [address] [place] [address] Care Team Providers Care Manager Car Name Role Phone FELICITA BRIAN Intermodal Owner Operator Truck Driver FELICITA BRIAN Referring Provider TREY DELACRUZ Primary Care Provider [phone] Assessment No assessment recorded. Plan of Treatment [...] in a dose pack 2020 021 LEANDRO [id number], [address], [place], [place], [id number], 10:23:27 Compound Gentamycin (120 mg/ 1000 mL normal saline) 2018 019 [email or web address] 9 Not available 9 11:48:09 mupirocin 2 % topical ointment 2018 019 kalexande r48 [facility][id number], [address] [place], [id number], 9 12:53:36 Patient TargetsNo targets recorded. Patient Instructions Encounter Date Encounter Id Patient Instructions Last Modified By Organization Details Last Modified Time 08/04/2018 [id number] 1. Although Robert marte has a history [...] Use warm compresses 8. F/u 3-4 weeks [email or web address] Not available 08/04/2018 17:42:02 01/28/2021 [id number] Patient is agreeable with this plan. She will follow up after MRI for recheck. [email or web address] Not available 01/29/2021 07:41:46 02/11/2021 [id number] Discussed conservative and surgical options with the [...] XR, shoul kristine, [facility] [address] [place] [address] Gaby plascencia Name: MEE plascencia : 07/18/18 [...] Grant huerta MD on 2020 10:54 AM [email or web address] [facility] [place] [address], [place], [address], 01/28/2021 12:27:36 02/08/20 21 02/07/2021 XR, arthr ogram , shoul kristine [facility] [address] [place] [address] [place] [address] Gaby plascencia Name: MEE plascencia : 07/18/18 [...] [address] [place] [address]- 1317-0 5) was combin ed with a 50 mL vial of Optira y 320 ([place] [address]- 1323-0 6). 12 mL of the mixtur [...] Grant huerta MD on 2020 10:33 AM [email or web address] [facility] [address] [place] [address], [place], [address], 02/07/2021 12:46:31 02/08/20 21 02/07/2021 MRI, chung carmona, w/ contr ast [address] [place] [address] Patielizabeth t Name: MEE Griffin t : [...] Grant huerta MD on 2020 11:51 AM [email or web address] [facility] [address] [place], [address], 02/07/2021 12:46:32 Result Notes Documentation Provider Name and Address Organization Details Recorded Time Xr, Shoulder, 2 Or More View : [facility] [place] [address] [place] [address] Patient Name: MEE TALBERT Patient : 1985 [...] Interpreted By: Scotty Ardon MD IBARRA PA-C [address] [place] [address], [phone], [facility] 01/28/2021 12:27:36 Xr, Arthrogram, Shoulder : [address] [address] Patient Name: MEE TALBERT Patient : 1985 [...] a 2 [place]ial [place] ([place] [address]-10) was combined with a 50 mL vial of Optiray 320 ([place] [address]-74). 12 mL of the mixture was injected into the patient. 1.75 mL of Gadavist and 38 mL of Optiray 320 was wasted and discarded. IMPRESSION: 1. The patient is status post left shoulder arthrogram prior to MRI without complication. Interpreted By: Scotty Ardon MD IBARRA PA-C [address] [place] [address], [phone], [facility] 02/07/2021 12:46:31 Mri, Shoulder, W/ Contrast : [address] [address] Patient Name: MEE TALBERT Patient : 1985 [...] Interpreted By: Scotty Ardon MD IBARRA PA-C [address] [place] [address], [phone], [facility] 02/07/2021 12:46:32 Problems No Known Problems Procedures Surgical History Date Name Laterality Status Provider Name and Address Organization Details Recorded Time 07/12/19 21 repair of urinary bladder completed NOEL IBARRA PA-C [address] [place], [address], [facility] 01/28/2021 09:44:49 08/05/19 Endoscopy Nasal; Diagnostic completed Korina Shea [facility] 08/04/2018 12:14:31 Appendectomy completed Hilary Mendoza [facility] 08/04/2018 10:36:25 cholecystectomy completed Hilary Mendoza [facility] 08/04/2018 10:36:33 tubal occlusion completed Hilary Mendoza [facility] 08/04/2018 10:36:54 hysterectomy completed Hilary Mendoza [facility] 08/04/2018 10:37:06 Imaging Results None recorded. Procedure Notes None recorded. Medical Equipment None Reported. Allergies Allergen ID Allergen Name Allergen Category Reaction Reaction Severity Criticality Documentation Date Start Date Code Code System Note Provider Name and Address Organization Details Recorded Time [id number] hydrocodo ne Not available Not available Not available Not available 08/04/2018 5489 RxNorm Hilary Mendoza [facility] 9 10:33:49 Medications Name Sig Start Date [...] Body height Body temperature Heart rate Systolic And Diastolic Provider Name and Address Organization Details Last Updated DateTime 9 40778.9 5 g 34.9 kg/m2 167.64 cm 98 [degF] 86 /min 129/92 mm[Hg] Hilary Mendoza [facility] 9 10:40:20 Date Recorded Body height Body mass index (BMI) Body weight Systolic And Diastolic Provider Name and Address Organization Details Last Updated DateTime 01/28/2021 167.64 cm 34.9 kg/m2 82146.95 g 130/86 mm[Hg] NOEL IBARRA PA-C [address] [place] [address], [phone], [facility] 01/28/2021 09:42:23 Date Recorded Body height Body mass index (BMI) Body weight Pain severity - 0-10 verbal numeric rating [Score] - Reported Systolic And Diastolic Provider Name and Address Organization Details Last Updated DateTime 02/11/2021 167.64 cm 38.3 kg/m2 048717.3 9 g 3 129/93 mm[Hg] Liz Shukla [facility] 13:24:11 Social History Question Answer Notes LastModified by Organizat ion Details LastModified Time Tobacco Smoking Status Never Smoker Hilary Mendoza [facility] 08/04/2018 10:36:14 What Is Your Level Of Caffeine Consumption? Moderate [email or web address] Information not available 02/11/2021 How Much Tobacco Do You Chew? None Information not available 08/04/2018 Which Of Your Hands Is Dominant? Right [email or web address] Information not available 02/11/2021 What Was The Date Of Your Most Recent Tobacco Screening? 08/04/2018 Information not available 04/05/2019 What Is Your Relationship Status? [email or web address] Information not available 02/11/2021 Do You Use Your Seat Belt Or Car Seat Routinely? Yes [email or web address] Information not available 02/11/2021 Have You Recently Traveled Abroad? No [email or web address] Information not available 02/11/2021 Sex: Unknown Functional Status Question Answer Note LastModified by Organizat ion Details LastModified Time What is your level of alcohol consumption? None [email or web address] Information not available 08/04/2018 Are you currently employed? 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 Family History Relationship Description Onset Age of this Age Resolved Age Notes LastModified by Organization Details LastModified Time Sister Family history of stroke [email or web address] Not available 2018 10:36:07 Medical History Condition Response Anesthesia Complications N Diabetes N Anxiety Disorder Y Acid Reflux (GERD) Y Bleeding Disorder N Cancer N Migraines Y Hypertension N Gynecological HistoryNo gynecological history recorded. Obstetrics History GPAL:G 0 P 0 0 0 0 Past Encounters Encounter ID Performer Location Encounter Start Date Encounter Closed Date Diagnosis/Indication Diagnosis SNOMED-CT Code Diagnosis ICD10 Code Diagnosis IMO Codes Diagnosis Note [id number] KOFI MIMS MD [place] [facility] [address] [place] [address] 08/04/2018 10:19:15 08/04/2018 13:14:56 Facial swelling 827814252 R22.0 ?etiology Methicilli n resistant Staphylococcus aureus infection 477304367 A49.02 Neck pain 72417499 M54.2 long history of recurrent right neck pain with possible etiologies including the cervical lymphadeni tis versus carotidyni a versus recurrent sinusitis -Two recent CT neck scan within the last 6 months at [facility] 03/18/18 and more recently at [facility] 07/02/18 showed either minimal sinus disease or were read as essential ly negative Chronic re current sinusitis 910777748 J32.9 5-6 antibiotic s since February for recurrent sinusitis -CT sinus at [facility] 03/18/18 showing mild to moderate mucosal thickening in the right ethmoid and right maxillary sinus with all other sinuses being clear Hypertroph y of nasal turbinates 52300215 J34.3 [id number] NOEL IBARRA PA-C [facility] [address] [address] 01/28/2021 09:18:54 01/28/2021 10:42:04 Pain of left shoulder joint 2352758661 5345394 M25.512 Ongoing pain in the left shoulder [...] PT referral until MRI results have returned. [id number] ISRAEL TURCIOS MD [facility] [address] [address] 02/11/2021 13:05:26 02/11/2021 14:18:24 Pain of right shoulder joint 6264397850 9113390 M25.511 Glenoid labrum tear 2022 51466 S43.431D Health Concerns Section Related Observation LastModified by Organization Detai ls LastModified Time None Recorded Concern Status LastModified by Organization Details LastModified Time None Recorded Advance Directives Directive None Recorded Payers Insurance Date Sequence Insurance Name Policy Number Policy Yip Covered Member ID Yip Member ID Guarantor Name 01/26/2021 1 [facility] Mee Gross [id number] Mee Panda Gross 08/12/2022 1 [employer] (POS) Mee Panda Gross [id number] Mee Panda Gross 04/19/2018 1 *SELF PAY* [...] ago. Mee had a CT sinus at [facility] 03/18/18 that showed mucosal thickening in the ethmoid sinuses bilaterally. She had a CT facial and [facility] 2018 that was read as essentially negative . She has not had any discolored drainage. She complains of right-sided facial pain that goes from her ear to her jaw to her eye. She takes Ibuprofen 800 mg every 6 hours for pain. She does not have a history of allergies. KOFI MIMS MD [address] [place] [address], [address] , [facility] 08/04/2018 17:44:07 021 text/ht ml PCP:SEEN FOR CONSULTATION AT THE REQUEST OF: previous patient WHAT: Left ShoulderWHERE: [place] WHEN: 01/24/21 How: TraumaticFell on blacktop with arm extended. [place] shoulder go backwords and arm popped. 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
== END 2025-01-17 23:59 | disposition home or self-care (01) ==
LOC: LAB.DROPOF 01-18 09:59
PROVIDERS: PCP Nurse Practitioner Family; Visit Provider Nurse Practitioner Family
DX: R69 Illness, unspecified (principal)

== ENCOUNTER 2025-02-13 16:40 | Outpatient (CLI) | payer BC, SELFPAY ==
[2025-02-13 18:45] LABS: Coronavirus 19, PCR Not Detected (NotDetected); Influenza A, PCR Not Detected (NotDetected); Influenza B, PCR Not Detected (NotDetected)
--- OUTSIDE RECORDS SUMMARY | 2025-02-14 10:06 | XMS_ITS | Clinical Summary ---
Author Organization [facility] Address [address] [place] [address] Care Team Providers Care Sign Out Clerk Name Role Phone Greer Donald APRN Primary Care Provider [phone] Allergies Active Allergy Reactions Criticality Noted Date [...] which she has symptoms and an abnormal [place] Sleepiness Scale. Home sleep study will be [...] 09/02/2022 12:48 PM EDT Plan of Treatment Upcoming Encounters Date Type Department Care Team (Late st Contact Info) Description 05/24/2025 10:30 AM EDT Office Visit [facility] SLEEP [facility]ICINE [address] [facility] [address] [place] [address] Too Galan MD [address] [place] [address] Health Maintenance Due Date Last Done Comments Annual Gynecologic Pelvic an d Breast Exam 1985 TDAP/TD VACCINES (1 - Tdap) 07/18/2002 ANNUAL PHYSICAL 06/20/2016 HEPATITIS C SCREENING 06/20/2016 MAMMOGRAM 2023 INFLUENZA VACCINE 09/16/2024 Pneumococcal Vaccine 0-49 Aged Out No longer eligible based on patient's age to complete this topic Insurance [facility] PPO Care Teams Sign Out Clerk Relationship Specialty Start Date End Date Greer Donald APRN [address] [place] [address] PCP - General Nurse Practitioner 01/31/25
--- OUTSIDE RECORDS SUMMARY | 2025-02-14 10:06 | XMS_ITS | Encounter Summary ---
Author Organization Healthcare Address [address] [place] [address] Care Team Providers Care Applications Processor Name Role Phone Unavailable Primary Care Provider Unavailabl e Encounter Details Date Type Department Care Team (Late st Contact Info) Description 07/27/2020 Refill [facility] [address] [place] [address] Ramesh Rosado MD [address] [place] [address] Social History Tobacco Use Types [...] as of this encounter Plan of Treatment Upcoming Encounters Date Type Department Care Team (Late st Contact Info) Description 07/28/2025 4:00 PM EDT Consult [place] [facility] [address], [address] [place] [address] Slava Fernández MD [address] [place] [address] documented as of this encounter Visit Diagnoses Not on filedocumented in this encounter
--- OUTSIDE RECORDS SUMMARY | 2025-02-14 10:06 | XMS_ITS | Encounter Summary ---
Author Organization [facility] Address [address] [place] [address] Care Team Providers Care Card Punching Machine Operator Name Role Phone Unavailable Primary Care Provider Unavailabl e Source Comments This information has been disclosed to you from confidential records protectfrom disclosure by state law. You shall make no further disclosure of thisinformation without the specific, written, and informed release of theindividual to whom it pertains, or as otherwise permitted by law. A generalauthorization for the release of medical or other information is not sufficientfor the purposes of the release of HIV test results or diagnoses. [id number] Reason for Referral * Physician/YARELIS (Urgent) - No Authorization Required Specialty Diagnoses / Procedures Referred By Contac t Referred To Contact Neurology Diagnoses Trigeminal neuralgia Karina Avery [address] [place] [address] [place] [address] Phone: tel: fax: Referral ID Status Reason Start Date Expiration Date Visits Requested Visits Authorized [id number] No Authorization Required 01/18/2025 07/17/2025 1 1 Encounter Details Date Type Department Care Team (Late st Contact Info) Description 01/18/2025 Orders Only [facility] [address] [place] [address] Karina Avery [address] [place] [address] [place] [address] Trigeminal neuralgia (Primary Dx) Social History Tobacco Use Types Packs/Day Years Used Date Smoking Tobacco: Never Assessed Comments Unknown Sex and Gender Information Value Date Recorded Sex Assigned at Not on file Legal Sex Female 3:09 PM EST Gender Identity Not on file Sexual Orientation Not on file documented as of this encounter Plan of Treatment Scheduled Referrals Name Type Priority Associated Diagnoses Orde r Schedule Other Headache/Facial Pain Outpatient Referral Routine Trigeminal neuralgia Ordered: 01/18/2025 documented as of this encounter Visit Diagnoses Diagnosis Trigeminal neuralgia- Primary documented in this encounter
--- OUTSIDE RECORDS SUMMARY | 2025-02-14 10:06 | XMS_ITS | Referral Summary ---
Author Organization [employer] ([place], [place], [place], [place], [place]) Address [address] [place] [address] Care Team Providers Care Mental Health Specialist Name Role Phone Wolfgang Cunningham MD Primary Care Provider [phone] Allergies Active Allergy Reactions Criticality Noted Date [...] Do you speak a language other than Estonian at [facility]? No 06/12/2023 Do you want [...] on file Medical Devices Implanted Type Area Fire Sprinkler Installer Device Identifier Shelf Expiration Date Model / Serial / Lot Loop Recorder-07/22/2022 Implanted:07/23/19 23 by Andres Stewart MD (Quantity not on file) LOOP RECORDER MEDTR[employer] LINQ II / [id number] / Description:07-21-23 RELEASED REMOTE MONITORING TO [facility] [place] Procedures Procedure Name Priority Date/Time Associated Diagnosis Comments LIPID PANEL Routine 06/12/2023 2:29 AM EDT from Last 3 Months or Most Recently Relevant to Health Maintenance Results * (ABNORMAL) Lipid panel (06/12/2023 2:29 AM EDT) Triglycerides 124 0 - 249 mg/dL 06/12/2023 3:35 AM EDT [facility] Cholesterol 172 0 - 199 mg/dL 06/12/2023 3:35 AM EDT [facility] Comment: 200 to 239 mg/dL = Moderate (borderline) >239 mg/dL = High HDL Cholesterol 39(L) >=40 mg/dL 06/12/2023 3:35 AM EDT [facility] Comment: >=60 mg/dL = Desirable <40 mg/dL = Increased Risk All other components are listed individually or are calculations VLDL Cholesterol 24.8 5 - 40 mg/dL 06/12/2023 3:35 AM EDT [facility] Cholesterol/HDL ratio 4.4(H) 0.0 - 3.2 06/12/2023 3:35 AM EDT [facility] LDl/HDL Ratio 3 0 - 4 06/12/2023 3:35 AM EDT [facility] RISK COMP 4 06/12/2023 3:35 AM EDT [facility] LDL Cholesterol, Calculated 108(H) 0 - 99 mg/dL 06/12/2023 3:35 AM EDT [facility] Blood Venipuncture / Unknown 06/12/2023 2:29 AM EDT 06/12/2023 2:55 AM EDT us Hannah Erwin PA-C LAB BLOOD ORDERABLES Final R esult [facility] [address] [phone] from Last 3 Months or Most Recently Relevant to [place] [id number] BLUE CROSS/BLUE SHIELD Advance Directives For more information, please contact: [phone] Documents on File Type Date Recorded Patient Escalator Operator Expl anation Advance Directives and Livin g [...] 3:28 PM 07/23/2022 4:25 AM Care Teams Mental Health Specialist Relationship Specialty Start Date End Date Wolfgang Cunningham MD PCP - General Family Medicine 06/12/23
--- OUTSIDE RECORDS SUMMARY | 2025-02-14 10:06 | XMS_ITS | Clinical Summary ---
Author Organization [facility] Address [address] [place] [address] Care Team Providers Care Segment Assembler Name Role Phone Unavailable Primary Care Provider [...] 12/30/2019 3:06 PM EST Plan of Treatment Upcoming Encounters Date Type Department Care Team (Late st Contact Info) Description 07/28/2025 4:00 PM EDT Consult [place] [facility] [address], [address] [place] [address] Slava Fernández MD [address] [place] [address] Health Maintenance Due Date Last Done Comments [facility]-Depression Screening 1985 [facility]-Infant/Child/Adol SDOH Screenings 1985 [facility]-Varicella Vaccines (1 of 2 - 13+ 2-dose series) 07/18/1996 [facility]- SDOH Screenings 07/18/2001 [facility]-Adult SDOH Screenings 07/18/2001 [facility]-DTaP,Tdap,and Td Vaccine s (1 - Tdap) 07/18/2002 [facility]-Hepatitis B Vaccines (1 of 3 - 19+ 3-dose series) 07/18/2002 [facility]-Pap Smear 07/18/2004 [facility]-Cervical Cancer Screening 07/18/2013 [facility]-HPV/Cotest 07/18/2013 [facility]-HQPPB-22 Vaccine (1 - 20 25-26 season) 2024 [facility]-Influenza Vaccine (#1) 2024 [facility]-Zoster Vaccines (1 of 2) 07/18/2033 HPV Vaccines (No Doses Required) Completed [facility]-HIB Vaccines Aged Out No longer e ligible based on patient's age to complete this topic [facility]-Hepatitis A Vaccines Aged Out No longer eligible based on patient's age to complete this topic [facility]-IPV Vaccines Aged Out No longer e ligible based on patient's age to complete this topic [facility]-Pneumococcal Vaccine: Pediatrics (0 to 5 Years) and At-Risk Patients (6 to 49 Years) Aged Out No long er eligible based on patient's age to complete this topic [facility]-Rotavirus Vaccines Aged Out No lo nger eligible based on patient's age to complete this topic Insurance Eloise MEJIA LUCILLE BELINDALINDA [place] [id number] [address]RIK
--- OUTSIDE RECORDS SUMMARY | 2025-02-14 10:06 | XMS_ITS | Clinical Summary ---
Author Organization [employer] ([place], [place], [place], [place], [place]) Address [address] [place] [address] Care Team Providers Care Neon Tube Bender Name Role Phone Wolfgang Cunningham MD Primary Care Provider [phone] Allergies Active Allergy Reactions Criticality Noted Date [...] Do you speak a language other than Nauruan at [place]? No 06/12/2023 Do you want help with [...] 07/18/2001 DTAP/TDAP/TD VACCINES (1 - Tdap) 07/18/2002 Pneumococcal Vaccine: 0-49 Years (1 of 2 - PCV) 2002 Pap Smear 07/18/2004 Breast Cancer Screening 2023 Tobacco Cessation Counseling and Screening (12+) 06/1106/12/2023 COVID-19 VACCINE ( season) 2024 Influenza Vaccine (#1) 2024 Lipid Panel 06/11/2026 06/12/2023 Medical Devices Implanted Type Area Concrete Mixing Truck Driver Device Identifier Shelf Expiration Date Model / Serial / Lot Loop Recorder-07/22/2022 Implanted:07/23/19 23 by Andres Stewart MD (Quantity not on file) LOOP RECORDER [employer] LINQ II / [id number] / Description:07-21-23 RELEASED REMOTE MONITORING TO [facility] [place] Procedures Procedure Name Priority Date/Time Associated Diagnosis Comments LIPID PANEL Routine 06/12/2023 2:29 AM EDT from Last 3 Months or Most Recently Relevant to Health Maintenance Results * (ABNORMAL) Lipid panel (06/12/2023 2:29 AM EDT) Triglycerides 124 0 - 249 mg/dL 06/12/2023 3:35 AM EDT [facility] Cholesterol 172 0 - 199 mg/dL 06/12/2023 3:35 AM T [facility] Comment: 200 to 239 mg/dL = Moderate (borderline) >239 mg/dL = High HDL Cholesterol 39(L) >=40 mg/dL 06/12/2023 3:35 AM EDT [facility] Comment: >=60 mg/dL = Desirable <40 mg/dL = Increased Risk All other components are listed individually or are calculations VLDL Cholesterol 24.8 5 - 40 mg/dL 06/12/2023 3:35 AM T [facility] Cholesterol/HDL ratio 4.4(H) 0.0 - 3.2 06/12/2023 3:35 AM EDT [facility] LDl/HDL Ratio 3 0 - 4 06/12/2023 3:35 AM EDT [facility] RISK COMP 4 06/12/2023 3:35 AM EDT [facility] LDL Cholesterol, Calculated 108(H) 0 - 99 mg/dL 06/12/2023 3:35 AM EDT [facility] Blood Venipuncture / Unknown 06/12/2023 2:29 AM EDT 06/12/2023 2:55 AM EDT Hannah Erwin PA-C LAB BLOOD ORDERABLES Final R esult [facility] [address] [id number] [phone] from Last 3 Months or Most Recently Relevant to Health Maintenance Insurance BLUE CROSS/BLUE SHIELD Advance Directives For more information, please contact: [phone] Documents on File Type Date Recorded Patient Prison Classification Counselor Expl anation Advance Directives and Livin g [...] 3:28 PM 07/23/2022 4:25 AM Care Teams Neon Tube Bender Relationship Specialty Start Date End Date Wolfgang Cunningham MD PCP - General Family Medicine 06/12/23
--- OUTSIDE RECORDS SUMMARY | 2025-02-14 10:06 | XMS_ITS | Clinical Summary ---
Author Organization [facility] Address [address] [place] [address] Care Team Providers Care Line Tester Name Role Phone Unavailable Primary Care Provider Unavailabl e Source Comments This information has been disclosed to you from confidential records protectedfrom disclosure by state law. You shall make no further disclosure of thisinformation without the specific, written, and informed release of theindividual to whom it pertains, or as otherwise permitted by law. A generalauthorization for the release of medical or other information is not sufficientfor the purposes of therelease of HIV test results or diagnoses. [id number] Encounters Date Type Department Care Team Description 01/18/2025 Orders Only [facility] [address] [place], [place] [id number] Karina Avery Trigeminal neuralgia (Primary Dx) from Last 3 Months Social History Tobacco Use Types Packs/Day Years Used Date Smoking Tobacco: Never Assessed Comments Unknown Sex and Gender Information Value Date Recorded Sex Assigned at Not on file Legal Sex Female 3:09 PM EST Gender Identity Not on file Sexual Orientation Not on file Plan of Treatment Not on file Insurance [facility] Address: [place] [address]
--- OUTSIDE RECORDS SUMMARY | 2025-02-14 10:06 | XMS_ITS | Data Portability ---
Author Organization [place] [facility] Address [address] [facility] [address] [place] [address] Care Team Providers Care Clay Washer Name Role Phone FELICITA BRIAN Tester Operator FELICITA BRIAN Referring Provider TREY DELACRUZ Primary [...] in a dose pack 2020 021 LEANDRO [facility] #[id number], [address], [place], [place], [id number], 10:23:27 Compound Gentamycin (120 mg/ 1000 mL normal saline) 2018 019 [email or web address] 9 Not available 9 11:48:09 mupirocin 2 % topical ointment 2018 019 [email or web address] r48 [facility] #[id number], [address] [place] [place], [id number], 9 12:53:36 Patient TargetsNo targets recorded. Patient Instructions Encounter Date Encounter Id Patient Instructions Last Modified By Organization Details Last Modified Time 08/04/2018 [id number] 1. Although Robert marte has a history [...] Use warm compresses 8. F/u 3-4 weeks [email or web address] Not available 08/04/2018 17:42:02 01/28/2021 [id number] Patient is agreeable with this plan. She will follow up after MRI for recheck. [email or web address] Not available 01/29/2021 07:41:46 02/11/2021 [id number] Discussed conservative and surgical options with the [...] XR, shoul kristine, 2 [facility] [address] [place] [address] Gaby plascencia Name: MEE plascencia : 07/18/18 [...] Grant huerta MD on 2020 10:54 AM [email or web address] [facility] [place] [address], [place], [address], 01/28/2021 12:27:36 02/08/20 21 02/07/2021 XR, arthr ogram , shoul kristine [facility] [address] [place] [address] [place] [address] Gaby plascencia Name: MEE plascencia : 07/18/18 [...] [address] [place] [address]- 1317-0 5) was combin ed with a 50 mL vial of Optira y 320 ([place] [address]- 1323-0 6). 12 mL of the mixtur [...] Grant huerta MD on 2020 10:33 AM [email or web address] [facility] [address] [place] [address], [place], [address], 02/07/2021 12:46:31 02/08/20 21 02/07/2021 MRI, chung carmona, w/ contr ast [address] [place] [address] Patielizabeth t Name: MEE Griffin t : [...] Grant huerta MD on 2020 11:51 AM [email or web address] [facility] [address] [place], [address], 02/07/2021 12:46:32 Result Notes Documentation Provider Name and Address Organization Details Recorded Time Xr, Shoulder, 2 Or More View : [facility] [place] [address] [place] [address] Patient Name: MEE TALBERT Patient : 1985 [...] Interpreted By: Scotty Ardon MD IBARRA PA-C [address] [place] [address], [address], [facility] 01/28/2021 12:27:36 Xr, Arthrogram, Shoulder : [address] [address] Patient Name: MEE TALBERT Patient : 1985 [...] a 2 [place]ial [place] [address]-78) was combined with a 50 mL vial of Optiray 320 ([place] [address]-79). 12 mL of the mixture was injected into the patient. 1.75 mL of Gadavist and 38 mL of Optiray 320 was wasted and discarded. IMPRESSION: 1. The patient is status post left shoulder arthrogram prior to MRI without complication. Interpreted By: Scotty Ardon MD IBARRA PA-C [address] [place] [address], [phone], [facility] 02/07/2021 12:46:31 Mri, Shoulder, W/ Contrast : [address] [address] Patient Name: MEE TALBERT Patient : 1985 [...] Interpreted By: Scotty Ardon MD IBARRA PA-C [address] [place] [address], [address], [facility] 02/07/2021 12:46:32 Problems No Known Problems Procedures Surgical History Date Name Laterality Status Provider Name and Address Organization Details Recorded Time 07/12/19 21 repair of urinary bladder completed NOEL IBARRA PA-C [address] [place], [address], [facility] 01/28/2021 09:44:49 08/05/19 Endoscopy Nasal; Diagnostic completed Korina Shea [facility] 08/04/2018 12:14:31 Appendectomy completed Hilary Mendoza [facility] 08/04/2018 10:36:25 cholecystectomy completed Hilary Mendoza [facility] 08/04/2018 10:36:33 tubal occlusion completed Hilary Mendoza [facility] 08/04/2018 10:36:54 hysterectomy completed Hilary Mendoza [facility] 08/04/2018 10:37:06 Imaging Results None recorded. Procedure Notes None recorded. Medical Equipment None Reported. Allergies Allergen ID Allergen Name Allergen Category Reaction Reaction Severity Criticality Documentation Date Start Date Code Code System Note Provider Name and Address Organization Details Recorded Time 762463 hydrocodo ne Not available Not available Not available Not available 08/04/2018 5489 RxNorm Hilary Mendoza [facility] 9 10:33:49 Medications Name Sig Start Date [...] Address Organization Details Last Updated DateTime 9 90347.9 5 g 34.9 kg/m2 167.64 cm 98 [degF] 86 /min 129/92 mm[Hg] Hilary Mendoza [facility] 9 10:40:20 Date Recorded Body height Body mass index (BMI) Body weight Systolic And Diastolic Provider Name and Address Organization Details Last Updated DateTime 01/28/2021 167.64 cm 34.9 kg/m2 20084.95 g 130/86 mm[Hg] NOEL IBARRA PA-C [address] [place] [address], [address], [facility] 01/28/2021 09:42:23 Date Recorded Body height Body mass index (BMI) Body weight Pain severity - 0-10 verbal numeric rating [Score] - Reported Systolic And Diastolic Provider Name and Address Organization Details Last Updated DateTime 02/11/2021 167.64 cm 38.3 kg/m2 478182.3 9 g 3 129/93 mm[Hg] Liz Shukla [facility] 13:24:11 Social History Question Answer Notes LastModified by Organizat ion Details LastModified Time Tobacco Smoking Status Never Smoker Hilary Mendoza [facility] 08/04/2018 10:36:14 What Is Your Level Of Caffeine Consumption? Moderate [email or web address] Information not available 02/11/2021 How Much Tobacco Do You Chew? None [email or web address] Information not available 08/04/2018 Which Of Your Hands Is Dominant? Right [email or web address] Information not available 02/11/2021 What Was The Date Of Your Most Recent Tobacco Screening? 08/04/2018 Information not available 04/05/2019 What Is Your Relationship Status? [email or web address] Information not available 02/11/2021 Do You Use Your Seat Belt Or Car Seat Routinely? Yes Information not available 02/11/2021 Have You Recently Traveled Abroad? No [email or web address] Information not available 02/11/2021 Sex: Unknown Functional Status Question Answer Note LastModified by Organizat ion Details LastModified Time What is your level of alcohol consumption? None [email or web address] Information not available 08/04/2018 Are you currently employed? 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 Family History Relationship Description Onset Age of this Age Resolved Age Notes LastModified by Organization Details LastModified Time Sister Family history of stroke [email or web address] Not available 2018 10:36:07 Medical History Condition [...] ICD10 Code Diagnosis IMO Codes Diagnosis Note [id number] KOFI MIMS MD [place] [facility] [address] [place] [address] 08/04/2018 10:19:15 08/04/2018 13:14:56 Facial swelling 714206863 R22.0 ?etiology Methicilli n resistant Staphylococcus aureus infection 359279714 A49.02 Neck pain 39148662 M54.2 long history of recurrent right neck pain with possible etiologies including the cervical lymphadeni tis versus carotidyni a versus recurrent sinusitis -Two recent CT neck scan within the last 6 months at [facility] 03/18/18 and more recently at [facility] 07/02/18 showed either minimal sinus disease or were read as essential ly negative Chronic re current sinusitis 350314937 J32.9 5-6 antibiotic s since February for recurrent sinusitis -CT sinus at [facility] 03/18/18 showing mild to moderate mucosal thickening in the right ethmoid and right maxillary sinus with all other sinuses being clear Hypertroph y of nasal turbinates 04775347 J34.3 [id number] NOEL IBARRA PA-C [facility] [address] [place] [address] 01/28/2021 09:18:54 01/28/2021 10:42:04 Pain of left shoulder joint 4372847746 5507912 M25.512 Ongoing pain in the left shoulder [...] PT referral until MRI results have returned. [id number] ISRAEL TURCIOS MD [facility] [address] [place] [address] 02/11/2021 13:05:26 02/11/2021 14:18:24 Pain of right shoulder joint 7471602141 1196124 M25.511 Glenoid labrum tear 2022 80326 S43.431D Health Concerns Section Related Observation LastModified by Organization Detai ls LastModified Time None Recorded Concern Status LastModified by Organization Details LastModified Time None Recorded Advance Directives Directive None Recorded Payers Insurance Date Sequence Insurance Name Policy Number Policy Yip Covered Member ID Yip Member ID Guarantor Name 01/26/2021 1 [facility] Mee Gross [id number] Mee Panda Gross 08/12/2022 1 [employer] (POS) Mee Panda Gross [id number] Mee aPnda Gross 04/19/2018 1 *SELF PAY* Eulalio Talbert [...] ago. Mee had a CT sinus at [facility] 03/18/18 that showed mucosal thickening in the ethmoid sinuses bilaterally. She had a CT facial and neck scan at [facility] in June 2018 that was read as essentially negative . She has not had any discolored drainage. She complains of right-sided facial pain that goes from her ear to her jaw to her eye. She takes Ibuprofen 800 mg every 6 hours for pain. She does not have a history of allergies. KOFI MIMS MD [address] [place] [address], [address] , [facility] 08/04/2018 17:44:07 021 text/ht ml PCP:SEEN FOR CONSULTATION AT THE REQUEST OF: previous patient WHAT: Left ShoulderWHERE: [place] WHEN: 01/24/21 How: TraumaticFell on blacktop with arm extended. [place]ck[place] shoulder go backwords and arm popped. 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
== END 2025-02-13 23:59 | disposition home or self-care (01) ==
LOC: LAB.DROPOF 02-14 09:55
PROVIDERS: PCP Nurse Practitioner Family; Visit Provider Nurse Practitioner Family
DX: J02.9 Acute pharyngitis, unspecified (principal); R05.9 Cough, unspecified
CPT/HCPCS: 87070; 87631